=== PATIENT | female | born 1970 | race American Indian/Alaskan Native ===

== ENCOUNTER 2018-08-14 06:39 | Inpatient (IN) | payer BC, MEDICAID, SELFPAY ==
--- NOTE | 2018-08-14 07:11 | XRay Report ---
PROCEDURE: XR CHEST 1V AP TECHNIQUE: A portable upright view of the chest was obtained. HISTORY: Chest Pain COMPARISONS: None FINDINGS: The heart is mildly enlarged. The lungs are not overtly congested. There is scarring along the right lung base. A small right-sided effusion cannot be excluded. The surrounding bones and soft tissues ot herwise reveal a stent in the left upper arm area. IMPRESSION: Scarring in the right lung base. Small effusion cannot be excluded. This document is electronically signed by Lisandro Walters MD., August 14 2018 07:09:38 AM ET
[2018-08-14 07:13] LABS: Basophils # (Auto) 0.1 K/mm3 (0.0-0.1); Basophils % (Auto) 0.9 % (0.0-1.8); Eosinophils # (Auto) 0.2 K/mm3 (0.0-0.4); Eosinophils % (Auto) 2.4 % (0.0-4.3); Hematocrit 33.6 % (30.3-42.9); Lymphocytes # (Auto) 1.4 K/mm3 (1.2-5.4); Lymphocytes % (Auto) 16.5 % (13.4-35.0); Mean Corpuscular HGB Conc 33 % (30-34); Mean Corpuscular Volume 105 fl (79-97); Monocytes % (Auto) 12.2 % (0.0-7.3); Platelet Count 176 K/mm3 (140-440); Red Blood Count 3.19 M/mm3 (3.65-5.03); Red Cell Distribution Width 15.1 % (13.2-15.2)
[2018-08-14] MEDS ORDERED: BABY ASPIRIN PO ONE (07:28)
--- NOTE | 2018-08-14 07:28 | Emergency Department Report ---
ED General Adult HPI - General Chief complaint: Chest Pain Stated complaint: CHEST PAIN Time Seen by Provider: 08/14/18 07:03 Source: EMS Mode of arrival: Stretcher Limitations: No Limitations - History of Present Illness Initial comments: The patient presents to the emergency department with chief complaint of chest pain that started upon awakening this morning at 5 AM. The chest pain is located in the center of her chest without radiation. The patient is a dialysis patient and presented to dialysis this morning with a noticeable blood pressure was elevated with a systolic pressure began over 200 and a diastolic pressure of greater than 100. Patient states that she did not take her blood pressure medications this morning. Patient had one nitroglycerin with mild relief of chest pain. -: Sudden Location: chest Radiation: non-radiation Severity scale (0 -10): 10 Quality: other (Pressure) Improves with: medication (Nitro) Worsens with: none Associated Symptoms: denies other symptoms Treatments Prior to Arrival: none - Related Data Home Medications Medication Instructions Recorded Confirmed Last Taken Sevelamer HCl [Renagel] 800 mg PO TIDWM 03/23/16 03/26/16 03/23/16 06:00 hydrALAZINE [Apresoline TAB] 100 mg PO TID 03/23/16 03/26/16 03/23/16 06:00 oxyCODONE /ACETAMINOPHEN [Percocet 1 tab PO Q6HR PRN 03/23/16 03/26/16 Unknown 5/325 mg] Previous Rx's Medication Instructions Recorded Last Taken Type Carvedilol [Coreg] 25 mg PO BID #60 tablet 03/28/16 Unknown Rx Famotidine [Pepcid] 20 mg PO BID #20 tablet 03/28/16 Unknown Rx Prednisone [predniSONE 10 mg 10 mg PO .TAPER #1 tab.ds.pk 03/28/16 Unknown Rx (6-Day Pack, 21 Tabs)] Allergies Allergy/AdvReac Type Severity Reaction Status Date / Time lisinopril Allergy Angioedema Verified 03/26/16 20:43 ED Review of Systems ROS: Stated complaint: CHEST PAIN Other details as noted in HPI Constitutional: denies: chills, fever Eyes: denies: eye pain, eye discharge, vision change ENT: denies: ear pain, throat pain Respiratory: denies: cough, shortness of breath, wheezing Cardiovascular: chest pain. denies: palpitations Endocrine: no symptoms reported Gastrointestinal: denies: abdominal pain, nausea, diarrhea Genitourinary: denies: urgency, dysuria, discharge Musculoskeletal: denies: back pain, joint swelling, arthralgia Skin: denies: rash, lesions Neurological: denies: headache, weakness, paresthesias Psychiatric: denies: anxiety, depression Hematological/Lymphatic: denies: easy bleeding, easy bruising ED Past Medical Hx - Past Medical History Previous Medical History?: Yes Hx Hypertension: Yes Hx Congestive Heart Failure: Yes Hx Renal Disease: Yes (tts dialysis) Hx Kidney Stones: Yes Additional medical history: fibroids; kidney disease, migraine - Surgical History Past Surgical History?: Yes Hx Cholecystectomy: Yes Additional Surgical History: portion of right lung removed. shunt left upper arm, permacath right chest - Social History Smoking Status: Light Tobacco Smoker Substance Use Type: None - Medications Home Medications: Home Medications Medication Instructions Recorded Confirmed Last Taken Type Sevelamer HCl [Renagel] 800 mg PO TIDWM 03/23/16 03/26/16 03/23/16 06:00 History hydrALAZINE [Apresoline TAB] 100 mg PO TID 03/23/16 03/26/16 03/23/16 06:00 History oxyCODONE /ACETAMINOPHEN [Percocet 1 tab PO Q6HR PRN 03/23/16 03/26/16 Unknown History 5/325 mg] Carvedilol [Coreg] 25 mg PO BID #60 tablet 03/28/16 Unknown Rx Famotidine [Pepcid] 20 mg PO BID #20 tablet 03/28/16 Unknown Rx Prednisone [predniSONE 10 mg 10 mg PO .TAPER #1 tab.ds.pk 03/28/16 Unknown Rx (6-Day Pack, 21 Tabs)] ED Physical Exam - General Limitations: No Limitations General appearance: alert, in no apparent distress - Head Head exam: Present: atraumatic, normocephalic - Eye Eye exam: Present: normal appearance, PERRL, EOMI - ENT ENT exam: Present: mucous membranes moist - Neck Neck exam: Present: normal inspection - Respiratory Respiratory exam: Present: normal lung sounds bilaterally. Absent: respiratory distress, wheezes, rales, rhonchi, stridor - Cardiovascular Cardiovascular Exam: Present: regular rate, normal rhythm. Absent: systolic murmur, diastolic murmur, rubs, gallop - GI/Abdominal GI/Abdominal exam: Present: soft, normal bowel sounds. Absent: distended, tenderness - Extremities Exam Extremities exam: Present: normal inspection - Back Exam Back exam: Present: normal inspection - Neurological Exam Neurological exam: Present: alert, oriented X3, CN II-XII intact. Absent: motor sensory deficit - Psychiatric Psychiatric exam: Present: normal affect, normal mood - Skin Skin exam: Present: warm, dry, intact, normal color. Absent: rash ED Course Vital Signs 08/14/18 08/14/18 08/14/18 06:45 07:30 08:00 Temperature 98.4 F Pulse Rate 92 H 84 81 Respiratory 18 16 Rate Blood Pressure 205/109 196/122 191/120 O2 Sat by Pulse 98 99 100 Oximetry 08/14/18 08/14/18 08:02 08:36 Temperature Pulse Rate Respiratory 16 Rate Blood Pressure 194/116 O2 Sat by Pulse Oximetry ED Medical Decision Making - Lab Data Result diagrams: 08/14/18 07:03 08/14/18 07:03 - EKG Data -: EKG Interpreted by Al EKG shows normal: sinus rhythm Rate: normal - EKG Data Interpretation: LVH - Radiology Data Radiology results: report reviewed - Medical Decision Making Patient given IV hydralazine for her elevated blood pressure Bleeding factors were reviewed and the patient denies blood in stool, recent surgery,recent head bleed IV heparin initiated Critical Care Time: Yes Critical care time in (mins) excluding proc time.: 35 Critical care attestation.: If time is entered above; I have spent that time in minutes in the direct care of this critically ill patient, excluding procedure time. ED Disposition Clinical Impression: Chest pain, ESRD (end stage renal disease), Hypertensive urgency Disposition: OP ADMIT IP TO THIS HOSP Is pt being admited?: Yes Does the pt Need Aspirin: No Condition: Fair Instructions: Chest Pain (ED) Referrals: SAURAV HNASEN MD [Primary Care Provider] - 3-5 Days
[2018-08-14] MEDS ORDERED: NITROSTAT SL PRN (07:29)
[2018-08-14 07:33] LABS: Calcium 10.7 mg/dL (8.4-10.2)
[2018-08-14 07:40] LABS: INR 0.95 (0.87-1.13)
[2018-08-14 07:53] LABS: Alanine Aminotransferase 10 units/L (7-56); Albumin 3.8 g/dL (3.9-5)
[2018-08-14] MEDS ORDERED: HEPARIN 10,000 UNITS/10 ML IV ONE (08:22)
[2018-08-14] MEDS ORDERED: APRESOLINE IV ONE (08:23)
[2018-08-14 08:38] LABS: Chol/HDL Ratio 2.72 %
[2018-08-14 08:47] LABS: Hematocrit 32.4 % (30.3-42.9); Hemoglobin 10.9 gm/dl (10.1-14.3)
[2018-08-14 08:59] LABS: INR 0.96 (0.87-1.13)
[2018-08-14 09:00] LABS: Partial Thromboplastin Time 30.3 Sec. (24.2-36.6)
[2018-08-14] MEDS ORDERED: HEPARIN/ 0.45% NACL-25,000 UNIT/500 ML 25,000 UNIT/500 ML BAG IV SCH ×2 (09:00→09:30)
[2018-08-14 09:09] LABS: Bilirubin,Direct < 0.2 mg/dL (0-0.2)
--- NOTE | 2018-08-14 09:10 | History and Physical Report ---
History of Present Illness Date of examination: 08/14/18 Date of admission: 08/14/18 08:29 Chief complaint: Chest pains History of present illness: Patient is a 47 yo woman with a history of hypertension, AOCD of renal disease, angioedema from Lisinopril, ESRD on HD TTS, Secondary hyperparathyroidism, migraines, CHF and thyroid disease who presents to [facility] ED with chest pains. Patient has been experiencing chest pains off and on for 1-2 weeks associated with constant nonproductive cough. However, she woke up with severe constant worsening nonradiating substernal chest pains around 5am this morning. She went to hemodialysis center and her bp was so high that they sent her to ED. Patient states that she did not take her blood pressure medications this morning. Patient had one nitroglycerin en route to the ED with mild relief of chest pains. Currently, she is chest pains free. The chest pains is aggravated by coughing. She denies fevers, chills. She c/o abd pains associated with constant coughing but denies constipation, diarrhea. She did have dry heaves with excessive coughing. She reports high stress at home and not taking her thyroid medication as instructed. PMH: as HPI PSH: right lung partial removed, s/p permacath, tubal ligation, lap levon, LUE AV fistula, 4 kids SH: ex tob smoker, quit 2014, no etoh, no illegal drugs except marijuana FH: hypertension, maternal aunt had esrd, hypertension, dm prior to her in 2017, mom in a drive-by shooting, she doesn't know father's family history ROS: Constitutional: denies: fever ENT: denies: throat or neck pain Respiratory: + cough, shortness of breath Cardiovascular: +chest pain Endocrine: denies unexplained weight loss or gain Gastrointestinal: + abdominal pain, nausea Genitourinary: denies: dysuria Rectal: denies no incontinence, no bleeding, no itching, no discharge Musculoskeletal: denies swelling, myaglia, muscle weakness Skin: denies: rash Neurological: +frontal mild headache Hematological/Lymphatic: denies: easy bleeding or easy bruising Allergic/Immunologic: no urticaria, no allergic rhinitis, no anaphylaxis Psych: denies sadness or hopelessness, SI/HI +stress Medications and Allergies Allergies Allergy/AdvReac Type Severity Reaction Status Date / Time lisinopril Allergy Angioedema Verified 03/26/16 20:43 Home Medications Medication Instructions Recorded Confirmed Last Taken Type Sevelamer HCl [Renagel] 800 mg PO TIDWM 03/23/16 03/26/16 03/23/16 06:00 History hydrALAZINE [Apresoline TAB] 100 mg PO TID 03/23/16 03/26/16 03/23/16 06:00 History oxyCODONE /ACETAMINOPHEN [Percocet 1 tab PO Q6HR PRN 03/23/16 03/26/16 Unknown History 5/325 mg] Carvedilol [Coreg] 25 mg PO BID #60 tablet 03/28/16 Unknown Rx Famotidine [Pepcid] 20 mg PO BID #20 tablet 03/28/16 Unknown Rx Prednisone [predniSONE 10 mg 10 mg PO .TAPER #1 tab.ds.pk 03/28/16 Unknown Rx (6-Day Pack, 21 Tabs)] Active Meds: Active Medications Heparin Sodium/Sodium Chloride (Heparin/ 0.45% Nacl-25,000 Unit/500 Ml) 25,000 unit in 500 mls @ 17.01 mls/hr IV TITRATE TIMUR; Protocol Last Admin: 08/14/18 08:54 Dose: 15 units/kg/hr, 17.01 mls/hr Documented by: Nitroglycerin (Nitrostat) 0.4 mg SL .Q5MIN PRN PRN Reason: Chest Pain Exam - Physical Exam Narrative exam: GEN: thin frail, WDWN, NAD, Awake, Alert, Orientated x 3 HEENT: NCAT, EOMI, PERRL, OP Clear NECK: supple, no adenopathy, + thyromegaly, no JVD CVS/HEART: RRR, normal S1S2, pulses present bilaterally CHEST/LUNGS: CTA B, Symmetrical chest expansion, good air entry bilaterally, reproducible chest wall substernal tenderness (grimaces with pains as she says palpation doesn't hurt) GI/Abdomen: soft, NTND, good bowel sounds, no guarding or rebound /Bladder: no suprapubic tenderness, no CVA or paraspinal tenderness EXT/Skin: no c/c/e, no obvious rash MSK: FROM x 4 Neuro: CN 2-12 grossly intact, no new focal deficits Psych: calm - Constitutional Vitals: Temp Pulse Resp BP Pulse Ox 98.4 F 81 16 194/116 100 08/14/18 06:45 08/14/18 08:00 08/14/18 08:02 08/14/18 08:36 08/14/18 08:00 Results - Labs CBC & Chem 7: 08/14/18 08:27 08/14/18 07:03 Labs: Abnormal lab results 08/14/18 08/14/18 08/14/18 Range/Units 07:03 07:03 07:03 RBC 3.19 L (3.65-5.03) M/mm3 MCV 105 H (79-97) fl MCH 35 H (28-32) pg [place] % (Auto) 12.2 H (0.0-7.3) % [place] # 1.0 H (0.0-0.8) K/mm3 Chloride 96.6 L (98-107) mmol/L BUN 57 H (7-17) mg/dL Creatinine 11.3 H (0.7-1.2) mg/dL Calcium 10.7 H (8.4-10.2) mg/dL Phosphorus 6.00 H (2.5-4.5) mg/dL Magnesium 2.60 H (1.7-2.3) mg/dL Troponin T 0.387 H* (0.00-0.029) ng/mL Albumin 3.8 L (3.9-5) g/dL Assessment and Plan Patient is a 47 yo woman with a history of hypertension, AOCD of renal disease, angioedema from Lisinopril, ESRD on HD TTS, Secondary hyperparathyroidism, migraines, diastolic CHF and ?thyroid disease who presents to [facility] ED with chest pains. Patient has been experiencing chest pains off and on for 1-2 weeks associated with constant nonproductive cough. However, she woke up this morning with severe constant worsening nonradiating substernal chest pains around 5am. She went to hemodialysis center and her bp was so high that they sent her to ED (>200s/100s). She did not receive HD prior to coming. Patient states that she did not take her blood pressure medications this morning. Patient had one nitroglycerin en route to the ED with mild relief of chest pains. Currently, she is chest pains free. The chest pains is aggravated by coughing. She denies fevers, chills. She c/o abd pains associated with constant coughing but denies constipation, diarrhea. She did have dry heaves with excessive coughing. She reports high stress at home and not taking her thyroid medication as instructed. * pCXR Impression: Scarring in the right lung base, small effusion (right base) cannot be excluded -Chest pains, appears atypical, msk/costochondritis but elevated troponins: Consulted Cardiology, repeat Aiyana, ekg, IV heparin drip started due to elevated troponin, patient has chronically elevated troponin but not this high, EKG reviewed -Malignant hypertension with Urgency, did not respond to multiple iv hydralazine, needing admission: need HD, consulted Nephrology -ESRD on HD: missed HD today, consulted Renal -Goiter, normal TSH: check free T4, total T3 -Cough with small pleural effusion: possible increase ultrafiltration with HD, treat with anti-tussive -History of Diastolic heart failure, last ECHO in 2014, EF 70%: repeat 2D ECHO -DVT prophylaxis: sq heparin HOME meds reconciliation not updated
[2018-08-14] MEDS ORDERED: NORMODYNE IV PRN (09:27)
[2018-08-14] MEDS ORDERED: APRESOLINE IV PRN (09:27)
[2018-08-14] MEDS ORDERED: ZOFRAN IV PRN (09:27)
[2018-08-14] MEDS ORDERED: ROBITUSSIN AC PO PRN (09:28)
[2018-08-14] MEDS ORDERED: COREG PO SCH (10:00)
[2018-08-14] MEDS ORDERED: COREG ONE (11:48)
--- NOTE | 2018-08-14 11:53 | Consultation ---
History of Present Illness Consult date: 08/14/18 Consult reason: chest pain, elevated troponin History of present illness: The patient is a 47-year-old woman with end-stage renal disease on hemodialysis, chronic hypertension. In 2014, she was described with fluid overload and heart failure with preserved ejection fraction. It's unclear if the fluid overload was associated with missed dialysis or hypertensive urgency at the time. She underwent a cardiac workup by the time, echocardiogram report of the left ventricle ejection fraction 70-75%, and thallium stress test was reported negative. Otherwise there have been no additional cardiac issues, she has not maintained a regular cardiac follow-up. She is admitted at this time with chest pain. She describes a sternal chest pain which is nonexertional, and his reproducible with palpation over the sternum, no associated shortness of breath, no palpitations and no lower extremity edema. She reports that this pain has been ongoing for a "long time". EKG is in normal sinus rhythm with left ventricular hypertrophy and nonspecific T-wave changes, no acute ischemia or infarction on the ECG. The troponin levels that were measured were elevated, at 0.3, serial levels were flat Past History Past Medical History: heart failure, hypertension, renal failure Medications and Allergies Allergies Allergy/AdvReac Type Severity Reaction Status Date / Time lisinopril Allergy Angioedema Verified 03/26/16 20:43 Home Medications Medication Instructions Recorded Confirmed Last Taken Type NIFEdipine XL [Procardia Xl] 60 mg PO Q12HR 08/14/18 08/14/18 08/13/18 History Omeprazole 40 mg PO DAILY 08/14/18 08/14/18 08/13/18 History Ondansetron [Zofran Odt] 4 mg PO Q8HR 08/14/18 08/14/18 08/13/18 History Active Meds: Active Medications Acetaminophen (Tylenol) 650 mg PO Q6H PRN PRN Reason: Non Cardiac Pain or Temp>100.5 Aspirin (Baby Aspirin) 81 mg PO QDAY TIMUR Benzonatate (Tessalon Perles) 100 mg PO Q8HR TIMUR Carvedilol (Coreg) 6.25 mg PO BID TIMUR Hydralazine HCl (Apresoline) 10 mg IV Q4HR PRN PRN Reason: HTN SBP>=180 NIKKI>=110 Heparin Sodium/Sodium Chloride (Heparin/ 0.45% Nacl-25,000 Unit/500 Ml) 25,000 unit in 500 mls @ 16 mls/hr IV TITRATE TIMUR; Protocol Last Admin: 08/14/18 11:09 Dose: 800 units/hr, 16 mls/hr Documented by: Labetalol HCl (Normodyne) 10 mg IV Q4H PRN PRN Reason: HTN SBP>=180 Nifedipine (Procardia Xl) 60 mg PO Q12HR TIMUR Nitroglycerin (Nitrostat) 0.4 mg SL .Q5MIN PRN PRN Reason: Chest Pain Ondansetron HCl (Zofran) 4 mg IV Q4H PRN PRN Reason: Nausea And Vomiting Pseudoephedrine/Acetam/Chlorphenir (Robitussin Ac) 15 ml PO Q4H PRN PRN Reason: Cough Review of Systems Cardiovascular: chest pain, no orthopnea, no palpitations, no rapid/irregular heart beat, no edema, no syncope, no lightheadedness, no shortness of breath Physical Examination Vital Signs Temp Pulse BP Pulse Ox 98.4 F 92 H 205/109 98 08/14/18 06:45 08/14/18 06:45 08/14/18 06:45 08/14/18 06:45 General appearance: no acute distress HEENT: Positive: PERRL Neck: Positive: neck supple Cardiac: Positive: Reg Rate and Rhythm Lungs: Positive: Decreased Breath Sounds Neuro: Positive: Grossly Intact Abdomen: Positive: Soft Female genitourinary: deferred Skin: Positive: Clear Extremities: Absent: edema Results 08/14/18 08:27 08/14/18 07:03 Cardiac Enzymes 08/14/18 Range/Units 07:03 AST 17 (5-40) units/L Coagulation 08/14/18 08/14/18 Range/Units 07:20 08:27 PT 13.2 13.4 (12.2-14.9) Sec. INR 0.95 0.96 (0.87-1.13) APTT 30.0 30.3 (24.2-36.6) Sec. Lipids 08/14/18 Range/Units 07:03 Triglycerides 75 (2-149) mg/dL Cholesterol 158 (50-199) mg/dL HDL Cholesterol 58 (40-59) mg/dL Cholesterol/HDL Ratio 2.72 % CBC 08/14/18 08/14/18 Range/Units 07:03 08:27 WBC 8.4 (4.5-11.0) K/mm3 RBC 3.19 L (3.65-5.03) M/mm3 Hgb 11.0 10.9 (10.1-14.3) gm/dl Hct 33.6 32.4 (30.3-42.9) % Plt Count 176 161 (140-440) K/mm3 Lymph # 1.4 (1.2-5.4) K/mm3 [place] # 1.0 H (0.0-0.8) K/mm3 Eos # 0.2 (0.0-0.4) K/mm3 Baso # 0.1 (0.0-0.1) K/mm3 Comprehensive Metabolic Panel 08/14/18 08/14/18 Range/Units 07:03 07:03 Sodium 137 (137-145) mmol/L Potassium 4.5 (3.6-5.0) mmol/L Chloride 96.6 L (98-107) mmol/L Carbon Dioxide 27 (22-30) mmol/L BUN 57 H (7-17) mg/dL Creatinine 11.3 H (0.7-1.2) mg/dL Glucose 89 (65-100) mg/dL Calcium 10.7 H (8.4-10.2) mg/dL Direct Bilirubin < 0.2 (0-0.2) mg/dL Indirect Bilirubin 0.1 mg/dL AST 17 (5-40) units/L ALT 10 (7-56) units/L Alkaline Phosphatase 70 (35-129) units/L Total Protein 7.0 (6.3-8.2) g/dL Albumin 3.8 L (3.9-5) g/dL EKG interpretations - Telemetry EKG Rhythm: Sinus Rhythm Assessment and Plan - Patient Problems (1) Chest pain Current Visit: Yes Status: Acute Plan to address problem: Chest pain is atypical, appears likely musculoskeletal. The isolated troponin elevation may likely be a nonspecific finding, elevation due to chronic renal disease. We'll get an echocardiogram for left ventricular function assessment, and consider a pre-discharge Persantine thallium stress test.
[2018-08-14] MEDS: PROCARDIA XL PO SCH ×2 (12:07→21:11)
[2018-08-14] MEDS ORDERED: APRESOLINE ONE (13:00)
[2018-08-14] MEDS ORDERED: NORMODYNE IV ONE (13:19)
[2018-08-14] MEDS ORDERED: CATAPRES PO PRN (13:23)
[2018-08-14] MEDS: IMDUR PO SCH (13:49)
[2018-08-14] MEDS ORDERED: NACL 0.9% 100 ML IV PRN (13:53)
--- NOTE | 2018-08-14 13:55 | Consultation ---
History of Present Illness - History of Present Illness Thank you for the consultation ! Patient was evaluated today My assessment and plan are as follows; End-stage renal disease: Patient is currently admitted for hemodialysis noted to have mild fluid overload and chest pain status post cardiology evaluation We'll place her on hemodialysis Monday, , Monday malfunctioning fistula, discussed with Dr. Resendiz to see her We'll order for hemodialysis treatment. Follwo up CXR , follw cardiology evaluation Hypertension: Appears to be accelerated with mild tachycardia,? Compliance, adjust blood pressure medication and follow Chronic long-standing hypertension. She is 2015 Admitted with chest pain which was nonexertional in nature and was reproducible. Status post, cardiology evaluation Patient is allergic to ROHIT inhibitor, which gives her angioedema and hence should be avoided As her dialysis labs are concerned, her hemoglobin is satisfactory at 10.9, potassium is 4.5, BUN of 57 and creatinine is 11. Patient was adequately counseled and educated regarding multiple renal related issues. overall prognosis remains guarded at this time All renal related questions were answered and simple [place]ian pertinent lab studies as well as imaging results were also discussed with patient We will continue to follow and make recommendations from renal standpoint. Thank you for the consultation Author: Karlos Anderson M.D. [facility], [address] [place] [address] Tel; [phone] Source of information: From patient History of present illness Patient is a 47-year-old -Syrian female who is currently on maintenance hemodialysis and does go to [facility] patient has been admitted here for workup chest pain. She is currently being followed by cardiology, workup is in progress she is also in need for renal replacement therapy today, patient stated that she has been having issues with her left arm access and was supposed to see a vascular surgeon at [place] were due to distance involved but is difficult for her to go there and patient is requesting to have a surgeon see her while she is here in the hospital. Often time patient will have significant pain and pain during dialysis with her current left arm access I also came to see an marketing sales supervisor and hemodialysis. Past medical history significant for End-stage renal disease Anemia and end-stage renal disease Secondary hyperparathyroidism Hypertension Current allergies: Lisinopril Home medication present medication: Reviewed Family history: Reviewed Social history: Reviewed Review of systems positive for chest pain Painful access needs evaluation All other review of system negative Physical examination Vitals: Reviewed General: No acute distress HEENT: Oral mucosa moist no pallor or icterus Neck: Supple without any JVD thyromegaly or nodular mass Chest: Clear to auscultation Heart: Regular rate and rhythm S1-S2 heard no S3-S4 fistula: Appears to be tense and tender Abdomen: Soft nontender, bowel sounds present no renal bruit no suprapubic masses no CVA tenderness noted Extremity: Minimal edema dry skin no peripheral cyanosis Endocrine: Thyroid not enlarged Psychiatric: No agitation and aggression noted Musculoskeletal: No joint effusion noted Labs and x-rays: Reviewed from this admission Past History Past Medical History: heart failure, hypertension, renal failure Medications and Allergies Allergies Allergy/AdvReac Type Severity Reaction Status Date / Time lisinopril Allergy Angioedema Verified 03/26/16 20:43 Home Medications Medication Instructions Recorded Confirmed Last Taken Type NIFEdipine XL [Procardia Xl] 60 mg PO Q12HR 08/14/18 08/14/18 08/13/18 History Omeprazole 40 mg PO DAILY 08/14/18 08/14/18 08/13/18 History Ondansetron [Zofran Odt] 4 mg PO Q8HR 08/14/18 08/14/18 08/13/18 History Active Meds: Active Medications Acetaminophen (Tylenol) 650 mg PO Q6H PRN PRN Reason: Non Cardiac Pain or Temp>100.5 Aspirin (Baby Aspirin) 81 mg PO QDAY TIMUR Benzonatate (Tessalon Perles) 100 mg PO Q8HR [facility] Carvedilol (Coreg) 6.25 mg PO BID [facility] Last Admin: 08/14/18 12:06 Dose: 6.25 mg Documented by: Clonidine HCl (Catapres) 0.1 mg PO Q4H PRN PRN Reason: Blood Pressure Hydralazine HCl (Apresoline) 10 mg IV Q4HR PRN PRN Reason: HTN SBP>=180 NIKKI>=110 Last Admin: 08/14/18 12:59 Dose: 10 mg Documented by: Heparin Sodium/Sodium Chloride (Heparin/ 0.45% Nacl-25,000 Unit/500 Ml) 25,000 unit in 500 mls @ 16 mls/hr IV TITRATE TIMUR; Protocol Last Admin: 08/14/18 11:09 Dose: 800 units/hr, 16 mls/hr Documented by: Sodium Chloride (Nacl 0.9%) 100 mls @ 999 mls/hr IV NIKKI PRN PRN Reason: Hypotension Isosorbide Mononitrate (Imdur) 30 mg PO QDAY [facility] Last Admin: 08/14/18 13:49 Dose: 30 mg Documented by: Labetalol HCl (Normodyne) 10 mg IV Q4H PRN PRN Reason: HTN SBP>=180 Nifedipine (Procardia Xl) 60 mg PO Q12HR [facility] Last Admin: 08/14/18 12:07 Dose: 60 mg Documented by: Nitroglycerin (Nitrostat) 0.4 mg SL .Q5MIN PRN PRN Reason: Chest Pain Ondansetron HCl (Zofran) 4 mg IV Q4H PRN PRN Reason: Nausea And Vomiting Pseudoephedrine/Acetam/Chlorphenir (Robitussin Ac) 15 ml PO Q4H PRN PRN Reason: Cough Exam - Vital Signs Vital signs: Vital Signs Temp Pulse BP Pulse Ox 98.4 F 92 H 205/109 98 08/14/18 06:45 08/14/18 06:45 08/14/18 06:45 08/14/18 06:45 Results - Lab Results 08/14/18 08:27 08/14/18 07:03 Most recent lab results Calcium 10.7 mg/dL (8.4-10.2) H 08/14/18 07:03 Phosphorus 6.00 mg/dL (2.5-4.5) H 08/14/18 07:03 Magnesium 2.60 mg/dL (1.7-2.3) H 08/14/18 07:03
[2018-08-14 14:28] LABS: Creatine Kinase MB 38.2 ng/mL (0.0-4.0)
--- NOTE | 2018-08-14 15:35 | Consultation ---
History of Present Illness - Reason for Consult Consult date: 08/14/18 dialysis access malfunction - History of Present Illness Patient with a history of end-stage renal disease on hemodialysis through a left upper arm AV fistula. The patient has previously seen other vascular doctors and requests a new one. Currently receiving dialysis through her fistula however, her pressures are low with aneurysmal dilatation of the fistula. Patient is unable to advance her flow rate. Past History Past Medical History: dialysis, ESRD, heart failure, hypertension, renal failure Past Surgical History: Other (left upper arm AV fistula) Social history: no significant social history Family history: no significant family history Medications and Allergies Allergies Allergy/AdvReac Type Severity Reaction Status Date / Time lisinopril Allergy Angioedema Verified 03/26/16 20:43 Home Medications Medication Instructions Recorded Confirmed Last Taken Type NIFEdipine XL [Procardia Xl] 60 mg PO Q12HR 08/14/18 08/14/18 08/13/18 History Omeprazole 40 mg PO DAILY 08/14/18 08/14/18 08/13/18 History Ondansetron [Zofran Odt] 4 mg PO Q8HR 08/14/18 08/14/18 08/13/18 History Active Meds: Active Medications Acetaminophen (Tylenol) 650 mg PO Q6H PRN PRN Reason: Non Cardiac Pain or Temp>100.5 Aspirin (Baby Aspirin) 81 mg PO QDAY TIMUR Benzonatate (Tessalon Perles) 100 mg PO Q8HR TIMUR Carvedilol (Coreg) 6.25 mg PO BID [facility] Last Admin: 08/14/18 12:06 Dose: 6.25 mg Documented by: Clonidine HCl (Catapres) 0.1 mg PO Q4H PRN PRN Reason: Blood Pressure Hydralazine HCl (Apresoline) 10 mg IV Q4HR PRN PRN Reason: HTN SBP>=180 NIKKI>=110 Last Admin: 08/14/18 12:59 Dose: 10 mg Documented by: Heparin Sodium/Sodium Chloride (Heparin/ 0.45% Nacl-25,000 Unit/500 Ml) 25,000 unit in 500 mls @ 16 mls/hr IV TITRATE TIMUR; Protocol Last Admin: 08/14/18 11:09 Dose: 800 units/hr, 16 mls/hr Documented by: Sodium Chloride (Nacl 0.9%) 100 mls @ 999 mls/hr IV NIKKI PRN PRN Reason: Hypotension Isosorbide Mononitrate (Imdur) 30 mg PO QDAY [facility] Last Admin: 08/14/18 13:49 Dose: 30 mg Documented by: Labetalol HCl (Normodyne) 10 mg IV Q4H PRN PRN Reason: HTN SBP>=180 Nifedipine (Procardia Xl) 60 mg PO Q12HR [facility] Last Admin: 08/14/18 12:07 Dose: 60 mg Documented by: Nitroglycerin (Nitrostat) 0.4 mg SL .Q5MIN PRN PRN Reason: Chest Pain Ondansetron HCl (Zofran) 4 mg IV Q4H PRN PRN Reason: Nausea And Vomiting Pseudoephedrine/Acetam/Chlorphenir (Robitussin Ac) 15 ml PO Q4H PRN PRN Reason: Cough Review of Systems All systems: negative Exam - Constitutional Vitals: Temp Pulse Resp BP Pulse Ox 98.4 F 107 H 16 177/113 97 08/14/18 06:45 08/14/18 13:49 08/14/18 13:04 08/14/18 13:49 08/14/18 13:04 General appearance: Present: no acute distress - EENT Eyes: Present: EOM intact ENT: hearing intact - Neck Neck: Present: supple, normal ROM - Respiratory Respiratory effort: normal - Extremities Extremities: abnormal - Abdominal General gastrointestinal: Present: deferred Female genitourinary: Present: deferred - Rectal Rectal Exam: deferred - Psychiatric Psychiatric: appropriate mood/affect, cooperative Results - Labs CBC & Chem 7: 08/14/18 08:27 08/14/18 07:03 Labs: Abnormal lab results 08/14/18 08/14/18 08/14/18 Range/Units 07:03 07:03 07:03 RBC 3.19 L (3.65-5.03) M/mm3 MCV 105 H (79-97) fl MCH 35 H (28-32) pg [place] % (Auto) 12.2 H (0.0-7.3) % [place] # 1.0 H (0.0-0.8) K/mm3 Chloride 96.6 L (98-107) mmol/L BUN 57 H (7-17) mg/dL Creatinine 11.3 H (0.7-1.2) mg/dL Calcium 10.7 H (8.4-10.2) mg/dL Phosphorus 6.00 H (2.5-4.5) mg/dL Magnesium 2.60 H (1.7-2.3) mg/dL Total Creatine Kinase (30-135) units/L CK-MB (CK-2) (0.0-4.0) ng/mL CK-MB (CK-2) Rel Index (0-4) Troponin T 0.387 H* (0.00-0.029) ng/mL NT-Pro-B Natriuret Pep (0-450) pg/mL Albumin 3.8 L (3.9-5) g/dL 08/14/18 08/14/18 08/14/18 Range/Units 07:03 09:57 13:28 RBC (3.65-5.03) M/mm3 MCV (79-97) fl MCH (28-32) pg [place] % (Auto) (0.0-7.3) % [place] # (0.0-0.8) K/mm3 Chloride (98-107) mmol/L BUN (7-17) mg/dL Creatinine (0.7-1.2) mg/dL Calcium (8.4-10.2) mg/dL Phosphorus (2.5-4.5) mg/dL Magnesium (1.7-2.3) mg/dL Total Creatine Kinase 336 H (30-135) units/L CK-MB (CK-2) 38.2 H (0.0-4.0) ng/mL CK-MB (CK-2) Rel Index 11.3 H (0-4) Troponin T 0.496 H* D 1.570 H* D (0.00-0.029) ng/mL NT-Pro-B Natriuret Pep > 18434 H (0-450) pg/mL Albumin (3.9-5) g/dL Assessment and Plan Patient will be need to be scheduled for a fistulogram and angioplasty of her left upper arm AV fistula. This will be scheduled for tomorrow morning. Nothing to eat or drink after midnight.
[2018-08-14 16:13] LABS: Hepatitis C Virus Antibody Non-Reactive (NonReactive)
[2018-08-14] MEDS: TYLENOL PO PRN (17:45)
[2018-08-14] MEDS: LOPRESSOR PO SCH (21:11)
[2018-08-14] MEDS: TESSALON PERLES PO SCH (21:12)
[2018-08-14 21:36] LABS: Creatine Kinase MB 18.8 ng/mL (0.0-4.0)
[2018-08-15] MEDS: TYLENOL PO PRN
[2018-08-15] MEDS: LOPRESSOR PO SCH ×3 (00:01→11:48)
[2018-08-15] MEDS: TESSALON PERLES PO SCH ×4 (06:01→21:03)
[2018-08-15] MEDS ORDERED: SUBLIMAZE ONE (09:14)
[2018-08-15] MEDS ORDERED: VERSED ONE (09:14)
[2018-08-15] MEDS ORDERED: NACL 0.9% 250ML 250 ML ONE (09:15)
[2018-08-15] MEDS ORDERED: HEPARIN 10,000 UNITS/10 ML ONE (09:15)
[2018-08-15] MEDS ORDERED: HEPARIN/NS 5000 UNIT/500ML(CATH LAB) 1,000 ML IR ONE (09:15)
[2018-08-15] MEDS ORDERED: XYLOCAINE 2% INFILTRATI ONE (09:15)
--- NOTE | 2018-08-15 09:38 | Progress Note ---
Subjective Interval history: Patient was seen today for follow-up on multiple renal related issues Events of this hospitalization noted Tolerated hemodialysis yesterday Pending fistulogram currently on hold due to non-ST elevation ME rising troponin Patient denies having any chest pain pressure or shortness of breath Vitals labs intake output medications were reviewed Social history: Reviewed Allergies: Reviewed Family history: Reviewed Physical examination HEENT: Oral mucosa moist no pallor or icterus Neck: Supple no JVD Chest: Clear to auscultation anteriorly CVS: Regular rate and rhythm S1 and S2 heard Abdomen: Soft nontender no suprapubic masses no organomegaly appreciable Extremity: Dry skin less than 1+ peripheral edema Musculoskeletal: No joint effusion noted in knees and ankle Neurological: Alert awake Dermatology: No petechial rashes Psychiatry: No evidence of any agitation and aggression noted Assessment and plan ESRD: Continue with hemodialysis treatment Monday and Monday, singer tolerating dialysis treatment otherwise well Non-ST elevation ME further workup per cardiology pending cardiac catheterizatio n, on and has been rising currently 1.980 Hypertension and volume: To monitor and follow goal systolic blood pressure under 140 Malfunctioning AV fistula will need fistulogram at a later date after cardiac workup is completed Patient has been having issues with pain during dialysis fistula use, difficulty getting stuck with a needle very painful secondary hyperparathyroidism: PTH is 139, phosphorus 5.70 calcium 10.7, will start her on alternagel Rate around 89 with blood pressure 154/98 Patient was adequately counseled and educated regarding multiple renal related issues Pertinent lab findings were discussed with patient, patient does exhibit good understanding of renal issues We'll continue to follow and make recommendation from renal standpoint Objective - Vital Signs Vital signs: Vital Signs - 12hr 08/14/18 08/15/18 08/15/18 23:57 04:43 06:01 Temperature 98.3 F 98.3 F Pulse Rate 86 89 89 Respiratory 13 14 Rate Blood Pressure 147/92 154/98 154/98 O2 Sat by Pulse 99 98 Oximetry - Lab 08/14/18 08:27 08/14/18 07:03 Most recent lab results Calcium 10.7 mg/dL (8.4-10.2) H 08/14/18 07:03 Phosphorus 5.70 mg/dL (2.5-4.5) H 08/14/18 15:10 Magnesium 2.60 mg/dL (1.7-2.3) H 08/14/18 07:03 Medications & Allergies - Medications Allergies/Adverse Reactions: Allergies lisinopril Allergy (Verified 03/26/16 20:43) Angioedema Home Medications: Home Medications Medication Instructions Recorded Confirmed Last Taken Type NIFEdipine XL [Procardia Xl] 60 mg PO Q12HR 08/14/18 08/14/18 08/13/18 History Omeprazole 40 mg PO DAILY 08/14/18 08/14/18 08/13/18 History Ondansetron [Zofran Odt] 4 mg PO Q8HR 08/14/18 08/14/18 08/13/18 History Active Medications: Generic Name Dose Route Start Last Admin Trade Name Freq PRN Reason Stop Dose Admin Acetaminophen 650 mg 08/14/18 09:27 08/15/18 00:00 Tylenol PO 650 mg Q6H PRN Administration Non Cardiac Pain or Temp>100.5 Aspirin 81 mg 08/15/18 10:00 Baby Aspirin PO QDAY [facility] Atorvastatin Calcium 80 mg 08/14/18 22:00 08/14/18 21:10 Lipitor PO 80 mg QHS [facility] Administration Benzonatate 100 mg 08/14/18 14:00 08/15/18 08:52 Tessalon Perles PO Not Given Q8HR [facility] Hydralazine HCl 10 mg 08/14/18 09:27 08/14/18 12:59 Apresoline IV 10 mg Q4HR PRN Administration HTN SBP>=180 NIKKI>=110 Heparin Sodium/Sodium Chloride 25,000 unit in 500 mls @ 16 mls/hr 08/14/18 09:30 08/15/18 07:10 Heparin/ 0.45% Nacl-25,000 Unit/500 Ml IV 900 units/hr TITRATE TIMUR 18 mls/hr Titration Protocol 800 UNITS/HR Sodium Chloride 100 mls @ 999 mls/hr 08/14/18 13:53 Nacl 0.9% IV NIKKI PRN Hypotension Isosorbide Mononitrate 30 mg 08/14/18 14:00 08/14/18 13:49 Imdur PO 30 mg QDAY [facility] Administration Labetalol HCl 10 mg 08/14/18 09:27 Normodyne IV Q4H PRN HTN SBP>=180 Metoprolol Tartrate 25 mg 08/14/18 20:00 08/15/18 06:01 Lopressor PO 25 mg Q6HR TIMUR Administration Nifedipine 60 mg 08/14/18 10:00 08/14/18 21:11 Procardia Xl PO 60 mg Q12HR TIMUR Administration Nitroglycerin 0.4 mg 08/14/18 07:29 Nitrostat SL .Q5MIN PRN Chest Pain Ondansetron HCl 4 mg 08/14/18 09:27 Zofran IV Q4H PRN Nausea And Vomiting Pseudoephedrine/Acetam/Chlorphenir 15 ml 08/14/18 09:28 Robitussin Ac PO Q4H PRN Cough
--- NOTE | 2018-08-15 10:13 | Progress Note ---
Assessment and Plan Chest pain NSTEMI ESRD on dialysis Chronic hypertension For cardiac cath today for further ischemic cardiac evaluation. Echocardiogram for LVEF assessment. Subjective Date of service: 08/15/18 Interval history: Cardiac enzymes trended upwards overnight. Patient will go for a cardiac cath today. Objective Vital Signs Temp Pulse Resp BP BP Pulse Ox 08/15/18 06:01 89 154/98 08/15/18 04:43 98.3 F 89 14 154/98 98 08/14/18 23:57 98.3 F 86 13 147/92 99 08/14/18 21:11 105 H 159/97 08/14/18 20:26 98.4 F 105 H 18 159/97 98 08/14/18 18:57 103 H 08/14/18 18:45 98.7 F 98 H 18 157/102 08/14/18 18:10 101 H 163/109 08/14/18 18:00 106 H 166/102 08/14/18 17:45 106 H 18 162/118 08/14/18 17:38 106 H 08/14/18 17:30 107 H 158/114 08/14/18 17:15 105 H 159/109 08/14/18 17:00 106 H 162/121 08/14/18 16:45 104 H 169/116 08/14/18 16:30 101 H 178/114 08/14/18 16:15 97 H 170/102 08/14/18 16:00 96 H 171/109 08/14/18 15:45 99 H 166/110 08/14/18 15:30 100 H 168/109 08/14/18 15:15 101 H 180/115 08/14/18 15:10 98 H 175/111 08/14/18 14:55 98.2 F 101 H 18 175/106 08/14/18 13:49 107 H 177/113 08/14/18 13:21 111 H 21 185/113 08/14/18 13:13 95 H 180/110 08/14/18 13:11 106 H 16 186/109 08/14/18 13:04 88 16 174/110 97 08/14/18 13:00 94 H 14 197/130 08/14/18 12:59 182/116 08/14/18 12:30 96 H 17 182/116 08/14/18 12:06 90 188/118 08/14/18 12:00 89 17 183/116 08/14/18 11:30 86 19 191/116 08/14/18 11:00 99 H 28 H 189/112 08/14/18 10:30 97 H 11 L 187/120 - Physical Examination General: No Apparent Distress HEENT: Positive: PERRL Neck: Positive: trachea midline Cardiac: Positive: Reg Rate and Rhythm Lungs: Positive: Decreased Breath Sounds Neuro: Positive: Grossly Intact Extremities: Absent: edema - Labs and Meds Cardiac Enzymes 08/14/18 08/14/18 Range/Units 13:28 21:00 CK-MB (CK-2) 38.2 H 18.8 H (0.0-4.0) ng/mL
[2018-08-15] MEDS ORDERED: APRESOLINE ONE (10:16)
[2018-08-15] MEDS ORDERED: NORMODYNE IV ONE (10:23)
[2018-08-15] MEDS: BABY ASPIRIN PO SCH (11:48)
[2018-08-15] MEDS: MORPHINE IV PRN ×3 (11:48→21:04)
[2018-08-15] MEDS: IMDUR PO SCH (11:49)
[2018-08-15] MEDS: PROCARDIA XL PO SCH ×2 (11:49→21:03)
[2018-08-15] MEDS ORDERED: AFLURIA QUAD 2018-2019 SYRINGE IM ONE (12:00)
--- NOTE | 2018-08-15 13:26 | Cardiac Catherization Report ---
LEFT HEART CATHETERIZATION INDICATION FOR PROCEDURE: Non-ST elevation myocardial infarction. ORDERING PHYSICIAN: Arnulfo Varner MD PROCEDURES PERFORMED: 1. Selective left and right coronary angiography. 2. Left ventriculography. DESCRIPTION OF PROCEDURE: After obtaining the consent, the patient was draped using sterile technique. A 2% lidocaine was injected into the right groin. Using micropuncture technique, a 5-Bolivian vascular sheath was inserted into the right femoral artery. A 5-B[place]iv[place] JL4 catheter was used to selectively engage left coronary artery. A 5-Bolivian JR4 catheter was used to selectively engage the right coronary artery. A 5-[place] JR4 catheter was used to hand inject the left ventriculogram. No complications occurred during the procedure. Hemostasis was achieved at the end of the procedure using manual pressure. SPECIMEN REMOVED: None. ESTIMATED BLOOD LOSS: Minimal. Total sedation administered, 1 mg of IV Versed and 25 mcg of IV fentanyl. Physician and patient [id number] sedation start time: 10:06 a.m. Physician and patient [id number] sedation stop time: 10:20 a.m. Total sedation time was 14 minutes. FINDINGS: HEMODYNAMICS: Aortic pressure 180/111. LV systolic pressure 180 mmHg and LVEDP measured at 20 mmHg. No significant gradient was noted across left ventricular outflow tract. CARDIAC STRUCTURES: The left ventricular cavity is normal in size. There is normal wall motion. The left ventricular ejection fraction is estimated at 50%. CORONARY ANATOMY: 1. This is a right dominant circulation. 2. The left main is angiographically normal. 3. LAD is angiographically normal. 4. The left circumflex artery is angiographically normal. 5. The right coronary artery is angiographically normal. IMPRESSION: 1. Angiographically normal coronary circulation. 2. Normal left ventricular size and systolic function. 3. LVEDP measured at 20 mmHg. RECOMMENDATIONS: 1. Continue current medical therapy. 2. Afterload reduction and blood pressure control. 3. Obtain a V/Q scan to rule out pulmonary embolism. JOB# [id number] ANASTASIA/ABRAHAN
[2018-08-15] MEDS: AMPHOJEL PO SCH ×2 (15:49→17:06)
--- NOTE | 2018-08-15 17:20 | Progress Note ---
Assessment and Plan Assessment and plan: Patient is a 47 yo woman with a history of hypertension, AOCD of renal disease, angioedema from Lisinopril, ESRD on HD TTS, Secondary hyperparathyroidism, migraines, diastolic CHF and ?thyroid disease who presents to [facility] with chest pains. Patient has been experiencing chest pains off and on for 1-2 weeks associated with constant nonproductive cough. However, she woke up this morning with severe constant worsening nonradiating substernal chest pains around 5am. She went to hemodialysis center and her bp was so high that they sent her to ED (>200s/100s). She did not receive HD prior to coming. Patient states that she did not take her blood pressure medications this morning. Patient had one nit roglycerin en route to the ED with mild relief of chest pains. Currently, she is chest pains free. The chest pains is aggravated by coughing. She denies fevers, chills. She c/o abd pains associated with constant coughing but denies constipation, diarrhea. She did have dry heaves with excessive coughing. She reports high stress at home and not taking her thyroid medication as instructed. * pCXR Impression: Scarring in the right lung base, small effusion (right base) cannot be excluded -Chest pains, appears atypical, msk/costochondritis but elevated troponins: cardiac cath done 08/15/18, no stent placed -Type 2 OH related to uncontrolled bp, 160/118 yesterday, doing better today. -Malignant hypertension with Urgency, did not respond to multiple iv hydralazine, needing admission: need HD, consulted Nephrology -ESRD on HD: missed HD today, consulted Renal -Goiter, normal TSH: check free T4, total T3 -Cough with small pleural effusion: possible increase ultrafiltration with HD, treat with anti-tussive -History of Diastolic heart failure, last ECHO in 2014, EF 70%: repeat 2D ECHO -DVT prophylaxis: sq heparin v/q scan pending anticipate d/c tomorrow History Interval history: Patient was seen and examined. Follow-up on current diagnosis of chest pains, resolved now. Overnight uneventful. Patient denies any chest pain, shortness breath, nausea/vomiting or severe headaches. Imaging, nursing note, chart, labs and old chart reviewed. Discussed with patient. Hospitalist Physical - Physical exam Narrative exam: GEN: thin frail, WDWN, NAD, Awake, Alert, Orientated x 3 HEENT: NCAT, EOMI, PERRL, OP Clear NECK: supple, no adenopathy, + thyromegaly, no JVD CVS/HEART: RRR, normal S1S2, pulses present bilaterally CHEST/LUNGS: CTA B, Symmetrical chest expansion, good air entry bilaterally, reproducible chest wall substernal tenderness (grimaces with pains as she says palpation doesn't hurt) GI/Abdomen: soft, NTND, good bowel sounds, no guarding or rebound /Bladder: no suprapubic tenderness, no CVA or paraspinal tenderness EXT/Skin: no c/c/e, no obvious rash MSK: FROM x 4 Neuro: CN 2-12 grossly intact, no new focal deficits Psych: calm - Constitutional Vitals: Temp Pulse Resp BP Pulse Ox 98.3 F 80 14 132/88 99 08/15/18 04:43 08/15/18 11:49 08/15/18 04:43 08/15/18 11:30 08/15/18 11:49 General appearance: Present: no acute distress Results - Labs CBC & Chem 7: 08/14/18 08:27 08/14/18 07:03 Labs: Laboratory Last Values WBC 8.4 K/mm3 (4.5-11.0) 08/14/18 07:03 RBC 3.19 M/mm3 (3.65-5.03) L 08/14/18 07:03 Hgb 10.9 gm/dl (10.1-14.3) 08/14/18 08:27 Hct 32.4 % (30.3-42.9) 08/14/18 08:27 MCV 105 fl (79-97) H 08/14/18 07:03 MCH 35 pg (28-32) H 08/14/18 07:03 MCHC 33 % (30-34) 08/14/18 07:03 RDW 15.1 % (13.2-15.2) 08/14/18 07:03 Plt Count 161 K/mm3 (140-440) 08/14/18 08:27 Lymph % (Auto) 16.5 % (13.4-35.0) 08/14/18 07:03 [place] % (Auto) 12.2 % (0.0-7.3) H 08/14/18 07:03 Eos % (Auto) 2.4 % (0.0-4.3) 08/14/18 07:03 Baso % (Auto) 0.9 % (0.0-1.8) 08/14/18 07:03 Lymph # 1.4 K/mm3 (1.2-5.4) 08/14/18 07:03 [place] # 1.0 K/mm3 (0.0-0.8) H 08/14/18 07:03 Eos # 0.2 K/mm3 (0.0-0.4) 08/14/18 07:03 Baso # 0.1 K/mm3 (0.0-0.1) 08/14/18 07:03 Seg Neutrophils % 68.0 % (40.0-70.0) 08/14/18 07:03 Seg Neutrophils # 5.7 K/mm3 (1.8-7.7) 08/14/18 07:03 PT 13.4 Sec. (12.2-14.9) 08/14/18 08:27 INR 0.96 (0.87-1.13) 08/14/18 08:27 APTT 30.3 Sec. (24.2-36.6) 08/14/18 08:27 Heparin Anti-Xa Level < 0.10 U.I./ml (0.3-0.7) L 08/15/18 13:23 Sodium 137 mmol/L (137-145) 08/14/18 07:03 Potassium 4.5 mmol/L (3.6-5.0) 08/14/18 07:03 Chloride 96.6 mmol/L (98-107) L 08/14/18 07:03 Carbon Dioxide 27 mmol/L (22-30) 08/14/18 07:03 Anion Gap 18 mmol/L 08/14/18 07:03 BUN 57 mg/dL (7-17) H 08/14/18 07:03 Creatinine 11.3 mg/dL (0.7-1.2) H 08/14/18 07:03 Estimated GFR 4 ml/min 08/14/18 07:03 BUN/Creatinine Ratio 5 % 08/14/18 07:03 Glucose 89 mg/dL (65-100) 08/14/18 07:03 Calcium 10.7 mg/dL (8.4-10.2) H 08/14/18 07:03 Phosphorus 5.70 mg/dL (2.5-4.5) H 08/14/18 15:10 Magnesium 2.60 mg/dL (1.7-2.3) H 08/14/18 07:03 Total Bilirubin 0.30 mg/dL (0.1-1.2) 08/14/18 07:03 Direct Bilirubin < 0.2 mg/dL (0-0.2) 08/14/18 07:03 Indirect Bilirubin 0.1 mg/dL 08/14/18 07:03 AST 17 units/L (5-40) 08/14/18 07:03 ALT 10 units/L (7-56) 08/14/18 07:03 Alkaline Phosphatase 70 units/L (35-129) 08/14/18 07:03 Total Creatine Kinase 231 units/L (30-135) H 08/14/18 21:00 CK-MB (CK-2) 18.8 ng/mL (0.0-4.0) H 08/14/18 21:00 CK-MB (CK-2) Rel Index 8.1 (0-4) H 08/14/18 21:00 Troponin T 1.980 ng/mL (0.00-0.029) H* D 08/14/18 21:00 NT-Pro-B Natriuret Pep > 81970 pg/mL (0-450) H 08/14/18 07:03 Total Protein 7.0 g/dL (6.3-8.2) 08/14/18 07:03 Albumin 3.8 g/dL (3.9-5) L 08/14/18 07:03 Albumin/Globulin Ratio 1.2 % 08/14/18 07:03 Triglycerides 75 mg/dL (2-149) 08/14/18 07:03 Cholesterol 158 mg/dL (50-199) 08/14/18 07:03 LDL Cholesterol Direct 100 mg/dL (50-130) 08/14/18 07:03 HDL Cholesterol 58 mg/dL (40-59) 08/14/18 07:03 Cholesterol/HDL Ratio 2.72 % 03/12/19 07:03 Free T4 1.12 ng/dL (0.76-1.46) 08/14/18 15:10 PTH Intact 139.4 pg/mL (15-65) H 08/14/18 15:10 Hepatitis A IgM Ab Non-reactive (NonReactive) 08/14/18 15:10 Hep B Core IgM Ab Non-reactive (NonReactive) 08/14/18 15:10 Hepatitis C Antibody Non-reactive (NonReactive) 08/14/18 15:10
--- NOTE | 2018-08-15 19:55 | XRay Report ---
PROCEDURE: XR CHEST 1V AP HISTORY: nuclear scan FINDINGS: Single frontal view of the chest was acquired and compared to the prior examination of August 14, 2018 . The heart is normal in size. There is right basilar linear scar versus atelectasis. There is no acute consolidative pulmonary infiltrate. IMPRESSION: No active disease in the chest This document is electronically signed by Brian Naranjo MD., August 15 2018 07:52:59 PM ET
--- NOTE | 2018-08-15 19:55 | Nuclear Medicine Report ---
PROCEDURE: NM LUNG SCAN PERF/VENT HISTORY: CP, abnormal troponin, normal coronary anatomy FINDINGS: Ventilation/perfusion scan was performed following the intravenous administration of 3.98 m Ci technetium 99m labeled macroaggregated albumin in the inhalation of 17.89 mCi xenon-133. Ventilation and perfusion are both within normal limits. There is no scintigraphic evidence of pulmon liz thromboembolic disease. IMPRESSION: No scintigraphic evidence of pulmonary thromboembolic disease This document is electronically signed by Brian Naranjo MD., August 15 2018 07:54:11 PM ET
[2018-08-16] MEDS: LOPRESSOR PO SCH ×5 (00:14→18:54)
[2018-08-16] MEDS: MORPHINE IV PRN ×4 (02:31→21:22)
[2018-08-16 05:01] LABS: Hemoglobin 9.5 gm/dl (10.1-14.3); Mean Corpuscular HGB Conc 34 % (30-34); Mean Corpuscular Volume 105 fl (79-97); Platelet Count 175 K/mm3 (140-440); Red Blood Count 2.66 M/mm3 (3.65-5.03); Red Cell Distribution Width 15.2 % (13.2-15.2)
[2018-08-16 05:24] LABS: Calcium 9.6 mg/dL (8.4-10.2)
[2018-08-16] MEDS: TESSALON PERLES PO SCH ×3 (05:29→21:21)
[2018-08-16] MEDS: AMPHOJEL PO SCH ×3 (07:45→18:54)
[2018-08-16] MEDS ORDERED: HEPARIN/NS 5000 UNIT/500ML(CATH LAB) 500 ML IR ONE (08:55)
[2018-08-16] MEDS ORDERED: HEPARIN 10,000 UNITS/10 ML ONE (08:55)
--- NOTE | 2018-08-16 09:08 | Progress Note ---
Subjective Interval history: Patient was seen today for follow-up on multiple renal related issues Events of this hospitalization noted Patient has had non-ST elevation OK yesterday Underwent cardiac catheterization Admitted with chest pain currently feeling better Fistulogram currently pending due to cardiac issue Vitals labs intake output medications were reviewed Social history: Reviewed Allergies: Reviewed Family history: Reviewed Physical examination HEENT: Oral mucosa moist no pallor or icterus Neck: Supple no JVD Chest: Clear to auscultation anteriorly CVS: Regular rate and rhythm S1 and S2 heard Abdomen: Soft nontender no suprapubic masses no organomegaly appreciable Extremity: Dry skin less than 1+ peripheral edema Musculoskeletal: No joint effusion noted in knees and ankle Neurological: Alert awake Dermatology: No petechial rashes Psychiatry: No evidence of any agitation and aggression noted Assessment and plan ESRD: Continue with hemodialysis treatment Monday and Monday, And has been tolerating dialysis treatment very well, she needs fistulogram as she has been having pain with cannulation and pain during dialysis Fistulogram can be done during this admission, patient finds it difficult to go to [place] to get her access work done and has requested to see a vascular here Currently she is being dialyzed at [facility] with [facility] Cardiac catheterization: no significant lesion noted in the coronary arteries Patient has been recommended to have VQ scan Hypertension and volume: To monitor and follow goal systolic blood pressure under 140 secondary hyperparathyroidism: PTH is 139, phosphorus 5.70 calcium 10.7, will start her on alternagel due to GI issues, Dietary counseling and education was done for renal issues Patient was adequately counseled and educated regarding multiple renal related issues Pertinent lab findings were discussed with patient, patient does exhibit good understanding of renal issues We'll continue to follow and make recommendation from renal standpoint Objective - Vital Signs Vital signs: Vital Signs - 12hr 08/15/18 08/16/18 08/16/18 22:55 00:14 03:54 Temperature 98.0 F 98.2 F Pulse Rate 81 83 81 Respiratory 12 14 Rate Blood Pressure 141/89 141/89 132/80 O2 Sat by Pulse 99 98 Oximetry 08/16/18 08/16/18 08/16/18 04:20 05:29 07:45 Temperature Pulse Rate 81 81 Respiratory 20 Rate Blood Pressure 132/80 O2 Sat by Pulse Oximetry - Lab 08/16/18 04:34 08/16/18 04:34 Most recent lab results Calcium 9.6 mg/dL (8.4-10.2) 08/16/18 04:34 Phosphorus 5.70 mg/dL (2.5-4.5) H 08/14/18 15:10 Magnesium 2.60 mg/dL (1.7-2.3) H 08/14/18 07:03 Medications & Allergies - Medications Allergies/Adverse Reactions: Allergies lisinopril Allergy (Verified 03/26/16 20:43) Angioedema Home Medications: Home Medications Medication Instructions Recorded Confirmed Last Taken Type NIFEdipine XL [Procardia Xl] 60 mg PO Q12HR 08/14/18 08/14/18 08/13/18 History Omeprazole 40 mg PO DAILY 08/14/18 08/14/18 08/13/18 History Ondansetron [Zofran Odt] 4 mg PO Q8HR 08/14/18 08/14/18 08/13/18 History Active Medications: Generic Name Dose Route Start Last Admin Trade Name Freq PRN Reason Stop Dose Admin Acetaminophen 650 mg 08/14/18 09:27 08/15/18 00:00 Tylenol PO 650 mg Q6H PRN Administration Non Cardiac Pain or Temp>100.5 Aluminum Hydroxide 640 mg 08/15/18 11:30 08/16/18 07:45 Amphojel PO Not Given [facility] Aspirin 81 mg 08/15/18 10:00 08/15/18 11:48 Baby Aspirin PO 81 mg QDAY TIMUR Administration Atorvastatin Calcium 80 mg 08/14/18 22:00 08/15/18 21:03 Lipitor PO 80 mg QHS TIMUR Administration Benzonatate 100 mg 08/14/18 14:00 08/16/18 05:29 Tessalon Perles PO 100 mg Q8HR TIMUR Administration Hydralazine HCl 10 mg 08/14/18 09:27 08/14/18 12:59 Apresoline IV 10 mg Q4HR PRN Administration HTN SBP>=180 NIKKI>=110 Sodium Chloride 100 mls @ 999 mls/hr 08/14/18 13:53 Nacl 0.9% IV NIKKI PRN Hypotension Isosorbide Mononitrate 30 mg 08/14/18 14:00 08/15/18 11:49 Imdur PO 30 mg QDAY TIMUR Administration Labetalol HCl 10 mg 08/14/18 09:27 Normodyne IV Q4H PRN HTN SBP>=180 Metoprolol Tartrate 25 mg 08/14/18 20:00 08/16/18 05:29 Lopressor PO 25 mg Q6HR TIMUR Administration Morphine Sulfate 2 mg 08/15/18 11:23 08/16/18 07:45 Morphine IV 2 mg Q4H PRN Administration Pain , Severe (7-10) Nifedipine 60 mg 08/14/18 10:00 08/15/18 21:03 Procardia Xl PO 60 mg Q12HR TIMUR Administration Nitroglycerin 0.4 mg 08/14/18 07:29 Nitrostat SL .Q5MIN PRN Chest Pain Ondansetron HCl 4 mg 08/14/18 09:27 Zofran IV Q4H PRN Nausea And Vomiting Pseudoephedrine/Acetam/Chlorphenir 15 ml 08/14/18 09:28 Robitussin Ac PO Q4H PRN Cough
[2018-08-16] MEDS ORDERED: NACL 0.9% 250ML 250 ML ONE (09:28)
[2018-08-16] MEDS: XYLOCAINE 2% INFILTRATI ONE ×3 (09:36→09:57)
[2018-08-16] MEDS: VERSED ONE ×2 (09:36→09:44)
[2018-08-16] MEDS: SUBLIMAZE ONE ×2 (09:36→09:44)
--- NOTE | 2018-08-16 10:17 | Operative Report ---
Operative Report Operative Report: EXAM: Ultrasound guided access of the left arm AV graft towards the venous anastomosis Placement of a sheath towards the venous outflow Fistulogram Angioplasty of the venous anastomosis with an 9 mm x 60 mm angioplasty balloon Angioplasty of the mid graft with a 9 mm x 60 mm angioplasty balloon DATE: 08/16/18 GUITAR INSTRUCTOR: SEDA JOE MD INDICATION: AV graft malfunction MEDICATIONS: Please see nursing report for full details. DEVICES: 9 mm x 60 mm angioplasty balloon PROCEDURE: The risks, benefits, and alternatives of the procedure were discussed and written informed consent was obtained. The patient was transported in stable condition to the angiography suite. The patient's left arm AV graft was assessed by ultrasound and was patent. The patient was prepped and draped in a sterile fashion. Under ultrasound guidance, the left arm AV graft was accessed with a 21-gauge micropuncture needle. The area was anesthetized prior to access. 0.018 inch wire was advanced through the micropuncture needle into the fistula and then the needle was exchanged for a 5 [place]an transitional dilator. The inner dilator and wire were removed and a 0.035 inch wire was advanced through the venous outflow. The transitional dilator was exchanged for a 6 [place]an short sheath. Fistulogram was performed of the venous outflow and central veins. Reflux into the arterial anastomosis was performed. Digital subtraction angiography demonstrated a 40% narrowing at the venous anastomosis and a mid graft irregularity near the pseudoaneurysm. Central veins were patent. The brachial artery proximal distal to the anastomosis was patent. 9 mm x 60 mm angioplasty balloon was used to perform angioplasty at the venous anastomosis and mid graft irregularity. Digital subtraction angiography was performed demonstrating no residual narrowing. At the conclusion of the procedure, the previous pulsatility of the graft now felt like a thrill. The wire was removed and the site was closed with a 3-0 Vicryl suture. The sheath was then removed. Hemostasis was achieved with slight manual compression. The patient was transported from the angiography suite to the floor in stable condition. IMPRESSION: Successful angioplasty of a peripheral dialysis access.
--- NOTE | 2018-08-16 10:30 | Post Operative Note ---
Date of procedure: 08/16/18 Pre-op diagnosis: AVG malfunction Post-op diagnosis: same Procedure: Angioplasty of the peripheral dialysis access with a 9 mm angioplasty balloon Anesthesia: local (w/ conscious sedation) Surgeon: SEDA JOE Estimated blood loss: minimal Condition: stable Disposition: floor
[2018-08-16] MEDS ORDERED: NACL 0.9 (PRIMING MACHINE ONLY DIALYSIS) MC ONE (11:55)
--- NOTE | 2018-08-16 13:42 | Progress Note ---
Assessment and Plan Chest pain, musculoskeletal NSTEMI Cardiac cath performed revealed normal coronaries, LVEF 50% VQ no evidence of PE ESRD on dialysis Chronic hypertension Conservative cardiac management. Subjective Date of service: 08/16/18 Interval history: Seen in dialysis. No cardiac complaints. No hematoma of right groin. Objective Vital Signs Temp Pulse Resp BP Pulse Ox 08/16/18 13:00 78 122/82 08/16/18 12:45 81 120/81 08/16/18 12:30 83 123/86 08/16/18 12:15 80 130/85 08/16/18 12:00 81 132/89 08/16/18 11:45 75 111/78 08/16/18 11:30 75 132/85 08/16/18 11:10 97.6 F 75 18 132/85 08/16/18 07:45 20 08/16/18 05:29 81 132/80 08/16/18 04:20 81 08/16/18 03:54 98.2 F 81 14 132/80 98 08/16/18 00:14 83 141/89 08/15/18 22:55 98.0 F 81 12 141/89 99 08/15/18 21:00 81 08/15/18 20:22 97.7 F 85 18 124/85 98 08/15/18 16:41 132/100 12 L 08/15/18 16:14 97.9 F 81 20 100 08/15/18 16:13 83 100 - Physical Examination General: No Apparent Distress HEENT: Positive: PERRL Neck: Positive: trachea midline Cardiac: Positive: Reg Rate and Rhythm Lungs: Positive: Decreased Breath Sounds Neuro: Positive: Grossly Intact Incision: Cardiac Cath Site (right groin) Extremities: Absent: edema - Labs and Meds CBC 08/16/18 Range/Units 04:34 WBC 8.1 (4.5-11.0) K/mm3 RBC 2.66 L (3.65-5.03) M/mm3 Hgb 9.5 L (10.1-14.3) gm/dl Hct 28.0 L (30.3-42.9) % Plt Count 175 (140-440) K/mm3 Comprehensive Metabolic Panel 08/16/18 Range/Units 04:34 Sodium 135 L (137-145) mmol/L Potassium 4.5 (3.6-5.0) mmol/L Chloride 92.8 L (98-107) mmol/L Carbon Dioxide 25 (22-30) mmol/L BUN 43 H (7-17) mg/dL Creatinine 10.5 H (0.7-1.2) mg/dL Glucose 88 (65-100) mg/dL Calcium 9.6 (8.4-10.2) mg/dL
[2018-08-16] MEDS: IMDUR PO SCH (15:20)
[2018-08-16] MEDS: BABY ASPIRIN PO SCH (15:20)
[2018-08-16] MEDS: PROCARDIA XL PO SCH ×2 (15:23→21:21)
--- NOTE | 2018-08-16 16:21 | Progress Note ---
Assessment and Plan Assessment and plan: Patient is a 47 yo woman with a history of hypertension, AOCD of renal disease, angioedema from Lisinopril, ESRD on HD TTS, Secondary hyperparathyroidism, migraines, diastolic CHF and ?thyroid disease who presents to [facility] with chest pains. Patient has been experiencing chest pains off and on for 1-2 weeks associated with constant nonproductive cough. However, she woke up this morning with severe constant worsening nonradiating substernal chest pains around 5am. She went to hemodialysis center and her bp was so high that they sent her to ED (>200s/100s). She did not receive HD prior to coming. Patient states that she did not take her blood pressure medications this morning. Patient had one nit roglycerin en route to the ED with mild relief of chest pains. Currently, she is chest pains free. The chest pains is aggravated by coughing. She denies fevers, chills. She c/o abd pains associated with constant coughing but denies constipation, diarrhea. She did have dry heaves with excessive coughing. She reports high stress at home and not taking her thyroid medication as instructed. * pCXR Impression: Scarring in the right lung base, small effusion (right base) cannot be excluded Operative Report: Date: 08/16/18 10:29 Date of procedure: 08/16/18 Pre-op diagnosis: AVG malfunction Post-op diagnosis: same Procedure: Angioplasty of the peripheral dialysis access with a 9 mm angioplasty balloon Anesthesia: local (w/ conscious sedation) Surgeon: SEDA JOE Estimated blood loss: minimal Condition: stable Disposition: floor -Chest pains, appears atypical, msk/costochondritis but elevated troponins: cardiac cath done 08/15/18, no stent placed, v/q scan negative -Right groin pains s/p Cath cath thru right femoral, d/w Dr. Ring: get Arterial doppler of the the right femoral artery r/o pseudoaneurysm. -Type 2 LA related to uncontrolled bp, 160/118 yesterday, doing better today. -Malignant hypertension with Urgency, did not respond to multiple iv hydralazine, needing admission: need HD, consulted Nephrology -ESRD on HD: Renal is following -AVG malfunction s/p Angioplasty on 08/16/18 and completed successful HD after procedure -Goiter, normal TSH: check free T4, total T3 -Cough with small pleural effusion: possible increase ultrafiltration with HD, treat with anti-tussive -History of Diastolic heart failure, last ECHO in 2014, EF 70%: repeat 2D ECHO -DVT prophylaxis: sq heparin Arterial doppler pending r/o pseudoaneurysm History Interval history: Patient was seen and examined. Follow-up on current diagnosis of chest pains, resolved now. Overnight uneventful. Patient denies any chest pain, shortness breath, nausea/vomiting or severe headaches. Imaging, nursing note, chart, labs and old chart reviewed. Discussed with patient. She c/o severe right groin pains. The site has a dsg intact, no gross hematoma seen. Hospitalist Physical - Physical exam Narrative exam: GEN: thin frail, WDWN, NAD, Awake, Alert, Orientated x 3 HEENT: NCAT, EOMI, PERRL, OP Clear NECK: supple, no adenopathy, + thyromegaly, no JVD CVS/HEART: RRR, normal S1S2, pulses present bilaterally CHEST/LUNGS: CTA B, Symmetrical chest expansion, good air entry bilaterally, reproducible chest wall substernal tenderness (grimaces with pains as she says palpation doesn't hurt) GI/Abdomen: soft, NTND, good bowel sounds, no guarding or rebound /Bladder: no suprapubic tenderness, no CVA or paraspinal tenderness EXT/Skin: no c/c/e, no obvious rash MSK: FROM x 4 Neuro: CN 2-12 grossly intact, no new focal deficits Psych: calm - Constitutional Vitals: Temp Pulse Resp BP Pulse Ox 98.5 F 90 22 111/78 98 08/16/18 15:14 08/16/18 15:21 08/16/18 15:19 08/16/18 15:21 08/16/18 03:54 General appearance: Present: no acute distress Results - Labs CBC & Chem 7: 08/16/18 04:34 08/16/18 04:34 Labs: Laboratory Last Values WBC 8.1 K/mm3 (4.5-11.0) 08/16/18 04:34 RBC 2.66 M/mm3 (3.65-5.03) L 08/16/18 04:34 Hgb 9.5 gm/dl (10.1-14.3) L 08/16/18 04:34 Hct 28.0 % (30.3-42.9) L 08/16/18 04:34 MCV 105 fl (79-97) H 08/16/18 04:34 MCH 36 pg (28-32) H 08/16/18 04:34 MCHC 34 % (30-34) 08/16/18 04:34 RDW 15.2 % (13.2-15.2) 08/16/18 04:34 Plt Count 175 K/mm3 (140-440) 08/16/18 04:34 Lymph % (Auto) 16.5 % (13.4-35.0) 08/14/18 07:03 [place] % (Auto) 12.2 % (0.0-7.3) H 08/14/18 07:03 Eos % (Auto) 2.4 % (0.0-4.3) 08/14/18 07:03 Baso % (Auto) 0.9 % (0.0-1.8) 08/14/18 07:03 Lymph # 1.4 K/mm3 (1.2-5.4) 08/14/18 07:03 [place] # 1.0 K/mm3 (0.0-0.8) H 08/14/18 07:03 Eos # 0.2 K/mm3 (0.0-0.4) 08/14/18 07:03 Baso # 0.1 K/mm3 (0.0-0.1) 08/14/18 07:03 Seg Neutrophils % 68.0 % (40.0-70.0) 08/14/18 07:03 Seg Neutrophils # 5.7 K/mm3 (1.8-7.7) 08/14/18 07:03 PT 13.4 Sec. (12.2-14.9) 08/14/18 08:27 INR 0.96 (0.87-1.13) 08/14/18 08:27 APTT 30.3 Sec. (24.2-36.6) 08/14/18 08:27 Heparin Anti-Xa Level < 0.10 U.I./ml (0.3-0.7) L 08/15/18 13:23 Sodium 135 mmol/L (137-145) L 08/16/18 04:34 Potassium 4.5 mmol/L (3.6-5.0) 08/16/18 04:34 Chloride 92.8 mmol/L (98-107) L 08/16/18 04:34 Carbon Dioxide 25 mmol/L (22-30) 08/16/18 04:34 Anion Gap 22 mmol/L 08/16/18 04:34 BUN 43 mg/dL (7-17) H 08/16/18 04:34 Creatinine 10.5 mg/dL (0.7-1.2) H 08/16/18 04:34 Estimated GFR 5 ml/min 08/16/18 04:34 BUN/Creatinine Ratio 4 % 08/16/18 04:34 Glucose 88 mg/dL (65-100) 08/16/18 04:34 Calcium 9.6 mg/dL (8.4-10.2) 08/16/18 04:34 Phosphorus 5.70 mg/dL (2.5-4.5) H 08/14/18 15:10 Magnesium 2.60 mg/dL (1.7-2.3) H 08/14/18 07:03 Total Bilirubin 0.30 mg/dL (0.1-1.2) 08/14/18 07:03 Direct Bilirubin < 0.2 mg/dL (0-0.2) 08/14/18 07:03 Indirect Bilirubin 0.1 mg/dL 08/14/18 07:03 AST 17 units/L (5-40) 08/14/18 07:03 ALT 10 units/L (7-56) 08/14/18 07:03 Alkaline Phosphatase 70 units/L (35-129) 08/14/18 07:03 Total Creatine Kinase 231 units/L (30-135) H 08/14/18 21:00 CK-MB (CK-2) 18.8 ng/mL (0.0-4.0) H 08/14/18 21:00 CK-MB (CK-2) Rel Index 8.1 (0-4) H 08/14/18 21:00 Troponin T 1.980 ng/mL (0.00-0.029) H* D 08/14/18 21:00 NT-Pro-B Natriuret Pep > 04027 pg/mL (0-450) H 08/14/18 07:03 Total Protein 7.0 g/dL (6.3-8.2) 08/14/18 07:03 Albumin 3.8 g/dL (3.9-5) L 08/14/18 07:03 Albumin/Globulin Ratio 1.2 % 08/14/18 07:03 Triglycerides 75 mg/dL (2-149) 08/14/18 07:03 Cholesterol 158 mg/dL (50-199) 08/14/18 07:03 LDL Cholesterol Direct 100 mg/dL (50-130) 08/14/18 07:03 HDL Cholesterol 58 mg/dL (40-59) 08/14/18 07:03 Cholesterol/HDL Ratio 2.72 % 08/14/18 07:03 Free T4 1.12 ng/dL (0.76-1.46) 08/14/18 15:10 PTH Intact 139.4 pg/mL (15-65) H 08/14/18 15:10 Hepatitis A IgM Ab Non-reactive (NonReactive) 08/14/18 15:10 Hep B Core IgM Ab Non-reactive (NonReactive) 08/14/18 15:10 Hepatitis C Antibody Non-reactive (NonReactive) 08/14/18 15:10
[2018-08-17] MEDS: LOPRESSOR PO SCH ×4 (02:01→18:31)
[2018-08-17] MEDS: MORPHINE IV PRN ×5 (02:02→21:20)
[2018-08-17 05:42] LABS: Hematocrit 26.7 % (30.3-42.9); Mean Corpuscular HGB Conc 34 % (30-34); Mean Corpuscular Volume 105 fl (79-97); Platelet Count 167 K/mm3 (140-440); Red Blood Count 2.54 M/mm3 (3.65-5.03)
[2018-08-17 06:04] LABS: Calcium 9.8 mg/dL (8.4-10.2)
[2018-08-17] MEDS: TESSALON PERLES PO SCH ×3 (06:36→21:19)
--- NOTE | 2018-08-17 09:23 | Vascular Lab Report ---
PROCEDURE: VL ARTERIAL DUPLEX LE RT TECHNIQUE: Duplex Doppler ultrasound of right groin performed. Grayscale, color flow and spectral wa veform images were obtained. HISTORY: Rgroin pain r/o pseudoaneurysm of R.groin s/p cath COMPARISON: None FINDINGS: There is no pseudoaneurysm identified. Visualized right external iliac artery, right common femoral, superficial femoral artery and profunda femoris arteries appear patent. No significant hematoma seen sonographically. IMPRESSION: There is no pseudoaneurysm identified in the right groin. This document is electronically signed by Muna Moya MD., August 17 2018 09:20:26 AM ET
--- NOTE | 2018-08-17 09:34 | Progress Note ---
Assessment and Plan Chest pain, musculoskeletal NSTEMI Cardiac cath performed revealed normal coronaries, LVEF 50% VQ no evidence of PE right groin pain -no hematoma, bruising or bruit noted; no evidence of pseudoaneurysm by arterial doppler. ESRD on dialysis Chronic hypertension Stable cardiac michael for discharge. Conservative cardiac management. Subjective Date of service: 08/17/18 Interval history: Complains of right groin pain. No hematoma or bruising noted. Objective Vital Signs Temp Pulse Resp BP BP Pulse Ox 08/17/18 06:37 20 08/17/18 06:36 86 125/86 08/17/18 05:20 86 100 08/17/18 05:19 98.3 F 90 20 125/86 100 08/17/18 05:00 86 08/17/18 02:01 91 H 133/83 08/17/18 00:40 98.7 F 91 H 18 133/83 08/17/18 00:33 86 100 08/16/18 21:23 98.5 F 80 20 121/79 08/16/18 21:00 87 08/16/18 20:50 90 99 08/16/18 15:21 90 111/78 08/16/18 15:20 90 111/78 08/16/18 15:19 22 08/16/18 15:14 98.5 F 90 22 111/78 08/16/18 14:30 98.0 F 85 18 114/77 08/16/18 14:10 88 119/71 08/16/18 14:00 86 110/80 08/16/18 13:45 85 108/80 08/16/18 13:30 87 114/83 08/16/18 13:15 80 114/82 08/16/18 13:00 90 122/82 08/16/18 12:45 81 120/81 08/16/18 12:30 83 123/86 08/16/18 12:15 80 130/85 08/16/18 12:00 81 132/89 08/16/18 11:45 75 111/78 08/16/18 11:30 75 132/85 08/16/18 11:10 97.6 F 75 18 132/85 08/16/18 10:00 97 - Physical Examination General: No Apparent Distress HEENT: Positive: PERRL Neck: Positive: trachea midline Cardiac: Positive: Reg Rate and Rhythm Lungs: Positive: Decreased Breath Sounds Neuro: Positive: Grossly Intact Abdomen: Positive: Soft Incision: Cardiac Cath Site (right groin ) Extremities: Absent: edema - Labs and Meds CBC 08/17/18 Range/Units 04:35 WBC 7.7 (4.5-11.0) K/mm3 RBC 2.54 L (3.65-5.03) M/mm3 Hgb 9.0 L (10.1-14.3) gm/dl Hct 26.7 L (30.3-42.9) % Plt Count 167 (140-440) K/mm3 Comprehensive Metabolic Panel 08/17/18 Range/Units 04:35 Sodium 135 L (137-145) mmol/L Potassium 4.4 (3.6-5.0) mmol/L Chloride 93.1 L (98-107) mmol/L Carbon Dioxide 29 (22-30) mmol/L BUN 25 H (7-17) mg/dL Creatinine 8.7 H (0.7-1.2) mg/dL Glucose 85 (65-100) mg/dL Calcium 9.8 (8.4-10.2) mg/dL
[2018-08-17] MEDS: PROCARDIA XL PO SCH ×2 (10:33→21:19)
[2018-08-17] MEDS: IMDUR PO SCH (10:33)
[2018-08-17] MEDS: BABY ASPIRIN PO SCH (10:33)
[2018-08-17] MEDS: AMPHOJEL PO SCH ×3 (10:36→16:39)
--- NOTE | 2018-08-17 12:25 | Progress Note ---
Assessment and Plan Assessment and plan: Patient is a 47 yo woman with a history of hypertension, AOCD of renal disease, angioedema from Lisinopril, ESRD on HD TTS, Secondary hyperparathyroidism, migraines, diastolic CHF and ?thyroid disease who presents to [facility] ED with chest pains. Patient has been experiencing chest pains off and on for 1-2 weeks associated with constant nonproductive cough. However, she woke up this morning with severe constant worsening nonradiating substernal chest pains around 5am. She went to hemodialysis center and her bp was so high that they sent her to ED (>200s/100s). She did not receive HD prior to coming. Patient states that she did not take her blood pressure medications this morning. Patient had one nit roglycerin en route to the ED with mild relief of chest pains. Currently, she is chest pains free. The chest pains is aggravated by coughing. She denies fevers, chills. She c/o abd pains associated with constant coughing but denies constipation, diarrhea. She did have dry heaves with excessive coughing. She reports high stress at home and not taking her thyroid medication as instructed. * pCXR Impression: Scarring in the right lung base, small effusion (right base) cannot be excluded 08/15/18 Left Heart Cardiac Catherization Impression: 1. Angiographically normal coronary circulation 2. Normal Left ventricular size and systolic function 3. LVEDP measured at 20 mmHg Operative Report: Date: 08/16/18 10:29 Date of procedure: 08/16/18 Pre-op diagnosis: AVG malfunction Post-op diagnosis: same Procedure: Angioplasty of the peripheral dialysis access with a 9 mm angioplasty balloon Anesthesia: local (w/ conscious sedation) Surgeon: SEDA JOE Estimated blood loss: minimal Condition: stable Disposition: floor -Chest pains, appears atypical, msk/costochondritis but elevated troponins: cardiac cath done 08/15/18, no stent placed, v/q scan negative -Right groin pains s/p Cath cath thru right femoral, d/w Dr. Ring: get Arterial doppler of the the right femoral artery r/o pseudoaneurysm-->negative -Type 2 OK related to uncontrolled bp, 160/118 yesterday, doing better today. -Malignant hypertension with Urgency, did not respond to multiple iv hydralazine, needing admission: need HD, consulted Nephrology -ESRD on HD: Renal is following -AVG malfunction s/p Angioplasty on 08/16/18 and completed successful HD after procedure -Goiter, normal TSH: check free T4 normal -Cough with small pleural effusion: possible increase ultrafiltration with HD, treat with anti-tussive -History of Diastolic heart failure, last ECHO in 2014, EF 70%: repeat 2D ECHO -DVT prophylaxis: sq heparin stopped due to drop in Hct Arterial doppler pending r/o pseudoaneurysm==>negative, but H/H dropping and still complaining of right groin pains, CT pelvis ordered Disposition: continue inpatient until cleared by cardiology History Interval history: Patient was seen and examined. Follow-up on current diagnosis of chest pains, resolved now. Overnight uneventful. Patient denies any chest pain, shortness breath, nausea/vomiting or severe headaches. Imaging, nursing note, chart, labs and old chart reviewed. Discussed with patient. She c/o severe right groin pains. The site has a dsg intact, no gross hematoma seen. Hospitalist Physical - Physical exam Narrative exam: GEN: thin frail, WDWN, NAD, Awake, Alert, Orientated x 3 HEENT: NCAT, EOMI, PERRL, OP Clear NECK: supple, no adenopathy, + thyromegaly, no JVD CVS/HEART: RRR, normal S1S2, pulses present bilaterally CHEST/LUNGS: CTA B, Symmetrical chest expansion, good air entry bilaterally, reproducible chest wall substernal tenderness (grimaces with pains as she says palpation doesn't hurt) GI/Abdomen: soft, NTND, good bowel sounds, no guarding or rebound /Bladder: no suprapubic tenderness, no CVA or paraspinal tenderness EXT/Skin: no c/c/e, no obvious rash MSK: FROM x 4 Neuro: CN 2-12 grossly intact, no new focal deficits Psych: calm - Constitutional Vitals: Temp Pulse Resp BP Pulse Ox 98.1 F 82 18 114/75 100 08/17/18 09:38 08/17/18 10:33 08/17/18 09:39 08/17/18 10:33 08/17/18 09:39 General appearance: Present: no acute distress Results - Labs CBC & Chem 7: 08/17/18 04:35 08/17/18 04:35 Labs: Laboratory Last Values WBC 7.7 K/mm3 (4.5-11.0) 08/17/18 04:35 RBC 2.54 M/mm3 (3.65-5.03) L 08/17/18 04:35 Hgb 9.0 gm/dl (10.1-14.3) L 08/17/18 04:35 Hct 26.7 % (30.3-42.9) L 08/17/18 04:35 MCV 105 fl (79-97) H 08/17/18 04:35 MCH 35 pg (28-32) H 08/17/18 04:35 MCHC 34 % (30-34) 08/17/18 04:35 RDW 15.0 % (13.2-15.2) 08/17/18 04:35 Plt Count 167 K/mm3 (140-440) 08/17/18 04:35 Lymph % (Auto) 16.5 % (13.4-35.0) 08/14/18 07:03 Yancey % (Auto) 12.2 % (0.0-7.3) H 08/14/18 07:03 Eos % (Auto) 2.4 % (0.0-4.3) 08/14/18 07:03 Baso % (Auto) 0.9 % (0.0-1.8) 08/14/18 07:03 Lymph # 1.4 K/mm3 (1.2-5.4) 08/14/18 07:03 Yancey # 1.0 K/mm3 (0.0-0.8) H 08/14/18 07:03 Eos # 0.2 K/mm3 (0.0-0.4) 08/14/18 07:03 Baso # 0.1 K/mm3 (0.0-0.1) 08/14/18 07:03 Seg Neutrophils % 68.0 % (40.0-70.0) 08/14/18 07:03 Seg Neutrophils # 5.7 K/mm3 (1.8-7.7) 08/14/18 07:03 PT 13.4 Sec. (12.2-14.9) 08/14/18 08:27 INR 0.96 (0.87-1.13) 08/14/18 08:27 APTT 30.3 Sec. (24.2-36.6) 08/14/18 08:27 Heparin Anti-Xa Level < 0.10 U.I./ml (0.3-0.7) L 08/15/18 13:23 Sodium 135 mmol/L (137-145) L 08/17/18 04:35 Potassium 4.4 mmol/L (3.6-5.0) 08/17/18 04:35 Chloride 93.1 mmol/L (98-107) L 08/17/18 04:35 Carbon Dioxide 29 mmol/L (22-30) 08/17/18 04:35 Anion Gap 17 mmol/L 08/17/18 04:35 BUN 25 mg/dL (7-17) H 08/17/18 04:35 Creatinine 8.7 mg/dL (0.7-1.2) H 08/17/18 04:35 Estimated GFR 6 ml/min 08/17/18 04:35 BUN/Creatinine Ratio 3 % 08/17/18 04:35 Glucose 85 mg/dL (65-100) 08/17/18 04:35 Calcium 9.8 mg/dL (8.4-10.2) 08/17/18 04:35 Phosphorus 5.70 mg/dL (2.5-4.5) H 08/14/18 15:10 Magnesium 2.60 mg/dL (1.7-2.3) H 08/14/18 07:03 Total Bilirubin 0.30 mg/dL (0.1-1.2) 08/14/18 07:03 Direct Bilirubin < 0.2 mg/dL (0-0.2) 08/14/18 07:03 Indirect Bilirubin 0.1 mg/dL 08/14/18 07:03 AST 17 units/L (5-40) 08/14/18 07:03 ALT 10 units/L (7-56) 08/14/18 07:03 Alkaline Phosphatase 70 units/L (35-129) 08/14/18 07:03 Total Creatine Kinase 231 units/L (30-135) H 08/14/18 21:00 CK-MB (CK-2) 18.8 ng/mL (0.0-4.0) H 08/14/18 21:00 CK-MB (CK-2) Rel Index 8.1 (0-4) H 08/14/18 21:00 Troponin T 1.980 ng/mL (0.00-0.029) H* D 08/14/18 21:00 NT-Pro-B Natriuret Pep > 90322 pg/mL (0-450) H 08/14/18 07:03 Total Protein 7.0 g/dL (6.3-8.2) 08/14/18 07:03 Albumin 3.8 g/dL (3.9-5) L 08/14/18 07:03 Albumin/Globulin Ratio 1.2 % 08/14/18 07:03 Triglycerides 75 mg/dL (2-149) 08/14/18 07:03 Cholesterol 158 mg/dL (50-199) 08/14/18 07:03 LDL Cholesterol Direct 100 mg/dL (50-130) 08/14/18 07:03 HDL Cholesterol 58 mg/dL (40-59) 08/14/18 07:03 Cholesterol/HDL Ratio 2.72 % 08/14/18 07:03 Free T4 1.12 ng/dL (0.76-1.46) 08/14/18 15:10 PTH Intact 139.4 pg/mL (15-65) H 08/14/18 15:10 Hepatitis A IgM Ab Non-reactive (NonReactive) 08/14/18 15:10 Hep B Core IgM Ab Non-reactive (NonReactive) 08/14/18 15:10 Hepatitis C Antibody Non-reactive (NonReactive) 08/14/18 15:10
--- NOTE | 2018-08-17 17:42 | Progress Note ---
Assessment and Plan Impression: * ESRD * CAD * HTN * Secondary hyperparathyriodism Plan: * hd q TTHSAT * uf as tolerated * strict i/os * s/p cardiac cath * ok for contrasted ct to evaluate femoral pain * renal diet Subjective Date of service: 08/17/18 Principal diagnosis: esrd Interval history: resting in bed today Objective - Exam Narrative Exam: HEENT: Oral mucosa moist no pallor or icterus Neck: Supple no JVD Chest: Clear to auscultation anteriorly CVS: Regular rate and rhythm S1 and S2 heard Abdomen: Soft nontender no suprapubic masses no organomegaly appreciable Extremity: Dry skin less than 1+ peripheral edema Musculoskeletal: No joint effusion noted in knees and ankle Neurological: Alert awake Dermatology: No petechial rashes Psychiatry: No evidence of any agitation and aggression noted - Vital Signs Vital signs: Vital Signs - 12hr 08/17/18 08/17/18 08/17/18 06:36 06:37 07:07 Temperature Pulse Rate 86 Respiratory 20 18 Rate Blood Pressure 125/86 Blood Pressure [Right] O2 Sat by Pulse Oximetry 08/17/18 08/17/18 08/17/18 09:38 09:39 10:33 Temperature 98.1 F Pulse Rate 82 82 Respiratory 18 Rate Blood Pressure 114/75 114/75 Blood Pressure [Right] O2 Sat by Pulse 100 Oximetry 08/17/18 08/17/18 08/17/18 13:36 13:37 15:39 Temperature Pulse Rate 81 81 Respiratory 18 Rate Blood Pressure 122/78 Blood Pressure 122/78 [Right] O2 Sat by Pulse Oximetry 08/17/18 08/17/18 15:59 16:00 Temperature 98.3 F Pulse Rate 82 Respiratory 18 Rate Blood Pressure 124/82 Blood Pressure [Right] O2 Sat by Pulse 99 Oximetry - Lab 08/17/18 04:35 08/17/18 04:35 Most recent lab results Calcium 9.8 mg/dL (8.4-10.2) 08/17/18 04:35 Phosphorus 5.70 mg/dL (2.5-4.5) H 08/14/18 15:10 Magnesium 2.60 mg/dL (1.7-2.3) H 08/14/18 07:03 Medications & Allergies - Medications Allergies/Adverse Reactions: Allergies lisinopril Allergy (Verified 03/26/16 20:43) Angioedema Home Medications: Home Medications Medication Instructions Recorded Confirmed Last Taken Type NIFEdipine XL [Procardia Xl] 60 mg PO Q12HR 08/14/18 08/14/18 08/13/18 History Omeprazole 40 mg PO DAILY 08/14/18 08/14/18 08/13/18 History Ondansetron [Zofran Odt] 4 mg PO Q8HR 08/14/18 08/14/18 08/13/18 History Active Medications: Generic Name Dose Route Start Last Admin Trade Name Freq PRN Reason Stop Dose Admin Acetaminophen 650 mg 08/14/18 09:27 08/15/18 00:00 Tylenol PO 650 mg Q6H PRN Administration Non Cardiac Pain or Temp>100.5 Aluminum Hydroxide 640 mg 08/15/18 11:30 08/17/18 16:39 Amphojel PO Not Given [facility] Aspirin 81 mg 08/15/18 10:00 08/17/18 10:33 Baby Aspirin PO 81 mg QDAY [facility] Administration Atorvastatin Calcium 80 mg 08/14/18 22:00 08/16/18 21:21 Lipitor PO 80 mg QHS [facility] Administration Benzonatate 100 mg 08/14/18 14:00 08/17/18 15:21 Tessalon Perles PO Not Given Q8HR [facility] Hydralazine HCl 10 mg 08/14/18 09:27 08/14/18 12:59 Apresoline IV 10 mg Q4HR PRN Administration HTN SBP>=180 NIKKI>=110 Sodium Chloride 100 mls @ 999 mls/hr 08/14/18 13:53 Nacl 0.9% IV NIKKI PRN Hypotension Isosorbide Mononitrate 30 mg 08/14/18 14:00 08/17/18 10:33 Imdur PO 30 mg QDAY [facility] Administration Labetalol HCl 10 mg 08/14/18 09:27 Normodyne IV Q4H PRN HTN SBP>=180 Metoprolol Tartrate 25 mg 08/14/18 20:00 08/17/18 13:37 Lopressor PO 25 mg Q6HR TIMUR Administration Morphine Sulfate 2 mg 08/15/18 11:23 08/17/18 15:09 Morphine IV 2 mg Q4H PRN Administration Pain , Severe (7-10) Nifedipine 60 mg 08/14/18 10:00 08/17/18 10:33 Procardia Xl PO 60 mg Q12HR TIMUR Administration Nitroglycerin 0.4 mg 08/14/18 07:29 Nitrostat SL .Q5MIN PRN Chest Pain Ondansetron HCl 4 mg 08/14/18 09:27 Zofran IV Q4H PRN Nausea And Vomiting Pseudoephedrine/Acetam/Chlorphenir 15 ml 08/14/18 09:28 Robitussin Ac PO Q4H PRN Cough
--- NOTE | 2018-08-17 20:05 | Cat Scan Report ---
PROCEDURE: CT ABDOMEN PELVIS W CON TECHNIQUE: Computerized axial tomography of the abdomen and pelvis was performed after the IV inject ion of iodinated nonionic contrast. Coronal and sagittal reconstruction was also performed. CONTRAST: Intravenous contrast given HISTORY: right groin pain, r/o R.femoral/retroperitoneal bl COMPARISONS: None . FINDINGS: In the right flank, there is intermediate soft tissue density material filling the right paracolic gu tter. There is lack of fat plane between the psoas muscles and this density. The descending colon is displaced anteriorly. This density extends from the level of the right kidney inferiorly into the rig ht anterior pelvis/right groin at the level of the acetabulum. Findings are consistent with retroperi toneal hemorrhage. There is a small amount of low-density fluid around the right kidney. Within the abdomen, the liver demonstrates a small amount of pneumobilia in the left lobe. This may b e due to prior sphincterotomy. The spleen, pancreas, adrenal glands, and kidneys are unremarkable. Gallbladder has been surgically r emoved. No evidence for retroperitoneal lymphadenopathy is seen. The bowel loops have normal caliber. No soft tissue mass, inflammatory change, or free air is seen within the abdomen or pelvis. Moderate calcification of the aorta is seen. Within the pelvis, the bladder is unremarkable. The uterus is normal. There is a low-density 3.2 x 2. 8 cm cyst in the left ovary. No evidence for mass or lymphadenopathy is seen in the pelvis. Images through the upper abdomen include the lung bases which demonstrate linear atelectasis or scarr ing in each lung base. Bony structures show no focal abnormalities and are intact. IMPRESSION: 1. Intermediate density subacute retroperitoneal hemorrhage involving the right flank and right parac olic gutter 2. Pneumobilia in the left lobe liver with evidence for prior cholecystectomy. Findings may be due to sphincterotomy. 3. Low-density cyst in the left ovary This document is electronically signed by Liana Chapman MD., August 17 2018 08:02:45 PM ET
--- NOTE | 2018-08-17 20:35 | Event Note ---
Date: 08/17/18 Radiology called me and told me patient has retroperitoneal bleed, the communications tower climber vascular surgeon consulted and said will see the patient tomorrow morning.
[2018-08-18] MEDS: LOPRESSOR PO SCH ×4 (00:51→18:50)
[2018-08-18] MEDS: TESSALON PERLES PO SCH ×3 (05:08→21:24)
[2018-08-18] MEDS: MORPHINE IV PRN ×3 (05:09→15:00)
[2018-08-18 06:38] LABS: Hematocrit 26.3 % (30.3-42.9)
[2018-08-18] MEDS: AMPHOJEL PO SCH ×3 (07:30→16:09)
--- NOTE | 2018-08-18 09:23 | Progress Note ---
Assessment and Plan Impression: * ESRD * CAD * HTN * Secondary hyperparathyriodism * retroperitoneal bleeding Plan: * hd q TTHSAT * no heparin with dialysis * uf as tolerated * strict i/os * s/p cardiac cath * ok for contrasted ct to evaluate femoral pain * renal diet Subjective Date of service: 08/18/18 Principal diagnosis: esrd Interval history: resting in bed today Objective - Exam Narrative Exam: HEENT: Oral mucosa moist no pallor or icterus Neck: Supple no JVD Chest: Clear to auscultation anteriorly CVS: Regular rate and rhythm S1 and S2 heard Abdomen: Soft nontender no suprapubic masses no organomegaly appreciable Extremity: Dry skin less than 1+ peripheral edema Musculoskeletal: No joint effusion noted in knees and ankle Neurological: Alert awake Dermatology: No petechial rashes Psychiatry: No evidence of any agitation and aggression noted - Vital Signs Vital signs: Vital Signs - 12hr 08/17/18 08/18/18 08/18/18 22:00 00:39 00:51 Temperature 98.2 F Pulse Rate 85 85 Respiratory 18 Rate Respiratory 18 Rate [ Generalized] Blood Pressure 130/80 130/80 O2 Sat by Pulse 100 Oximetry 08/18/18 08/18/18 08/18/18 04:59 05:00 05:08 Temperature 98.3 F Pulse Rate 84 86 88 Respiratory 18 Rate Respiratory Rate [ Generalized] Blood Pressure 138/86 138/86 O2 Sat by Pulse 98 Oximetry - Lab 08/18/18 04:39 08/17/18 04:35 Most recent lab results Calcium 9.8 mg/dL (8.4-10.2) 08/17/18 04:35 Phosphorus 5.70 mg/dL (2.5-4.5) H 08/14/18 15:10 Magnesium 2.60 mg/dL (1.7-2.3) H 08/14/18 07:03 Medications & Allergies - Medications Allergies/Adverse Reactions: Allergies lisinopril Allergy (Verified 03/26/16 20:43) Angioedema Home Medications: Home Medications Medication Instructions Recorded Confirmed Last Taken Type NIFEdipine XL [Procardia Xl] 60 mg PO Q12HR 08/14/18 08/14/18 08/13/18 History Omeprazole 40 mg PO DAILY 08/14/18 08/14/18 08/13/18 History Ondansetron [Zofran Odt] 4 mg PO Q8HR 08/14/18 08/14/18 08/13/18 History Active Medications: Generic Name Dose Route Start Last Admin Trade Name Freq PRN Reason Stop Dose Admin Acetaminophen 650 mg 08/14/18 09:27 08/15/18 00:00 Tylenol PO 650 mg Q6H PRN Administration Non Cardiac Pain or Temp>100.5 Aluminum Hydroxide 640 mg 08/15/18 11:30 08/17/18 16:39 Amphojel PO Not Given [facility] Aspirin 81 mg 08/15/18 10:00 08/17/18 10:33 Baby Aspirin PO 81 mg QDAY [facility] Administration Atorvastatin Calcium 80 mg 08/14/18 22:00 08/17/18 21:20 Lipitor PO 80 mg QHS [facility] Administration Benzonatate 100 mg 08/14/18 14:00 08/18/18 05:08 Tessalon Perles PO 100 mg Q8HR [facility] Administration Hydralazine HCl 10 mg 08/14/18 09:27 08/14/18 12:59 Apresoline IV 10 mg Q4HR PRN Administration HTN SBP>=180 NIKKI>=110 Sodium Chloride 100 mls @ 999 mls/hr 08/14/18 13:53 Nacl 0.9% IV NIKKI PRN Hypotension Isosorbide Mononitrate 30 mg 08/14/18 14:00 08/17/18 10:33 Imdur PO 30 mg QDAY [facility] Administration Labetalol HCl 10 mg 08/14/18 09:27 Normodyne IV Q4H PRN HTN SBP>=180 Metoprolol Tartrate 25 mg 08/14/18 20:00 08/18/18 05:08 Lopressor PO 25 mg Q6HR [facility] Administration Morphine Sulfate 2 mg 08/15/18 11:23 08/18/18 05:09 Morphine IV 2 mg Q4H PRN Administration Pain , Severe (7-10) Nifedipine 60 mg 08/14/18 10:00 08/17/18 21:19 Procardia Xl PO 60 mg Q12HR TIM[facility] Administration Nitroglycerin 0.4 mg 08/14/18 07:29 Nitrostat SL .Q5MIN PRN Chest Pain Ondansetron HCl 4 mg 08/14/18 09:27 Zofran IV Q4H PRN Nausea And Vomiting Pseudoephedrine/Acetam/Chlorphenir 15 ml 08/14/18 09:28 Robitussin Ac PO Q4H PRN Cough
[2018-08-18] MEDS: IMDUR PO SCH (10:12)
[2018-08-18] MEDS: PROCARDIA XL PO SCH ×2 (10:12→21:24)
[2018-08-18] MEDS: BABY ASPIRIN PO SCH (10:12)
--- NOTE | 2018-08-18 11:29 | Progress Note ---
Assessment and Plan - Patient Problems (1) Chest pain Current Visit: Yes Status: Acute Plan to address problem: Atypical chest pain, nonspecific troponin elevation, status post intensive cardiac catheterization. No further cardiac workup is indicated, finding of retroperitoneal hemorrhage will be further investigated by vascular. Subjective Date of service: 08/18/18 Principal diagnosis: esrd Interval history: Patient is comfortable, no new complaints. The CT scan of the pelvis reports evidence of retroperitoneal hemorrhage. The hematocrit has remained stable at 26-27 over several days. Vascular surgery consultation has been obtained. Objective Vital Signs Temp Pulse Resp Resp BP BP Pulse Ox 08/18/18 10:27 82 137/87 100 08/18/18 05:08 88 138/86 08/18/18 05:00 86 08/18/18 04:59 98.3 F 84 18 138/86 98 08/18/18 00:51 85 130/80 08/18/18 00:39 98.2 F 85 18 130/80 100 08/17/18 22:00 18 08/17/18 21:00 90 08/17/18 16:00 98.3 F 08/17/18 15:59 82 18 124/82 99 08/17/18 15:39 18 08/17/18 13:37 81 122/78 08/17/18 13:36 81 122/78 - Physical Examination General: No Apparent Distress HEENT: Positive: PERRL Neck: Positive: trachea midline Cardiac: Positive: Reg Rate and Rhythm Lungs: Positive: Decreased Breath Sounds Neuro: Positive: Grossly Intact Abdomen: Positive: Soft Skin: Positive: Clear Incision: Cardiac Cath Site (right groin ) Extremities: Absent: edema - Labs and Meds CBC 08/18/18 Range/Units 04:39 Hgb 9.0 L (10.1-14.3) gm/dl Hct 26.3 L (30.3-42.9) % Plt Count 171 (140-440) K/mm3
--- NOTE | 2018-08-18 11:30 | Consultation ---
History of Present Illness - Reason for Consult Consult date: 08/18/18 right retroperitoneal hematoma Requesting physician: CONNOR JOVEL - History of Present Illness 47y female admitted for chest pain and underwent cardiac cath on 08/17 via right femoral access. She started having right groin pain after procedure. Patient had CT scan of abdomen and pelvis that showed right subacute retroperitoneal hematoma. Vascular surgery was consulted for further recommendation. Past History Past Medical History: heart failure, hypertension, renal failure Past Surgical History: Other (left upper arm AV fistula) Social history: no significant social history Family history: no significant family history Medications and Allergies Allergies Allergy/AdvReac Type Severity Reaction Status Date / Time lisinopril Allergy Angioedema Verified 03/26/16 20:43 Home Medications Medication Instructions Recorded Confirmed Last Taken Type NIFEdipine XL [Procardia Xl] 60 mg PO Q12HR 08/14/18 08/14/18 08/13/18 History Omeprazole 40 mg PO DAILY 08/14/18 08/14/18 08/13/18 History Ondansetron [Zofran Odt] 4 mg PO Q8HR 08/14/18 08/14/18 08/13/18 History Active Meds: Active Medications Acetaminophen (Tylenol) 650 mg PO Q6H PRN PRN Reason: Non Cardiac Pain or Temp>100.5 Last Admin: 08/15/18 00:00 Dose: 650 mg Documented by: Acetaminophen/Hydrocodone Bitart ([place] 5/325) 1 each PO Q6H PRN PRN Reason: Pain, Moderate (4-6) Aluminum Hydroxide (Amphojel) 640 mg PO AC [facility] Last Admin: 08/17/18 16:39 Dose: Not Given Documented by: Aspirin (Baby Aspirin) 81 mg PO QDAY [facility] Last Admin: 08/18/18 10:12 Dose: 81 mg Documented by: Atorvastatin Calcium (Lipitor) 80 mg PO QHS [facility] Last Admin: 08/17/18 21:20 Dose: 80 mg Documented by: Benzonatate (Tessalon Perles) 100 mg PO Q8HR [facility] Last Admin: 08/18/18 05:08 Dose: 100 mg Documented by: Hydralazine HCl (Apresoline) 10 mg IV Q4HR PRN PRN Reason: HTN SBP>=180 NIKKI>=110 Last Admin: 08/14/18 12:59 Dose: 10 mg Documented by: Sodium Chloride (Nacl 0.9%) 100 mls @ 999 mls/hr IV NIKKI PRN PRN Reason: Hypotension Isosorbide Mononitrate (Imdur) 30 mg PO QDAY [facility] Last Admin: 08/18/18 10:12 Dose: 30 mg Documented by: Labetalol HCl (Normodyne) 10 mg IV Q4H PRN PRN Reason: HTN SBP>=180 Metoprolol Tartrate (Lopressor) 25 mg PO Q6HR [facility] Last Admin: 08/18/18 05:08 Dose: 25 mg Documented by: Morphine Sulfate (Morphine) 2 mg IV Q4H PRN PRN Reason: Pain , Severe (7-10) Last Admin: 08/18/18 10:09 Dose: 2 mg Documented by: Nifedipine (Procardia Xl) 60 mg PO Q12HR [facility] Last Admin: 08/18/18 10:12 Dose: 60 mg Documented by: Nitroglycerin (Nitrostat) 0.4 mg SL .Q5MIN PRN PRN Reason: Chest Pain Ondansetron HCl (Zofran) 4 mg IV Q4H PRN PRN Reason: Nausea And Vomiting Pseudoephedrine/Acetam/Chlorphenir (Robitussin Ac) 15 ml PO Q4H PRN PRN Reason: Cough Review of Systems Gastrointestinal: constipation Exam - Constitutional Vitals: Temp Pulse Resp BP Pulse Ox 98.3 F 82 18 137/87 100 08/18/18 04:59 08/18/18 10:27 08/18/18 04:59 08/18/18 10:27 08/18/18 10:27 Peripheral Pulses: within normal limits - Abdominal General gastrointestinal: Present: other (right flank tenderness) Results - Labs CBC & Chem 7: 08/18/18 04:39 08/17/18 04:35 Labs: Abnormal lab results 08/18/18 Range/Units 04:39 Hgb 9.0 L (10.1-14.3) gm/dl Hct 26.3 L (30.3-42.9) % - Imaging and Cardiology CT scan - abdomen: report reviewed (retroperitoneal hematoma on the right without active bleeding ) Assessment and Plan retroperitoneal hematoma without extravasation, no signs of active bleeding no vascular intervention needed pain control stool softeners for constipation
[2018-08-18] MEDS: NORCO 5/325 PO PRN ×2 (12:09→19:50)
--- NOTE | 2018-08-18 15:11 | Progress Note ---
Assessment and Plan Assessment and plan: Patient is a 47 yo woman with a history of hypertension, AOCD of renal disease, angioedema from Lisinopril, ESRD on HD TTS, Secondary hyperparathyroidism, migraines, diastolic CHF and ?thyroid disease who presents to [facility] ED with chest pains. Patient has been experiencing chest pains off and on for 1-2 weeks associated with constant nonproductive cough. However, she woke up this morning with severe constant worsening nonradiating substernal chest pains around 5am. She went to hemodialysis center and her bp was so high that they sent her to ED (>200s/100s). She did not receive HD prior to coming. Patient states that she did not take her blood pressure medications this morning. Patient had one nit roglycerin en route to the ED with mild relief of chest pains. Currently, she is chest pains free. The chest pains is aggravated by coughing. She denies fevers, chills. She c/o abd pains associated with constant coughing but denies constipation, diarrhea. She did have dry heaves with excessive coughing. She reports high stress at home and not taking her thyroid medication as instructed. * pCXR Impression: Scarring in the right lung base, small effusion (right base) cannot be excluded 08/15/18 Left Heart Cardiac Catherization Impression: 1. Angiographically normal coronary circulation 2. Normal Left ventricular size and systolic function 3. LVEDP measured at 20 mmHg Operative Report: Date: 08/16/18 10:29 Date of procedure: 08/16/18 Pre-op diagnosis: AVG malfunction Post-op diagnosis: same Procedure: Angioplasty of the peripheral dialysis access with a 9 mm angioplasty balloon Anesthesia: local (w/ conscious sedation) Surgeon: SEDA JOE Estimated blood loss: minimal Condition: stable Disposition: floor -Chest pains, appears atypical, msk/costochondritis but elevated troponins: cardiac cath done 08/15/18, no stent placed, v/q scan negative -Right groin pains s/p Cath cath thru right femoral, d/w Dr. Ring: get Arterial doppler of the the right femoral artery r/o pseudoaneurysm-->negative but retroperitoneal bleed found on CT abd/pelvis with IV steroids IMPRESSION: 1. Intermediate density subacute retroperitoneal hemorrhage involving the right flank and right paracolic gutter 2. Pneumobilia in the left lobe liver with evidence for prior cholecystectomy. Findings may be due to sphincterotomy. 3. Low-density cyst in the left ovary -Type 2 [place] related to uncontrolled bp, 160/118 yesterday, doing better today. -Malignant hypertension with Urgency, did not respond to multiple iv hydralazine, needing admission: need HD, consulted Nephrology -ESRD on HD: Renal is following -AVG malfunction s/p Angioplasty on 08/16/18 and completed successful HD after procedure -Goiter, normal TSH: check free T4 normal -Cough with small pleural effusion: possible increase ultrafiltration with HD, treat with anti-tussive -History of Diastolic heart failure, last ECHO in 2014, EF 70%: repeat 2D ECHO -DVT prophylaxis: sq heparin stopped due to drop in Hct Disposition: continue inpatient until cleared by cardiology History Interval history: Patient was seen and examined. Follow-up on current diagnosis of chest pains, resolved now. Overnight uneventful. Patient denies any chest pain, shortness breath, nausea/vomiting or severe headaches. Imaging, nursing note, chart, labs and old chart reviewed. Discussed with patient. She c/o severe right groin pains. The site has a dsg intact, no gross hematoma seen. Hospitalist Physical - Physical exam Narrative exam: GEN: thin frail, WDWN, NAD, Awake, Alert, Orientated x 3 HEENT: NCAT, EOMI, PERRL, OP Clear NECK: supple, no adenopathy, + thyromegaly, no JVD CVS/HEART: RRR, normal S1S2, pulses present bilaterally CHEST/LUNGS: CTA B, Symmetrical chest expansion, good air entry bilaterally, reproducible chest wall substernal tenderness (grimaces with pains as she says palpation doesn't hurt) GI/Abdomen: soft, NTND, good bowel sounds, no guarding or rebound /Bladder: no suprapubic tenderness, no CVA or paraspinal tenderness EXT/Skin: no c/c/e, no obvious rash MSK: FROM x 4 Neuro: CN 2-12 grossly intact, no new focal deficits Psych: calm - Constitutional Vitals: Temp Pulse Resp BP Pulse Ox 98.3 F 84 18 137/87 100 08/18/18 04:59 08/18/18 13:00 08/18/18 10:00 08/18/18 10:27 08/18/18 10:27 General appearance: Present: no acute distress Results - Labs CBC & Chem 7: 08/18/18 04:39 08/17/18 04:35 Labs: Laboratory Last Values WBC 7.7 K/mm3 (4.5-11.0) 08/17/18 04:35 RBC 2.54 M/mm3 (3.65-5.03) L 08/17/18 04:35 Hgb 9.0 gm/dl (10.1-14.3) L 08/18/18 04:39 Hct 26.3 % (30.3-42.9) L 08/18/18 04:39 MCV 105 fl (79-97) H 08/17/18 04:35 MCH 35 pg (28-32) H 08/17/18 04:35 MCHC 34 % (30-34) 08/17/18 04:35 RDW 15.0 % (13.2-15.2) 08/17/18 04:35 Plt Count 171 K/mm3 (140-440) 08/18/18 04:39 Lymph % (Auto) 16.5 % (13.4-35.0) 08/14/18 07:03 Barnes % (Auto) 12.2 % (0.0-7.3) H 08/14/18 07:03 Eos % (Auto) 2.4 % (0.0-4.3) 08/14/18 07:03 Baso % (Auto) 0.9 % (0.0-1.8) 08/14/18 07:03 Lymph # 1.4 K/mm3 (1.2-5.4) 08/14/18 07:03 Barnes # 1.0 K/mm3 (0.0-0.8) H 08/14/18 07:03 Eos # 0.2 K/mm3 (0.0-0.4) 08/14/18 07:03 Baso # 0.1 K/mm3 (0.0-0.1) 08/14/18 07:03 Seg Neutrophils % 68.0 % (40.0-70.0) 08/14/18 07:03 Seg Neutrophils # 5.7 K/mm3 (1.8-7.7) 08/14/18 07:03 PT 13.4 Sec. (12.2-14.9) 08/14/18 08:27 INR 0.96 (0.87-1.13) 08/14/18 08:27 APTT 30.3 Sec. (24.2-36.6) 08/14/18 08:27 Heparin Anti-Xa Level < 0.10 U.I./ml (0.3-0.7) L 08/15/18 13:23 Sodium 135 mmol/L (137-145) L 08/17/18 04:35 Potassium 4.4 mmol/L (3.6-5.0) 08/17/18 04:35 Chloride 93.1 mmol/L (98-107) L 08/17/18 04:35 Carbon Dioxide 29 mmol/L (22-30) 08/17/18 04:35 Anion Gap 17 mmol/L 08/17/18 04:35 BUN 25 mg/dL (7-17) H 08/17/18 04:35 Creatinine 8.7 mg/dL (0.7-1.2) H 08/17/18 04:35 Estimated GFR 6 ml/min 08/17/18 04:35 BUN/Creatinine Ratio 3 % 08/17/18 04:35 Glucose 85 mg/dL (65-100) 08/17/18 04:35 Calcium 9.8 mg/dL (8.4-10.2) 08/17/18 04:35 Phosphorus 5.70 mg/dL (2.5-4.5) H 08/14/18 15:10 Magnesium 2.60 mg/dL (1.7-2.3) H 08/14/18 07:03 Total Bilirubin 0.30 mg/dL (0.1-1.2) 08/14/18 07:03 Direct Bilirubin < 0.2 mg/dL (0-0.2) 08/14/18 07:03 Indirect Bilirubin 0.1 mg/dL 08/14/18 07:03 AST 17 units/L (5-40) 08/14/18 07:03 ALT 10 units/L (7-56) 08/14/18 07:03 Alkaline Phosphatase 70 units/L (35-129) 08/14/18 07:03 Total Creatine Kinase 231 units/L (30-135) H 08/14/18 21:00 CK-MB (CK-2) 18.8 ng/mL (0.0-4.0) H 08/14/18 21:00 CK-MB (CK-2) Rel Index 8.1 (0-4) H 08/14/18 21:00 Troponin T 1.980 ng/mL (0.00-0.029) H* D 08/14/18 21:00 NT-Pro-B Natriuret Pep > 36824 pg/mL (0-450) H 08/14/18 07:03 Total Protein 7.0 g/dL (6.3-8.2) 08/14/18 07:03 Albumin 3.8 g/dL (3.9-5) L 08/14/18 07:03 Albumin/Globulin Ratio 1.2 % 08/14/18 07:03 Triglycerides 75 mg/dL (2-149) 08/14/18 07:03 Cholesterol 158 mg/dL (50-199) 08/14/18 07:03 LDL Cholesterol Direct 100 mg/dL (50-130) 08/14/18 07:03 HDL Cholesterol 58 mg/dL (40-59) 08/14/18 07:03 Cholesterol/HDL Ratio 2.72 % 08/14/18 07:03 Free T4 1.12 ng/dL (0.76-1.46) 08/14/18 15:10 PTH Intact 139.4 pg/mL (15-65) H 08/14/18 15:10 Hepatitis A IgM Ab Non-reactive (NonReactive) 08/14/18 15:10 Hep B Core IgM Ab Non-reactive (NonReactive) 08/14/18 15:10 Hepatitis C Antibody Non-reactive (NonReactive) 08/14/18 15:10
[2018-08-18] MEDS ORDERED: NACL 0.9 (PRIMING MACHINE ONLY DIALYSIS) MC ONE (17:19)
[2018-08-19] MEDS: LOPRESSOR PO SCH ×5 (00:35→23:22)
[2018-08-19] MEDS: MORPHINE IV PRN (00:35)
[2018-08-19] MEDS: NORCO 5/325 PO PRN ×3 (05:25→18:27)
[2018-08-19] MEDS: TESSALON PERLES PO SCH ×3 (05:25→21:40)
[2018-08-19 07:23] LABS: Calcium 9.8 mg/dL (8.4-10.2)
[2018-08-19] MEDS: BABY ASPIRIN PO SCH (09:42)
[2018-08-19] MEDS: IMDUR PO SCH (09:42)
[2018-08-19] MEDS: PROCARDIA XL PO SCH ×2 (09:42→21:40)
[2018-08-19] MEDS: AMPHOJEL PO SCH ×3 (09:43→16:59)
--- NOTE | 2018-08-19 11:27 | Progress Note ---
Assessment and Plan - Patient Problems (1) Chest pain Current Visit: Yes Status: Acute Plan to address problem: Atypical chest pain, nonspecific troponin elevation, status post negative cardiac catheterization. No further cardiac workup is indicated. Subjective Date of service: 08/19/18 Principal diagnosis: esrd Interval history: She looks and feels well, no new complaints. Appreciated vascular surgery consultation, the post catheterization retroperitoneal hematoma in stable and will be managed conservatively. Objective Vital Signs Temp Pulse Resp BP BP Pulse Ox 08/19/18 09:45 98.4 F 83 17 135/89 100 08/19/18 09:42 82 135/89 08/19/18 08:58 17 08/19/18 05:24 80 131/80 08/19/18 05:00 80 08/19/18 04:16 98.4 F 79 18 131/80 97 08/19/18 00:35 90 118/84 08/18/18 23:24 98.4 F 90 18 118/84 97 08/18/18 21:00 90 08/18/18 20:00 98.6 F 88 18 120/80 08/18/18 19:55 98.6 F 88 18 120/80 08/18/18 19:51 88 100 08/18/18 18:30 97.8 F 88 16 113/81 08/18/18 18:00 88 113/81 08/18/18 17:45 89 101/67 08/18/18 17:30 85 116/72 08/18/18 17:15 85 118/74 08/18/18 17:00 89 119/76 08/18/18 16:45 86 112/73 08/18/18 16:30 84 110/78 08/18/18 16:15 85 121/72 08/18/18 16:00 82 118/77 08/18/18 15:45 83 113/72 08/18/18 15:30 74 128/74 08/18/18 15:15 97.8 F 84 16 133/75 08/18/18 13:00 84 - Physical Examination General: No Apparent Distress HEENT: Positive: PERRL Neck: Positive: trachea midline Cardiac: Positive: Reg Rate and Rhythm Lungs: Positive: Decreased Breath Sounds Neuro: Positive: Grossly Intact Abdomen: Positive: Soft Skin: Positive: Clear Incision: Cardiac Cath Site (right groin ) Extremities: Absent: edema - Labs and Meds Comprehensive Metabolic Panel 08/19/18 Range/Units 06:05 Sodium 132 L (137-145) mmol/L Potassium 4.6 (3.6-5.0) mmol/L Chloride 90.2 L (98-107) mmol/L Carbon Dioxide 28 (22-30) mmol/L BUN 27 H (7-17) mg/dL Creatinine 8.4 H (0.7-1.2) mg/dL Glucose 89 (65-100) mg/dL Calcium 9.8 (8.4-10.2) mg/dL
--- NOTE | 2018-08-19 12:33 | Progress Note ---
Assessment and Plan Impression: * ESRD * CAD * HTN * Secondary hyperparathyriodism * retroperitoneal bleeding Plan: * hd q TTHSAT * no heparin with dialysis * uf as tolerated * strict i/os * s/p cardiac cath * s/p ct--retroperitoneal hematoma * renal diet Subjective Date of service: 08/19/18 Principal diagnosis: esrd Interval history: resting in bed today Objective - Exam Narrative Exam: HEENT: Oral mucosa moist no pallor or icterus Neck: Supple no JVD Chest: Clear to auscultation anteriorly CVS: Regular rate and rhythm S1 and S2 heard Abdomen: Soft nontender no suprapubic masses no organomegaly appreciable Extremity: Dry skin less than 1+ peripheral edema Musculoskeletal: No joint effusion noted in knees and ankle Neurological: Alert awake Dermatology: No petechial rashes Psychiatry: No evidence of any agitation and aggression noted - Vital Signs Vital signs: Vital Signs - 12hr 08/19/18 08/19/18 08/19/18 00:35 04:16 05:00 Temperature 98.4 F Pulse Rate 90 79 80 Respiratory 18 Rate Blood Pressure 118/84 131/80 Blood Pressure [Right] O2 Sat by Pulse 97 Oximetry 08/19/18 08/19/18 08/19/18 05:24 08:58 09:42 Temperature Pulse Rate 80 82 Respiratory 17 Rate Blood Pressure 131/80 135/89 Blood Pressure [Right] O2 Sat by Pulse Oximetry 08/19/18 08/19/18 08/19/18 09:45 11:56 12:22 Temperature 98.4 F 98.3 F Pulse Rate 83 79 83 Respiratory 17 16 Rate Blood Pressure Blood Pressure 135/89 117/78 [Right] O2 Sat by Pulse 100 100 Oximetry 08/19/18 08/19/18 12:26 12:27 Temperature Pulse Rate 83 Respiratory 16 Rate Blood Pressure 117/78 Blood Pressure [Right] O2 Sat by Pulse Oximetry - Lab 08/18/18 04:39 08/19/18 06:05 Most recent lab results Calcium 9.8 mg/dL (8.4-10.2) 08/19/18 06:05 Phosphorus 5.70 mg/dL (2.5-4.5) H 08/14/18 15:10 Magnesium 2.60 mg/dL (1.7-2.3) H 08/14/18 07:03 Medications & Allergies - Medications Allergies/Adverse Reactions: Allergies lisinopril Allergy (Verified 03/26/16 20:43) Angioedema Home Medications: Home Medications Medication Instructions Recorded Confirmed Last Taken Type NIFEdipine XL [Procardia Xl] 60 mg PO Q12HR 08/14/18 08/14/18 08/13/18 History Omeprazole 40 mg PO DAILY 08/14/18 08/14/18 08/13/18 History Ondansetron [Zofran Odt] 4 mg PO Q8HR 08/14/18 08/14/18 08/13/18 History Active Medications: Generic Name Dose Route Start Last Admin Trade Name Freq PRN Reason Stop Dose Admin Acetaminophen 650 mg 08/14/18 09:27 08/15/18 00:00 Tylenol PO 650 mg Q6H PRN Administration Non Cardiac Pain or Temp>100.5 Acetaminophen/Hydrocodone Bitart 1 each 08/18/18 10:27 08/19/18 12:27 Pratt 5/325 PO 1 each Q6H PRN Administration Pain, Moderate (4-6) Aluminum Hydroxide 640 mg 08/15/18 11:30 08/19/18 12:26 Amphojel PO 640 mg AC TIMUR Administration Aspirin 81 mg 08/15/18 10:00 08/19/18 09:42 Baby Aspirin PO 81 mg QDAY TIMUR Administration Atorvastatin Calcium 80 mg 08/14/18 22:00 08/18/18 21:24 Lipitor PO 80 mg QHS TIMUR Administration Benzonatate 100 mg 08/14/18 14:00 08/19/18 05:25 Tessalon Perles PO 100 mg Q8HR TIMUR Administration Hydralazine HCl 10 mg 08/14/18 09:27 08/14/18 12:59 Apresoline IV 10 mg Q4HR PRN Administration HTN SBP>=180 NIKKI>=110 Sodium Chloride 100 mls @ 999 mls/hr 08/14/18 13:53 Nacl 0.9% IV NIKKI PRN Hypotension Isosorbide Mononitrate 30 mg 08/14/18 14:00 08/19/18 09:42 Imdur PO 30 mg QDAY TIMUR Administration Labetalol HCl 10 mg 08/14/18 09:27 Normodyne IV Q4H PRN HTN SBP>=180 Metoprolol Tartrate 25 mg 08/14/18 20:00 08/19/18 12:26 Lopressor PO 25 mg Q6HR TIMUR Administration Morphine Sulfate 2 mg 08/15/18 11:23 08/19/18 00:35 Morphine IV 2 mg Q4H PRN Administration Pain , Severe (7-10) Nifedipine 60 mg 08/14/18 10:00 08/19/18 09:42 Procardia Xl PO 60 mg Q12HR TIMUR Administration Nitroglycerin 0.4 mg 08/14/18 07:29 Nitrostat SL .Q5MIN PRN Chest Pain Ondansetron HCl 4 mg 08/14/18 09:27 Zofran IV Q4H PRN Nausea And Vomiting Pseudoephedrine/Acetam/Chlorphenir 15 ml 08/14/18 09:28 Robitussin Ac PO Q4H PRN Cough
--- NOTE | 2018-08-19 16:24 | Progress Note ---
Assessment and Plan Assessment and plan: Patient is a 47 yo woman with a history of hypertension, AOCD of renal disease, angioedema from Lisinopril, ESRD on HD TTS, Secondary hyperparathyroidism, migraines, diastolic CHF and ?thyroid disease who presents to [facility] ED with chest pains. Patient has been experiencing chest pains off and on for 1-2 weeks associated with constant nonproductive cough. However, she woke up this morning with severe constant worsening nonradiating substernal chest pains around 5am. She went to hemodialysis center and her bp was so high that they sent her to ED (>200s/100s). She did not receive HD prior to coming. Patient states that she did not take her blood pressure medications this morning. Patient had one nit roglycerin en route to the ED with mild relief of chest pains. Currently, she is chest pains free. The chest pains is aggravated by coughing. She denies fevers, chills. She c/o abd pains associated with constant coughing but denies constipation, diarrhea. She did have dry heaves with excessive coughing. She reports high stress at home and not taking her thyroid medication as instructed. * pCXR Impression: Scarring in the right lung base, small effusion (right base) cannot be excluded 08/15/18 Left Heart Cardiac Catherization Impression: 1. Angiographically normal coronary circulation 2. Normal Left ventricular size and systolic function 3. LVEDP measured at 20 mmHg Operative Report: Date: 08/16/18 10:29 Date of procedure: 08/16/18 Pre-op diagnosis: AVG malfunction Post-op diagnosis: same Procedure: Angioplasty of the peripheral dialysis access with a 9 mm angioplasty balloon Anesthesia: local (w/ conscious sedation) Surgeon: SEDA JOE Estimated blood loss: minimal Condition: stable Disposition: floor -Chest pains, appears atypical, msk/costochondritis but elevated troponins: cardiac cath done 08/15/18, no stent placed, v/q scan negative -Right groin pains s/p Cath cath thru right femoral, d/w Dr. Ring: get Arterial doppler of the the right femoral artery r/o pseudoaneurysm-->negative but retroperitoneal bleed found on CT abd/pelvis with IV steroids IMPRESSION: 1. Intermediate density subacute retroperitoneal hemorrhage involving the right flank and right paracolic gutter 2. Pneumobilia in the left lobe liver with evidence for prior cholecystectomy. Findings may be due to sphincterotomy. 3. Low-density cyst in the left ovary -Type 2 [place] related to uncontrolled bp, 160/118 yesterday, doing better today. -Malignant hypertension with Urgency, did not respond to multiple iv hydralazine, needing admission: need HD, consulted Nephrology -ESRD on HD: Renal is following -AVG malfunction s/p Angioplasty on 08/16/18 and completed successful HD after procedure -Goiter, normal TSH: check free T4 normal -Cough with small pleural effusion: possible increase ultrafiltration with HD, treat with anti-tussive -History of Diastolic heart failure, last ECHO in 2014, EF 70%: repeat 2D ECHO -DVT prophylaxis: sq heparin stopped due to drop in Hct Disposition: continue inpatient until cleared by Vascular d/w Dr. Ring History Interval history: Patient was seen and examined. Follow-up on current diagnosis of chest pains, resolved now. Overnight uneventful. Patient denies any chest pain, shortness breath, nausea/vomiting or severe headaches. Imaging, nursing note, chart, labs and old chart reviewed. Discussed with patient. She c/o severe right groin pains. The site has a dsg intact, no gross hematoma seen. Hospitalist Physical - Physical exam Narrative exam: GEN: thin frail, WDWN, NAD, Awake, Alert, Orientated x 3 HEENT: NCAT, EOMI, PERRL, OP Clear NECK: supple, no adenopathy, + thyromegaly, no JVD CVS/HEART: RRR, normal S1S2, pulses present bilaterally CHEST/LUNGS: CTA B, Symmetrical chest expansion, good air entry bilaterally, reproducible chest wall substernal tenderness (grimaces with pains as she says palpation doesn't hurt) GI/Abdomen: soft, NTND, good bowel sounds, no guarding or rebound /Bladder: no suprapubic tenderness, no CVA or paraspinal tenderness EXT/Skin: no c/c/e, no obvious rash MSK: FROM x 4 Neuro: CN 2-12 grossly intact, no new focal deficits Psych: calm - Constitutional Vitals: Temp Pulse Resp BP Pulse Ox 98.3 F 83 16 117/78 100 08/19/18 12:22 08/19/18 12:26 08/19/18 12:27 08/19/18 12:26 08/19/18 12:22 General appearance: Present: no acute distress Results - Labs CBC & Chem 7: 08/18/18 04:39 08/19/18 06:05 Labs: Laboratory Last Values WBC 7.7 K/mm3 (4.5-11.0) 08/17/18 04:35 RBC 2.54 M/mm3 (3.65-5.03) L 08/17/18 04:35 Hgb 9.0 gm/dl (10.1-14.3) L 08/18/18 04:39 Hct 26.3 % (30.3-42.9) L 08/18/18 04:39 MCV 105 fl (79-97) H 08/17/18 04:35 MCH 35 pg (28-32) H 08/17/18 04:35 MCHC 34 % (30-34) 08/17/18 04:35 RDW 15.0 % (13.2-15.2) 08/17/18 04:35 Plt Count 171 K/mm3 (140-440) 08/18/18 04:39 Lymph % (Auto) 16.5 % (13.4-35.0) 08/14/18 07:03 Wells % (Auto) 12.2 % (0.0-7.3) H 08/14/18 07:03 Eos % (Auto) 2.4 % (0.0-4.3) 08/14/18 07:03 Baso % (Auto) 0.9 % (0.0-1.8) 08/14/18 07:03 Lymph # 1.4 K/mm3 (1.2-5.4) 08/14/18 07:03 Wells # 1.0 K/mm3 (0.0-0.8) H 08/14/18 07:03 Eos # 0.2 K/mm3 (0.0-0.4) 08/14/18 07:03 Baso # 0.1 K/mm3 (0.0-0.1) 08/14/18 07:03 Seg Neutrophils % 68.0 % (40.0-70.0) 08/14/18 07:03 Seg Neutrophils # 5.7 K/mm3 (1.8-7.7) 08/14/18 07:03 PT 13.4 Sec. (12.2-14.9) 08/14/18 08:27 INR 0.96 (0.87-1.13) 08/14/18 08:27 APTT 30.3 Sec. (24.2-36.6) 08/14/18 08:27 Heparin Anti-Xa Level < 0.10 U.I./ml (0.3-0.7) L 08/15/18 13:23 Sodium 132 mmol/L (137-145) L 08/19/18 06:05 Potassium 4.6 mmol/L (3.6-5.0) 08/19/18 06:05 Chloride 90.2 mmol/L (98-107) L 08/19/18 06:05 Carbon Dioxide 28 mmol/L (22-30) 08/19/18 06:05 Anion Gap 18 mmol/L 08/19/18 06:05 BUN 27 mg/dL (7-17) H 08/19/18 06:05 Creatinine 8.4 mg/dL (0.7-1.2) H 08/19/18 06:05 Estimated GFR 6 ml/min 08/19/18 06:05 BUN/Creatinine Ratio 3 % 08/19/18 06:05 Glucose 89 mg/dL (65-100) 08/19/18 06:05 Calcium 9.8 mg/dL (8.4-10.2) 08/19/18 06:05 Phosphorus 5.70 mg/dL (2.5-4.5) H 08/14/18 15:10 Magnesium 2.60 mg/dL (1.7-2.3) H 08/14/18 07:03 Total Bilirubin 0.30 mg/dL (0.1-1.2) 08/14/18 07:03 Direct Bilirubin < 0.2 mg/dL (0-0.2) 08/14/18 07:03 Indirect Bilirubin 0.1 mg/dL 08/14/18 07:03 AST 17 units/L (5-40) 08/14/18 07:03 ALT 10 units/L (7-56) 08/14/18 07:03 Alkaline Phosphatase 70 units/L (35-129) 08/14/18 07:03 Total Creatine Kinase 231 units/L (30-135) H 08/14/18 21:00 CK-MB (CK-2) 18.8 ng/mL (0.0-4.0) H 08/14/18 21:00 CK-MB (CK-2) Rel Index 8.1 (0-4) H 08/14/18 21:00 Troponin T 1.980 ng/mL (0.00-0.029) H* D 08/14/18 21:00 NT-Pro-B Natriuret Pep > 57973 pg/mL (0-450) H 08/14/18 07:03 Total Protein 7.0 g/dL (6.3-8.2) 08/14/18 07:03 Albumin 3.8 g/dL (3.9-5) L 08/14/18 07:03 Albumin/Globulin Ratio 1.2 % 08/14/18 07:03 Triglycerides 75 mg/dL (2-149) 08/14/18 07:03 Cholesterol 158 mg/dL (50-199) 08/14/18 07:03 LDL Cholesterol Direct 100 mg/dL (50-130) 08/14/18 07:03 HDL Cholesterol 58 mg/dL (40-59) 08/14/18 07:03 Cholesterol/HDL Ratio 2.72 % 08/14/18 07:03 Free T4 1.12 ng/dL (0.76-1.46) 08/14/18 15:10 PTH Intact 139.4 pg/mL (15-65) H 08/14/18 15:10 Hepatitis A IgM Ab Non-reactive (NonReactive) 08/14/18 15:10 Hep B Core IgM Ab Non-reactive (NonReactive) 08/14/18 15:10 Hepatitis C Antibody Non-reactive (NonReactive) 08/14/18 15:10
[2018-08-19] MEDS: MILK OF MAGNESIA PO PRN (21:37)
[2018-08-19] MEDS: COLACE PO SCH (21:40)
[2018-08-20] MEDS: NORCO 5/325 PO PRN ×2 (00:08→05:58)
[2018-08-20 00:20] LABS: Bacteria,Urine 4+ /HPF (Negative); Bilirubin,Urine NEG (Negative); Blood,Urine SM (Negative); Color,Urine Yellow (Yellow); Urobilinogen,Urine < 2.0 mg/dL (<2.0)
[2018-08-20 00:43] LABS: Protein,Urine >500 mg/dL (Negative)
[2018-08-20 05:31] LABS: Hematocrit 25.3 % (30.3-42.9); Hemoglobin 8.7 gm/dl (10.1-14.3)
[2018-08-20 05:47] LABS: Calcium 10.2 mg/dL (8.4-10.2)
[2018-08-20] MEDS: LOPRESSOR PO SCH ×3 (05:58→17:33)
[2018-08-20] MEDS: MILK OF MAGNESIA PO PRN (05:58)
[2018-08-20] MEDS: TESSALON PERLES PO SCH ×2 (05:58→13:11)
[2018-08-20] MEDS: AMPHOJEL PO SCH ×3 (09:28→16:34)
[2018-08-20] MEDS: BABY ASPIRIN PO SCH (09:28)
[2018-08-20] MEDS: PROCARDIA XL PO SCH (09:28)
[2018-08-20] MEDS: IMDUR PO SCH (09:28)
[2018-08-20] MEDS: COLACE PO SCH (09:28)
--- NOTE | 2018-08-20 09:44 | Progress Note ---
Assessment and Plan Assessment and plan: Patient is a 47 yo woman with a history of hypertension, AOCD of renal disease, angioedema from Lisinopril, ESRD on HD TTS, Secondary hyperparathyroidism, migraines, diastolic CHF and ?thyroid disease who presents to [facility] ED with chest pains. Patient has been experiencing chest pains off and on for 1-2 weeks associated with constant nonproductive cough. However, she woke up this morning with severe constant worsening nonradiating substernal chest pains around 5am. She went to hemodialysis center and her bp was so high that they sent her to ED (>200s/100s). She did not receive HD prior to coming. Patient states that she did not take her blood pressure medications this morning. Patient had one nit roglycerin en route to the ED with mild relief of chest pains. Currently, she is chest pains free. The chest pains is aggravated by coughing. She denies fevers, chills. She c/o abd pains associated with constant coughing but denies constipation, diarrhea. She did have dry heaves with excessive coughing. She reports high stress at home and not taking her thyroid medication as instructed. * pCXR Impression: Scarring in the right lung base, small effusion (right base) cannot be excluded 08/15/18 Left Heart Cardiac Catherization Impression: 1. Angiographically normal coronary circulation 2. Normal Left ventricular size and systolic function 3. LVEDP measured at 20 mmHg Operative Report: Date: 08/16/18 10:29 Date of procedure: 08/16/18 Pre-op diagnosis: AVG malfunction Post-op diagnosis: same Procedure: Angioplasty of the peripheral dialysis access with a 9 mm angioplasty balloon Anesthesia: local (w/ conscious sedation) Surgeon: SEDA JOE Estimated blood loss: minimal Condition: stable Disposition: floor -Chest pains, appears atypical, msk/costochondritis but elevated troponins: cardiac cath done 08/15/18, no stent placed, v/q scan negative -Right groin pains s/p Cath cath thru right femoral, d/w Dr. Ring: get Arterial doppler of the the right femoral artery r/o pseudoaneurysm-->negative but retroperitoneal bleed found on CT abd/pelvis with IV steroids IMPRESSION: 1. Intermediate density subacute retroperitoneal hemorrhage involving the right flank and right paracolic gutter 2. Pneumobilia in the left lobe liver with evidence for prior cholecystectomy. Findings may be due to sphincterotomy. 3. Low-density cyst in the left ovary -Type 2 NM related to uncontrolled bp, 160/118 yesterday, doing better today. -Malignant hypertension with Urgency, did not respond to multiple iv hydralazine, needing admission: need HD, consulted Nephrology -ESRD on HD: Renal is following -AVG malfunction s/p Angioplasty on 08/16/18 and completed successful HD after procedure -Goiter, normal TSH: checked free T4 normal -Cough with small pleural effusion: possible increase ultrafiltration with HD, treat with anti-tussive -History of Diastolic heart failure, last ECHO in 2014, EF 70%: repeat 2D ECHO -DVT prophylaxis: sq heparin stopped due to drop in Hct d/w Vascular surgery, Dr. Powers, ok to d/c then I d/w Dr. Ring, he is concerned about the Hemoglobin which dropped initially from 10.9 on 08/14/18 =>9.5 on 08/16/18-->9.0 next day 9.0 and today 8.7. Disposition: continue inpatient until cleared by Dr. Ring History Interval history: Patient was seen and examined. Follow-up on current diagnosis of chest pains, resolved now. Overnight uneventful. Patient denies any chest pain, shortness breath, nausea/vomiting or severe headaches. Imaging, nursing note, chart, labs and old chart reviewed. Discussed with patient. She c/o severe right groin pains. The site has a dsg intact, no gross hematoma seen. Hospitalist Physical - Physical exam Narrative exam: GEN: thin frail, WDWN, NAD, Awake, Alert, Orientated x 3 HEENT: NCAT, EOMI, PERRL, OP Clear NECK: supple, no adenopathy, + thyromegaly, no JVD CVS/HEART: RRR, normal S1S2, pulses present bilaterally CHEST/LUNGS: CTA B, Symmetrical chest expansion, good air entry bilaterally, reproducible chest wall substernal tenderness (grimaces with pains as she says palpation doesn't hurt) GI/Abdomen: soft, NTND, good bowel sounds, no guarding or rebound /Bladder: no suprapubic tenderness, no CVA or paraspinal tenderness EXT/Skin: no c/c/e, no obvious rash MSK: FROM x 4 Neuro: CN 2-12 grossly intact, no new focal deficits Psych: calm - Constitutional Vitals: Temp Pulse Resp BP Pulse Ox 97.4 F L 78 18 142/88 100 08/20/18 08:21 08/20/18 09:28 08/20/18 08:56 08/20/18 09:28 08/20/18 08:20 General appearance: Present: no acute distress Results - Labs CBC & Chem 7: 08/20/18 04:46 08/20/18 04:46 Labs: Laboratory Last Values WBC 7.7 K/mm3 (4.5-11.0) 08/17/18 04:35 RBC 2.54 M/mm3 (3.65-5.03) L 08/17/18 04:35 Hgb 8.7 gm/dl (10.1-14.3) L 08/20/18 04:46 Hct 25.3 % (30.3-42.9) L 08/20/18 04:46 MCV 105 fl (79-97) H 08/17/18 04:35 MCH 35 pg (28-32) H 08/17/18 04:35 MCHC 34 % (30-34) 08/17/18 04:35 RDW 15.0 % (13.2-15.2) 08/17/18 04:35 Plt Count 196 K/mm3 (140-440) 08/20/18 04:46 Lymph % (Auto) 16.5 % (13.4-35.0) 08/14/18 07:03 [place] % (Auto) 12.2 % (0.0-7.3) H 08/14/18 07:03 Eos % (Auto) 2.4 % (0.0-4.3) 08/14/18 07:03 Baso % (Auto) 0.9 % (0.0-1.8) 08/14/18 07:03 Lymph # 1.4 K/mm3 (1.2-5.4) 08/14/18 07:03 [place] # 1.0 K/mm3 (0.0-0.8) H 08/14/18 07:03 Eos # 0.2 K/mm3 (0.0-0.4) 08/14/18 07:03 Baso # 0.1 K/mm3 (0.0-0.1) 08/14/18 07:03 Seg Neutrophils % 68.0 % (40.0-70.0) 08/14/18 07:03 Seg Neutrophils # 5.7 K/mm3 (1.8-7.7) 08/14/18 07:03 PT 13.4 Sec. (12.2-14.9) 08/14/18 08:27 INR 0.96 (0.87-1.13) 08/14/18 08:27 APTT 30.3 Sec. (24.2-36.6) 08/14/18 08:27 Heparin Anti-Xa Level < 0.10 U.I./ml (0.3-0.7) L 08/15/18 13:23 Sodium 135 mmol/L (137-145) L 08/20/18 04:46 Potassium 5.2 mmol/L (3.6-5.0) H 08/20/18 04:46 Chloride 90.7 mmol/L (98-107) L 08/20/18 04:46 Carbon Dioxide 29 mmol/L (22-30) 08/20/18 04:46 Anion Gap 21 mmol/L 08/20/18 04:46 BUN 49 mg/dL (7-17) H 08/20/18 04:46 Creatinine 10.3 mg/dL (0.7-1.2) H 08/20/18 04:46 Estimated GFR 5 ml/min 08/20/18 04:46 BUN/Creatinine Ratio 5 % 08/20/18 04:46 Glucose 88 mg/dL (65-100) 08/20/18 04:46 Calcium 10.2 mg/dL (8.4-10.2) 08/20/18 04:46 Phosphorus 5.70 mg/dL (2.5-4.5) H 08/14/18 15:10 Magnesium 2.60 mg/dL (1.7-2.3) H 08/14/18 07:03 Total Bilirubin 0.30 mg/dL (0.1-1.2) 08/14/18 07:03 Direct Bilirubin < 0.2 mg/dL (0-0.2) 08/14/18 07:03 Indirect Bilirubin 0.1 mg/dL 08/14/18 07:03 AST 17 units/L (5-40) 08/14/18 07:03 ALT 10 units/L (7-56) 08/14/18 07:03 Alkaline Phosphatase 70 units/L (35-129) 08/14/18 07:03 Total Creatine Kinase 231 units/L (30-135) H 08/14/18 21:00 CK-MB (CK-2) 18.8 ng/mL (0.0-4.0) H 08/14/18 21:00 CK-MB (CK-2) Rel Index 8.1 (0-4) H 08/14/18 21:00 Troponin T 1.980 ng/mL (0.00-0.029) H* D 08/14/18 21:00 NT-Pro-B Natriuret Pep > 93538 pg/mL (0-450) H 08/14/18 07:03 Total Protein 7.0 g/dL (6.3-8.2) 08/14/18 07:03 Albumin 3.8 g/dL (3.9-5) L 08/14/18 07:03 Albumin/Globulin Ratio 1.2 % 08/14/18 07:03 Triglycerides 75 mg/dL (2-149) 08/14/18 07:03 Cholesterol 158 mg/dL (50-199) 08/14/18 07:03 LDL Cholesterol Direct 100 mg/dL (50-130) 08/14/18 07:03 HDL Cholesterol 58 mg/dL (40-59) 08/14/18 07:03 Cholesterol/HDL Ratio 2.72 % 08/14/18 07:03 Free T4 1.12 ng/dL (0.76-1.46) 08/14/18 15:10 PTH Intact 139.4 pg/mL (15-65) H 08/14/18 15:10 Urine Color Yellow (Yellow) 08/19/18 23:28 Urine Turbidity Cloudy (Clear) 08/19/18 23:28 Urine pH 9.0 (5.0-7.0) H 08/19/18 23:28 Ur Specific [place] 1.015 (1.003-1.030) 08/19/18 23:28 Urine Protein >500 mg/dL (Negative) 08/19/18 23:28 Urine Glucose (UA) Neg mg/dL (Negative) 08/19/18 23:28 Urine Ketones Neg mg/dL (Negative) 08/19/18 23:28 Urine Blood Sm (Negative) 08/19/18 23:28 Urine Nitrite Neg (Negative) 08/19/18 23:28 Urine Bilirubin Neg (Negative) 08/19/18 23:28 Urine Urobilinogen < 2.0 mg/dL (<2.0) 08/19/18 23:28 Ur Leukocyte Esterase Lg (Negative) 08/19/18 23:28 Urine WBC (Auto) 118.0 /HPF (0.0-6.0) H 08/19/18 23:28 Urine RBC (Auto) 37.0 /HPF (0.0-6.0) 08/19/18 23:28 U Epithel Cells (Auto) 37.0 /HPF (0-13.0) H 08/19/18 23:28 Urine Bacteria (Auto) 4+ /HPF (Negative) 08/19/18 23:28 Urine WBC Clumps 2+ /HPF 08/19/18 23:28 Ur Transition Epith Cell 4 /HPF 08/19/18 23:28 Hepatitis A IgM Ab Non-reactive (NonReactive) 08/14/18 15:10 Hep B Core IgM Ab Non-reactive (NonReactive) 08/14/18 15:10 Hepatitis C Antibody Non-reactive (NonReactive) 08/14/18 15:10 Active Medications - Current Medications Current Medications: Generic Name Dose Route Start Last Admin Trade Name Freq PRN Reason Stop Dose Admin Acetaminophen 650 mg 08/14/18 09:27 08/15/18 00:00 Tylenol PO 650 mg Q6H PRN Administration Non Cardiac Pain or Temp>100.5 Acetaminophen/Hydrocodone Bitart 1 each 08/18/18 10:27 08/20/18 05:58 [place] 5/325 PO 1 each Q6H PRN Administration Pain, Moderate (4-6) Aluminum Hydroxide 640 mg 08/15/18 11:30 08/20/18 09:28 Amphojel PO 640 mg AC TIMUR Administration Aspirin 81 mg 08/15/18 10:00 08/20/18 09:28 Baby Aspirin PO 81 mg QDAY TIMUR Administration Atorvastatin Calcium 80 mg 08/14/18 22:00 08/19/18 21:37 Lipitor PO 80 mg QHS TIMUR Administration Benzonatate 100 mg 08/14/18 14:00 08/20/18 05:58 Tessalon Perles PO 100 mg Q8HR TIMUR Administration Docusate Sodium 100 mg 08/19/18 22:00 08/20/18 09:28 Colace PO 100 mg BID TIMUR Administration Hydralazine HCl 10 mg 08/14/18 09:27 08/14/18 12:59 Apresoline IV 10 mg Q4HR PRN Administration HTN SBP>=180 NIKKI>=110 Sodium Chloride 100 mls @ 999 mls/hr 08/14/18 13:53 Nacl 0.9% IV NIKKI PRN Hypotension Isosorbide Mononitrate 30 mg 08/14/18 14:00 08/20/18 09:28 Imdur PO 30 mg QDAY TIMUR Administration Labetalol HCl 10 mg 08/14/18 09:27 Normodyne IV Q4H PRN HTN SBP>=180 Magnesium Hydroxide 30 ml 08/19/18 20:31 08/20/18 05:58 Milk Of Magnesia PO 30 ml Q4H PRN Administration Constipation Metoprolol Tartrate 25 mg 08/14/18 20:00 08/20/18 05:58 Lopressor PO 25 mg Q6HR [facility] Administration Morphine Sulfate 2 mg 08/15/18 11:23 08/19/18 00:35 Morphine IV 2 mg Q4H PRN Administration Pain , Severe (7-10) Nifedipine 60 mg 08/14/18 10:00 08/20/18 09:28 Procardia Xl PO 60 mg Q12HR [facility] Administration Nitroglycerin 0.4 mg 08/14/18 07:29 Nitrostat SL .Q5MIN PRN Chest Pain Ondansetron HCl 4 mg 08/14/18 09:27 Zofran IV Q4H PRN Nausea And Vomiting Pseudoephedrine/Acetam/Chlorphenir 15 ml 08/14/18 09:28 Robitussin Ac PO Q4H PRN Cough
--- NOTE | 2018-08-20 11:11 | Progress Note ---
Assessment and Plan Chest pain, musculoskeletal NSTEMI Cardiac cath performed revealed normal coronaries, LVEF 50% VQ no evidence of PE Right groin pain post cardiac cath no evidence of pseudoaneurysm by arterial doppler. CT scan of the pelvis reports evidence of retroperitoneal hemorrhage ESRD on dialysis Chronic hypertension Anemia Subjective Date of service: 08/20/18 Principal diagnosis: esrd Interval history: No cardiac events overnight. HCT of 25.3 today. Objective Vital Signs Temp Pulse Resp Resp BP BP Pulse Ox 08/20/18 09:28 78 142/88 08/20/18 08:56 18 08/20/18 08:21 97.4 F L 08/20/18 08:20 78 20 149/90 100 08/20/18 06:58 18 08/20/18 05:58 77 18 128/87 08/20/18 05:56 98.0 F 77 18 128/87 99 08/20/18 03:24 98.3 F 80 18 130/78 99 08/20/18 01:08 20 08/20/18 00:11 18 08/20/18 00:08 18 08/19/18 23:22 81 127/88 08/19/18 23:21 98.4 F 81 16 127/88 99 08/19/18 20:15 18 98 08/19/18 19:53 98.0 F 78 18 128/85 100 08/19/18 19:07 80 08/19/18 18:27 19 08/19/18 17:00 84 125/80 08/19/18 16:08 97.2 F L 76 18 128/82 97 08/19/18 12:27 16 08/19/18 12:26 83 117/78 08/19/18 12:22 98.3 F 83 16 117/78 100 08/19/18 11:56 79 - Physical Examination General: No Apparent Distress HEENT: Positive: PERRL Neck: Positive: trachea midline Cardiac: Positive: Reg Rate and Rhythm Lungs: Positive: Decreased Breath Sounds Neuro: Positive: Grossly Intact Incision: Cardiac Cath Site (right groin ) Extremities: Absent: edema - Labs and Meds CBC 08/20/18 Range/Units 04:46 Hgb 8.7 L (10.1-14.3) gm/dl Hct 25.3 L (30.3-42.9) % Plt Count 196 (140-440) K/mm3 Comprehensive Metabolic Panel 08/20/18 Range/Units 04:46 Sodium 135 L (137-145) mmol/L Potassium 5.2 H (3.6-5.0) mmol/L Chloride 90.7 L (98-107) mmol/L Carbon Dioxide 29 (22-30) mmol/L BUN 49 H (7-17) mg/dL Creatinine 10.3 H (0.7-1.2) mg/dL Glucose 88 (65-100) mg/dL Calcium 10.2 (8.4-10.2) mg/dL
--- NOTE | 2018-08-20 12:26 | Discharge Summary ---
Providers - Providers Date of Admission: 08/14/18 08:29 Date of discharge: 08/20/18 Attending physician: TONY MCGRATH 08/14/18 09:03 Consult to Physician [CONS] Routine Comment: Consulting Provider: PASCUAL CORCORAN Physician Instructions: Reason For Exam: ESRD on hemodialysis, needing management 08/14/18 09:19 Consult to Physician [CONS] Routine Comment: Consulting Provider: NANCY NAVARRO Physician Instructions: Reason For Exam: CP, ?ACS, ?need iv heparin, pt known to you 08/14/18 22:16 Consult to Physician [CONS] Routine Comment: Consulting Provider: SEDA RO Physician Instructions: Reason For Exam: fistulogram 08/17/18 20:24 Consult to Physician [CONS] Routine Comment: Consulting Provider: LIAN BARROSO Physician Instructions: Reason For Exam: retroperitoneal bleed [facility] Hospital[facility] Condition: Stable Hospital course: Patient is a 47 yo woman with a history of hypertension, AOCD of renal disease, angioedema from Lisinopril, ESRD on HD TTS, Secondary hyperparathyroidism, migraines, diastolic CHF and ?thyroid disease who presents to [facility] ED with chest pains. Patient has been experiencing chest pains off and on for 1-2 weeks associated with constant nonproductive cough. However, she woke up this morning with severe constant worsening nonradiating substernal chest pains around 5am. She went to hemodialysis center and her bp was so high that they sent her to ED (>200s/100s). She did not receive HD prior to coming. Patient states that she did not take her blood pressure medications this morning. Patient had one nitroglycerin en route to the ED with mild relief of chest pains. Currently, she is chest pains free. The chest pains is aggravated by coughing. She denies fevers, chills. She c/o abd pains associated with constant coughing but denies constipation, diarrhea. She did have dry heaves with excessive coughing. She reports high stress at home and not taking her thyroid medication as instructed. * pCXR Impression: Scarring in the right lung base, small effusion (right base) cannot be excluded 08/15/18 Left Heart Cardiac Catherization Impression: 1. Angiographically normal coronary circulation 2. Normal Left ventricular size and systolic function 3. LVEDP measured at 20 mmHg Operative Report: Date: 08/16/18 10:29 Date of procedure: 08/16/18 Pre-op diagnosis: AVG malfunction Post-op diagnosis: same Procedure: Angioplasty of the peripheral dialysis access with a 9 mm angioplasty balloon Anesthesia: local (w/ conscious sedation) Surgeon: SEDA JOE Estimated blood loss: minimal Condition: stable Disposition: floor -Chest pains, appears atypical, msk/costochondritis but elevated troponins: cardiac cath done 08/15/18, no stent placed, v/q scan negative -Right groin pains s/p Cath cath thru right femoral, d/w Dr. Navarro: get Arterial doppler of the the right femoral artery r/o pseudoaneurysm-->negative but retroperitoneal bleed found on CT abd/pelvis with IV steroids IMPRESSION: 1. Intermediate density subacute retroperitoneal hemorrhage involving the right flank and right paracolic gutter 2. Pneumobilia in the left lobe liver with evidence for prior cholecystectomy. Findings may be due to sphincterotomy. 3. Low-density cyst in the left ovary -Type 2 OR related to uncontrolled bp, 160/118 yesterday, doing better today. -Malignant hypertension with Urgency, did not respond to multiple iv hydralazine, needing admission: need HD, consulted Nephrology -ESRD on HD: Renal is following -AVG malfunction s/p Angioplasty on 08/16/18 and completed successful HD after procedure -Goiter, normal TSH: checked free T4 normal -Cough with small pleural effusion: possible increase ultrafiltration with HD, treat with anti-tussive -History of Diastolic heart failure, last ECHO in 2014, EF 70%: repeat 2D ECHO -DVT prophylaxis: sq heparin stopped due to drop in Hct d/w Vascular surgery, Dr. Barroso, ok to d/c then I d/w Dr. Navarro, he is concerned about the Hemoglobin which dropped initially from 10.9 on 08/14/18 =>9.5 on 08/16/18-->9.0 next day 9.0 and today 8.7. Disposition: continue inpatient until cleared by Dr. Navarro Disposition: - TO HOME OR SELFCARE Time spent for discharge: 35 minutes Core Measure Documentation - Palliative Care Palliative Care/ Comfort Measures: Not Applicable - Core Measures Any of the following diagnoses?: none - VTE Discharge Requirements Deep Vein Thrombosis/Pulmonary Embolism Present on Admission: No Has pt received <5 days of overlap therapy or INR<2.0: No Anticoagulant overlap therapy prescribed at discharge: No Contraindication No Overlap Therapy order at DC: Not Indicated Exam - Physical Exam Narrative exam: GEN: thin frail, WDWN, NAD, Awake, Alert, Orientated x 3 HEENT: NCAT, EOMI, PERRL, OP Clear NECK: supple, no adenopathy, + thyromegaly, no JVD CVS/HEART: RRR, normal S1S2, pulses present bilaterally CHEST/LUNGS: CTA B, Symmetrical chest expansion, good air entry bilaterally, reproducible chest wall substernal tenderness (grimaces with pains as she says palpation doesn't hurt) GI/Abdomen: soft, NTND, good bowel sounds, no guarding or rebound /Bladder: no suprapubic tenderness, no CVA or paraspinal tenderness EXT/Skin: no c/c/e, no obvious rash MSK: FROM x 4 Neuro: CN 2-12 grossly intact, no new focal deficits Psych: calm - Constitutional Vitals: Temp Pulse Resp BP Pulse Ox 97.4 F L 78 18 142/88 100 08/20/18 08:21 08/20/18 09:28 08/20/18 08:56 08/20/18 09:28 08/20/18 08:20 Plan Activity: other (no strenous activity until cleared ) Diet: renal Follow up with: [facility] GINI [Primary Care Provider] - 3-5 Days NANCY NAVARRO MD [Staff Physician] - 7 Days PASCUAL CORCORAN MD [Staff Physician] - 7 Days Prescriptions: AtorvaSTATin [Lipitor] 40 mg PO QHS #30 tablet Docusate Sodium [Colace CAP] 100 mg PO BID #30 capsule ISOSORBIDE MONOnitrate [Imdur ER] 30 mg PO QDAY #30 tablet HYDROcodone/APAP 5-325 [Cool 5-325 mg TAB] 1 each PO Q6H PRN #15 tablet PRN Reason: Pain , Severe (7-10)
[2018-08-20 13:07] VITALS: BP 124/78
--- NOTE | 2018-08-20 13:52 | Progress Note ---
Assessment and Plan - Patient Problems (1) ESRD (end stage renal disease) Current Visit: Yes Status: Acute Plan to address problem: End stage renal disease Access is left arm AV fistula Continue hemodialysis schedule of Monday (2) HTN (hypertension) Current Visit: No Status: Acute Plan to address problem: Hypertension controlled continue current medications (3) Anemia due to blood loss Current Visit: Yes Status: Acute Plan to address problem: Anemia due to blood loss also underlying chronic kidney disease CT retroperitoneal hematoma Hemoglobin 8.7 g per DL Epogen with dialysis (4) Hyperkalemia, diminished renal excretion Current Visit: Yes Status: Acute Plan to address problem: Mild hyperkalemia Emphasized low potassium diet continue hemodialysis Monday (5) Constipation Current Visit: Yes Status: Acute Plan to address problem: Constipation She has not had a bowel motion for several days will hold of Kayexalate given lactulose for now Subjective Principal diagnosis: esrd Interval history: 47-year-old lady with medical history significant for CAD admitted with N STEMI status post cardiac catheterization complicated by subacute retroperitoneal he matoma Patient's seen today has not moved her bowels in several days Denies any obvious bleeding has no vascular surgery no intervention recommended Has a left arm AV fistula Denies any shortness of breath orthopnea PND denies any lower extremity swelling Objective - Vital Signs Vital signs: Vital Signs - 12hr 08/20/18 08/20/18 08/20/18 03:24 05:56 05:58 Temperature 98.3 F 98.0 F Pulse Rate 80 77 77 Respiratory 18 18 18 Rate Blood Pressure 130/78 128/87 128/87 O2 Sat by Pulse 99 99 Oximetry 08/20/18 08/20/18 08/20/18 06:58 08:20 08:21 Temperature 97.4 F L Pulse Rate 78 Respiratory 18 20 Rate Blood Pressure 149/90 O2 Sat by Pulse 100 Oximetry 08/20/18 08/20/18 08/20/18 08:56 09:28 13:05 Temperature Pulse Rate 78 78 Respiratory 18 18 Rate Blood Pressure 142/88 124/78 O2 Sat by Pulse 100 Oximetry 08/20/18 08/20/18 13:06 13:09 Temperature 97.5 F L Pulse Rate 78 Respiratory Rate Blood Pressure 124/78 O2 Sat by Pulse Oximetry - General Appearance General appearance: well-developed, well-nourished EENT: ATNC, PERRL, mucous membranes moist Neck: no JVD Respiratory: Present: Clear to Ascultation Cardiology: S1S2, other (Left arm AV fistula. ) Gastrointestinal: normal, normoactive bowel sounds Integumentary: no rash Neurologic: no focal deficit, alert and oriented x3 Musculoskeletal: deferred, deformities Psychiatric: mood/affect appropriate - Lab 08/20/18 04:46 08/20/18 04:46 Most recent lab results Calcium 10.2 mg/dL (8.4-10.2) 08/20/18 04:46 Phosphorus 5.70 mg/dL (2.5-4.5) H 08/14/18 15:10 Magnesium 2.60 mg/dL (1.7-2.3) H 08/14/18 07:03 - Imaging CT scan - abdomen: report reviewed (I reviewed CT abdomen with concern for right-sided retroperitoneal hemorrhage) Medications & Allergies - Medications Allergies/Adverse Reactions: Allergies lisinopril Allergy (Verified 03/26/16 20:43) Angioedema Home Medications: Home Medications Medication Instructions Recorded Confirmed Last Taken Type NIFEdipine XL [Procardia Xl] 60 mg PO Q12HR 08/14/18 08/14/18 08/13/18 History Omeprazole 40 mg PO DAILY 08/14/18 08/14/18 08/13/18 History Ondansetron [Zofran ODT TAB] 4 mg PO Q8HR 08/14/18 08/14/18 08/13/18 History Acetaminophen [Acetaminophen TAB] 650 mg PO Q6H PRN #15 tablet 08/20/18 Unknown Rx Aspirin [Aspirin BABY CHEW TAB] 81 mg PO QDAY #15 tab.chew 08/20/18 Unknown Rx AtorvaSTATin [Lipitor] 40 mg PO QHS #30 tablet 08/20/18 Unknown Rx Docusate Sodium [Colace CAP] 100 mg PO BID #30 capsule 08/20/18 Unknown Rx HYDROcodone/APAP 5-325 [[place] 1 each PO Q6H PRN #15 tablet 08/20/18 Unknown Rx 5-325 mg TAB] ISOSORBIDE MONOnitrate [Imdur ER] 30 mg PO QDAY #30 tablet 08/20/18 Unknown Rx Metoprolol [Lopressor TAB] 25 mg PO Q6HR 30 Days tablet 08/20/18 Unknown Rx Active Medications: Generic Name Dose Route Start Last Admin Trade Name Freq PRN Reason Stop Dose Admin Acetaminophen 650 mg 08/14/18 09:27 08/15/18 00:00 Tylenol PO 650 mg Q6H PRN Administration Non Cardiac Pain or Temp>100.5 Acetaminophen/Hydrocodone Bitart 1 each 08/18/18 10:27 08/20/18 05:58 [place] 5/325 PO 1 each Q6H PRN Administration Pain, Moderate (4-6) Aluminum Hydroxide 640 mg 08/15/18 11:30 08/20/18 12:19 Amphojel PO Not Given [facility] Aspirin 81 mg 08/15/18 10:00 08/20/18 09:28 Baby Aspirin PO 81 mg QDAY TIMUR Administration Atorvastatin Calcium 80 mg 08/14/18 22:00 08/19/18 21:37 Lipitor PO 80 mg QHS TIMUR Administration Benzonatate 100 mg 08/14/18 14:00 08/20/18 13:11 Tessalon Perles PO 100 mg Q8HR TIMUR Administration Docusate Sodium 100 mg 08/19/18 22:00 08/20/18 09:28 Colace PO 100 mg BID TIMUR Administration Hydralazine HCl 10 mg 08/14/18 09:27 08/14/18 12:59 Apresoline IV 10 mg Q4HR PRN Administration HTN SBP>=180 NIKKI>=110 Sodium Chloride 100 mls @ 999 mls/hr 08/14/18 13:53 Nacl 0.9% IV NIKKI PRN Hypotension Isosorbide Mononitrate 30 mg 08/14/18 14:00 08/20/18 09:28 Imdur PO 30 mg QDAY TIMUR Administration Labetalol HCl 10 mg 08/14/18 09:27 Normodyne IV Q4H PRN HTN SBP>=180 Metoprolol Tartrate 25 mg 08/14/18 20:00 08/20/18 13:09 Lopressor PO 25 mg Q6HR TIMUR Administration Morphine Sulfate 2 mg 08/15/18 11:23 08/19/18 00:35 Morphine IV 2 mg Q4H PRN Administration Pain , Severe (7-10) Nifedipine 60 mg 08/14/18 10:00 08/20/18 09:28 Procardia Xl PO 60 mg Q12HR TIMUR Administration Nitroglycerin 0.4 mg 08/14/18 07:29 Nitrostat SL .Q5MIN PRN Chest Pain Ondansetron HCl 4 mg 08/14/18 09:27 Zofran IV Q4H PRN Nausea And Vomiting Pseudoephedrine/Acetam/Chlorphenir 15 ml 08/14/18 09:28 Robitussin Ac PO Q4H PRN Cough
[2018-08-20] MEDS ORDERED: CEPHULAC PO SCH (14:00)
[2018-08-21 09:52] LABS: Hepatitis B Surface Antigen Nonreactive (Negative)
== END 2018-08-20 18:19 | disposition home or self-care (01) | DRG 252 ==
LOC: ED 06:39 → 4A 08:29
PROVIDERS: ADMIT Internal Medicine; ATTEND Internal Medicine
PROC: 5A1D70Z Performance of Urinary Filtration, Intermittent, Less than 6 Hours Per Day (ICD-10-PCS; 2018-08-14)
PROC: 4A023N7 Measurement of Cardiac Sampling and Pressure, Left Heart, Percutaneous Approach (ICD-10-PCS; 2018-08-15)
PROC: B2111ZZ Fluoroscopy of Multiple Coronary Arteries using Low Osmolar Contrast (ICD-10-PCS; 2018-08-15)
PROC: B2151ZZ Fluoroscopy of Left Heart using Low Osmolar Contrast (ICD-10-PCS; 2018-08-15)
PROC: B51W1ZZ Fluoroscopy of Dialysis Shunt/Fistula using Low Osmolar Contrast (ICD-10-PCS; principal; 2018-08-16)
PROC: 057Y3ZZ Dilation of Upper Vein, Percutaneous Approach (ICD-10-PCS; 2018-08-16)
PROC: 5A1D70Z Performance of Urinary Filtration, Intermittent, Less than 6 Hours Per Day (ICD-10-PCS; 2018-08-16)
PROC: 5A1D70Z Performance of Urinary Filtration, Intermittent, Less than 6 Hours Per Day (ICD-10-PCS; 2018-08-18)
DX: T82.898A Other specified complication of vascular prosthetic devices, implants and grafts, initial encounter (principal); N18.6 End stage renal disease; K66.1 Hemoperitoneum; I21.A1 Myocardial infarction type 2; M94.0 Chondrocostal junction syndrome [Tietze]; I16.0 Hypertensive urgency; D63.1 Anemia in chronic kidney disease; F12.90 Cannabis use, unspecified, uncomplicated; K59.00 Constipation, unspecified; E04.9 Nontoxic goiter, unspecified; E87.5 Hyperkalemia; I50.30 Unspecified diastolic (congestive) heart failure; N83.202 Unspecified ovarian cyst, left side; I13.2 Hypertensive heart and chronic kidney disease with heart failure and with stage 5 chronic kidney disease, or end stage renal disease; N25.81 Secondary hyperparathyroidism of renal origin; Y83.2 Surgical operation with anastomosis, bypass or graft as the cause of abnormal reaction of the patient, or of later complication, without mention of misadventure at the time of the procedure; G43.909 Migraine, unspecified, not intractable, without status migrainosus; Z90.2 Acquired absence of lung [part of]; Z99.2 Dependence on renal dialysis; Z98.51 Tubal ligation status; Z90.49 Acquired absence of other specified parts of digestive tract; Z95.828 Presence of other vascular implants and grafts; Z87.891 Personal history of nicotine dependence; Z82.49 Family history of ischemic heart disease and other diseases of the circulatory system; Z83.3 Family history of diabetes mellitus; Z84.1 Family history of disorders of kidney and ureter; Z88.6 Allergy status to analgesic agent; Z71.89 Other specified counseling; Z87.442 Personal history of urinary calculi; Z71.3 Dietary counseling and surveillance; Y92.098 Other place in other non-institutional residence as the place of occurrence of the external cause
CPT/HCPCS: 36415; 36902; 71045; 74177; 78582; 80048; 80061; 80074; 80076; 81001; 82550; 82553; 83735; 83880; 83970; 84100; 84439; 84480; 84484; 85014; 85018; 85025; 85027; 85049; 85520; 85610; 85730; 90686; 93005; 93010; 93306; 93458; G0378; A9270-GY; A9540; A9558; C1725; C1769; C1894; J0360; J1644; J2250; J2270; J3010; J7030; J7050; Q9967

== ENCOUNTER 2018-08-30 12:57 | Emergency (ER) | payer MEDICAID ==
--- NOTE | 2018-08-30 13:12 | Emergency Department Report ---
Blank Doc - Documentation Documentation: This is a 47-year-old female that presents with abdominal pain. femoral pain, and back pain. Stated had some blood in stool yesterday., Stated had surgery for her heart from the femoral artery. This initial assessment/diagnostic orders/clinical plan/treatment(s) is/are subject to change based on patient's health status, clinical progression and re- assessment by fellow clinical providers in the ED. Further treatment and workup at subsequent clinical providers discretion. Patient/guardians urged not to elope from the ED as their condition may be serious if not clinically assessed and managed. Initial orders include: 1- Patient sent to MAIN ED for further evaluation and treatment 2- labs 3- EKG 4- CXR 5- UA
[2018-08-30 13:15] VITALS: BP 161/92
--- NOTE | 2018-08-30 13:37 | Emergency Department Report ---
ED General Adult HPI - General Chief complaint: Pain General Stated complaint: ABD PAIN/CHEST PAIN Time Seen by Provider: 08/30/18 13:10 Source: patient Mode of arrival: Ambulatory Limitations: No Limitations - History of Present Illness Initial comments: This is a 47-year-old female who is an exceptionally poor historian. She does not know that she has a right retroperitoneal hematoma. She has been recently admitted here for workup of chest pain and found to have normal coronary arteries on cardiac catheterization. She is stating that she had the pain prior to her heart and it has not changed since. He states that she is taking hydrocodone for pain. She somewhat has a tendency to answer to the affirmative to questions. However, she states she had a normal bowel movement last night and she has not measured her temperature. She states she vomited yesterday. She is not complaining of shortness of breath. She is complaining of pain in t he right lower quadrant of her abdomen which radiates to her flank. The patient does tell me that she had a complete dialysis from this morning. As per her last CT examination on 08/17/2018: In the right flank, there is intermediate soft tissue density material filling the right paracolic gutter. There is lack of fat plane between the psoas muscles and this density. The descending colon is displaced anteriorly. This density extends from the level of the right kidney inferiorly into the right anterior pelvis/right groin at the level of the acetabulum. Findings are consistent with retroperitoneal hemorrhage. There is a small amount of low-density fluid around the right kidney. Within the abdomen, the liver demonstrates a small amount of pneumobilia in the left lobe. This may be due to prior sphincterotomy. The spleen, pancreas, adrenal glands, and kidneys are unremarkable. Gallbladder has been surgically removed. No evidence for retroperitoneal lymphadenopathy is seen. The bowel loops have normal caliber. No soft tissue mass, inflammatory change, or free air is seen within the abdomen or pelvis. Moderate calcification of the aorta is seen. Within the pelvis, the bladder is unremarkable. The uterus is normal. There is a low-density 3.2 x 2.8 cm cyst in the left ovary. No evidence for mass or lymphadenopathy is seen in the pelvis. Images through the upper abdomen include the lung bases which demonstrate linear atelectasis or scarring in each lung base. Bony structures show no focal abnormalities and are intact. IMPRESSION: 1. Intermediate density subacute retroperitoneal hemorrhage involving the right flank and right paracolic gutter 2. Pneumobilia in the left lobe liver with evidence for prior cholecystectomy. Findings may be due to sphincterotomy. 3. Low-density cyst in the left ovary This document is electronically signed by Liana Chapman MD., August 17 2018 08:02:45 PM ET In addition arterial Doppler was obtained which did not show evidence of a pseudoaneurysm. -: week(s) Location: abdomen Radiation: flank Severity scale (0 -10): 10 Quality: aching Consistency: constant Improves with: none Worsens with: none Associated Symptoms: nausea/vomiting Treatments Prior to Arrival: none - Related Data Home Medications Medication Instructions Recorded Confirmed Last Taken NIFEdipine XL [Procardia Xl] 60 mg PO Q12HR 08/14/18 08/14/18 08/13/18 Omeprazole 40 mg PO DAILY 08/14/18 08/14/18 08/13/18 Ondansetron [Zofran ODT TAB] 4 mg PO Q8HR 08/14/18 08/14/18 08/13/18 Previous Rx's Medication Instructions Recorded Last Taken Type Acetaminophen [Acetaminophen TAB] 650 mg PO Q6H PRN #15 tablet 08/20/18 Unknown Rx Aspirin [Aspirin BABY CHEW TAB] 81 mg PO QDAY #15 tab.chew 08/20/18 Unknown Rx AtorvaSTATin [Lipitor] 40 mg PO QHS #30 tablet 08/20/18 Unknown Rx Docusate Sodium [Colace CAP] 100 mg PO BID #30 capsule 08/20/18 Unknown Rx HYDROcodone/APAP 5-325 [[place] 1 each PO Q6H PRN #15 tablet 08/20/18 Unknown Rx 5-325 mg TAB] ISOSORBIDE MONOnitrate [Imdur ER] 30 mg PO QDAY #30 tablet 08/20/18 Unknown Rx Metoprolol [Lopressor TAB] 25 mg PO Q6HR 30 Days tablet 08/20/18 Unknown Rx Allergies Allergy/AdvReac Type Severity Reaction Status Date / Time lisinopril Allergy Angioedema Verified 03/26/16 20:43 ED Review of Systems ROS: Stated complaint: ABD PAIN/CHEST PAIN Other details as noted in HPI Constitutional: denies: chills, fever Eyes: denies: eye pain, eye discharge, vision change ENT: denies: ear pain, throat pain Respiratory: denies: cough, shortness of breath, wheezing Cardiovascular: denies: chest pain, palpitations Endocrine: no symptoms reported Gastrointestinal: abdominal pain, nausea, vomiting. denies: diarrhea Genitourinary: denies: urgency, dysuria, discharge Musculoskeletal: denies: back pain, joint swelling, arthralgia Skin: denies: rash, lesions Neurological: denies: headache, weakness, paresthesias Psychiatric: denies: anxiety, depression Hematological/Lymphatic: denies: easy bleeding, easy bruising ED Past Medical Hx - Past Medical History Hx Hypertension: Yes Hx Congestive Heart Failure: Yes Hx Renal Disease: Yes (tts dialysis) Hx Kidney Stones: Yes Hx Asthma: Yes Additional medical history: fibroids; kidney disease, migraine - Surgical History Hx Cholecystectomy: Yes Additional Surgical History: portion of right lung removed. shunt left upper arm, permacath right chest - Social History Smoking Status: Former Smoker Substance Use Type: None - Medications Home Medications: Home Medications Medication Instructions Recorded Confirmed Last Taken Type NIFEdipine XL [Procardia Xl] 60 mg PO Q12HR 08/14/18 08/14/18 08/13/18 History Omeprazole 40 mg PO DAILY 08/14/18 08/14/18 08/13/18 History Ondansetron [Zofran ODT TAB] 4 mg PO Q8HR 08/14/18 08/14/18 08/13/18 History Acetaminophen [Acetaminophen TAB] 650 mg PO Q6H PRN #15 tablet 08/20/18 Unknown Rx Aspirin [Aspirin BABY CHEW TAB] 81 mg PO QDAY #15 tab.chew 08/20/18 Unknown Rx AtorvaSTATin [Lipitor] 40 mg PO QHS #30 tablet 08/20/18 Unknown Rx Docusate Sodium [Colace CAP] 100 mg PO BID #30 capsule 08/20/18 Unknown Rx HYDROcodone/APAP 5-325 [[place] 1 each PO Q6H PRN #15 tablet 08/20/18 Unknown Rx 5-325 mg TAB] ISOSORBIDE MONOnitrate [Imdur ER] 30 mg PO QDAY #30 tablet 08/20/18 Unknown Rx Metoprolol [Lopressor TAB] 25 mg PO Q6HR 30 Days tablet 08/20/18 Unknown Rx ED Physical Exam - General Limitations: No Limitations General appearance: alert, in no apparent distress - Head Head exam: Present: atraumatic, normocephalic - Eye Eye exam: Present: normal appearance. Absent: scleral icterus - ENT ENT exam: Present: mucous membranes moist - Neck Neck exam: Present: normal inspection - Respiratory Respiratory exam: Present: normal lung sounds bilaterally. Absent: respiratory distress - Cardiovascular Cardiovascular Exam: Present: regular rate, normal rhythm. Absent: systolic murmur, diastolic murmur, rubs, gallop - GI/Abdominal GI/Abdominal exam: Present: soft, tenderness, guarding, normal bowel sounds. Absent: distended, rebound, rigid - Extremities Exam Extremities exam: Present: normal inspection - Back Exam Back exam: Present: normal inspection - Neurological Exam Neurological exam: Present: alert, oriented X3, CN II-XII intact, motor sensory deficit - Psychiatric Psychiatric exam: Present: agitated, anxious - Skin Skin exam: Present: warm, dry, intact, normal color. Absent: rash ED Course Vital Signs 08/30/18 13:10 Temperature 98.3 F Pulse Rate 110 H Blood Pressure 161/92 O2 Sat by Pulse 100 Oximetry - Reevaluation(s) Reevaluation #1: Patient had an odd presentation of recurrent pain. I have referred her to Dr. Holley for consideration for admission. I have not found anything radiographic on her CT to suggest a rebleed. An arterial Doppler has been done results. Disposition is per Dr. Holley. 08/30/18 15:34 ED Medical Decision Making - Lab Data Result diagrams: 08/30/18 13:24 08/30/18 13:24 Laboratory Results - last 24 hr 08/30/18 08/30/18 08/30/18 13:24 13:24 13:44 WBC 12.0 H RBC 2.80 L Hgb 9.9 L Hct 29.6 L MCV 106 H MCH 35 H MCHC 33 RDW 14.9 Plt Count 247 Lymph % (Auto) 10.6 L Brooks % (Auto) 12.5 H Eos % (Auto) 4.4 H Baso % (Auto) 0.5 Lymph # 1.3 Brooks # 1.5 H Eos # 0.5 H Baso # 0.1 Seg Neutrophils % 72.0 H Seg Neutrophils # 8.7 H PT 12.7 INR 0.90 APTT 24.0 L Troponin T 0.051 H Laboratory Results - last 24 hr 08/30/18 08/30/18 08/30/18 13:24 13:24 13:44 WBC 12.0 H RBC 2.80 L Hgb 9.9 L Hct 29.6 L MCV 106 H MCH 35 H MCHC 33 RDW 14.9 Plt Count 247 Lymph % (Auto) 10.6 L Brooks % (Auto) 12.5 H Eos % (Auto) 4.4 H Baso % (Auto) 0.5 Lymph # 1.3 Brooks # 1.5 H Eos # 0.5 H Baso # 0.1 Seg Neutrophils % 72.0 H Seg Neutrophils # 8.7 H PT 12.7 INR 0.90 APTT 24.0 L Sodium 137 Potassium 3.3 L Chloride 94.1 L Carbon Dioxide 30 Anion Gap 16 BUN 11 Creatinine 4.2 H Estimated GFR 14 BUN/Creatinine Ratio 3 Glucose 93 Calcium 10.6 H Total Bilirubin 0.40 Direct Bilirubin < 0.2 AST 22 ALT 13 Alkaline Phosphatase 92 Troponin T 0.051 H Total Protein 7.7 Albumin 3.7 L Albumin/Globulin Ratio 0.9 Lipase 43 - EKG Data -: EKG Interpreted by Vt EKG shows normal: sinus rhythm Rate: tachycardia - EKG Data Interpretation: LVH - Radiology Data Radiology results: report reviewed Critical care attestation.: If time is entered above; I have spent that time in minutes in the direct care of this critically ill patient, excluding procedure time. ED Disposition Clinical Impression: Retroperitoneal hematoma, End stage renal disease on dialysis Abdominal pain Qualifiers: Abdominal location: unspecified location Qualified Code(s): R10.9 - Unspecified abdominal pain Disposition: DC- TO HOME OR SELFCARE Is pt being admited?: No Does the pt Need Aspirin: No Condition: Stable Additional Instructions: Per Dr. Holley Time of Disposition: 15:43
[2018-08-30] MEDS ORDERED: ZOFRAN IV ONE (13:41)
[2018-08-30] MEDS ORDERED: DILAUDID IV ONE (13:41)
[2018-08-30] MEDS ORDERED: NACL 0.9% 1000 ML 1,000 ML IV ONE (13:41)
[2018-08-30 13:49] LABS: Basophils # (Auto) 0.1 K/mm3 (0.0-0.1); Basophils % (Auto) 0.5 % (0.0-1.8); Eosinophils # (Auto) 0.5 K/mm3 (0.0-0.4); Eosinophils % (Auto) 4.4 % (0.0-4.3); Hematocrit 29.6 % (30.3-42.9); Hemoglobin 9.9 gm/dl (10.1-14.3); Lymphocytes # (Auto) 1.3 K/mm3 (1.2-5.4); Lymphocytes % (Auto) 10.6 % (13.4-35.0); Mean Corpuscular HGB Conc 33 % (30-34); Mean Corpuscular Volume 106 fl (79-97); Monocytes # (Auto) 1.5 K/mm3 (0.0-0.8); Monocytes % (Auto) 12.5 % (0.0-7.3); Platelet Count 247 K/mm3 (140-440); Red Cell Distribution Width 14.9 % (13.2-15.2)
--- NOTE | 2018-08-30 14:18 | Cat Scan Report ---
CT ABDOMEN PELVIS WITHOUT CONTRAST: HISTORY: Right lower quadrant pain, history of retroperitoneal hemorrhage. COMPARISON: 08/17/18. TECHNIQUE: Helical CT in 1.25mm intervals without IV contrast. Sagittal and coronal reconstructions. FINDINGS: Lung bases: Normal. Liver: Normal. Biliary system: Cholecystectomy changes. Pancreas: Normal. Spleen: Normal. Kidneys/ureters/bladder: The [place] kidneys are atrophic. There are a few scattered tiny renal stones in both kidneys. The ureters and bladder are unremarkable. Adrenal glands: Normal. Aorta: Mild diffuse calcifications. No aneurysm. Intestines: Within normal limits given no oral contrast was administered. Appendix: Not confidently identified. Pelvic viscera: A 3.3 cm left adnexal cyst is identified. The uterus and right adnexa are unremarkable. Ascites: None. Adenopathy: None. Musculoskeletal: Intact. A subacute to early chronic right retroperitoneal hemorrhage is identified measuring up to 8.9 x 7.3 cm in axial plane. Internal density of this hemorrhage has decreased from 65 Hounsfield units to 50 Hounsfield units. There is no convincing evidence for new hemorrhage. IMPRESSION: Evolving right retroperitoneal hemorrhage as described. No evidence for new hemorrhage. 3.3 cm left ovarian cyst. Chronic renal parenchymal disease.
[2018-08-30 14:21] LABS: INR 0.9 (0.87-1.13)
[2018-08-30 14:55] LABS: Alanine Aminotransferase 13 units/L (7-56); Albumin 3.7 g/dL (3.9-5); BUN/Creatinine Ratio 3; Blood Urea Nitrogen 11 mg/dL (7-17); Calcium 10.6 mg/dL (8.4-10.2); Hemolysis Index 8
[2018-08-30 14:57] LABS: Bilirubin,Direct < 0.2 mg/dL (0-0.2)
--- NOTE | 2018-08-30 15:29 | Event Note ---
Date: 08/30/18 Comes in for Abdominal pain CT abd shows old Retroperitoneal hematoma WAs discharged on Discharge summary from prev visit Right groin pains s/p Cath cath thru right femoral, d/w Dr. Ring: get Arterial doppler of the the right femoral artery r/o pseudoaneurysm-->negative but retroperitoneal bleed found on CT abd/pelvis with IV steroids IMPRESSION: 1. Intermediate density subacute retroperitoneal hemorrhage involving the right flank and right paracolic gutter 2. Pneumobilia in the left lobe liver with evidence for prior cholecystectomy. Findings may be due to sphincterotomy. 3. Low-density cyst in the left ovary -Type 2 LA related to uncontrolled bp, 160/118 yesterday, doing better today. -Malignant hypertension with Urgency, did not respond to multiple iv hydralazine, needing admission: need HD, consulted Nephrology -ESRD on HD: Renal is following -AVG malfunction s/p Angioplasty on 08/16/18 and completed successful HD after procedure -Goiter, normal TSH: checked free T4 normal -Cough with small pleural effusion: possible increase ultrafiltration with HD, treat with anti-tussive -History of Diastolic heart failure, last ECHO in 2014, EF 70%: repeat 2D ECHO -DVT prophylaxis: sq heparin stopped due to drop in Hct Discharge diagnosis Retroperitoneal Hematoma-Improvinf ESRD Hypokalemia mild Had Dialysis today Percocet 7.5/325 po tid prn D/c to NH
[2018-08-30 15:43] LABS: Chol/HDL Ratio 2.66 %; HDL Cholesterol 54 mg/dL (40-59); LDL Cholesterol,Direct 72 mg/dL (50-130)
--- NOTE | 2018-08-30 16:10 | Vascular Lab Report ---
PROCEDURE: VL ARTERIAL DUPLEX LE RT TECHNIQUE: Limited right arterial duplex ultrasound. HISTORY: right groin pain after cath COMPARISONS: Right lower extremity arterial duplex ultrasound August 17, 2018. FINDINGS: There is no pseudoaneurysm identified. Right external iliac artery, right common femoral, superficial femoral artery and profunda femoris arteries appear patent. Right external iliac and common femoral veins are patent. No significant hematoma seen sonographically. Heterogeneous mixed echogenic lesion just below the liver measures 9 x 7 cm and is nonspecific. No si gnificant internal flow. IMPRESSION: * No pseudoaneurysm. * Heterogeneous mixed echogenic lesion just below the liver is nonspecific. Please correlate with CT abdomen and pelvis from better evaluation. This document is electronically signed by Ky Avilez MD., August 30 2018 04:08:07 PM ET
== END 2018-08-30 16:00 | disposition home or self-care (01) ==
LOC: ED 12:57
DX: K66.1 Hemoperitoneum (principal); I13.2 Hypertensive heart and chronic kidney disease with heart failure and with stage 5 chronic kidney disease, or end stage renal disease; N18.6 End stage renal disease; I50.9 Heart failure, unspecified; G43.909 Migraine, unspecified, not intractable, without status migrainosus; Z99.2 Dependence on renal dialysis; Z90.49 Acquired absence of other specified parts of digestive tract; Z87.891 Personal history of nicotine dependence; Z88.8 Allergy status to other drugs, medicaments and biological substances
CPT/HCPCS: 36415; 74176; 80048; 80061; 80076; 82550; 83690; 83880; 84484; 85025; 85610; 85730; 86850; 86900; 86901; 93005; 93010; 93926; 96361; 96374; 96375; 99284; J1170; J2405; J7030

== ENCOUNTER 2018-10-30 17:13 | Emergency (ER) | payer MEDICAID ==
[2018-10-30 17:23] VITALS: BP 130/79
--- NOTE | 2018-10-30 17:25 | Emergency Department Report ---
Chief Complaint: Extremity Injury, Lower Stated Complaint: FOOT/ARM PAIN Time Seen by Provider: 10/30/18 17:22 - HPI History of Present Illness: This is a 48 y.o. F. that presents to the ER with pain to right medial side of foot x 2 weeks. Patient applying ice and heat with no improvement of symptoms. Pain worse with weight bearing. PMH: ESRD, HTN, peptic ulcers, migraines - Exam Vital Signs: Vital Signs 10/30/18 17:22 Temperature 98.1 F Pulse Rate 97 H Respiratory 18 Rate Blood Pressure 130/79 O2 Sat by Pulse 100 Oximetry MSE screening note: Focused history and physical exam performed. Due to findings the following was ordered: This initial assessment/diagnostic orders/clinical plan/treatment(s) is/are subject to change based on patient's health status, clinical progression and re- assessment by fellow clinical providers in the ED. Further treatment and workup at subsequent clinical providers discretion. Patient/guardians urged not to elope from the ED as their condition may be serious if not clinically assessed and managed. Initial orders include: 1- Patient sent to [facility] for further evaluation and treatment 2- XR right foot ED Disposition for MSE Condition: Stable
--- NOTE | 2018-10-30 19:13 | XRay Report ---
PROCEDURE: XR FOOT 3+V RT TECHNIQUE: Right foot radiographs, AP, lateral, and oblique views. HISTORY: pain, medial COMPARISONS: None . FINDINGS: Fracture (s) and/or Dislocation(s): None . Alignment: Normal . Joint space(s): There is hallux valgus deformity at the first metatarsophalangeal joint Soft tissues: Normal . Bone mineralization: Normal . Foreign bodies: None . Calcaneal spurring: None . IMPRESSION: Hallux valgus This document is electronically signed by Bhavik Flannery MD., Oct 30 2018 07:11:10 PM ET
[2018-10-30] MEDS ORDERED: IBUPROFEN PO ONE (19:41)
[2018-10-30] MEDS ORDERED: NORCO 5/325 PO STA (20:56)
--- NOTE | 2018-10-30 21:02 | Emergency Department Report ---
ED General Adult HPI - General Chief complaint: Extremity Injury, Lower Stated complaint: FOOT/ARM PAIN Time Seen by Provider: 10/30/18 17:22 Source: patient Mode of arrival: Wheelchair Limitations: No Limitations - History of Present Illness Initial comments: 48-year-old -[place] female visits emergency department complaining of a tooth history of right foot pain. She was denies any trauma was states that she has been having some progressively worsening achiness and throbbing pain to the instep of her right foot that is worse when she ambulates and had or palpates the region. No fever, chills, sweats. No numbness or tingling. No no discharge. She is currently on dialysis. Location: lower extremity Radiation: non-radiation Severity scale (0 -10): 7 Consistency: constant Improves with: none Worsens with: none Associated Symptoms: denies: chest pain, cough, diaphoresis, loss of appetite, malaise, shortness of breath, syncope, weakness Treatments Prior to Arrival: none - Related Data Home Medications Medication Instructions Recorded Confirmed Last Taken NIFEdipine XL [Procardia Xl] 60 mg PO Q12HR 08/14/18 08/14/18 08/13/18 Omeprazole 40 mg PO DAILY 08/14/18 08/14/18 08/13/18 Ondansetron [Zofran ODT TAB] 4 mg PO Q8HR 08/14/18 08/14/18 08/13/18 Previous Rx's Medication Instructions Recorded Last Taken Type Acetaminophen [Acetaminophen TAB] 650 mg PO Q6H PRN #15 tablet 08/20/18 Unknown Rx Aspirin [Aspirin BABY CHEW TAB] 81 mg PO QDAY #15 tab.chew 08/20/18 Unknown Rx AtorvaSTATin [Lipitor] 40 mg PO QHS #30 tablet 08/20/18 Unknown Rx Docusate Sodium [Colace CAP] 100 mg PO BID #30 capsule 08/20/18 Unknown Rx HYDROcodone/APAP 5-325 [[place] 1 each PO Q6H PRN #15 tablet 08/20/18 Unknown Rx 5-325 mg TAB] ISOSORBIDE MONOnitrate [Imdur ER] 30 mg PO QDAY #30 tablet 08/20/18 Unknown Rx Metoprolol [Lopressor TAB] 25 mg PO Q6HR 30 Days tablet 08/20/18 Unknown Rx Oxycodone HCl/Acetaminophen 1 each PO Q6HR PRN #20 tablet 08/30/18 Unknown Rx [Percocet 7.5/325 mg] Ketorolac [Toradol] 10 mg PO Q6H PRN #20 tablet 10/30/18 Unknown Rx Allergies Allergy/AdvReac Type Severity Reaction Status Date / Time lisinopril Allergy Angioedema Verified 10/30/18 17:15 ED Review of Systems ROS: Stated complaint: FOOT/ARM PAIN Other details as noted in HPI Constitutional: denies: chills, fever Eyes: denies: eye pain, eye discharge, vision change ENT: denies: ear pain, throat pain Respiratory: denies: cough, shortness of breath, wheezing Cardiovascular: denies: chest pain, palpitations Endocrine: no symptoms reported Gastrointestinal: denies: abdominal pain, nausea, diarrhea Genitourinary: denies: urgency, dysuria, discharge Musculoskeletal: arthralgia. denies: back pain, joint swelling Skin: denies: rash, lesions Neurological: denies: headache, weakness, paresthesias Psychiatric: denies: anxiety, depression Hematological/Lymphatic: denies: easy bleeding, easy bruising ED Past Medical Hx - Past Medical History Hx Hypertension: Yes Hx Congestive Heart Failure: Yes Hx Renal Disease: Yes (tts dialysis) Hx Kidney Stones: Yes Hx Asthma: Yes Additional medical history: fibroids; kidney disease, migraine - Surgical History Hx Cholecystectomy: Yes Additional Surgical History: portion of right lung removed. shunt left upper arm, permacath right chest - Social History Smoking Status: Never Smoker Substance Use Type: Marijuana - Medications Home Medications: Home Medications Medication Instructions Recorded Confirmed Last Taken Type NIFEdipine XL [Procardia Xl] 60 mg PO Q12HR 08/14/18 08/14/18 08/13/18 History Omeprazole 40 mg PO DAILY 08/14/18 08/14/18 08/13/18 History Ondansetron [Zofran ODT TAB] 4 mg PO Q8HR 08/14/18 08/14/18 08/13/18 History Acetaminophen [Acetaminophen TAB] 650 mg PO Q6H PRN #15 tablet 08/20/18 Unknown Rx Aspirin [Aspirin BABY CHEW TAB] 81 mg PO QDAY #15 tab.chew 08/20/18 Unknown Rx AtorvaSTATin [Lipitor] 40 mg PO QHS #30 tablet 08/20/18 Unknown Rx Docusate Sodium [Colace CAP] 100 mg PO BID #30 capsule 08/20/18 Unknown Rx HYDROcodone/APAP 5-325 [[place] 1 each PO Q6H PRN #15 tablet 08/20/18 Unknown Rx 5-325 mg TAB] ISOSORBIDE MONOnitrate [Imdur ER] 30 mg PO QDAY #30 tablet 08/20/18 Unknown Rx Metoprolol [Lopressor TAB] 25 mg PO Q6HR 30 Days tablet 08/20/18 Unknown Rx Oxycodone HCl/Acetaminophen 1 each PO Q6HR PRN #20 tablet 08/30/18 Unknown Rx [Percocet 7.5/325 mg] Ketorolac [Toradol] 10 mg PO Q6H PRN #20 tablet 10/30/18 Unknown Rx ED Physical Exam - General Limitations: No Limitations General appearance: alert, in no apparent distress - Head Head exam: Present: atraumatic, normocephalic - Eye Eye exam: Present: normal appearance, PERRL, EOMI Pupils: Present: normal accommodation - ENT ENT exam: Present: normal exam, normal orophraynx, mucous membranes moist - Neck Neck exam: Present: normal inspection, full ROM - Respiratory Respiratory exam: Present: normal lung sounds bilaterally. Absent: respiratory distress, wheezes, rales, chest wall tenderness, accessory muscle use - Cardiovascular Cardiovascular Exam: Present: regular rate, normal rhythm. Absent: systolic murmur, diastolic murmur, rubs, gallop - GI/Abdominal GI/Abdominal exam: Present: soft, normal bowel sounds - Extremities Exam Extremities exam: Present: normal inspection, full ROM, other (hallux valgus noted to the feet bilaterally with some with with bunions, as well, more prominent on the left and right. Nose with palpation. There is tenderness to the to the right instep region and paraspinous is noted. No broken skin or cellulitis. No drainage. Pulses are 2+) - Back Exam Back exam: Present: normal inspection - Neurological Exam Neurological exam: Present: alert, oriented X3, CN II-XII intact. Absent: reflexes normal - Psychiatric Psychiatric exam: Present: normal affect, normal mood. Absent: flat affect, manic, homicidal ideation - Skin Skin exam: Present: warm, dry, intact, normal color. Absent: rash, erythema, urticaria, petechiae, pallor, abrasion, ecchymosis ED Course Vital Signs 10/30/18 17:22 Temperature 98.1 F Pulse Rate 97 H Respiratory 18 Rate Blood Pressure 130/79 O2 Sat by Pulse 100 Oximetry Critical care attestation.: If time is entered above; I have spent that time in minutes in the direct care of this critically ill patient, excluding procedure time. ED Disposition Clinical Impression: Foot pain, Pes planus, Hallux valgus Disposition: - TO HOME OR SELFCARE Is pt being admited?: No Does the pt Need Aspirin: No Condition: Stable Instructions: Arthralgia (ED), Tendinitis (ED), Foot Sprain (ED) Prescriptions: Ketorolac [Toradol] 10 mg PO Q6H PRN #20 tablet PRN Reason: Pain Referrals: [facility] MD GINI [Primary Care Provider] - 3-5 Days ERON BREEN MD [Staff Physician] - 3-5 Days ENRIQUETA FINK DPM [Staff Physician] - 3-5 Days ARSEN SMITH DPM [Staff Physician] - 3-5 Days NATHAN ZAVALA DPM [Staff Physician] - 3-5 Days
== END 2018-10-30 21:52 | disposition home or self-care (01) ==
LOC: ED 17:13
DX: M20.11 Hallux valgus (acquired), right foot (principal); M21.41 Flat foot [pes planus] (acquired), right foot; F12.10 Cannabis abuse, uncomplicated; I13.0 Hypertensive heart and chronic kidney disease with heart failure and stage 1 through stage 4 chronic kidney disease, or unspecified chronic kidney disease; I50.9 Heart failure, unspecified; N18.9 Chronic kidney disease, unspecified; Z99.2 Dependence on renal dialysis; J45.909 Unspecified asthma, uncomplicated; G43.909 Migraine, unspecified, not intractable, without status migrainosus; Z90.49 Acquired absence of other specified parts of digestive tract; Z88.5 Allergy status to narcotic agent; Z79.82 Long term (current) use of aspirin
CPT/HCPCS: 99283

== ENCOUNTER 2018-11-07 21:59 | Emergency (ER) | payer MEDICAID ==
[2018-11-07] MEDS ORDERED: DILAUDID IV ONE (22:13)
--- NOTE | 2018-11-07 22:14 | Emergency Department Report ---
ED Abdominal Pain HPI - General Chief Complaint: Abdominal Pain Stated Complaint: ABDOMINAL PAIN Time Seen by Provider: 11/07/18 22:00 Source: patient, EMS Mode of arrival: Stretcher Limitations: No Limitations - History of Present Illness Initial Comments: She is a 48-year-old female that presents emergency room with complaints of abdominal pain 24 hours. Patient states she has a history of small bowel obstruction. Patient states she had a bowel movement yesterday but was very hard and she had to strain a lot and wanted to have the bowel movement. Patient states she has not vomited today. Patient complains of nausea and vomiting today. Patient states the pain is a 10 out of 10. Patient states the pain is better with rest and worse with palpation and movement. Patient states she is a dialysis patient she had a full dialysis yesterday. MD Complaint: abdominal pain -: Sudden Location: diffuse Radiation: none Migration to: no migration Severity: severe Severity scale (0 -10): 10 - Related Data Home Medications Medication Instructions Recorded Confirmed Last Taken NIFEdipine XL [Procardia Xl] 60 mg PO Q12HR 08/14/18 08/14/18 08/13/18 Omeprazole 40 mg PO DAILY 08/14/18 08/14/18 08/13/18 Ondansetron [Zofran ODT TAB] 4 mg PO Q8HR 08/14/18 08/14/18 08/13/18 Previous Rx's Medication Instructions Recorded Last Taken Type Acetaminophen [Acetaminophen TAB] 650 mg PO Q6H PRN #15 tablet 08/20/18 Unknown Rx Aspirin [Aspirin BABY CHEW TAB] 81 mg PO QDAY #15 tab.chew 08/20/18 Unknown Rx AtorvaSTATin [Lipitor] 40 mg PO QHS #30 tablet 08/20/18 Unknown Rx Docusate Sodium [Colace CAP] 100 mg PO BID #30 capsule 08/20/18 Unknown Rx HYDROcodone/APAP 5-325 [[place] 1 each PO Q6H PRN #15 tablet 08/20/18 Unknown Rx 5-325 mg TAB] ISOSORBIDE MONOnitrate [Imdur ER] 30 mg PO QDAY #30 tablet 08/20/18 Unknown Rx Metoprolol [Lopressor TAB] 25 mg PO Q6HR 30 Days tablet 08/20/18 Unknown Rx Oxycodone HCl/Acetaminophen 1 each PO Q6HR PRN #20 tablet 08/30/18 Unknown Rx [Percocet 7.5/325 mg] Ketorolac [Toradol] 10 mg PO Q6H PRN #20 tablet 10/30/18 Unknown Rx Magnesium Citrate [Citrate of 300 ml PO ONCE 1 Days #1 bottle 11/08/18 Unknown Rx Magnesia] Sennosides/Docusate [Senokot S] 1 each PO Q12HR 30 Days #60 tab 11/08/18 Unknown Rx Allergies Allergy/AdvReac Type Severity Reaction Status Date / Time lisinopril Allergy Angioedema Verified 10/30/18 17:15 ED Review of Systems ROS: Stated complaint: ABDOMINAL PAIN Other details as noted in HPI Constitutional: denies: chills, fever Eyes: denies: eye pain, eye discharge, vision change ENT: denies: ear pain, throat pain Respiratory: denies: cough, shortness of breath, wheezing Cardiovascular: denies: chest pain, palpitations Endocrine: no symptoms reported Gastrointestinal: abdominal pain, nausea, vomiting, constipation. denies: diarrhea, hematemesis, melena, hematochezia Genitourinary: denies: urgency, dysuria, discharge Musculoskeletal: denies: back pain, joint swelling, arthralgia Skin: denies: rash, lesions Neurological: denies: headache, weakness, paresthesias Psychiatric: denies: anxiety, depression Hematological/Lymphatic: denies: easy bleeding, easy bruising ED Past Medical Hx - Past Medical History Previous Medical History?: Yes Hx Hypertension: Yes Hx Congestive Heart Failure: Yes Hx Renal Disease: Yes (tts dialysis) Hx Kidney Stones: Yes Hx Asthma: Yes Additional medical history: fibroids; kidney disease, migraine - Surgical History Past Surgical History?: Yes Hx Cholecystectomy: Yes Additional Surgical History: portion of right lung removed. shunt left upper arm, permacath right chest - Family History Family history: no significant - Social History Smoking Status: Never Smoker Substance Use Type: None - Medications Home Medications: Home Medications Medication Instructions Recorded Confirmed Last Taken Type NIFEdipine XL [Procardia Xl] 60 mg PO Q12HR 08/14/18 08/14/18 08/13/18 History Omeprazole 40 mg PO DAILY 08/14/18 08/14/18 08/13/18 History Ondansetron [Zofran ODT TAB] 4 mg PO Q8HR 08/14/18 08/14/18 08/13/18 History Acetaminophen [Acetaminophen TAB] 650 mg PO Q6H PRN #15 tablet 08/20/18 Unknown Rx Aspirin [Aspirin BABY CHEW TAB] 81 mg PO QDAY #15 tab.chew 08/20/18 Unknown Rx AtorvaSTATin [Lipitor] 40 mg PO QHS #30 tablet 08/20/18 Unknown Rx Docusate Sodium [Colace CAP] 100 mg PO BID #30 capsule 08/20/18 Unknown Rx HYDROcodone/APAP 5-325 [[place] 1 each PO Q6H PRN #15 tablet 08/20/18 Unknown Rx 5-325 mg TAB] ISOSORBIDE MONOnitrate [Imdur ER] 30 mg PO QDAY #30 tablet 08/20/18 Unknown Rx Metoprolol [Lopressor TAB] 25 mg PO Q6HR 30 Days tablet 08/20/18 Unknown Rx Oxycodone HCl/Acetaminophen 1 each PO Q6HR PRN #20 tablet 08/30/18 Unknown Rx [Percocet 7.5/325 mg] Ketorolac [Toradol] 10 mg PO Q6H PRN #20 tablet 10/30/18 Unknown Rx Magnesium Citrate [Citrate of 300 ml PO ONCE 1 Days #1 bottle 11/08/18 Unknown Rx Magnesia] Sennosides/Docusate [Senokot S] 1 each PO Q12HR 30 Days #60 tab 11/08/18 Unknown Rx ED Physical Exam - General Limitations: No Limitations General appearance: alert, in no apparent distress - Head Head exam: Present: atraumatic, normocephalic - Eye Eye exam: Present: normal appearance - ENT ENT exam: Present: mucous membranes moist - Neck Neck exam: Present: normal inspection - Respiratory Respiratory exam: Present: normal lung sounds bilaterally. Absent: respiratory distress - Cardiovascular Cardiovascular Exam: Present: regular rate, normal rhythm. Absent: systolic murmur, diastolic murmur, rubs, gallop - GI/Abdominal GI/Abdominal exam: Present: soft, tenderness (generalized tenderness), normal bowel sounds - Extremities Exam Extremities exam: Present: normal inspection - Back Exam Back exam: Present: normal inspection - Neurological Exam Neurological exam: Present: alert, oriented X3 - Psychiatric Psychiatric exam: Present: normal affect, normal mood - Skin Skin exam: Present: warm, dry, intact, normal color. Absent: rash ED Course Vital Signs 11/07/18 11/07/18 22:05 22:26 Temperature 98.2 F Pulse Rate 91 H Respiratory 21 20 Rate Blood Pressure 134/91 O2 Sat by Pulse 100 98 Oximetry - Reevaluation(s) Reevaluation #1: Patient states the pain is better. Patient states she is been able to pass gas and she has been here. Discussed all results with patient. Patient will be discharged home. Patient stable at discharge. Patient given discharge instructions. Patient voiced understanding of discharge instructions.. Patient agrees to plan of care. 11/08/18 00:24 ED Medical Decision Making - Lab Data Result diagrams: 11/07/18 22:24 11/07/18 22:24 - Radiology Data Radiology results: report reviewed IMPRESSION: The evaluation is limited without IV and oral contrast. There is no evidence of intestinal or urinary tract obstruction. The appendix is not visualized on this study. There is moderate fecal debris throughout the colon. A 3 cm dominant left ovary cyst is suspected. Bilateral renal atrophy is identified. Left renal calculi are noted. Previous cholecystectomy. There is slight dilatation of the biliary ductal system and common bile duct. No stones are identified. . - Medical Decision Making Patient is a 48-year-old female that presents to [facility] with severe abdominal pain. Patient found to have constipation on CT scan. Patient's labs unremarkab le except for chronic kidney disease for which she is on dialysis. Patient will be discharged home with constipation treatment. Patient given discharge instructions.. - Differential Diagnosis constipation. Abdominal pain. Critical care attestation.: If time is entered above; I have spent that time in minutes in the direct care of this critically ill patient, excluding procedure time. ED Disposition Clinical Impression: ESRD (end stage renal disease) Abdominal pain Qualifiers: Abdominal location: generalized Qualified Code(s): R10.84 - Generalized abdominal pain Constipation Qualifiers: Constipation type: unspecified constipation type Qualified Code(s): K59.00 - Constipation, unspecified Disposition: - TO HOME OR SELFCARE Is pt being admited?: No Does the pt Need Aspirin: No Condition: Stable Instructions: Abdominal Pain (ED), High Fiber Diet (ED), Constipation (ED) Additional Instructions: Patient to follow-up with primary care in 2-3 days. Patient to follow up with technician semiconductor development in 2-3 days. Patient to eat a high-fiber diet. Patient to take Tylenol when necessary for pain. Patient to return to ER if condition worsens. Patient to take meds as directed. Patient to increase water. Patient to rest. Patient to continue all meds. Prescriptions: Magnesium Citrate [Citrate of Magnesia] 300 ml PO ONCE 1 Days #1 bottle Sennosides/Docusate [Senokot S] 1 each PO Q12HR 30 Days #60 tab Referrals: SUNDAY CRUZ MD [Primary Care Provider] - 2-3 Days FLORIAN ZAVALA MD [Staff Physician] - 2-3 Days Time of Disposition: 00:29
[2018-11-07 22:36] LABS: Hematocrit 38.7 % (30.3-42.9); Hemoglobin 13.3 gm/dl (10.1-14.3); Mean Corpuscular HGB Conc 34 % (30-34); Mean Corpuscular Volume 107 fl (79-97); Platelet Count 174 K/mm3 (140-440); Red Blood Count 3.61 M/mm3 (3.65-5.03); Red Cell Distribution Width 15.9 % (13.2-15.2)
[2018-11-07 22:50] LABS: Albumin 3.8 g/dL (3.9-5); Calcium 10.3 mg/dL (8.4-10.2)
--- NOTE | 2018-11-08 00:01 | Cat Scan Report ---
PROCEDURE: CT ABDOMEN PELVIS WO CON TECHNIQUE: Computerized axial tomography of the abdomen and pelvis was performed without intravenous contrast. This study is performed without intravascular contrast material and its sensitivity for ab dominal and pelvic pathology, including neoplasms, inflammation, abscess, free fluid, thrombosis, art erial dissection and infarction, is reduced compared with a contrast enhanced study. HISTORY: abd pain COMPARISONS: None . FINDINGS: Visualized lower thorax: No significant abnormality. Liver: Normal size and attenuation. Spleen: Normal size and attenuation. Gallbladder and biliary system: Gallbladder is absent. There is slight dilatation of the central bili liz ductal system and common bile duct. No stones are identified.. Pancreas: Not well visualized on this study without oral and IV contrast.. Adrenals: Normal. Kidneys: There is bilateral renal atrophy. No hydronephrosis. There are a few small left renal calcul i noted.. GI tract: The evaluation of the bowel is limited without IV and oral contrast. No definitive obstruc tion is seen. The appendix is not visualized on this study. Moderate fecal debris in the colon is not ed. . Lymph nodes and mesentery: Normal. Vasculature: Moderate atherosclerosis of aorta and branching vessels.. Bladder: Normal. Reproductive organs: There appears to be a cystic region on the left ovary, this measures up to 3 cm. Evaluation is limited without IV contrast.. Peritoneum: No free fluid. Musculoskeletal structures: No significant abnormality. Other: None. IMPRESSION: The evaluation is limited without IV and oral contrast. There is no evidence of intestin al or urinary tract obstruction. The appendix is not visualized on this study. There is moderate feca l debris throughout the colon. A 3 cm dominant left ovary cyst is suspected. Bilateral renal atrophy is identified. Left renal calculi are noted. Previous cholecystectomy. There is slight dilatation of the biliary ductal system and common bile gracy t. No stones are identified. . This document is electronically signed by Taylor Melton DO., November 07 2018 11:59:11 PM ET
[2018-11-08 01:53] VITALS: BP 148/90
[2018-11-08 04:47] LABS: Anisocytosis 1+; Basophils % (Manual) 0 % (0.0-1.8); Eosinophils % (Manual) 0 % (0.0-4.3); Platelet Estimate Consistent w Auto; Total Cells Counted 100
== END 2018-11-08 01:30 | disposition home or self-care (01) ==
LOC: ED 21:59
DX: K59.00 Constipation, unspecified (principal); I13.2 Hypertensive heart and chronic kidney disease with heart failure and with stage 5 chronic kidney disease, or end stage renal disease; N18.6 End stage renal disease; I50.9 Heart failure, unspecified; J45.909 Unspecified asthma, uncomplicated; G43.909 Migraine, unspecified, not intractable, without status migrainosus; Z99.2 Dependence on renal dialysis; Z90.49 Acquired absence of other specified parts of digestive tract; Z79.82 Long term (current) use of aspirin; Z88.8 Allergy status to other drugs, medicaments and biological substances
CPT/HCPCS: 36415; 74176; 80053; 83690; 84703; 85007; 85025; 96374; 99285; J1170

== ENCOUNTER 2018-11-20 00:37 | Emergency (ER) | payer MEDICAID ==
[2018-11-20 01:22] LABS: Basophils # (Auto) 0.1 K/mm3 (0.0-0.1); Basophils % (Auto) 1.2 % (0.0-1.8); Eosinophils # (Auto) 0.1 K/mm3 (0.0-0.4); Eosinophils % (Auto) 2.2 % (0.0-4.3); Hematocrit 40.8 % (30.3-42.9); Hemoglobin 13.6 gm/dl (10.1-14.3); Lymphocytes # (Auto) 1.5 K/mm3 (1.2-5.4); Lymphocytes % (Auto) 21.6 % (13.4-35.0); Mean Corpuscular HGB Conc 33 % (30-34); Mean Corpuscular Volume 108 fl (79-97); Monocytes # (Auto) 0.8 K/mm3 (0.0-0.8); Monocytes % (Auto) 11.8 % (0.0-7.3); Platelet Count 220 K/mm3 (140-440); Red Blood Count 3.77 M/mm3 (3.65-5.03); Red Cell Distribution Width 15.4 % (13.2-15.2)
[2018-11-20 01:47] LABS: Albumin 4.2 g/dL (3.9-5); Calcium 10.9 mg/dL (8.4-10.2)
--- NOTE | 2018-11-20 03:18 | Emergency Department Report ---
ED Abdominal Pain HPI - General Chief Complaint: Abdominal Pain Stated Complaint: ABD PAIN Time Seen by Provider: 11/20/18 03:11 Source: patient Mode of arrival: Wheelchair Limitations: No Limitations - History of Present Illness Initial Comments: 48-year-old female with history of ESRD presents to ED with complaint of epigastric and right upper quadrant pain that started tonight. Patient reports associated nausea, vomiting. Denies fever or diarrhea. Last dialyzed 3 days ago. Patient reports she is status post cholecystectomy. MD Complaint: abdominal pain -: During the night Location: RUQ, epigastric Radiation: none Migration to: no migration Severity: moderate Quality: burning Consistency: constant Improves With: nothing Worsens With: nothing Associated Symptoms: nausea, vomiting. denies: diarrhea, fever - Related Data Home Medications Medication Instructions Recorded Confirmed Last Taken NIFEdipine XL [Procardia Xl] 60 mg PO Q12HR 08/14/18 08/14/18 08/13/18 Omeprazole 40 mg PO DAILY 08/14/18 08/14/18 08/13/18 Ondansetron [Zofran ODT TAB] 4 mg PO Q8HR 08/14/18 08/14/18 08/13/18 Previous Rx's Medication Instructions Recorded Last Taken Type Acetaminophen [Acetaminophen TAB] 650 mg PO Q6H PRN #15 tablet 08/20/18 Unknown Rx Aspirin [Aspirin BABY CHEW TAB] 81 mg PO QDAY #15 tab.chew 08/20/18 Unknown Rx AtorvaSTATin [Lipitor] 40 mg PO QHS #30 tablet 08/20/18 Unknown Rx Docusate Sodium [Colace CAP] 100 mg PO BID #30 capsule 08/20/18 Unknown Rx HYDROcodone/APAP 5-325 [[place] 1 each PO Q6H PRN #15 tablet 08/20/18 Unknown Rx 5-325 mg TAB] ISOSORBIDE MONOnitrate [Imdur ER] 30 mg PO QDAY #30 tablet 08/20/18 Unknown Rx Metoprolol [Lopressor TAB] 25 mg PO Q6HR 30 Days tablet 08/20/18 Unknown Rx Oxycodone HCl/Acetaminophen 1 each PO Q6HR PRN #20 tablet 08/30/18 Unknown Rx [Percocet 7.5/325 mg] Ketorolac [Toradol] 10 mg PO Q6H PRN #20 tablet 10/30/18 Unknown Rx Magnesium Citrate [Citrate of 300 ml PO ONCE 1 Days #1 bottle 11/08/18 Unknown Rx Magnesia] Sennosides/Docusate [Senokot S] 1 each PO Q12HR 30 Days #60 tab 11/08/18 Unknown Rx Dicyclomine [Bentyl] 20 mg PO QID PRN #20 tablet 11/20/18 Unknown Rx Esomeprazole Magnesium [NexIUM] 40 mg PO QDAY #30 capsule. 11/20/18 Unknown Rx Ondansetron [Zofran Odt] 4 mg PO Q8HR PRN #20 tab.rapdis 11/20/18 Unknown Rx Allergies Allergy/AdvReac Type Severity Reaction Status Date / Time lisinopril Allergy Angioedema Verified 10/30/18 17:15 ED Review of Systems ROS: Stated complaint: ABD PAIN Other details as noted in HPI Comment: All other systems reviewed and negative Constitutional: denies: chills, fever Gastrointestinal: abdominal pain, nausea, vomiting. denies: diarrhea ED Past Medical Hx - Past Medical History Previous Medical History?: Yes Hx Hypertension: Yes Hx Congestive Heart Failure: Yes Hx Renal Disease: Yes (tts dialysis) Hx Kidney Stones: Yes Hx Asthma: Yes Additional medical history: fibroids; kidney disease, migraine, peptic ulcers - Surgical History Past Surgical History?: Yes Hx Cholecystectomy: Yes Additional Surgical History: portion of right lung removed. shunt left upper arm, permacath right chest - Social History Smoking Status: Current Some Day Smoker - Medications Home Medications: Home Medications Medication Instructions Recorded Confirmed Last Taken Type NIFEdipine XL [Procardia Xl] 60 mg PO Q12HR 08/14/18 08/14/18 08/13/18 History Omeprazole 40 mg PO DAILY 08/14/18 08/14/18 08/13/18 History Ondansetron [Zofran ODT TAB] 4 mg PO Q8HR 08/14/18 08/14/18 08/13/18 History Acetaminophen [Acetaminophen TAB] 650 mg PO Q6H PRN #15 tablet 08/20/18 Unknown Rx Aspirin [Aspirin BABY CHEW TAB] 81 mg PO QDAY #15 tab.chew 08/20/18 Unknown Rx AtorvaSTATin [Lipitor] 40 mg PO QHS #30 tablet 08/20/18 Unknown Rx Docusate Sodium [Colace CAP] 100 mg PO BID #30 capsule 08/20/18 Unknown Rx HYDROcodone/APAP 5-325 [[place] 1 each PO Q6H PRN #15 tablet 08/20/18 Unknown Rx 5-325 mg TAB] ISOSORBIDE MONOnitrate [Imdur ER] 30 mg PO QDAY #30 tablet 08/20/18 Unknown Rx Metoprolol [Lopressor TAB] 25 mg PO Q6HR 30 Days tablet 08/20/18 Unknown Rx Oxycodone HCl/Acetaminophen 1 each PO Q6HR PRN #20 tablet 08/30/18 Unknown Rx [Percocet 7.5/325 mg] Ketorolac [Toradol] 10 mg PO Q6H PRN #20 tablet 10/30/18 Unknown Rx Magnesium Citrate [Citrate of 300 ml PO ONCE 1 Days #1 bottle 11/08/18 Unknown Rx Magnesia] Sennosides/Docusate [Senokot S] 1 each PO Q12HR 30 Days #60 tab 11/08/18 Unknown Rx Dicyclomine [Bentyl] 20 mg PO QID PRN #20 tablet 11/20/18 Unknown Rx Esomeprazole Magnesium [NexIUM] 40 mg PO QDAY #30 capsule.dr 11/20/18 Unknown Rx Ondansetron [Zofran Odt] 4 mg PO Q8HR PRN #20 tab.rapdis 11/20/18 Unknown Rx ED Physical Exam - General Limitations: No Limitations General appearance: alert, in no apparent distress - Head Head exam: Present: atraumatic, normocephalic - Eye Eye exam: Present: normal appearance - ENT ENT exam: Present: mucous membranes moist - Neck Neck exam: Present: normal inspection - Respiratory Respiratory exam: Present: normal lung sounds bilaterally. Absent: respiratory distress - Cardiovascular Cardiovascular Exam: Present: regular rate, normal rhythm - GI/Abdominal GI/Abdominal exam: Present: soft, tenderness (mild RUQ and epigastric tenderness). Absent: distended - Extremities Exam Extremities exam: Present: normal inspection - Neurological Exam Neurological exam: Present: alert, oriented X3 - Psychiatric Psychiatric exam: Present: normal affect, normal mood - Skin Skin exam: Present: warm, dry, intact, normal color. Absent: rash ED Course Vital Signs 11/20/18 11/20/18 11/20/18 00:43 03:20 03:50 Temperature 98.6 F 98.3 F Pulse Rate 91 H 89 Respiratory 18 13 13 Rate Blood Pressure 198/115 Blood Pressure 191/118 [Right] O2 Sat by Pulse 98 98 98 Oximetry 11/20/18 11/20/18 11/20/18 04:00 04:20 04:30 Temperature Pulse Rate 88 Respiratory 13 12 Rate Blood Pressure 190/111 Blood Pressure [Right] O2 Sat by Pulse Oximetry 11/20/18 11/20/18 05:20 05:25 Temperature Pulse Rate 81 81 Respiratory 12 Rate Blood Pressure 194/114 Blood Pressure 194/114 [Right] O2 Sat by Pulse 94 Oximetry ED Medical Decision Making - Lab Data Result diagrams: 11/20/18 00:57 11/20/18 00:57 - Radiology Data Radiology results: report reviewed, image reviewed - Medical Decision Making - burning epigastric and RUQ pain - s/p cholecystectomy - labs normal except for expected elevation in BUN and Cr ( hx ESRD) - BP improved w/ hydralazine and clonidine - abd series unremarkable - pain improved, tolerating PO - will d/c at this time so that pt can make her dialysis appt - return precautions given - Differential Diagnosis bowel obstruction, GERD, HTN urgency Critical Care Time: Yes Critical care time in (mins) excluding proc time.: 35 Critical care attestation.: If time is entered above; I have spent that time in minutes in the direct care of this critically ill patient, excluding procedure time. Critical Care Time: 35 min ED Disposition Clinical Impression: Abdominal pain, GERD (gastroesophageal reflux disease), Hypertensive urgency Disposition: DC-01 TO HOME OR SELFCARE Is pt being admited?: No Condition: Stable Instructions: Abdominal Pain (ED) Prescriptions: Dicyclomine [Bentyl] 20 mg PO QID PRN #20 tablet PRN Reason: abdominal pain Esomeprazole Magnesium [NexIUM] 40 mg PO QDAY #30 capsule. Ondansetron [Zofran Odt] 4 mg PO Q8HR PRN #20 tab.rapdis PRN Reason: Vomiting Referrals: SUNDAY CRUZ MD [Primary Care Provider] - 3-5 Days [facility] [Provider Group] - 3-5 Days Time of Disposition: 06:48
[2018-11-20] MEDS ORDERED: MORPHINE IV ONE (03:19)
[2018-11-20] MEDS ORDERED: ZOFRAN IV ONE ×2 (03:19→06:43)
[2018-11-20] MEDS ORDERED: CATAPRES ONE (04:20)
[2018-11-20] MEDS ORDERED: CATAPRES PO ONE (04:20)
--- NOTE | 2018-11-20 04:29 | XRay Report ---
PROCEDURE: XR ABD SERIES W CXR 1V TECHNIQUE: A PA view the chest was obtained along with 2 views of the abdomen and pelvis. HISTORY: abd pain, vomiting COMPARISONS: CT abdomen pelvis 11/07/2018 FINDINGS: The chest shows the heart size is upper limits of normal. There are no infiltrates or congestion. The re is scarring in the right lung base. Pleural fluid is not seen. The abdominal bowel gas pattern is nonobstructive. There are no suspicious air-fluid levels. There ar e surgical clips in the right upper quadrant. There are calcifications along the floor the pelvis. Th e skeletal structures do not show any acute changes. IMPRESSION: Scarring in the right lung base. No acute process in the chest. Nonobstructive bowel gas pattern. Previous cholecystectomy.. This document is electronically signed by Lisandro Walters MD., November 20 2018 04:27:33 AM ET
[2018-11-20] MEDS ORDERED: APRESOLINE IV ONE (05:25)
[2018-11-20] MEDS ORDERED: APRESOLINE ONE (05:26)
[2018-11-20] MEDS ORDERED: BENTYL IM ONE (05:30)
[2018-11-20] MEDS ORDERED: LIDOCAINE VISCOUS 2% PO ONE (06:43)
[2018-11-20] MEDS ORDERED: ALUM-MAG HYDROX-SIMETH 200-200-20MG/5ML PO ONE (06:43)
[2018-11-20 07:09] VITALS: BP 160/93
== END 2018-11-20 07:16 | disposition home or self-care (01) ==
LOC: ED 00:37
DX: I16.0 Hypertensive urgency (principal); K21.9 Gastro-esophageal reflux disease without esophagitis; I13.2 Hypertensive heart and chronic kidney disease with heart failure and with stage 5 chronic kidney disease, or end stage renal disease; N18.6 End stage renal disease; I50.9 Heart failure, unspecified; J45.909 Unspecified asthma, uncomplicated; G43.909 Migraine, unspecified, not intractable, without status migrainosus; F17.200 Nicotine dependence, unspecified, uncomplicated; Z99.2 Dependence on renal dialysis; Z90.49 Acquired absence of other specified parts of digestive tract; Z79.82 Long term (current) use of aspirin; Z79.899 Other long term (current) drug therapy; Z88.8 Allergy status to other drugs, medicaments and biological substances
CPT/HCPCS: 36415; 74022; 80053; 83690; 85025; 96372; 96374; 96375; 96376; 99291; J0360; J0500; J2270; J2405

== ENCOUNTER 2018-11-24 05:25 | Inpatient (IN) | payer MEDICAID ==
[2018-11-24] MEDS ORDERED: MORPHINE IV ONE ×3 (06:44→14:49)
[2018-11-24] MEDS ORDERED: ZOFRAN IV ONE (06:45)
[2018-11-24 06:46] LABS: Hematocrit 40.2 % (30.3-42.9); Hemoglobin 13.6 gm/dl (10.1-14.3); Mean Corpuscular HGB Conc 34 % (30-34); Mean Corpuscular Volume 106 fl (79-97); Platelet Count 195 K/mm3 (140-440); Red Blood Count 3.79 M/mm3 (3.65-5.03); Red Cell Distribution Width 14.8 % (13.2-15.2)
[2018-11-24 06:52] LABS: Albumin 3.9 g/dL (3.9-5)
[2018-11-24 07:24] LABS: INR 1.02 (0.87-1.13)
[2018-11-24 07:25] LABS: Partial Thromboplastin Time 27.8 Sec. (24.2-36.6)
[2018-11-24 08:13] LABS: Chol/HDL Ratio 4.89 %
--- NOTE | 2018-11-24 09:06 | Emergency Department Report ---
ED General Adult HPI - General Chief complaint: Abdominal Pain Stated complaint: ABDOMINAL PAIN Time Seen by Provider: 11/24/18 07:31 Source: patient, EMS Mode of arrival: Stretcher Limitations: No Limitations - History of Present Illness Initial comments: This is a 48 year end-stage renal patient on dialysis with chronic abdominal pain. This is her third visit in November 2018 for abdominal pain. A CT obtained at this facility was not indicative of any acute pathology at that time and the patient was suspected of having abdominal pain due to constipation: IMPRESSION: The evaluation is limited without IV and oral contrast. There is no evidence of intestinal or urinary tract obstruction. The appendix is not visualized on this study. There is moderate fecal debris throughout the colon. A 3 cm dominant left ovary cyst is suspected. Bilateral renal atrophy is identified. Left renal calculi are noted. Previous cholecystectomy. There is slight dilatation of the biliary ductal system and common bile duct. No stones are identified. . - Medical Decision Making Patient is a 48-year-old female that presents to [facility] with severe abdominal pain. Patient found to have constipation on CT scan. Patient's labs unremarkab le except for chronic kidney disease for which she is on dialysis. Patient will be discharged home with constipation treatment. Patient given discharge instructions.. - Differential Diagnosis constipation. Abdominal pain. However, the patient has been found to have a retroperitoneal hemorrhage last imaged in August 2018: FINDINGS: Lung bases: Normal. Liver: Normal. Biliary system: Cholecystectomy changes. Pancreas: Normal. Spleen: Normal. Kidneys/ureters/bladder: The [place] kidneys are atrophic. There are a few scattered tiny renal stones in both kidneys. The ureters and bladder are unremarkable. Adrenal glands: Normal. Aorta: Mild diffuse calcifications. No aneurysm. Intestines: Within normal limits given no oral contrast was administered. Appendix: Not confidently identified. Pelvic viscera: A 3.3 cm left adnexal cyst is identified. The uterus and right adnexa are unremarkable. Ascites: None. Adenopathy: None. Musculoskeletal: Intact. A subacute to early chronic right retroperitoneal hemorrhage is identified measuring up to 8.9 x 7.3 cm in axial plane. Internal density of this hemorrhage has decreased from 65 Hounsfield units to 50 Patient's retroperitoneal hemorrhage appears to been discovered a few days after a cardiac catheterization. It is also noted that the patient had a normal CT of her abdomen and pelvis in 2014. Patient's current pain complaint is epigastric and right upper quadrant and somewhat radiates to the chest and the back. She states that it doesn't feel like her usual reflux and that it is different than other episodes of abdominal pain that she has experienced. She states it started 2 weeks ago. She is a poorly compliant patient with dialysis having missed last Monday and Monday. She was dialyzed 2 days ago on . This would be her dialysis today. She is a patient of [facility]. -: week(s) Location: abdomen (2 weeks) Radiation: flank, other (chest) Severity scale (0 -10): 10 Consistency: intermittent Improves with: none Worsens with: none Associated Symptoms: denies other symptoms Treatments Prior to Arrival: other (reflux medication) - Related Data Home Medications Medication Instructions Recorded Confirmed Last Taken NIFEdipine XL [Procardia Xl] 60 mg PO Q12HR 08/14/18 08/14/18 08/13/18 Omeprazole 40 mg PO DAILY 08/14/18 08/14/18 08/13/18 Ondansetron [Zofran ODT TAB] 4 mg PO Q8HR 08/14/18 08/14/18 08/13/18 Previous Rx's Medication Instructions Recorded Last Taken Type Acetaminophen [Acetaminophen TAB] 650 mg PO Q6H PRN #15 tablet 08/20/18 Unknown Rx Aspirin [Aspirin BABY CHEW TAB] 81 mg PO QDAY #15 tab.chew 08/20/18 Unknown Rx AtorvaSTATin [Lipitor] 40 mg PO QHS #30 tablet 08/20/18 Unknown Rx Docusate Sodium [Colace CAP] 100 mg PO BID #30 capsule 08/20/18 Unknown Rx HYDROcodone/APAP 5-325 [[place] 1 each PO Q6H PRN #15 tablet 08/20/18 Unknown Rx 5-325 mg TAB] ISOSORBIDE MONOnitrate [Imdur ER] 30 mg PO QDAY #30 tablet 08/20/18 Unknown Rx Metoprolol [Lopressor TAB] 25 mg PO Q6HR 30 Days tablet 08/20/18 Unknown Rx Oxycodone HCl/Acetaminophen 1 each PO Q6HR PRN #20 tablet 08/30/18 Unknown Rx [Percocet 7.5/325 mg] Ketorolac [Toradol] 10 mg PO Q6H PRN #20 tablet 10/30/18 Unknown Rx Magnesium Citrate [Citrate of 300 ml PO ONCE 1 Days #1 bottle 11/08/18 Unknown Rx Magnesia] Sennosides/Docusate [Senokot S] 1 each PO Q12HR 30 Days #60 tab 11/08/18 Unknown Rx Dicyclomine [Bentyl] 20 mg PO QID PRN #20 tablet 11/20/18 Unknown Rx Esomeprazole Magnesium [NexIUM] 40 mg PO QDAY #30 capsule. 11/20/18 Unknown Rx Ondansetron [Zofran Odt] 4 mg PO Q8HR PRN #20 tab.rapdis 11/20/18 Unknown Rx Allergies Allergy/AdvReac Type Severity Reaction Status Date / Time lisinopril Allergy Angioedema Verified 10/30/18 17:15 ED Review of Systems ROS: Stated complaint: ABDOMINAL PAIN Other details as noted in HPI Constitutional: denies: chills, fever Eyes: denies: eye pain, eye discharge, vision change ENT: denies: ear pain, throat pain Respiratory: denies: cough, shortness of breath, wheezing Cardiovascular: chest pain. denies: palpitations Endocrine: no symptoms reported Gastrointestinal: abdominal pain. denies: nausea, diarrhea Genitourinary: denies: urgency, dysuria, discharge Musculoskeletal: back pain. denies: joint swelling, arthralgia Skin: denies: rash, lesions Neurological: denies: headache, weakness, paresthesias Psychiatric: denies: anxiety, depression Hematological/Lymphatic: denies: easy bleeding, easy bruising ED Past Medical Hx - Past Medical History Previous Medical History?: Yes Hx Hypertension: Yes Hx Congestive Heart Failure: Yes Hx Renal Disease: Yes (tts dialysis) Hx Kidney Stones: Yes Hx Asthma: Yes Additional medical history: fibroids; kidney disease, migraine, peptic ulcers - Surgical History Past Surgical History?: Yes Hx Cholecystectomy: Yes Additional Surgical History: portion of right lung removed. shunt left upper arm, permacath right chest - Social History Smoking Status: Former Smoker Substance Use Type: None - Medications Home Medications: Home Medications Medication Instructions Recorded Confirmed Last Taken Type NIFEdipine XL [Procardia Xl] 60 mg PO Q12HR 08/14/18 08/14/18 08/13/18 History Omeprazole 40 mg PO DAILY 08/14/18 08/14/18 08/13/18 History Ondansetron [Zofran ODT TAB] 4 mg PO Q8HR 08/14/18 08/14/18 08/13/18 History Acetaminophen [Acetaminophen TAB] 650 mg PO Q6H PRN #15 tablet 08/20/18 Unknown Rx Aspirin [Aspirin BABY CHEW TAB] 81 mg PO QDAY #15 tab.chew 08/20/18 Unknown Rx AtorvaSTATin [Lipitor] 40 mg PO QHS #30 tablet 08/20/18 Unknown Rx Docusate Sodium [Colace CAP] 100 mg PO BID #30 capsule 08/20/18 Unknown Rx HYDROcodone/APAP 5-325 [[place] 1 each PO Q6H PRN #15 tablet 08/20/18 Unknown Rx 5-325 mg TAB] ISOSORBIDE MONOnitrate [Imdur ER] 30 mg PO QDAY #30 tablet 08/20/18 Unknown Rx Metoprolol [Lopressor TAB] 25 mg PO Q6HR 30 Days tablet 08/20/18 Unknown Rx Oxycodone HCl/Acetaminophen 1 each PO Q6HR PRN #20 tablet 08/30/18 Unknown Rx [Percocet 7.5/325 mg] Ketorolac [Toradol] 10 mg PO Q6H PRN #20 tablet 10/30/18 Unknown Rx Magnesium Citrate [Citrate of 300 ml PO ONCE 1 Days #1 bottle 11/08/18 Unknown Rx Magnesia] Sennosides/Docusate [Senokot S] 1 each PO Q12HR 30 Days #60 tab 11/08/18 Unknown Rx Dicyclomine [Bentyl] 20 mg PO QID PRN #20 tablet 11/20/18 Unknown Rx Esomeprazole Magnesium [NexIUM] 40 mg PO QDAY #30 capsule.dr 11/20/18 Unknown Rx Ondansetron [Zofran Odt] 4 mg PO Q8HR PRN #20 tab.rapdis 11/20/18 Unknown Rx ED Physical Exam - General Limitations: No Limitations General appearance: alert, in no apparent distress - Head Head exam: Present: atraumatic, normocephalic - Eye Eye exam: Present: normal appearance. Absent: scleral icterus - ENT ENT exam: Present: mucous membranes moist - Neck Neck exam: Present: normal inspection. Absent: tenderness, meningismus - Respiratory Respiratory exam: Present: normal lung sounds bilaterally. Absent: respiratory distress - Cardiovascular Cardiovascular Exam: Present: regular rate, normal rhythm. Absent: systolic murmur, diastolic murmur, rubs, gallop - GI/Abdominal GI/Abdominal exam: Present: soft, normal bowel sounds. Absent: distended, tenderness, guarding, rebound, rigid - Extremities Exam Extremities exam: Present: normal inspection - Back Exam Back exam: Present: normal inspection - Neurological Exam Neurological exam: Present: alert, oriented X3, CN II-XII intact. Absent: motor sensory deficit - Psychiatric Psychiatric exam: Present: normal affect, normal mood - Skin Skin exam: Present: warm, dry, intact, normal color. Absent: rash - Other Other exam information: Patient appears well perfused ED Course Vital Signs 11/24/18 11/24/18 11/24/18 05:42 06:00 06:16 Temperature 98.6 F Pulse Rate 84 81 78 Respiratory 16 16 17 Rate Blood Pressure 182/123 201/115 201/115 Blood Pressure 182/123 [Right] O2 Sat by Pulse 98 96 96 Oximetry 11/24/18 11/24/18 11/24/18 06:46 07:00 07:08 Temperature Pulse Rate Respiratory 16 Rate Blood Pressure 201/115 201/115 Blood Pressure [Right] O2 Sat by Pulse 97 96 Oximetry 11/24/18 11/24/18 11/24/18 07:16 07:30 07:46 Temperature Pulse Rate 76 74 Respiratory 14 14 Rate Blood Pressure 201/115 188/111 188/111 Blood Pressure [Right] O2 Sat by Pulse 95 94 96 Oximetry 11/24/18 11/24/18 11/24/18 08:00 08:16 08:30 Temperature Pulse Rate 74 82 80 Respiratory 13 14 13 Rate Blood Pressure 192/110 188/111 188/111 Blood Pressure [Right] O2 Sat by Pulse 93 93 96 Oximetry 11/24/18 11/24/18 11/24/18 08:46 09:00 09:16 Temperature Pulse Rate 78 77 79 Respiratory 13 13 12 Rate Blood Pressure 188/111 194/114 194/114 Blood Pressure [Right] O2 Sat by Pulse 97 93 97 Oximetry 11/24/18 11/24/18 11/24/18 09:30 09:46 10:00 Temperature Pulse Rate 73 75 72 Respiratory 12 12 12 Rate Blood Pressure 197/108 197/108 198/114 Blood Pressure [Right] O2 Sat by Pulse 97 97 95 Oximetry 11/24/18 11/24/18 11/24/18 10:16 10:30 10:46 Temperature Pulse Rate 75 75 80 Respiratory 12 20 13 Rate Blood Pressure 198/114 197/108 197/108 Blood Pressure [Right] O2 Sat by Pulse 97 97 96 Oximetry 11/24/18 11/24/18 11/24/18 11:00 11:16 11:30 Temperature Pulse Rate 73 75 77 Respiratory 13 10 L 11 L Rate Blood Pressure 185/106 185/106 185/106 Blood Pressure [Right] O2 Sat by Pulse 93 98 98 Oximetry 11/24/18 11/24/18 11/24/18 11:46 12:00 12:16 Temperature Pulse Rate 74 76 79 Respiratory 10 L 11 L 10 L Rate Blood Pressure 185/106 201/115 201/115 Blood Pressure [Right] O2 Sat by Pulse 96 95 94 Oximetry 11/24/18 11/24/18 11/24/18 12:46 12:49 13:00 Temperature Pulse Rate 76 67 Respiratory 7 L Rate Blood Pressure 201/115 200/115 188/105 Blood Pressure [Right] O2 Sat by Pulse 100 95 Oximetry 11/24/18 11/24/18 11/24/18 13:16 13:30 13:46 Temperature Pulse Rate 74 76 71 Respiratory 11 L 10 L 11 L Rate Blood Pressure 188/105 188/105 188/105 Blood Pressure [Right] O2 Sat by Pulse 98 97 96 Oximetry 11/24/18 11/24/18 11/24/18 14:00 14:40 14:46 Temperature Pulse Rate 74 77 78 Respiratory 9 L 19 46 H Rate Blood Pressure 192/110 192/110 189/112 Blood Pressure [Right] O2 Sat by Pulse 95 100 98 Oximetry 11/24/18 14:55 Temperature Pulse Rate 77 Respiratory Rate Blood Pressure 189/112 Blood Pressure [Right] O2 Sat by Pulse Oximetry - Reevaluation(s) Reevaluation #1: Patient with persistent abdominal pain. I discussed the need for angiography with her motorboat mechanic helper Dr. Anderson. He agrees with giving the patient contrast today. He will be handling the postcontrast need for dialysis. The patient will be admitted by Dr. Holley to the hospitalist service. She already has multiple indications to do so. Angiography is pending. 11/24/18 13:18 Reevaluation #2: Patient still requiring blood pressure management. Additional labetalol given. She complains of persistent pain. I have preliminarily scanned the CTA; I did not see a dissection. Official radiology interpretation is pending. 11/24/18 14:53 ED Medical Decision Making - Lab Data Result diagrams: 11/24/18 05:58 11/24/18 05:58 Laboratory Results - last 24 hr 11/24/18 11/24/18 11/24/18 05:58 05:58 05:58 WBC 5.2 RBC 3.79 Hgb 13.6 Hct 40.2 MCV 106 H MCH 36 H MCHC 34 RDW 14.8 Plt Count 195 [place] % (Auto) Furnace [employer] Equipment Operator Add Manual Diff Complete Total Counted 100 Seg Neuts % (Manual) 56.0 Band Neutrophils % 0 Lymphocytes % (Manual) 32.0 Reactive Lymphs % (Man) 1.0 Monocytes % (Manual) 7.0 Eosinophils % (Manual) 4.0 Basophils % (Manual) 0 Metamyelocytes % 0 Myelocytes % 0 Promyelocytes % 0 Blast Cells % 0 Nucleated RBC % Not Reportable Seg Neutrophils # Man 2.9 Band Neutrophils # 0.0 Lymphocytes # (Manual) 1.7 Abs React Lymphs (Man) 0.1 Monocytes # (Manual) 0.4 Eosinophils # (Manual) 0.2 Basophils # (Manual) 0.0 Metamyelocytes # 0.0 Myelocytes # 0.0 Promyelocytes # 0.0 Blast Cells # 0.0 WBC Morphology Not Reportable Hypersegmented Neuts Not Reportable Hyposegmented Neuts Not Reportable Hypogranular Neuts Not Reportable Smudge Cells Not Reportable Toxic Granulation Not Reportable Toxic Vacuolation Not Reportable Dohle Bodies Not Reportable Pelger-Huet Anomaly Not Reportable Staci Rods Not Reportable Platelet Estimate Consistent w auto Clumped Platelets Not Reportable Plt Clumps, EDTA Not Reportable Large Platelets Not Reportable Giant Platelets Not Reportable Platelet Satelliting Not Reportable Plt Morphology Comment Not Reportable RBC Morphology Normal Dimorphic RBCs Not Reportable Polychromasia Not Reportable Hypochromasia Not Reportable Poikilocytosis Not Reportable Anisocytosis Not Reportable Microcytosis Not Reportable Macrocytosis Not Reportable Spherocytes Not Reportable Pappenheimer Bodies Not Reportable Sickle Cells Not Reportable Target Cells Not Reportable Tear Drop Cells Not Reportable Ovalocytes Not Reportable Helmet Cells Not Reportable Vás[place] Bodies Not Reportable [place] Rings Not Reportable Ajit Cells Not Reportable Bite Cells Not Reportable Crenated Cell Not Reportable Elliptocytes Not Reportable Acanthocytes (Spur) Not Reportable Rouleaux Not Reportable Hemoglobin C Crystals Not Reportable Schistocytes Not Reportable Malaria parasites Not Reportable Luis M Bodies Not Reportable Hem Pathologist Commnt No PT INR APTT Sodium 132 L Potassium 4.2 Chloride 85.7 L Carbon Dioxide 21 L Anion Gap 30 BUN 61 H Creatinine 13.1 H Estimated GFR 4 BUN/Creatinine Ratio 5 Glucose 91 Calcium 10.0 Total Bilirubin 0.20 AST 10 ALT 10 Alkaline Phosphatase 74 Troponin T 0.033 H Total Protein 7.9 Albumin 3.9 Albumin/Globulin Ratio 1.0 Triglycerides 151 H Cholesterol 181 LDL Cholesterol Direct 123 HDL Cholesterol 37 L Cholesterol/HDL Ratio 4.89 Lipase 15 Urine Color Urine Turbidity Urine pH Ur Specific [place] Urine Protein Urine Glucose (UA) Urine Ketones Urine Blood Urine Nitrite Urine Bilirubin Urine Urobilinogen Ur Leukocyte Esterase Urine WBC (Auto) Urine RBC (Auto) U Epithel Cells (Auto) Urine Bacteria (Auto) Ur Transition Epith Cell Urine Mucus Urine Opiates Screen Urine Methadone Screen Ur Barbiturates Screen Ur Phencyclidine Scrn Ur Amphetamines Screen U Benzodiazepines Scrn Urine Cocaine Screen U Marijuana (THC) Screen Drugs of Abuse Note 11/24/18 11/24/18 11/24/18 06:59 09:56 09:56 WBC RBC Hgb Hct MCV MCH MCHC RDW Plt Count [place] % (Auto) Add Manual Diff Total Counted Seg Neuts % (Manual) Band Neutrophils % Lymphocytes % (Manual) Reactive Lymphs % (Man) Monocytes % (Manual) Eosinophils % (Manual) Basophils % (Manual) Metamyelocytes % Myelocytes % Promyelocytes % Blast Cells % Nucleated RBC % Seg Neutrophils # Man Band Neutrophils # Lymphocytes # (Manual) Abs React Lymphs (Man) Monocytes # (Manual) Eosinophils # (Manual) Basophils # (Manual) Metamyelocytes # Myelocytes # Promyelocytes # Blast Cells # WBC Morphology Hypersegmented Neuts Hyposegmented Neuts Hypogranular Neuts Smudge Cells Toxic Granulation Toxic Vacuolation Dohle Bodies Pelger-Huet Anomaly Staci Rods Platelet Estimate Clumped Platelets Plt Clumps, EDTA Large Platelets Giant Platelets Platelet Satelliting Plt Morphology Comment RBC Morphology Dimorphic RBCs Polychromasia Hypochromasia Poikilocytosis Anisocytosis Microcytosis Macrocytosis Spherocytes Pappenheimer Bodies Sickle Cells Target Cells Tear Drop Cells Ovalocytes Helmet Cells Vásquez[place] Bodies [place] Rings Ajit Cells Bite Cells Crenated Cell Elliptocytes Acanthocytes (Spur) Rouleaux Hemoglobin C Crystals Schistocytes Malaria parasites Luis M Bodies Hem Pathologist Commnt PT 13.1 INR 1.02 APTT 27.8 Sodium Potassium Chloride Carbon Dioxide Anion Gap BUN Creatinine Estimated GFR BUN/Creatinine Ratio Glucose Calcium Total Bilirubin AST ALT Alkaline Phosphatase Troponin T Total Protein Albumin Albumin/Globulin Ratio Triglycerides Cholesterol LDL Cholesterol Direct HDL Cholesterol Cholesterol/HDL Ratio Lipase Urine Color Yellow Urine Turbidity Cloudy Urine pH 5.0 Ur Specific [place] 1.017 Urine Protein 100 mg/dl Urine Glucose (UA) Neg Urine Ketones Neg Urine Blood Lg Urine Nitrite Neg Urine Bilirubin Neg Urine Urobilinogen < 2.0 Ur Leukocyte Esterase Mod Urine WBC (Auto) 94.0 H Urine RBC (Auto) 12.0 U Epithel Cells (Auto) 43.0 H Urine Bacteria (Auto) 1+ Ur Transition Epith Cell 9 Urine Mucus Few Urine Opiates Screen Presumptive negative Urine Methadone Screen Presumptive negative Ur Barbiturates Screen Presumptive negative Ur Phencyclidine Scrn Presumptive negative Ur Amphetamines Screen Presumptive negative U Benzodiazepines Scrn Presumptive negative Urine Cocaine Screen Presumptive positive U Marijuana (THC) Screen Presumptive negative Drugs of Abuse Note Disclamer Laboratory Results - last 24 hr 11/24/18 11/24/18 11/24/18 05:58 05:58 05:58 WBC 5.2 RBC 3.79 Hgb 13.6 Hct 40.2 MCV 106 H MCH 36 H MCHC 34 RDW 14.8 Plt Count 195 [place] % (Auto) Furnace [employer] Equipment Operator Add Manual Diff Complete Total Counted 100 Seg Neuts % (Manual) 56.0 Band Neutrophils % 0 Lymphocytes % (Manual) 32.0 Reactive Lymphs % (Man) 1.0 Monocytes % (Manual) 7.0 Eosinophils % (Manual) 4.0 Basophils % (Manual) 0 Metamyelocytes % 0 Myelocytes % 0 Promyelocytes % 0 Blast Cells % 0 Nucleated RBC % Not Reportable Seg Neutrophils # Man 2.9 Band Neutrophils # 0.0 Lymphocytes # (Manual) 1.7 Abs React Lymphs (Man) 0.1 Monocytes # (Manual) 0.4 Eosinophils # (Manual) 0.2 Basophils # (Manual) 0.0 Metamyelocytes # 0.0 Myelocytes # 0.0 Promyelocytes # 0.0 Blast Cells # 0.0 WBC Morphology Not Reportable Hypersegmented Neuts Not Reportable Hyposegmented Neuts Not Reportable Hypogranular Neuts Not Reportable Smudge Cells Not Reportable Toxic Granulation Not Reportable Toxic Vacuolation Not Reportable Dohle Bodies Not Reportable Pelger-Huet Anomaly Not Reportable Staci Rods Not Reportable Platelet Estimate Consistent w auto Clumped Platelets Not Reportable Plt Clumps, EDTA Not Reportable Large Platelets Not Reportable Giant Platelets Not Reportable Platelet Satelliting Not Reportable Plt Morphology Comment Not Reportable RBC Morphology Normal Dimorphic RBCs Not Reportable Polychromasia Not Reportable Hypochromasia Not Reportable Poikilocytosis Not Reportable Anisocytosis Not Reportable Microcytosis Not Reportable Macrocytosis Not Reportable Spherocytes Not Reportable Pappenheimer Bodies Not Reportable Sickle Cells Not Reportable Target Cells Not Reportable Tear Drop Cells Not Reportable Ovalocytes Not Reportable Helmet Cells Not Reportable Vásquez[place] Bodies Not Reportable [place] Rings Not Reportable [place] Cells Not Reportable Bite Cells Not Reportable Crenated Cell Not Reportable Elliptocytes Not Reportable Acanthocytes (Spur) Not Reportable Rouleaux Not Reportable Hemoglobin C Crystals Not Reportable Schistocytes Not Reportable Malaria parasites Not Reportable Luis M Bodies Not Reportable Hem Pathologist Commnt No PT INR APTT D-Dimer Sodium 132 L Potassium 4.2 Chloride 85.7 L Carbon Dioxide 21 L Anion Gap 30 BUN 61 H Creatinine 13.1 H Estimated GFR 4 BUN/Creatinine Ratio 5 Glucose 91 Calcium 10.0 Total Bilirubin 0.20 AST 10 ALT 10 Alkaline Phosphatase 74 Total Creatine Kinase CK-MB (CK-2) CK-MB (CK-2) Rel Index Troponin T 0.033 H Total Protein 7.9 Albumin 3.9 Albumin/Globulin Ratio 1.0 Triglycerides 151 H Cholesterol 181 LDL Cholesterol Direct 123 HDL Cholesterol 37 L Cholesterol/HDL Ratio 4.89 Lipase 15 Urine Color Urine Turbidity Urine pH Ur Specific [place] Urine Protein Urine Glucose (UA) Urine Ketones Urine Blood Urine Nitrite Urine Bilirubin Urine Urobilinogen Ur Leukocyte Esterase Urine WBC (Auto) Urine RBC (Auto) U Epithel Cells (Auto) Urine Bacteria (Auto) Ur Transition Epith Cell Urine Mucus Urine Opiates Screen Urine Methadone Screen Ur Barbiturates Screen Ur Phencyclidine Scrn Ur Amphetamines Screen U Benzodiazepines Scrn Urine Cocaine Screen U Marijuana (THC) Screen Drugs of Abuse Note 11/24/18 11/24/18 11/24/18 05:58 06:59 09:56 WBC RBC Hgb Hct MCV MCH MCHC RDW Plt Count [place] % (Auto) Add Manual Diff Total Counted Seg Neuts % (Manual) Band Neutrophils % Lymphocytes % (Manual) Reactive Lymphs % (Man) Monocytes % (Manual) Eosinophils % (Manual) Basophils % (Manual) Metamyelocytes % Myelocytes % Promyelocytes % Blast Cells % Nucleated RBC % Seg Neutrophils # Man Band Neutrophils # Lymphocytes # (Manual) Abs React Lymphs (Man) Monocytes # (Manual) Eosinophils # (Manual) Basophils # (Manual) Metamyelocytes # Myelocytes # Promyelocytes # Blast Cells # WBC Morphology Hypersegmented Neuts Hyposegmented Neuts Hypogranular Neuts Smudge Cells Toxic Granulation Toxic Vacuolation Dohle Bodies Pelger-Huet Anomaly Staci Rods Platelet Estimate Clumped Platelets Plt Clumps, EDTA Large Platelets Giant Platelets Platelet Satelliting Plt Morphology Comment RBC Morphology Dimorphic RBCs Polychromasia Hypochromasia Poikilocytosis Anisocytosis Microcytosis Macrocytosis Spherocytes Pappenheimer Bodies Sickle Cells Target Cells Tear Drop Cells Ovalocytes Helmet Cells Vásquez[place] Bodies [place] Rings [place] Cells Bite Cells Crenated Cell Elliptocytes Acanthocytes (Spur) Rouleaux Hemoglobin C Crystals Schistocytes Malaria parasites Luis M Bodies Hem Pathologist Commnt PT 13.1 INR 1.02 APTT 27.8 D-Dimer Sodium Potassium Chloride Carbon Dioxide Anion Gap BUN Creatinine Estimated GFR BUN/Creatinine Ratio Glucose Calcium Total Bilirubin AST ALT Alkaline Phosphatase Total Creatine Kinase 63 CK-MB (CK-2) 3.0 CK-MB (CK-2) Rel Index 4.7 H Troponin T Total Protein Albumin Albumin/Globulin Ratio Triglycerides Cholesterol LDL Cholesterol Direct HDL Cholesterol Cholesterol/HDL Ratio Lipase Urine Color Yellow Urine Turbidity Cloudy Urine pH 5.0 Ur Specific [place] 1.017 Urine Protein 100 mg/dl Urine Glucose (UA) Neg Urine Ketones Neg Urine Blood Lg Urine Nitrite Neg Urine Bilirubin Neg Urine Urobilinogen < 2.0 Ur Leukocyte Esterase Mod Urine WBC (Auto) 94.0 H Urine RBC (Auto) 12.0 U Epithel Cells (Auto) 43.0 H Urine Bacteria (Auto) 1+ Ur Transition Epith Cell 9 Urine Mucus Few Urine Opiates Screen Urine Methadone Screen Ur Barbiturates Screen Ur Phencyclidine Scrn Ur Amphetamines Screen U Benzodiazepines Scrn Urine Cocaine Screen U Marijuana (THC) Screen Drugs of Abuse Note 11/24/18 11/24/18 11/24/18 09:56 13:07 13:07 WBC RBC Hgb Hct MCV MCH MCHC RDW Plt Count [place] % (Auto) Add Manual Diff Total Counted Seg Neuts % (Manual) Band Neutrophils % Lymphocytes % (Manual) Reactive Lymphs % (Man) Monocytes % (Manual) Eosinophils % (Manual) Basophils % (Manual) Metamyelocytes % Myelocytes % Promyelocytes % Blast Cells % Nucleated RBC % Seg Neutrophils # Man Band Neutrophils # Lymphocytes # (Manual) Abs React Lymphs (Man) Monocytes # (Manual) Eosinophils # (Manual) Basophils # (Manual) Metamyelocytes # Myelocytes # Promyelocytes # Blast Cells # WBC Morphology Hypersegmented Neuts Hyposegmented Neuts Hypogranular Neuts Smudge Cells Toxic Granulation Toxic Vacuolation Dohle Bodies Pelger-Huet Anomaly Staci Rods Platelet Estimate Clumped Platelets Plt Clumps, EDTA Large Platelets Giant Platelets Platelet Satelliting Plt Morphology Comment RBC Morphology Dimorphic RBCs Polychromasia Hypochromasia Poikilocytosis Anisocytosis Microcytosis Macrocytosis Spherocytes Pappenheimer Bodies Sickle Cells Target Cells Tear Drop Cells Ovalocytes Helmet Cells [place] Bodies [place] Rings [place] Cells Bite Cells Crenated Cell Elliptocytes Acanthocytes (Spur) Rouleaux Hemoglobin C Crystals Schistocytes Malaria parasites Luis M Bodies Hem Pathologist Commnt PT 13.7 INR 1.08 APTT 28.6 D-Dimer 566.39 H Sodium Potassium Chloride Carbon Dioxide Anion Gap BUN Creatinine Estimated GFR BUN/Creatinine Ratio Glucose Calcium Total Bilirubin AST ALT Alkaline Phosphatase Total Creatine Kinase CK-MB (CK-2) CK-MB (CK-2) Rel Index Troponin T 0.031 H Total Protein Albumin Albumin/Globulin Ratio Triglycerides Cholesterol LDL Cholesterol Direct HDL Cholesterol Cholesterol/HDL Ratio Lipase Urine Color Urine Turbidity Urine pH Ur Specific [place] Urine Protein Urine Glucose (UA) Urine Ketones Urine Blood Urine Nitrite Urine Bilirubin Urine Urobilinogen Ur Leukocyte Esterase Urine WBC (Auto) Urine RBC (Auto) U Epithel Cells (Auto) Urine Bacteria (Auto) Ur Transition Epith Cell Urine Mucus Urine Opiates Screen Presumptive negative Urine Methadone Screen Presumptive negative Ur Barbiturates Screen Presumptive negative Ur Phencyclidine Scrn Presumptive negative Ur Amphetamines Screen Presumptive negative U Benzodiazepines Scrn Presumptive negative Urine Cocaine Screen Presumptive positive U Marijuana (THC) Screen Presumptive negative Drugs of Abuse Note Disclamer - EKG Data -: EKG Interpreted by Me EKG shows normal: sinus rhythm Rate: normal - EKG Data Interpretation: LVH (EKG is consistent with LVH and associated repolarization abnormality left atrial enlargement right atrial enlargement no acute ischemic changes) - Radiology Data Radiology results: report reviewed (initial CT negative. CTA pending.) Critical care attestation.: If time is entered above; I have spent that time in minutes in the direct care of this critically ill patient, excluding procedure time. ED Disposition Clinical Impression: Accelerated hypertension, End-stage renal disease needing dialysis, Cocaine ab use Abdominal pain Qualifiers: Abdominal location: periumbilical Qualified Code(s): R10.33 - Periumbilical pain UTI (urinary tract infection) Qualifiers: Urinary tract infection type: acute cystitis Hematuria presence: with hematuria Qualified Code(s): N30.01 - Acute cystitis with hematuria Chest pain Qualifiers: Chest pain type: unspecified Qualified Code(s): R07.9 - Chest pain, unspecified Disposition: 09 OP ADMIT IP TO THIS HOSP Is pt being admited?: Yes Does the pt Need Aspirin: Yes Condition: Stable Instructions: Abdominal Pain (ED), Hypertension (ED), Chest Pain (ED) Referrals: SUNDAY CRUZ MD [Primary Care Provider] - 3-5 Days
[2018-11-24] MEDS ORDERED: MORPHINE ONE (09:34)
[2018-11-24 09:36] LABS: Basophils % (Manual) 0 % (0.0-1.8); Total Cells Counted 100
[2018-11-24 09:37] LABS: Platelet Estimate Consistent w Auto; RBC Morphology Normal
[2018-11-24 10:26] LABS: Bacteria,Urine 1+ /HPF (Negative); Bilirubin,Urine NEG (Negative); Blood,Urine LG (Negative); Color,Urine Yellow (Yellow); Mucus,Urine FEW /HPF; Urobilinogen,Urine < 2.0 mg/dL (<2.0)
[2018-11-24 10:45] LABS: Amphetamine Screen,Urine PRESUMPTIVE NEGATIVE; Benzodiazepines Screen,Urine PRESUMPTIVE NEGATIVE; Cannabinoid Screen,Urine PRESUMPTIVE NEGATIVE; Methadone Screen,Urine PRESUMPTIVE NEGATIVE; Opiate Screen,Urine PRESUMPTIVE NEGATIVE
[2018-11-24 11:02] LABS: Cocaine Screen,Urine PRESUMPTIVE POSITIVE
[2018-11-24] MEDS ORDERED: NORMODYNE IV ONE ×2 (12:36→14:49)
[2018-11-24] MEDS ORDERED: ROCEPHIN/NS 1 GM/50 ML 1 GM/50 ML BAG IV ONE (12:44)
--- NOTE | 2018-11-24 13:29 | Cat Scan Report ---
PROCEDURE: CT ABDOMEN PELVIS WO CON HISTORY: abdominal pain FINDINGS: Unenhanced CT of the abdomen and pelvis was performed and compared to the prior examination of November 07, 2018. The heart is normal in size. There is bibasilar atelectasis. ABDOMEN: The liver displays no suspect focal lesion. The spleen is normal in size. There has been a cholecyste ctomy and there is mild postcholecystectomy biliary dilation, unchanged. No focal pancreatic lesion is seen. The adrenal glands are within normal limits. Both kidneys are atrophic, consistent with chronic renal disease. There is a punctate left nonobstruc ting renal calculus. No ureteral calculus or hydronephrosis is identified. There is aortic atherosclerotic change without aneurysmal dilation of the aorta. Stool is present in the ascending colon and transverse colon. No obstructing lesion is seen. Pelvis: The appendix is not identified. There is no evidence of appendicitis. There is a left ovarian cyst, 3 cm, similar to prior exam of November 07. The uterus is poorly defined in the absence of intravenous contrast but does not appear large. The urinary bladder is collapsed but is otherwise unremarkable. IMPRESSION: ABDOMEN: Atrophic kidneys Cholecystectomy Mild constipation of ascending colon and proximal transverse colon Pelvis: No evidence of diverticulitis Left ovarian cyst, similar to prior exam This document is electronically signed by Brian Naranjo MD., November 24 2018 01:27:13 PM ET
[2018-11-24 13:47] LABS: INR 1.08 (0.87-1.13); Partial Thromboplastin Time 28.6 Sec. (24.2-36.6)
--- NOTE | 2018-11-24 14:12 | XRay Report ---
PROCEDURE: XR CHEST 1V AP TECHNIQUE: Chest radiograph single view. HISTORY: hypertension COMPARISONS: None . FINDINGS: Cysts frontal view of the chest was acquired. The heart is normal in size. There has been p artial resection of the right posterior fifth rib. There is blunting of right costophrenic sulcus, li esther pleural thickening. IMPRESSION: No consolidative infiltrate This document is electronically signed by Brian Naranjo MD., November 24 2018 02:10:41 PM ET
[2018-11-24] MEDS ORDERED: BABY ASPIRIN PO ONE (15:03)
[2018-11-24] MEDS ORDERED: BABY ASPIRIN ONE (16:03)
--- NOTE | 2018-11-24 16:15 | Cat Scan Report ---
PROCEDURE: CT ANGIO CHEST TECHNIQUE: Computerized tomographic angiography of the chest was performed after the IV injection of iodinated nonionic contrast including image processing. The image data was postprocessed using 2-di mensional multiplanar reformatted (MPR) and 3-dimensional (MIP and/or volume rendered) techniques. Au tomated exposure control, adjustment of mA and/or kV according to patient size, or iterative reconstr uction dose optimization techniques were utilized. CT DOSE LENGTH PRODUCT: 641.7 mGycm HISTORY: abd pain to back and chest COMPARISONS: None . FINDINGS: Contrast-enhanced CT angiography of the chest was performed following the intravenous admin istration of iodinated contrast. Sagittal and [facility]. There is no CT evidence of pulmonary thromboembolic disease. There is no aortic dissection. The ascen ding thoracic aorta is normal in size at 3.3 cm. There is bibasilar linear scar versus atelectasis. There is no acute consolidative pulmonary infiltra te. IMPRESSION: No CT evidence of pulmonary thromboembolic disease All CT scans at this location are performed using dose modulation techniques as appropriate to a perf ormed exam including the following: automated exposure control, adjustment of the mA and/or kV accord ing to patient size (this includes techniques or standardized protocols for targeted exams where dose is matched to indication/reason for exam, i.e.extremities or head; use of imaging [id number] This document is electronically signed by Brian Naranjo MD., November 24 2018 04:13:08 PM ET
[2018-11-24] MEDS ORDERED: NACL 0.9% 100 ML IV PRN (16:16)
--- NOTE | 2018-11-24 16:19 | Consultation ---
Medications and Allergies Allergies Allergy/AdvReac Type Severity Reaction Status Date / Time lisinopril Allergy Angioedema Verified 10/30/18 17:15 Home Medications Medication Instructions Recorded Confirmed Last Taken Type NIFEdipine XL [Procardia Xl] 60 mg PO Q12HR 08/14/18 08/14/18 08/13/18 History Omeprazole 40 mg PO DAILY 08/14/18 08/14/18 08/13/18 History Ondansetron [Zofran ODT TAB] 4 mg PO Q8HR 08/14/18 08/14/18 08/13/18 History Acetaminophen [Acetaminophen TAB] 650 mg PO Q6H PRN #15 tablet 08/20/18 Unknown Rx Aspirin [Aspirin BABY CHEW TAB] 81 mg PO QDAY #15 tab.chew 08/20/18 Unknown Rx AtorvaSTATin [Lipitor] 40 mg PO QHS #30 tablet 08/20/18 Unknown Rx Docusate Sodium [Colace CAP] 100 mg PO BID #30 capsule 08/20/18 Unknown Rx HYDROcodone/APAP 5-325 [[place] 1 each PO Q6H PRN #15 tablet 08/20/18 Unknown Rx 5-325 mg TAB] ISOSORBIDE MONOnitrate [Imdur ER] 30 mg PO QDAY #30 tablet 08/20/18 Unknown Rx Metoprolol [Lopressor TAB] 25 mg PO Q6HR 30 Days tablet 08/20/18 Unknown Rx Oxycodone HCl/Acetaminophen 1 each PO Q6HR PRN #20 tablet 08/30/18 Unknown Rx [Percocet 7.5/325 mg] Ketorolac [Toradol] 10 mg PO Q6H PRN #20 tablet 10/30/18 Unknown Rx Magnesium Citrate [Citrate of 300 ml PO ONCE 1 Days #1 bottle 11/08/18 Unknown Rx Magnesia] Sennosides/Docusate [Senokot S] 1 each PO Q12HR 30 Days #60 tab 11/08/18 Unknown Rx Dicyclomine [Bentyl] 20 mg PO QID PRN #20 tablet 11/20/18 Unknown Rx Esomeprazole Magnesium [NexIUM] 40 mg PO QDAY #30 capsule. 11/20/18 Unknown Rx Ondansetron [Zofran Odt] 4 mg PO Q8HR PRN #20 tab.rapdis 11/20/18 Unknown Rx Active Meds: Active Medications Sodium Chloride (Nacl 0.9%) 100 mls @ 999 mls/hr IV NIKKI PRN PRN Reason: Hypotension Exam - Vital Signs Vital signs: Vital Signs Temp Pulse Resp BP Pulse Ox 98.6 F 83 16 182/123 97 11/24/18 05:42 11/24/18 05:42 11/24/18 05:42 11/24/18 05:42 11/24/18 05:42 Results - Lab Results 11/24/18 05:58 11/24/18 05:58 Most recent lab results Calcium 10.0 mg/dL (8.4-10.2) 11/24/18 05:58
--- NOTE | 2018-11-24 16:22 | Event Note ---
12.20 pm Case was discussed with emergency room physician, patient is being admitted with abdominal pain also has been noted to have uncontrolled hypertension and has been to the ER multiple occasions with undiagnosed abdominal pain for which a CAT scan is being ordered Patient's normal dialysis days are Monday and Monday and she will require dialysis post, CAT scan with contrast, patient is also testing positive for cocaine Does have prior history of retroperitoneal hemorrhage and to rule out any possibility of aortic dissection CAT scan is being done I did discuss with Dr. Shelley , at length, chart was also reviewed, CAT scan will be ordered, to rule out dissection subsequent to which patient will need to go for hemodialysis She'll possibly benefit from psychiatric evaluation as well as substance abuse program evaluation
--- NOTE | 2018-11-24 16:36 | Cat Scan Report ---
PROCEDURE: CT ANGIO ABDOMEN PELVIS HISTORY: abd pain to back and chest FINDINGS: Contrast-enhanced CT angiography of the abdomen and pelvis was performed following the intr avenous administration of iodinated contrast. The lung bases appear hyperinflated. There is bibasilar linear scar versus atelectasis. ABDOMEN: The abdominal aorta is normal in size. There is no abdominal aortic dissection. Celiac axis, superior mesenteric artery and inferior mesenteric artery are all widely patent. There a re single bilateral renal arteries which are patent. There has been a cholecystectomy and there is postcholecystectomy biliary dilation. The liver, spleen, adrenal glands, pancreas are unremarkable. The kidneys are small bilaterally. There is a small left nonobstructing renal calculus. There is no small or large bowel obstruction. Pelvis: The appendix is not seen. There is no evidence of appendicitis. There is no evidence of diverticuliti s. There is some fluid and in the vagina , as well as some air within the lower vagina. The common iliac, external iliac, internal iliac and common femoral arteries appear widely patent. IMPRESSION: ABDOMEN: No abdominal aortic dissection Atrophic kidneys Pelvis: The pelvic arterial vasculature appears widely patent This document is electronically signed by Brian Naranjo MD., November 24 2018 04:34:31 PM ET
[2018-11-24] MEDS ORDERED: ZOFRAN ODT PO PRN (18:59)
[2018-11-24] MEDS ORDERED: TORADOL PO PRN (18:59)
[2018-11-24] MEDS ORDERED: BENTYL PO PRN (18:59)
[2018-11-24] MEDS ORDERED: TYLENOL PO PRN ×2 (18:59→19:08)
[2018-11-24] MEDS ORDERED: CITRATE OF MAGNESIA PO SCH (19:00)
[2018-11-24] MEDS ORDERED: NON-FORMULARY (Esomeprazole Magnesium [Nexium] 40 MG) PO SCH (19:00)
[2018-11-24] MEDS ORDERED: REGLAN IV PRN (19:08)
[2018-11-24] MEDS ORDERED: SODIUM CHLORIDE FLUSH SYRINGE 10 ML IV PRN (19:08)
[2018-11-24] MEDS ORDERED: ZOFRAN IV PRN (19:08)
[2018-11-24] MEDS: IMDUR PO SCH (22:59)
[2018-11-24] MEDS: PROCARDIA XL PO SCH (22:59)
[2018-11-24] MEDS: LOPRESSOR PO SCH (22:59)
[2018-11-24] MEDS: COLACE PO SCH (23:00)
[2018-11-24] MEDS: SENOKOT S PO SCH (23:00)
[2018-11-24] MEDS: SODIUM CHLORIDE FLUSH SYRINGE 10 ML IV SCH (23:00)
[2018-11-24] MEDS: BABY ASPIRIN PO SCH (23:00)
[2018-11-24] MEDS: PEPCID IV SCH (23:00)
[2018-11-24] MEDS: DILAUDID IV PRN (23:01)
[2018-11-24] MEDS: PROTONIX PO SCH (23:03)
[2018-11-25] MEDS: LOPRESSOR PO SCH ×3 (00:26→13:00)
[2018-11-25 05:55] LABS: Hematocrit 41.3 % (30.3-42.9); Mean Corpuscular HGB Conc 34 % (30-34); Mean Corpuscular Volume 107 fl (79-97); Platelet Count 184 K/mm3 (140-440); Red Blood Count 3.87 M/mm3 (3.65-5.03); Red Cell Distribution Width 14.7 % (13.2-15.2)
[2018-11-25 06:10] LABS: Albumin 4.2 g/dL (3.9-5); Calcium 10.7 mg/dL (8.4-10.2)
--- NOTE | 2018-11-25 06:59 | History and Physical Report ---
History of Present Illness Date of examination: 11/24/18 Date of admission: 11/24/18 15:03 Chief complaint: Abd pain 1 week History of present illness: This is a 48 year end-stage renal patient on dialysis with chronic abdominal pain. This is her third visit in November 2018 for abdominal pain. A CT obtained at this facility was not indicative of any acute pathology at that time and the patient was suspected of having abdominal pain due to constipation: High BP in ED hence admission Past Medical History Previous Medical History?: Yes Hypertension: Yes Congestive Heart Failure: Yes Renal Disease: Yes (tts dialysis) Kidney Stones: Yes Asthma: Yes Additional medical history: fibroids; kidney disease, migraine, peptic ulcers Surgical History Cholecystectomy: Yes Additional Surgical History: portion of right lung removed. shunt left upper arm, permacath right chest Social History Smoking Status: Former Smoker Substance Use Type: None Medications Home Medications: Home Medications Medication Instructions Recorded Confirmed Last Taken Type NIFEdipine XL [Procardia Xl] 60 mg PO Q12HR 08/14/18 08/14/18 08/13/18 History Omeprazole 40 mg PO DAILY 08/14/18 08/14/18 08/13/18 History Ondansetron [Zofran ODT TAB] 4 mg PO Q8HR 08/14/18 08/14/18 08/13/18 History Acetaminophen [Acetaminophen TAB] 650 mg PO Q6H PRN #15 tablet 08/20/18 Unknown Rx Aspirin [Aspirin BABY CHEW TAB] 81 mg PO QDAY #15 tab.chew 08/20/18 Unknown Rx AtorvaSTATin [Lipitor] 40 mg PO QHS #30 tablet 08/20/18 Unknown Rx Docusate Sodium [Colace CAP] 100 mg PO BID #30 capsule 08/20/18 Unknown Rx HYDROcodone/APAP 5-325 [[place] 1 each PO Q6H PRN #15 tablet 08/20/18 Unknown Rx 5-325 mg TAB] ISOSORBIDE MONOnitrate [Imdur ER] 30 mg PO QDAY #30 tablet 08/20/18 Unknown Rx Metoprolol [Lopressor TAB] 25 mg PO Q6HR 30 Days tablet 08/20/18 Unknown Rx Oxycodone HCl/Acetaminophen 1 each PO Q6HR PRN #20 tablet 08/30/18 Unknown Rx [Percocet 7.5/325 mg] Ketorolac [Toradol] 10 mg PO Q6H PRN #20 tablet 10/30/18 Unknown Rx Magnesium Citrate [Citrate of 300 ml PO ONCE 1 Days #1 bottle 11/08/18 Unknown Rx Magnesia] Sennosides/Docusate [Senokot S] 1 each PO Q12HR 30 Days #60 tab 11/08/18 Unknown Rx Dicyclomine [Bentyl] 20 mg PO QID PRN #20 tablet 11/20/18 Unknown Rx Esomeprazole Magnesium [NexIUM] 40 mg PO QDAY #30 capsule. 11/20/18 Unknown Rx Ondansetron [Zofran Odt] 4 mg PO Q8HR PRN #20 tab.rapdis 11/20/18 Unknown Rx Review of Systems ROS: Stated complaint: ABDOMINAL PAIN Other details as noted in HPI Constitutional: denies: chills, fever Eyes: denies: eye pain, eye discharge, vision change ENT: denies: ear pain, throat pain Respiratory: denies: cough, shortness of breath, wheezing Cardiovascular: chest pain. denies: palpitations Endocrine: no symptoms reported Gastrointestinal: abdominal pain. denies: nausea, diarrhea Genitourinary: denies: urgency, dysuria, discharge Musculoskeletal: back pain. denies: joint swelling, arthralgia Skin: denies: rash, lesions Neurological: denies: headache, weakness, paresthesias Psychiatric: denies: anxiety, depression Hematological/Lymphatic: denies: easy bleeding, easy bruising Medications and Allergies Allergies Allergy/AdvReac Type Severity Reaction Status Date / Time lisinopril Allergy Angioedema Verified 10/30/18 17:15 Home Medications Medication Instructions Recorded Confirmed Last Taken Type NIFEdipine XL [Procardia Xl] 60 mg PO Q12HR 08/14/18 08/14/18 08/13/18 History Omeprazole 40 mg PO DAILY 08/14/18 08/14/18 08/13/18 History Ondansetron [Zofran ODT TAB] 4 mg PO Q8HR 08/14/18 08/14/18 08/13/18 History Acetaminophen [Acetaminophen TAB] 650 mg PO Q6H PRN #15 tablet 08/20/18 Unknown Rx Aspirin [Aspirin BABY CHEW TAB] 81 mg PO QDAY #15 tab.chew 08/20/18 Unknown Rx AtorvaSTATin [Lipitor] 40 mg PO QHS #30 tablet 08/20/18 Unknown Rx Docusate Sodium [Colace CAP] 100 mg PO BID #30 capsule 08/20/18 Unknown Rx HYDROcodone/APAP 5-325 [[place] 1 each PO Q6H PRN #15 tablet 08/20/18 Unknown Rx 5-325 mg TAB] ISOSORBIDE MONOnitrate [Imdur ER] 30 mg PO QDAY #30 tablet 08/20/18 Unknown Rx Metoprolol [Lopressor TAB] 25 mg PO Q6HR 30 Days tablet 08/20/18 Unknown Rx Oxycodone HCl/Acetaminophen 1 each PO Q6HR PRN #20 tablet 08/30/18 Unknown Rx [Percocet 7.5/325 mg] Ketorolac [Toradol] 10 mg PO Q6H PRN #20 tablet 10/30/18 Unknown Rx Magnesium Citrate [Citrate of 300 ml PO ONCE 1 Days #1 bottle 11/08/18 Unknown Rx Magnesia] Sennosides/Docusate [Senokot S] 1 each PO Q12HR 30 Days #60 tab 11/08/18 Unknown Rx Dicyclomine [Bentyl] 20 mg PO QID PRN #20 tablet 11/20/18 Unknown Rx Esomeprazole Magnesium [NexIUM] 40 mg PO QDAY #30 capsule.dr 11/20/18 Unknown Rx Ondansetron [Zofran Odt] 4 mg PO Q8HR PRN #20 tab.rapdis 11/20/18 Unknown Rx Active Meds: Active Medications Acetaminophen (Tylenol) 650 mg PO Q4H PRN PRN Reason: Pain MILD(1-3)/Fever >100.5/ANTHONY Aspirin (Baby Aspirin) 81 mg PO QDAY [facility] Last Admin: 11/24/18 23:00 Dose: 81 mg Documented by: Atorvastatin Calcium (Lipitor) 40 mg PO QHS [facility] Last Admin: 11/24/18 22:59 Dose: 40 mg Documented by: Dicyclomine HCl (Bentyl) 20 mg PO QID PRN PRN Reason: abdominal pain Docusate Sodium (Colace) 100 mg PO BID [facility] Last Admin: 11/24/18 23:00 Dose: 100 mg Documented by: Famotidine (Pepcid) 10 mg IV BID [facility] Last Admin: 11/24/18 23:00 Dose: 10 mg Documented by: Hydromorphone HCl (Dilaudid) 0.5 mg IV Q3H PRN PRN Reason: Pain , Severe (7-10) Last Admin: 11/24/18 23:01 Dose: 0.5 mg Documented by: Sodium Chloride (Nacl 0.9%) 100 mls @ 999 mls/hr IV NIKKI PRN PRN Reason: Hypotension Isosorbide Mononitrate (Imdur) 30 mg PO QDAY [facility] Last Admin: 11/24/18 22:59 Dose: 30 mg Documented by: Ketorolac Tromethamine (Toradol) 10 mg PO Q6H PRN PRN Reason: Pain Stop: 11/29/18 18:58 Magnesium Citrate (Citrate Of Magnesia) 300 ml PO ONCE [facility] Metoclopramide HCl (Reglan) 10 mg IV Q6H PRN PRN Reason: Nausea And Vomiting Metoprolol Tartrate (Lopressor) 25 mg PO Q6HR [facility] Last Admin: 11/25/18 05:47 Dose: 25 mg Documented by: Nifedipine (Procardia Xl) 60 mg PO Q12HR [facility] Last Admin: 11/24/18 22:59 Dose: 60 mg Documented by: Ondansetron HCl (Zofran Odt) 4 mg PO Q8HR PRN PRN Reason: Vomiting Ondansetron HCl (Zofran) 4 mg IV Q8H PRN PRN Reason: Nausea And Vomiting Pantoprazole Sodium (Protonix) 40 mg PO DAILY [facility] Last Admin: 11/24/18 23:03 Dose: 40 mg Documented by: Senna/Docusate Sodium (Senokot S) 1 tab PO Q12HR [facility] Last Admin: 11/24/18 23:00 Dose: 1 tab Documented by: Sodium Chloride (Sodium Chloride Flush Syringe 10 Ml) 10 ml IV BID [facility] Last Admin: 11/24/18 23:00 Dose: 10 ml Documented by: Sodium Chloride (Sodium Chloride Flush Syringe 10 Ml) 10 ml IV PRN PRN PRN Reason: LINE FLUSH Exam - Constitutional Vitals: Temp Pulse Resp BP Pulse Ox 97.7 F 73 16 122/86 97 11/25/18 04:55 11/25/18 04:00 11/25/18 04:55 11/25/18 04:00 11/25/18 04:00 General appearance: Present: no acute distress, well-nourished - EENT Eyes: Present: PERRL ENT: hearing intact, clear oral mucosa - Neck Neck: Present: supple, normal ROM - Respiratory Respiratory effort: normal Respiratory: bilateral: CTA - Cardiovascular Heart rate: 88 Rhythm: regular Heart Sounds: Present: S1 & S2. Absent: rub, click - Extremities Extremities: no ischemia, pulses intact, pulses symmetrical, No edema Peripheral Pulses: within normal limits - Abdominal General gastrointestinal: Present: soft, tender, non-distended, normal bowel sounds Female genitourinary: Present: normal - Rectal Rectal Exam: deferred - Integumentary Integumentary: Present: clear, warm, dry - Musculoskeletal Musculoskeletal: gait normal, strength equal bilaterally - Psychiatric Psychiatric: appropriate mood/affect, intact judgment & insight - Neurologic Neurologic: CNII-XII intact, moves all extremities - Allied Health Allied health notes reviewed: nursing, case management Results - Labs CBC & Chem 7: 11/25/18 05:25 11/25/18 05:25 Labs: Laboratory Last Values WBC 5.3 K/mm3 (4.5-11.0) 11/25/18 05:25 RBC 3.87 M/mm3 (3.65-5.03) 11/25/18 05:25 Hgb 14.0 gm/dl (10.1-14.3) 11/25/18 05:25 Hct 41.3 % (30.3-42.9) 11/25/18 05:25 MCV 107 fl (79-97) H 11/25/18 05:25 MCH 36 pg (28-32) H 11/25/18 05:25 MCHC 34 % (30-34) 11/25/18 05:25 RDW 14.7 % (13.2-15.2) 11/25/18 05:25 Plt Count 184 K/mm3 (140-440) 11/25/18 05:25 [place] % (Auto) Books Binder 11/25/18 05:25 Add Manual Diff Complete 11/24/18 05:58 Total Counted 100 11/24/18 05:58 Seg Neuts % (Manual) 56.0 % (40.0-70.0) 11/24/18 05:58 0 % 11/24/18 05:58 32.0 % (13.4-35.0) 11/24/18 05:58 Reactive Lymphs % (Man) 1.0 % 11/24/18 05:58 7.0 % (0.0-7.3) 11/24/18 05:58 4.0 % (0.0-4.3) 11/24/18 05:58 0 % (0.0-1.8) 11/24/18 05:58 0 % 11/24/18 05:58 0 % 11/24/18 05:58 0 % 11/24/18 05:58 0 % 11/24/18 05:58 Nucleated RBC % Not Reportable 11/24/18 05:58 Seg Neutrophils # Man 2.9 K/mm3 (1.8-7.7) 11/24/18 05:58 Band Neutrophils # 0.0 K/mm3 11/24/18 05:58 1.7 K/mm3 (1.2-5.4) 11/24/18 05:58 Abs React Lymphs (Man) 0.1 K/mm3 11/24/18 05:58 0.4 K/mm3 (0.0-0.8) 11/24/18 05:58 0.2 K/mm3 (0.0-0.4) 11/24/18 05:58 0.0 K/mm3 (0.0-0.1) 11/24/18 05:58 0.0 K/mm3 11/24/18 05:58 0.0 K/mm3 11/24/18 05:58 0.0 K/mm3 11/24/18 05:58 Blast Cells # 0.0 K/mm3 11/24/18 05:58 WBC Morphology TNR 11/25/18 05:25 Hypersegmented Neuts Not Reportable 11/24/18 05:58 Hyposegmented Neuts Not Reportable 11/24/18 05:58 Hypogranular Neuts Not Reportable 11/24/18 05:58 Not Reportable 11/24/18 05:58 Not Reportable 11/24/18 05:58 Not Reportable 11/24/18 05:58 Not Reportable 11/24/18 05:58 Not Reportable 11/24/18 05:58 Not Reportable 11/24/18 05:58 Consistent w auto 11/24/18 05:58 Not Reportable 11/24/18 05:58 Plt Clumps, EDTA Not Reportable 11/24/18 05:58 Not Reportable 11/24/18 05:58 Not Reportable 11/24/18 05:58 Not Reportable 11/24/18 05:58 Plt Morphology Comment Not Reportable 11/24/18 05:58 RBC Morphology Normal 11/24/18 05:58 Dimorphic RBCs Not Reportable 11/24/18 05:58 Not Reportable 11/24/18 05:58 Not Reportable 11/24/18 05:58 Not Reportable 11/24/18 05:58 Not Reportable 11/24/18 05:58 Not Reportable 11/24/18 05:58 Not Reportable 11/24/18 05:58 Not Reportable 11/24/18 05:58 Not Reportable 11/24/18 05:58 Not Reportable 11/24/18 05:58 Not Reportable 11/24/18 05:58 Not Reportable 11/24/18 05:58 Not Reportable 11/24/18 05:58 Not Reportable 11/24/18 05:58 Not Reportable 11/24/18 05:58 Not Reportable 11/24/18 05:58 Not Reportable 11/24/18 05:58 Not Reportable 11/24/18 05:58 Not Reportable 11/24/18 05:58 Not Reportable 11/24/18 05:58 Acanthocytes (Spur) Not Reportable 11/24/18 05:58 Rouleaux Not Reportable 11/24/18 05:58 Not Reportable 11/24/18 05:58 Not Reportable 11/24/18 05:58 Not Reportable 11/24/18 05:58 Not Reportable 11/24/18 05:58 Hem Pathologist Commnt No 11/24/18 05:58 PT 13.7 Sec. (12.2-14.9) 11/24/18 13:07 INR 1.08 (0.87-1.13) 11/24/18 13:07 APTT 28.6 Sec. (24.2-36.6) 11/24/18 13:07 566.39 ng/mlDDU (0-234) H 11/24/18 13:07 Sodium 133 mmol/L (137-145) L 11/25/18 05:25 Potassium 4.2 mmol/L (3.6-5.0) 11/25/18 05:25 Chloride 90.4 mmol/L (98-107) L 11/25/18 05:25 Carbon Dioxide 23 mmol/L (22-30) 11/25/18 05:25 24 mmol/L 11/25/18 05:25 BUN 31 mg/dL (7-17) H 11/25/18 05:25 9.0 mg/dL (0.7-1.2) H 11/25/18 05:25 Estimated GFR 6 ml/min 11/25/18 05:25 3 % 11/25/18 05:25 Glucose 86 mg/dL (65-100) 11/25/18 05:25 4.7 % (4-6) 11/24/18 05:58 Calcium 10.7 mg/dL (8.4-10.2) H 11/25/18 05:25 0.20 mg/dL (0.1-1.2) 11/25/18 05:25 AST 12 units/L (5-40) 11/25/18 05:25 ALT 10 units/L (7-56) 11/25/18 05:25 81 units/L (35-129) 11/25/18 05:25 63 units/L (30-135) 11/24/18 05:58 CK-MB (CK-2) 3.0 ng/mL (0.0-4.0) 11/24/18 05:58 CK-MB (CK-2) Rel Index 4.7 (0-4) H 11/24/18 05:58 0.031 ng/mL (0.00-0.029) H 11/24/18 13:07 NT-Pro-B Natriuret Pep 38485 pg/mL (0-450) H 11/24/18 13:07 8.0 g/dL (6.3-8.2) 11/25/18 05:25 4.2 g/dL (3.9-5) 11/25/18 05:25 1.1 % 11/25/18 05:25 Triglycerides 151 mg/dL (2-149) H 11/24/18 05:58 Cholesterol 181 mg/dL (50-199) 11/24/18 05:58 123 mg/dL (50-130) 11/24/18 05:58 37 mg/dL (40-59) L 11/24/18 05:58 4.89 % 11/24/18 05:58 15 units/L (13-60) 11/24/18 05:58 Yellow (Yellow) 11/24/18 09:56 Cloudy (Clear) 11/24/18 09:56 5.0 (5.0-7.0) 11/24/18 09:56 Ur Specific [place] 1.017 (1.003-1.030) 11/24/18 09:56 100 mg/dl mg/dL (Negative) 11/24/18 09:56 Neg mg/dL (Negative) 11/24/18 09:56 Neg mg/dL (Negative) 11/24/18 09:56 Lg (Negative) 11/24/18 09:56 Neg (Negative) 11/24/18 09:56 Neg (Negative) 11/24/18 09:56 < 2.0 mg/dL (<2.0) 11/24/18 09:56 Ur Leukocyte Esterase Mod (Negative) 11/24/18 09:56 94.0 /HPF (0.0-6.0) H 11/24/18 09:56 12.0 /HPF (0.0-6.0) 11/24/18 09:56 U Epithel Cells (Auto) 43.0 /HPF (0-13.0) H 11/24/18 09:56 1+ /HPF (Negative) 11/24/18 09:56 Ur Transition Epith Cell 9 /HPF 11/24/18 09:56 Few /HPF 11/24/18 09:56 Presumptive negative 11/24/18 09:56 Presumptive negative 11/24/18 09:56 Ur Barbiturates Screen Presumptive negative 11/24/18 09:56 Ur Phencyclidine Scrn Presumptive negative 11/24/18 09:56 Ur Amphetamines Screen Presumptive negative 11/24/18 09:56 U Benzodiazepines Scrn Presumptive negative 11/24/18 09:56 Presumptive positive 11/24/18 09:56 U Marijuana (THC) Screen Presumptive negative 11/24/18 09:56 Disclamer 11/24/18 09:56 Short CBC 11/24/18 11/25/18 Range/Units 05:58 05:25 WBC 5.2 5.3 (4.5-11.0) K/mm3 Hgb 13.6 14.0 (10.1-14.3) gm/dl Hct 40.2 41.3 (30.3-42.9) % Plt Count 195 184 (140-440) K/mm3 BMP 11/25/18 05:25 Sodium 133 L Potassium 4.2 Chloride 90.4 L Carbon Dioxide 23 BUN 31 H Creatinine 9.0 H Glucose 86 Calcium 10.7 H Cardiac Enzymes 11/24/18 11/24/18 11/24/18 Range/Units 05:58 05:58 13:07 Total Creatine Kinase 63 (30-135) units/L CK-MB (CK-2) 3.0 (0.0-4.0) ng/mL Troponin T 0.033 H 0.031 H (0.00-0.029) ng/mL Liver Function 11/25/18 Range/Units 05:25 Total Bilirubin 0.20 (0.1-1.2) mg/dL AST 12 (5-40) units/L ALT 10 (7-56) units/L Alkaline Phosphatase 81 (35-129) units/L Albumin 4.2 (3.9-5) g/dL Urine 11/24/18 Range/Units 09:56 Urine Color Yellow (Yellow) Urine pH 5.0 (5.0-7.0) Ur Specific [place] 1.017 (1.003-1.030) Urine Protein 100 mg/dl (Negative) mg/dL Urine Glucose (UA) Neg (Negative) mg/dL - Imaging and Cardiology EKG: report reviewed Imaging and Cardiology: Abd CT IMPRESSION: ABDOMEN: Atrophic kidneys Cholecystectomy Mild constipation of ascending colon and proximal transverse colon Pelvis: No evidence of diverticulitis Left ovarian cyst, similar to prior exam Abd CTA IMPRESSION: ABDOMEN: No abdominal aortic dissection Atrophic kidneys Pelvis: The pelvic arterial vasculature appears widely patent This document is electronically signed by Brian Naranjo MD., November 24 2018 04:34 EKG PROBABLE LEFT ATRIAL ENLARGEMENT NONSPECIFIC T ABNORMALITIES, LATERAL LEADS SR 90/min Assessment and Plan Advance Directives: Yes (Full code) VTE prophylaxis?: Chemical Plan of care discussed with patient/family: Yes - Patient Problems (1) Malignant hypertension Current Visit: Yes Status: Acute Plan to address problem: IV Hydralzine q3h prn Antihypertensives to continue (2) End-stage renal disease needing dialysis Current Visit: Yes Status: Chronic Plan to address problem: Cont HD Nephrology consulted (3) Abdominal pain Current Visit: Yes Status: Chronic Qualifiers: Abdominal location: periumbilical Qualified Code(s): R10.33 - Periumbilical pain Plan to address problem: Non specific Constipation induced?? Lactulose x1 dose (4) Cocaine abuse Current Visit: Yes Status: Chronic Plan to address problem: Counselled (5) UTI (urinary tract infection) Current Visit: Yes Status: Acute Qualifiers: Urinary tract infection type: acute cystitis Qualified Code(s): N30.01 - Acute cystitis with hematuria Plan to address problem: IV rocephin (6) HLD (hyperlipidemia) Current Visit: Yes Status: Chronic Qualifiers: Hyperlipidemia type: mixed hyperlipidemia Qualified Code(s): E78.2 - Mixed hyperlipidemia Plan to address problem: Cont statins (7) CAD (coronary artery disease) Current Visit: Yes Status: Chronic Qualifiers: Coronary Disease-Associated Artery/Lesion type: [place] artery [place] vs. transplanted heart: [place] heart Plan to address problem: COnt ISMO and ASA (8) DVT prophylaxis Current Visit: Yes Status: Acute Plan to address problem: on Heparin and GI prophylaxis
[2018-11-25] MEDS ORDERED: APRESOLINE IV PRN ×2 (07:07→07:11)
[2018-11-25] MEDS ORDERED: CEPHULAC PO PRN (07:08)
[2018-11-25] MEDS: DILAUDID IV PRN ×3 (08:02→22:37)
[2018-11-25 09:33] LABS: Band Neutrophils # (Manual) 0.1 K/mm3; Basophils % (Manual) 0 % (0.0-1.8); Large Platelets Few; Platelet Estimate Consistent w Auto; RBC Morphology Normal; Total Cells Counted 100
[2018-11-25] MEDS: COZAAR PO SCH (11:09)
[2018-11-25] MEDS: PROTONIX PO SCH (11:09)
[2018-11-25] MEDS: PROCARDIA XL PO SCH ×2 (11:09→22:35)
[2018-11-25] MEDS: IMDUR PO SCH (11:09)
[2018-11-25] MEDS: COLACE PO SCH ×2 (11:10→22:35)
[2018-11-25] MEDS: PEPCID IV SCH ×2 (11:10→22:37)
[2018-11-25] MEDS: HEPARIN SUB-Q SCH ×2 (11:10→22:36)
--- NOTE | 2018-11-25 11:23 | Consultation ---
History of Present Illness - History of Present Illness Thank you for the consultation ! Patient was evaluated today My assessment and plan are as follows End-stage renal disease: Patient will continue with hemodialysis on Monday and Monday schedule, she received her hemodialysis treatment yesterday after the CAT scan was done Aortic dissection was ruled out findings were discussed with patient Anemia in end-stage renal disease: Monitor hemoglobin and hematocrit, erythropoietin as needed , currently not required hemoglobin is normal Noted to have cocaine positive Patient does have history of peptic ulcer disease and has been having frequent abdominal pain she needs to be seen by GI Advised not to use any form of mono struggle drugs Secondary hyperparathyroidism periodically check phosphorus and PTH level, goal phosphorus less than 5.5 PTH less than 600, educated about renal osteodystrophy Hypertension and volume: , Adjust medications as needed, ultrafiltration as tolerated keep systolic blood pressure above 100 Malnutrition risk: High please consider high protein diet as well as nutrition follow-up, patient needs at least 1.5 g protein per KG body weight Dialysis access: Currently working well, discussed about monitoring Dietary counseling and education: Done at length to improve outcome with end-st age renal disease Patient was also educated about the hospital related comorbidities Overall prognosis appears to be guarded due to end-stage renal disease, dialysis status and other comorbidities Had a detailed discussion with patient about the plan of care from renal standpoint. All questions were answered labs and pertinent imaging findings were explained to the patient and simple [place]. Prognosis: Guarded We'll continue to follow and make recommendation from renal standpoint Thank you for the consultation. History of presenting illness; Patient is a 48-year-old -[place] female who has been admitted here with uncontrolled hypertension, has been evaluated by Hospital on multiple occasions with ongoing abdominal pain and has had to undergo a CAT scan with contrast, pat ient was also noted to be cocaine positive, she is currently on maintenance hemodialysis, she did receive her hemodialysis treatment yesterday after she received the contrast She is currently on maintenance hemodialysis Monday She also does have history of congestive heart failure as well as asthma She has no complaints of any chest pain pressure or shortness of breath Currently her blood pressure is 119/73 hemoglobin is 14.0 platelet count is normal, As of today BUN is 31 creatinine is 9.0 sodium 133 CAT scan obtained yesterday shows no evidence of any dissection Past medical history significant for End-stage renal disease Cocaine use Uncontrolled hypertension Abdominal pain noncompliance Secondary hyperparathyroidism History of fibroid Migraine Peptic ulcer disease Current allergies: The setting of renal Family history reviewed from the chart Social history reviewed from the chart Home medication present medications reviewed Review of system ongoing abdominal pain uncontrolled hypertension cocaine abuse All other review of system negative Poorly compliant patient Physical examination Vitals: Reviewed from this admission Gen.: No acute distress HEENT: Normocephalic/atraumatic skull oral mucosa moist minimal pallor no icterus or uremic order Neck: Supple without any thyromegaly nodular mass or JVD Chest: Clear to auscultation anteriorly few faint basilar crackles otherwise unremarkable Heart: Regular rate and rhythm S1 and S2 heard no S3-S4 no pericardial rub Abdomen: Soft nontender no guarding rigidity rebound organomegaly no suprapubic masses, no CVA tenderness no renal bruit Back: No CVA tenderness Derm: No petechial rashes dry skin Extremity: Pulses palpable no peripheral cyanosis, 1+ edema dry skin Neurological: Alert awake follows commands Psychiatric: No agitation and aggression Labs and x-rays: Were reviewed from this admission Medications and Allergies Allergies Allergy/AdvReac Type Severity Reaction Status Date / Time lisinopril Allergy Angioedema Verified 10/30/18 17:15 Home Medications Medication Instructions Recorded Confirmed Last Taken Type NIFEdipine XL [Procardia Xl] 60 mg PO Q12HR 08/14/18 08/14/18 08/13/18 History Omeprazole 40 mg PO DAILY 08/14/18 08/14/18 08/13/18 History Ondansetron [Zofran ODT TAB] 4 mg PO Q8HR 08/14/18 08/14/18 08/13/18 History Acetaminophen [Acetaminophen TAB] 650 mg PO Q6H PRN #15 tablet 08/20/18 Unknown Rx Aspirin [Aspirin BABY CHEW TAB] 81 mg PO QDAY #15 tab.chew 08/20/18 Unknown Rx AtorvaSTATin [Lipitor] 40 mg PO QHS #30 tablet 08/20/18 Unknown Rx Docusate Sodium [Colace CAP] 100 mg PO BID #30 capsule 08/20/18 Unknown Rx HYDROcodone/APAP 5-325 [[place] 1 each PO Q6H PRN #15 tablet 08/20/18 Unknown Rx 5-325 mg TAB] ISOSORBIDE MONOnitrate [Imdur ER] 30 mg PO QDAY #30 tablet 08/20/18 Unknown Rx Metoprolol [Lopressor TAB] 25 mg PO Q6HR 30 Days tablet 08/20/18 Unknown Rx Oxycodone HCl/Acetaminophen 1 each PO Q6HR PRN #20 tablet 08/30/18 Unknown Rx [Percocet 7.5/325 mg] Ketorolac [Toradol] 10 mg PO Q6H PRN #20 tablet 10/30/18 Unknown Rx Magnesium Citrate [Citrate of 300 ml PO ONCE 1 Days #1 bottle 11/08/18 Unknown Rx Magnesia] Sennosides/Docusate [Senokot S] 1 each PO Q12HR 30 Days #60 tab 11/08/18 Unknown Rx Dicyclomine [Bentyl] 20 mg PO QID PRN #20 tablet 11/20/18 Unknown Rx Esomeprazole Magnesium [NexIUM] 40 mg PO QDAY #30 capsule. 11/20/18 Unknown Rx Ondansetron [Zofran Odt] 4 mg PO Q8HR PRN #20 tab.rapdis 11/20/18 Unknown Rx Active Meds: Active Medications Acetaminophen (Tylenol) 650 mg PO Q4H PRN PRN Reason: Pain MILD(1-3)/Fever >100.5/ANTHONY Aspirin (Baby Aspirin) 81 mg PO QDAY [facility] Last Admin: 11/24/18 23:00 Dose: 81 mg Documented by: Atorvastatin Calcium (Lipitor) 40 mg PO QHS [facility] Last Admin: 11/24/18 22:59 Dose: 40 mg Documented by: Dicyclomine HCl (Bentyl) 20 mg PO QID PRN PRN Reason: abdominal pain Docusate Sodium (Colace) 100 mg PO BID [facility] Last Admin: 11/24/18 23:00 Dose: 100 mg Documented by: Famotidine (Pepcid) 10 mg IV BID [facility] Last Admin: 11/24/18 23:00 Dose: 10 mg Documented by: Heparin Sodium (Porcine) (Heparin) 5,000 unit SUB-Q Q12HR [facility] Hydralazine HCl (Apresoline) 10 mg IV Q3H PRN PRN Reason: Blood Pressure Hydromorphone HCl (Dilaudid) 0.5 mg IV Q3H PRN PRN Reason: Pain , Severe (7-10) Last Admin: 11/25/18 08:02 Dose: 0.5 mg Documented by: Sodium Chloride (Nacl 0.9%) 100 mls @ 999 mls/hr IV NIKKI PRN PRN Reason: Hypotension Isosorbide Mononitrate (Imdur) 30 mg PO QDAY [facility] Last Admin: 11/24/18 22:59 Dose: 30 mg Documented by: Ketorolac Tromethamine (Toradol) 10 mg PO Q6H PRN PRN Reason: Pain Stop: 11/29/18 18:58 Lactulose (Cephulac) 20 gm PO QDAY PRN PRN Reason: Constipation Losartan Potassium (Cozaar) 100 mg PO QDAY [facility] Magnesium Citrate (Citrate Of Magnesia) 300 ml PO ONCE [facility] Metoclopramide HCl (Reglan) 10 mg IV Q6H PRN PRN Reason: Nausea And Vomiting Metoprolol Tartrate (Lopressor) 25 mg PO Q6HR [facility] Last Admin: 11/25/18 05:47 Dose: 25 mg Documented by: Nifedipine (Procardia Xl) 60 mg PO Q12HR [facility] Last Admin: 11/24/18 22:59 Dose: 60 mg Documented by: Ondansetron HCl (Zofran Odt) 4 mg PO Q8HR PRN PRN Reason: Vomiting Ondansetron HCl (Zofran) 4 mg IV Q8H PRN PRN Reason: Nausea And Vomiting Pantoprazole Sodium (Protonix) 40 mg PO DAILY [facility] Last Admin: 11/24/18 23:03 Dose: 40 mg Documented by: Senna/Docusate Sodium (Senokot S) 1 tab PO Q12HR [facility] Last Admin: 11/24/18 23:00 Dose: 1 tab Documented by: Sodium Chloride (Sodium Chloride Flush Syringe 10 Ml) 10 ml IV BID [facility] Last Admin: 11/24/18 23:00 Dose: 10 ml Documented by: Sodium Chloride (Sodium Chloride Flush Syringe 10 Ml) 10 ml IV PRN PRN PRN Reason: LINE FLUSH Exam - Vital Signs Vital signs: Vital Signs Temp Pulse Resp BP Pulse Ox 98.6 F 83 16 182/123 97 11/24/18 05:42 11/24/18 05:42 11/24/18 05:42 11/24/18 05:42 11/24/18 05:42 Results - Lab Results 11/25/18 05:25 11/25/18 05:25 Most recent lab results Calcium 10.7 mg/dL (8.4-10.2) H 11/25/18 05:25
--- NOTE | 2018-11-25 13:58 | Progress Note ---
Assessment and Plan 88-year-old -[place] female with history of CHF, pacemaker in situ, A. fib on Eliquis, COPD on home O2, DM, HTN, chronic anemia, arthritis who presents to start him see ED with complaints of shortness of breath, non productive co ugh, and worsening BLE pitting edema for the past 4 days. CXR unrevealing fro acute cardiopulmonary abnormalities, but did show signs of worsening right sided HF. Will admit to telemetry. - ESRD on HD [facility] consulted Hemodialysis ordered Trend BUN and creatinine - Malignant hypertension Improved oral antihypertensives 2 g sodium diet recommended - CAD Continue with aspirin and beta blockers - Elevated troponin levels Likely secondary to end-stage renal disease Continue aspirin and beta august Trend - UTI Continue IV Rocephin Follow-up with urine culture report - Abdominal pain Likely secondary to constipation CT scan of the abdomen and pelvis unremarkable for any acute events - Cocaine abuse Counseling on cessation done - DVT prophylaxis with heparin - CODE STATUS: Full code - Disposition optimize blood pressure and discharge Subjective Date of service: 11/25/18 Principal diagnosis: malignant hypertension, ESRD on HD, abdominal pain, cocaine abuse Interval history: Patient seen and examined. Lying quietly in bed. Abdominal pain resolved. No nausea no vomiting Objective - Exam Narrative Exam: Constitutional: Well-nourished well-developed. In no distress Head: Normocephalic atraumatic Eyes: Pupils are equal round and reactive to light Nose: No enlarged turbinates, no septal deviation. Mouth: Moist mucous membranes. Neck: Supple no thyromegaly. No bruit. No JVD Heart: Regular rate and rhythm, S1-S2 normal. No rubs murmurs or gallop Lungs: Clear to auscultation bilaterally. no rales or rhonchi Abdomen: Soft, nontender. Bowel sound are present. Extremities: No edema, no cyanosis, no clubbing. Neuro: Alert oriented Oriented x3. No focal sensory or motor deficit. Skin: No rashes or hyperpigmented spots Musculoskeletal system: No joint pain or swelling Hematological: No petechia or subcutanous hemorrhages. Immunological: No multiple septic spots on the skin Lymphatic: No generalized lymphadenopathy Psychiatry: Euthymic. Calm. - Constitutional Vitals: Vital Signs - 12hr 11/25/18 11/25/18 11/25/18 04:00 04:55 10:10 Temperature 97.7 F 98.2 F Pulse Rate 73 75 Respiratory 16 16 14 Rate Blood Pressure 119/73 Blood Pressure 122/86 [Right] O2 Sat by Pulse 97 97 Oximetry 11/25/18 13:00 Temperature Pulse Rate Respiratory Rate Blood Pressure 119/73 Blood Pressure [Right] O2 Sat by Pulse Oximetry - Labs CBC & Chem 7: 11/25/18 05:25 11/25/18 05:25 Labs: Abnormal lab results 11/24/18 11/24/18 11/25/18 Range/Units 13:07 13:07 05:25 MCV 107 H (79-97) fl MCH 36 H (28-32) pg Lymphocytes % (Manual) 38.0 H (13.4-35.0) % Monocytes % (Manual) 13.0 H (0.0-7.3) % D-Dimer 566.39 H (0-234) ng/mlDDU Sodium (137-145) mmol/L Chloride (98-107) mmol/L BUN (7-17) mg/dL Creatinine (0.7-1.2) mg/dL Calcium (8.4-10.2) mg/dL Troponin T 0.031 H (0.00-0.029) ng/mL NT-Pro-B Natriuret Pep 62843 H (0-450) pg/mL 11/25/18 Range/Units 05:25 MCV (79-97) fl MCH (28-32) pg Lymphocytes % (Manual) (13.4-35.0) % Monocytes % (Manual) (0.0-7.3) % D-Dimer (0-234) ng/mlDDU Sodium 133 L (137-145) mmol/L Chloride 90.4 L (98-107) mmol/L BUN 31 H (7-17) mg/dL Creatinine 9.0 H (0.7-1.2) mg/dL Calcium 10.7 H (8.4-10.2) mg/dL Troponin T (0.00-0.029) ng/mL NT-Pro-B Natriuret Pep (0-450) pg/mL
[2018-11-25] MEDS: ZOFRAN ODT PO SCH ×2 (15:15→22:35)
[2018-11-25] MEDS: SENOKOT S PO SCH (22:35)
[2018-11-25] MEDS: SODIUM CHLORIDE FLUSH SYRINGE 10 ML IV SCH (22:38)
[2018-11-26] MEDS: LOPRESSOR PO SCH ×5 (00:30→18:19)
[2018-11-26] MEDS: ZOFRAN ODT PO SCH ×3 (07:10→21:26)
[2018-11-26] MEDS: DILAUDID IV PRN ×3 (07:11→18:26)
[2018-11-26 08:16] LABS: Hematocrit 42.2 % (30.3-42.9); Hemoglobin 14.2 gm/dl (10.1-14.3); Mean Corpuscular HGB Conc 34 % (30-34); Mean Corpuscular Volume 107 fl (79-97); Platelet Count 188 K/mm3 (140-440); Red Blood Count 3.96 M/mm3 (3.65-5.03); Red Cell Distribution Width 15.1 % (13.2-15.2)
--- NOTE | 2018-11-26 08:31 | Progress Note ---
Assessment and Plan 88-year-old -[place] female with history of CHF, pacemaker in situ, A. fib on Eliquis, COPD on home O2, DM, HTN, chronic anemia, arthritis who presents to start him see ED with complaints of shortness of breath, non productive coug h, and worsening BLE pitting edema for the past 4 days. CXR unrevealing fro acute cardiopulmonary abnormalities, but did show signs of worsening right sided HF. Will admit to telemetry. - ESRD on HD Rehabilitation Counselor consulted Hemodialysis ordered Trend BUN and creatinine am lab Pending - Chest pain ASA, NTG, - Malignant hypertension Improved oral antihypertensives 2 g sodium diet recommended - CAD Continue with aspirin and beta blockers - Elevated troponin levels Likely secondary to end-stage renal disease Continue aspirin and beta august Trend cardiology consult - UTI Continue IV Rocephin Follow-up with urine culture report - Abdominal pain Likely secondary to constipation CT scan of the abdomen and pelvis unremarkable for any acute events - Cocaine abuse Counseling on cessation done - DVT prophylaxis with heparin - CODE STATUS: Full code - Disposition optimize blood pressure and discharge Subjective Date of service: 11/26/18 Principal diagnosis: malignant hypertension, ESRD on HD, abdominal pain, cocaine abuse Interval history: Patient seen and examined. Lying quietly in bed. Abdominal pain resolved. No nausea no vomiting Objective - Exam Narrative Exam: Constitutional: Well-nourished well-developed. In no distress Head: Normocephalic atraumatic Eyes: Pupils are equal round and reactive to light Nose: No enlarged turbinates, no septal deviation. Mouth: Moist mucous membranes. Neck: Supple no thyromegaly. No bruit. No JVD Heart: Regular rate and rhythm, S1-S2 normal. No rubs murmurs or gallop Lungs: Clear to auscultation bilaterally. no rales or rhonchi Abdomen: Soft, nontender. Bowel sound are present. Extremities: No edema, no cyanosis, no clubbing. Neuro: Alert oriented Oriented x3. No focal sensory or motor deficit. Skin: No rashes or hyperpigmented spots Musculoskeletal system: No joint pain or swelling Hematological: No petechia or subcutanous hemorrhages. Immunological: No multiple septic spots on the skin Lymphatic: No generalized lymphadenopathy Psychiatry: Euthymic. Calm. - Constitutional Vitals: Vital Signs - 12hr 11/25/18 11/25/18 11/26/18 21:00 22:37 00:15 Temperature 98.0 F Pulse Rate 76 Respiratory 20 20 18 Rate Blood Pressure 141/92 O2 Sat by Pulse 98 Oximetry 11/26/18 11/26/18 11/26/18 00:30 04:30 05:56 Temperature 97.9 F Pulse Rate 78 76 75 Respiratory 20 Rate Blood Pressure 141/92 147/96 147/96 O2 Sat by Pulse 98 Oximetry 11/26/18 06:34 Temperature Pulse Rate 71 Respiratory Rate Blood Pressure O2 Sat by Pulse Oximetry - EENT ENT: edentulous - Labs CBC & Chem 7: 11/26/18 07:34 11/26/18 07:34 Labs: Abnormal lab results 11/25/18 Range/Units 05:25 Lymphocytes % (Manual) 38.0 H (13.4-35.0) % Monocytes % (Manual) 13.0 H (0.0-7.3) %
[2018-11-26 08:39] LABS: Albumin 4.3 g/dL (3.9-5); Calcium 10.1 mg/dL (8.4-10.2)
[2018-11-26] MEDS: BABY ASPIRIN PO SCH ×2 (10:00→10:31)
[2018-11-26 10:22] LABS: Basophils % (Manual) 0 % (0.0-1.8); Total Cells Counted 100
[2018-11-26 10:23] LABS: Platelet Estimate Consistent w Auto; RBC Morphology Normal
[2018-11-26] MEDS: COZAAR PO SCH (10:30)
[2018-11-26] MEDS: IMDUR PO SCH (10:30)
[2018-11-26] MEDS: HEPARIN SUB-Q SCH ×2 (10:31→21:25)
[2018-11-26] MEDS: PEPCID IV SCH (10:31)
[2018-11-26] MEDS: PROCARDIA XL PO SCH ×2 (10:31→21:26)
[2018-11-26] MEDS: SENOKOT S PO SCH ×3 (10:31→21:25)
[2018-11-26] MEDS: COLACE PO SCH ×2 (10:31→21:26)
[2018-11-26] MEDS: PROTONIX PO SCH (10:31)
[2018-11-26] MEDS: SODIUM CHLORIDE FLUSH SYRINGE 10 ML IV SCH ×2 (10:32→21:26)
--- NOTE | 2018-11-26 12:08 | Consultation ---
History of Present Illness Consult date: 11/26/18 Consult reason: chest pain History of present illness: This is a 48-year old woman with end stage renal disease on dialysis and chronic hypertension who was admitted 11/24 with abdominal pain and uncontrolled hypertension. A cardiac consultation has been requested for atypical chest pain. Patient has undergone extensive cardiac workup just 3 months ago. She had a cardiac catheterization that revealed angiographically normal coronary arteries. Normal left ventricular ejection fraction 55-60% by echocardiogram. 12 lead ECG is sinus rhythm with LVH and non-specific Twave abnormalities. No significant change when compared to prior. Medications and Allergies Allergies Allergy/AdvReac Type Severity Reaction Status Date / Time lisinopril Allergy Angioedema Verified 10/30/18 17:15 Home Medications Medication Instructions Recorded Confirmed Last Taken Type NIFEdipine XL [Procardia Xl] 60 mg PO Q12HR 08/14/18 08/14/18 08/13/18 History Omeprazole 40 mg PO DAILY 08/14/18 08/14/18 08/13/18 History Ondansetron [Zofran ODT TAB] 4 mg PO Q8HR 08/14/18 08/14/18 08/13/18 History Acetaminophen [Acetaminophen TAB] 650 mg PO Q6H PRN #15 tablet 08/20/18 Unknown Rx Aspirin [Aspirin BABY CHEW TAB] 81 mg PO QDAY #15 tab.chew 08/20/18 Unknown Rx AtorvaSTATin [Lipitor] 40 mg PO QHS #30 tablet 08/20/18 Unknown Rx Docusate Sodium [Colace CAP] 100 mg PO BID #30 capsule 08/20/18 Unknown Rx HYDROcodone/APAP 5-325 [[place] 1 each PO Q6H PRN #15 tablet 08/20/18 Unknown Rx 5-325 mg TAB] ISOSORBIDE MONOnitrate [Imdur ER] 30 mg PO QDAY #30 tablet 08/20/18 Unknown Rx Metoprolol [Lopressor TAB] 25 mg PO Q6HR 30 Days tablet 08/20/18 Unknown Rx Oxycodone HCl/Acetaminophen 1 each PO Q6HR PRN #20 tablet 08/30/18 Unknown Rx [Percocet 7.5/325 mg] Ketorolac [Toradol] 10 mg PO Q6H PRN #20 tablet 10/30/18 Unknown Rx Magnesium Citrate [Citrate of 300 ml PO ONCE 1 Days #1 bottle 11/08/18 Unknown Rx Magnesia] Sennosides/Docusate [Senokot S] 1 each PO Q12HR 30 Days #60 tab 11/08/18 Unknown Rx Dicyclomine [Bentyl] 20 mg PO QID PRN #20 tablet 11/20/18 Unknown Rx Esomeprazole Magnesium [NexIUM] 40 mg PO QDAY #30 capsule. 11/20/18 Unknown Rx Ondansetron [Zofran Odt] 4 mg PO Q8HR PRN #20 tab.valerio 11/20/18 Unknown Rx Active Meds: Active Medications Acetaminophen (Tylenol) 650 mg PO Q4H PRN PRN Reason: Pain MILD(1-3)/Fever >100.5/ANTHONY Aspirin (Baby Aspirin) 81 mg PO QDAY [facility] Last Admin: 11/26/18 10:31 Dose: 81 mg Documented by: Atorvastatin Calcium (Lipitor) 40 mg PO QHS [facility] Last Admin: 11/25/18 22:35 Dose: 40 mg Documented by: Dicyclomine HCl (Bentyl) 20 mg PO QID PRN PRN Reason: abdominal pain Docusate Sodium (Colace) 100 mg PO BID [facility] Last Admin: 11/26/18 10:31 Dose: 100 mg Documented by: Heparin Sodium (Porcine) (Heparin) 5,000 unit SUB-Q Q12HR [facility] Last Admin: 11/26/18 10:31 Dose: 5,000 unit Documented by: Hydralazine HCl (Apresoline) 10 mg IV Q3H PRN PRN Reason: Blood Pressure Hydromorphone HCl (Dilaudid) 0.5 mg IV Q3H PRN PRN Reason: Pain , Severe (7-10) Last Admin: 11/26/18 07:11 Dose: 0.5 mg Documented by: Sodium Chloride (Nacl 0.9%) 100 mls @ 999 mls/hr IV NIKKI PRN PRN Reason: Hypotension Isosorbide Mononitrate (Imdur) 30 mg PO QDAY [facility] Last Admin: 11/26/18 10:30 Dose: 30 mg Documented by: Ketorolac Tromethamine (Toradol) 10 mg PO Q6H PRN PRN Reason: Pain Stop: 11/29/18 18:58 Lactulose (Cephulac) 20 gm PO QDAY PRN PRN Reason: Constipation Last Admin: 11/25/18 11:10 Dose: 20 gm Documented by: Losartan Potassium (Cozaar) 100 mg PO QDAY [facility] Last Admin: 11/26/18 10:30 Dose: 100 mg Documented by: Metoclopramide HCl (Reglan) 10 mg IV Q6H PRN PRN Reason: Nausea And Vomiting Last Admin: 11/25/18 11:10 Dose: 10 mg Documented by: Metoprolol Tartrate (Lopressor) 25 mg PO Q6HR [facility] Last Admin: 11/26/18 05:56 Dose: 25 mg Documented by: Nifedipine (Procardia Xl) 60 mg PO Q12HR [facility] Last Admin: 11/26/18 10:31 Dose: 60 mg Documented by: Ondansetron HCl (Zofran Odt) 4 mg PO Q8HR PRN PRN Reason: Vomiting Ondansetron HCl (Zofran) 4 mg IV Q8H PRN PRN Reason: Nausea And Vomiting Ondansetron HCl (Zofran Odt) 4 mg PO Q8HR [facility] Last Admin: 11/26/18 07:10 Dose: 4 mg Documented by: Pantoprazole Sodium (Protonix) 40 mg PO DAILY [facility] Last Admin: 11/26/18 10:31 Dose: 40 mg Documented by: Senna/Docusate Sodium (Senokot S) 1 tab PO Q12HR [facility] Last Admin: 11/26/18 10:32 Dose: 1 tab Documented by: Sodium Chloride (Sodium Chloride Flush Syringe 10 Ml) 10 ml IV BID [facility] Last Admin: 11/26/18 10:32 Dose: 10 ml Documented by: Sodium Chloride (Sodium Chloride Flush Syringe 10 Ml) 10 ml IV PRN PRN PRN Reason: LINE FLUSH Physical Examination Vital Signs Temp Pulse Resp BP Pulse Ox 98.6 F 83 16 182/123 97 11/24/18 05:42 11/24/18 05:42 11/24/18 05:42 11/24/18 05:42 11/24/18 05:42 General appearance: no acute distress HEENT: Positive: PERRL Cardiac: Positive: Reg Rate and Rhythm Lungs: Positive: Decreased Breath Sounds Neuro: Positive: Grossly Intact Extremities: Absent: edema Results 11/26/18 07:34 11/26/18 07:34 Cardiac Enzymes 06/24/19 Range/Units 07:34 AST 11 (5-40) units/L CBC 11/26/18 Range/Units 07:34 WBC 4.7 (4.5-11.0) K/mm3 RBC 3.96 (3.65-5.03) M/mm3 Hgb 14.2 (10.1-14.3) gm/dl Hct 42.2 (30.3-42.9) % Plt Count 188 (140-440) K/mm3 Comprehensive Metabolic Panel 11/26/18 Range/Units 07:34 Sodium 133 L (137-145) mmol/L Potassium 4.9 (3.6-5.0) mmol/L Chloride 86.1 L (98-107) mmol/L Carbon Dioxide 24 (22-30) mmol/L BUN 50 H (7-17) mg/dL Creatinine 12.1 H (0.7-1.2) mg/dL Glucose 93 (65-100) mg/dL Calcium 10.1 (8.4-10.2) mg/dL AST 11 (5-40) units/L ALT 11 (7-56) units/L Alkaline Phosphatase 85 (35-129) units/L Total Protein 7.8 (6.3-8.2) g/dL Albumin 4.3 (3.9-5) g/dL Assessment and Plan Abdominal pain -chief complaint Chest pain,atypical 08/2018 cardiac cath performed revealed normal coronaries, LVEF 50% 08/2018 echo reports a normal LVEF 55-60% Chest CTA: no evidence of PE ESRD on dialysis Chronic hypertension Anemia Conservative cardiac management.
--- NOTE | 2018-11-26 14:03 | Progress Note ---
Assessment and Plan - Patient Problems (1) End-stage renal disease needing dialysis Current Visit: Yes Status: Chronic Plan to address problem: End stage renal disease access: Left arm AVF Patient seen today on room air electrolytes reviewed Continue HD TTS. (2) Malignant hypertension Current Visit: Yes Status: Acute Plan to address problem: HTN: uncontrolled Ensure medications optimize volume status with HD. (3) Cocaine abuse Current Visit: Yes Status: Chronic Plan to address problem: Cocaine abuse: urine toxicology positive substance abuse counselling. (4) Hyponatremia syndrome Current Visit: Yes Status: Acute Plan to address problem: Hyponatremia 2/2 excessive fluid intake with a dialysis patient continue HD. Subjective Principal diagnosis: malignant hypertension, ESRD on HD, abdominal pain, cocaine abuse Interval history: 48 year old with medical history signficant for HTN , ESRD on hemodialysis via Left arm AVF , Patient seen today , denies any orthopnea or PND has some abdominal pain. Denies any fevers or chills Denies any orthopnea or PND. Objective - Vital Signs Vital signs: Vital Signs - 12hr 11/26/18 11/26/18 11/26/18 04:30 05:56 06:34 Temperature 97.9 F Pulse Rate 76 75 71 Respiratory 20 Rate Blood Pressure 147/96 147/96 O2 Sat by Pulse 98 Oximetry 11/26/18 08:44 Temperature 97.8 F Pulse Rate 73 Respiratory 18 Rate Blood Pressure 136/85 O2 Sat by Pulse 96 Oximetry - General Appearance General appearance: well-developed, well-nourished, appears stated age EENT: ATNC, PERRL, mucous membranes moist Neck: no JVD Respiratory: Present: Clear to Ascultation Cardiology: regular, S1S2 Gastrointestinal: normal, normoactive bowel sounds Integumentary: no rash, warm and dry Neurologic: no focal deficit, CN 3-12 intact Psychiatric: mood/affect appropriate - Lab 11/26/18 07:34 11/26/18 07:34 Most recent lab results Calcium 10.1 mg/dL (8.4-10.2) 11/26/18 07:34 - Imaging Chest x-ray: image reviewed Medications & Allergies - Medications Allergies/Adverse Reactions: Allergies lisinopril Allergy (Verified 10/30/18 17:15) Angioedema Home Medications: Home Medications Medication Instructions Recorded Confirmed Last Taken Type NIFEdipine XL [Procardia Xl] 60 mg PO Q12HR 08/14/18 08/14/18 08/13/18 History Omeprazole 40 mg PO DAILY 08/14/18 08/14/18 08/13/18 History Ondansetron [Zofran ODT TAB] 4 mg PO Q8HR 08/14/18 08/14/18 08/13/18 History Acetaminophen [Acetaminophen TAB] 650 mg PO Q6H PRN #15 tablet 08/20/18 Unknown Rx Aspirin [Aspirin BABY CHEW TAB] 81 mg PO QDAY #15 tab.chew 08/20/18 Unknown Rx AtorvaSTATin [Lipitor] 40 mg PO QHS #30 tablet 08/20/18 Unknown Rx Docusate Sodium [Colace CAP] 100 mg PO BID #30 capsule 08/20/18 Unknown Rx HYDROcodone/APAP 5-325 [[place] 1 each PO Q6H PRN #15 tablet 08/20/18 Unknown Rx 5-325 mg TAB] ISOSORBIDE MONOnitrate [Imdur ER] 30 mg PO QDAY #30 tablet 08/20/18 Unknown Rx Metoprolol [Lopressor TAB] 25 mg PO Q6HR 30 Days tablet 08/20/18 Unknown Rx Oxycodone HCl/Acetaminophen 1 each PO Q6HR PRN #20 tablet 08/30/18 Unknown Rx [Percocet 7.5/325 mg] Ketorolac [Toradol] 10 mg PO Q6H PRN #20 tablet 10/30/18 Unknown Rx Magnesium Citrate [Citrate of 300 ml PO ONCE 1 Days #1 bottle 11/08/18 Unknown Rx Magnesia] Sennosides/Docusate [Senokot S] 1 each PO Q12HR 30 Days #60 tab 11/08/18 Unknown Rx Dicyclomine [Bentyl] 20 mg PO QID PRN #20 tablet 11/20/18 Unknown Rx Esomeprazole Magnesium [NexIUM] 40 mg PO QDAY #30 capsule. 11/20/18 Unknown Rx Ondansetron [Zofran Odt] 4 mg PO Q8HR PRN #20 tab.rapdis 11/20/18 Unknown Rx Active Medications: Generic Name Dose Route Start Last Admin Trade Name Freq PRN Reason Stop Dose Admin Acetaminophen 650 mg 11/24/18 19:08 Tylenol PO Q4H PRN Pain MILD(1-3)/Fever >100.5/ANTHONY Aspirin 81 mg 11/24/18 19:00 11/26/18 10:31 Baby Aspirin PO 81 mg QDAY TIMUR Administration Atorvastatin Calcium 40 mg 11/24/18 22:00 11/25/18 22:35 Lipitor PO 40 mg QHS TIMUR Administration Dicyclomine HCl 20 mg 11/24/18 18:59 Bentyl PO QID PRN abdominal pain Docusate Sodium 100 mg 11/24/18 22:00 11/26/18 10:31 Colace PO 100 mg BID TIMUR Administration Heparin Sodium (Porcine) 5,000 unit 11/25/18 10:00 11/26/18 10:31 Heparin SUB-Q 5,000 unit Q12HR TIMUR Administration Hydralazine HCl 10 mg 11/25/18 07:11 Apresoline IV Q3H PRN Blood Pressure Hydromorphone HCl 0.5 mg 11/24/18 19:08 11/26/18 13:52 Dilaudid IV 0.5 mg Q3H PRN Administration Pain , Severe (7-10) Sodium Chloride 100 mls @ 999 mls/hr 11/24/18 16:16 Nacl 0.9% IV NIKKI PRN Hypotension Isosorbide Mononitrate 30 mg 11/24/18 19:00 11/26/18 10:30 Imdur PO 30 mg QDAY TIM[facility] Administration Ketorolac Tromethamine 10 mg 11/24/18 18:59 Toradol PO 11/29/18 18:58 Q6H PRN Pain Lactulose 20 gm 11/25/18 07:08 11/25/18 11:10 Cephulac PO 20 gm QDAY PRN Administration Constipation Losartan Potassium 100 mg 11/25/18 10:00 11/26/18 10:30 Cozaar PO 100 mg QDAY TIM[facility] Administration Metoclopramide HCl 10 mg 11/24/18 19:08 11/25/18 11:10 Reglan IV 10 mg Q6H PRN Administration Nausea And Vomiting Metoprolol Tartrate 25 mg 11/24/18 20:00 11/26/18 13:52 Lopressor PO 25 mg Q6HR TIMUR Administration Nifedipine 60 mg 11/24/18 22:00 11/26/18 10:31 Procardia Xl PO 60 mg Q12HR TIMUR Administration Ondansetron HCl 4 mg 11/24/18 18:59 Zofran Odt PO Q8HR PRN Vomiting Ondansetron HCl 4 mg 11/24/18 19:08 Zofran IV Q8H PRN Nausea And Vomiting Ondansetron HCl 4 mg 11/25/18 14:00 11/26/18 07:10 Zofran Odt PO 4 mg Q8HR TIMUR Administration Pantoprazole Sodium 40 mg 11/24/18 20:00 11/26/18 10:31 Protonix PO 40 mg DAILY TIM[facility] Administration Senna/Docusate Sodium 1 tab 11/24/18 22:00 11/26/18 10:32 Senokot S PO 1 tab Q12HR TIMUR Administration Sodium Chloride 10 ml 11/24/18 22:00 11/26/18 10:32 Sodium Chloride Flush Syringe 10 Ml IV 10 ml BID TIMUR Administration Sodium Chloride 10 ml 11/24/18 19:08 Sodium Chloride Flush Syringe 10 Ml IV PRN PRN LINE FLUSH
[2018-11-27] MEDS: LOPRESSOR PO SCH ×3 (00:40→12:00)
[2018-11-27] MEDS: DILAUDID IV PRN ×5 (00:40→21:16)
[2018-11-27] MEDS: ZOFRAN ODT PO SCH ×3 (05:17→21:21)
[2018-11-27] MEDS: HEPARIN SUB-Q SCH ×2 (09:34→21:16)
[2018-11-27] MEDS: PROCARDIA XL PO SCH ×2 (09:34→21:15)
[2018-11-27] MEDS: IMDUR PO SCH (09:34)
[2018-11-27] MEDS: COZAAR PO SCH (09:36)
[2018-11-27] MEDS: COLACE PO SCH ×2 (09:36→21:16)
[2018-11-27] MEDS: SENOKOT S PO SCH ×2 (09:37→21:16)
[2018-11-27] MEDS: BABY ASPIRIN PO SCH (09:37)
[2018-11-27] MEDS: PROTONIX PO SCH (09:37)
[2018-11-27] MEDS: SODIUM CHLORIDE FLUSH SYRINGE 10 ML IV SCH ×2 (09:37→21:18)
[2018-11-27] MEDS ORDERED: NACL 0.9 (PRIMING MACHINE ONLY DIALYSIS) MC ONE (11:26)
--- NOTE | 2018-11-27 11:52 | Progress Note ---
Assessment and Plan Assessment and plan: - Abdominal pain, persists Likely secondary to constipation versus UTI CT scan of the abdomen and pelvis unremarkable for any acute events GI consultation - ESRD on HD [facility] [employer] following Hemodialysis per nephrology Trend BUN and creatinine am lab Pending - Chest pain ASA, NTG,Patient has no coronary artery disease on cardiac catheterization just 3 months ago, no further cardiac ischemic workup is indicated. - Malignant hypertension, improved Continue oral antihypertensives 2 g sodium diet recommended - Elevated troponin levels Likely secondary to end-stage renal disease Continue aspirin and beta august Trend cardiology consult - UTI Continue IV Rocephin Follow-up with urine culture report - Abdominal pain Likely secondary to constipation CT scan of the abdomen and pelvis unremarkable for any acute events - Cocaine abuse Counseling on cessation done - DVT prophylaxis with heparin - CODE STATUS: Full code History Interval history: Patient complains of right lower quadrant abdominal pain. Hospitalist Physical - Constitutional Vitals: Temp Pulse Resp BP Pulse Ox 98.2 F 69 18 154/97 98 11/27/18 09:20 11/27/18 09:20 11/27/18 09:20 11/27/18 09:20 11/27/18 04:55 General appearance: Present: no acute distress - EENT Eyes: Present: PERRL, EOM intact ENT: hearing intact, clear oral mucosa, dentition normal - Neck Neck: Present: supple, normal ROM - Respiratory Respiratory effort: normal Respiratory: bilateral: CTA - Cardiovascular Rhythm: regular Heart Sounds: Present: S1 & S2. Absent: gallop, rub - Extremities Extremities: no ischemia, No edema, Full ROM - Abdominal General gastrointestinal: soft, non-tender, non-distended, normal bowel sounds - Integumentary Integumentary: Present: clear, warm, dry - Neurologic Neurologic: CNII-XII intact, moves all extremities Results - Labs CBC & Chem 7: 11/26/18 07:34 11/26/18 07:34 Labs: Laboratory Last Values WBC 4.7 K/mm3 (4.5-11.0) 11/26/18 07:34 RBC 3.96 M/mm3 (3.65-5.03) 11/26/18 07:34 Hgb 14.2 gm/dl (10.1-14.3) 11/26/18 07:34 Hct 42.2 % (30.3-42.9) 11/26/18 07:34 MCV 107 fl (79-97) H 11/26/18 07:34 MCH 36 pg (28-32) H 11/26/18 07:34 MCHC 34 % (30-34) 11/26/18 07:34 RDW 15.1 % (13.2-15.2) 11/26/18 07:34 Plt Count 188 K/mm3 (140-440) 11/26/18 07:34 [place] % (Auto) Articulation Officer 11/26/18 07:34 Add Manual Diff Complete 11/26/18 07:34 Total Counted 100 11/26/18 07:34 Seg Neuts % (Manual) 47.0 % (40.0-70.0) 11/26/18 07:34 0 % 11/26/18 07:34 37.0 % (13.4-35.0) H 11/26/18 07:34 Reactive Lymphs % (Man) 0 % 11/26/18 07:34 14.0 % (0.0-7.3) H 11/26/18 07:34 2.0 % (0.0-4.3) 11/26/18 07:34 0 % (0.0-1.8) 11/26/18 07:34 0 % 11/26/18 07:34 0 % 11/26/18 07:34 0 % 11/26/18 07:34 0 % 11/26/18 07:34 Nucleated RBC % Not Reportable 11/26/18 07:34 Seg Neutrophils # Man 2.2 K/mm3 (1.8-7.7) 11/26/18 07:34 Band Neutrophils # 0.0 K/mm3 11/26/18 07:34 1.7 K/mm3 (1.2-5.4) 11/26/18 07:34 Abs React Lymphs (Man) 0.0 K/mm3 11/26/18 07:34 0.7 K/mm3 (0.0-0.8) 11/26/18 07:34 0.1 K/mm3 (0.0-0.4) 11/26/18 07:34 0.0 K/mm3 (0.0-0.1) 11/26/18 07:34 0.0 K/mm3 11/26/18 07:34 0.0 K/mm3 11/26/18 07:34 0.0 K/mm3 11/26/18 07:34 Blast Cells # 0.0 K/mm3 11/26/18 07:34 WBC Morphology Not Reportable 11/26/18 07:34 Hypersegmented Neuts Not Reportable 11/26/18 07:34 Hyposegmented Neuts Not Reportable 11/26/18 07:34 Hypogranular Neuts Not Reportable 11/26/18 07:34 Not Reportable 11/26/18 07:34 Not Reportable 11/26/18 07:34 Not Reportable 11/26/18 07:34 Not Reportable 11/26/18 07:34 Not Reportable 11/26/18 07:34 Not Reportable 11/26/18 07:34 Consistent w auto 11/26/18 07:34 Not Reportable 11/26/18 07:34 Plt Clumps, EDTA Not Reportable 11/26/18 07:34 Not Reportable 11/26/18 07:34 Not Reportable 11/26/18 07:34 Not Reportable 11/26/18 07:34 Plt Morphology Comment Not Reportable 11/26/18 07:34 RBC Morphology Normal 11/26/18 07:34 Dimorphic RBCs Not Reportable 11/26/18 07:34 Not Reportable 11/26/18 07:34 Not Reportable 11/26/18 07:34 Not Reportable 11/26/18 07:34 Not Reportable 11/26/18 07:34 Not Reportable 11/26/18 07:34 Not Reportable 11/26/18 07:34 Not Reportable 11/26/18 07:34 Not Reportable 11/26/18 07:34 Not Reportable 11/26/18 07:34 Not Reportable 11/26/18 07:34 Not Reportable 11/26/18 07:34 Not Reportable 11/26/18 07:34 Not Reportable 11/26/18 07:34 Not Reportable 11/26/18 07:34 Not Reportable 11/26/18 07:34 Not Reportable 11/26/18 07:34 Not Reportable 11/26/18 07:34 Not Reportable 11/26/18 07:34 Not Reportable 11/26/18 07:34 Acanthocytes (Spur) Not Reportable 11/26/18 07:34 Rouleaux Not Reportable 11/26/18 07:34 Not Reportable 11/26/18 07:34 Not Reportable 11/26/18 07:34 Not Reportable 11/26/18 07:34 Not Reportable 11/26/18 07:34 Hem Pathologist Commnt No 11/26/18 07:34 PT 13.7 Sec. (12.2-14.9) 11/24/18 13:07 INR 1.08 (0.87-1.13) 11/24/18 13:07 APTT 28.6 Sec. (24.2-36.6) 11/24/18 13:07 566.39 ng/mlDDU (0-234) H 11/24/18 13:07 Sodium 133 mmol/L (137-145) L 11/26/18 07:34 Potassium 4.9 mmol/L (3.6-5.0) 11/26/18 07:34 Chloride 86.1 mmol/L (98-107) L 11/26/18 07:34 Carbon Dioxide 24 mmol/L (22-30) 11/26/18 07:34 28 mmol/L 11/26/18 07:34 BUN 50 mg/dL (7-17) H 11/26/18 07:34 12.1 mg/dL (0.7-1.2) H 11/26/18 07:34 Estimated GFR 4 ml/min 11/26/18 07:34 4 % 11/26/18 07:34 Glucose 93 mg/dL (65-100) 11/26/18 07:34 4.7 % (4-6) 11/24/18 05:58 Calcium 10.1 mg/dL (8.4-10.2) 11/26/18 07:34 0.20 mg/dL (0.1-1.2) 11/26/18 07:34 AST 11 units/L (5-40) 11/26/18 07:34 ALT 11 units/L (7-56) 11/26/18 07:34 85 units/L (35-129) 11/26/18 07:34 63 units/L (30-135) 11/24/18 05:58 CK-MB (CK-2) 3.0 ng/mL (0.0-4.0) 11/24/18 05:58 CK-MB (CK-2) Rel Index 4.7 (0-4) H 11/24/18 05:58 0.054 ng/mL (0.00-0.029) H D 11/27/18 00:09 NT-Pro-B Natriuret Pep 66119 pg/mL (0-450) H 11/24/18 13:07 7.8 g/dL (6.3-8.2) 11/26/18 07:34 4.3 g/dL (3.9-5) 11/26/18 07:34 1.2 % 11/26/18 07:34 Triglycerides 151 mg/dL (2-149) H 11/24/18 05:58 Cholesterol 181 mg/dL (50-199) 11/24/18 05:58 123 mg/dL (50-130) 11/24/18 05:58 37 mg/dL (40-59) L 11/24/18 05:58 4.89 % 11/24/18 05:58 15 units/L (13-60) 11/24/18 05:58 Yellow (Yellow) 11/24/18 09:56 Cloudy (Clear) 11/24/18 09:56 5.0 (5.0-7.0) 11/24/18 09:56 Ur Specific [place] 1.017 (1.003-1.030) 11/24/18 09:56 100 mg/dl mg/dL (Negative) 11/24/18 09:56 Neg mg/dL (Negative) 11/24/18 09:56 Neg mg/dL (Negative) 11/24/18 09:56 Lg (Negative) 11/24/18 09:56 Neg (Negative) 11/24/18 09:56 Neg (Negative) 11/24/18 09:56 < 2.0 mg/dL (<2.0) 11/24/18 09:56 Ur Leukocyte Esterase Mod (Negative) 11/24/18 09:56 94.0 /HPF (0.0-6.0) H 11/24/18 09:56 12.0 /HPF (0.0-6.0) 11/24/18 09:56 U Epithel Cells (Auto) 43.0 /HPF (0-13.0) H 11/24/18 09:56 1+ /HPF (Negative) 11/24/18 09:56 Ur Transition Epith Cell 9 /HPF 11/24/18 09:56 Few /HPF 11/24/18 09:56 Presumptive negative 11/24/18 09:56 Presumptive negative 11/24/18 09:56 Ur Barbiturates Screen Presumptive negative 11/24/18 09:56 Ur Phencyclidine Scrn Presumptive negative 11/24/18 09:56 Ur Amphetamines Screen Presumptive negative 11/24/18 09:56 U Benzodiazepines Scrn Presumptive negative 11/24/18 09:56 Presumptive positive 11/24/18 09:56 U Marijuana (THC) Screen Presumptive negative 11/24/18 09:56 Disclamer 11/24/18 09:56 Active Medications - Current Medications Current Medications: Generic Name Dose Route Start Last Admin Trade Name Freq PRN Reason Stop Dose Admin Acetaminophen 650 mg 11/24/18 19:08 Tylenol PO Q4H PRN Pain MILD(1-3)/Fever >100.5/ANTHONY Aspirin 81 mg 11/24/18 19:00 11/27/18 09:37 Baby Aspirin PO Not Given QDAY [facility] Atorvastatin Calcium 40 mg 11/24/18 22:00 11/26/18 21:25 Lipitor PO 40 mg QHS [facility] Administration Dicyclomine HCl 20 mg 11/24/18 18:59 Bentyl PO QID PRN abdominal pain Docusate Sodium 100 mg 11/24/18 22:00 11/27/18 09:36 Colace PO Not Given BID [facility] Heparin Sodium (Porcine) 5,000 unit 11/25/18 10:00 11/27/18 09:34 Heparin SUB-Q Not Given Q12HR [facility] Hydralazine HCl 10 mg 11/25/18 07:11 Apresoline IV Q3H PRN Blood Pressure Hydromorphone HCl 0.5 mg 11/24/18 19:08 11/27/18 11:33 Dilaudid IV 0.5 mg Q3H PRN Administration Pain , Severe (7-10) Sodium Chloride 100 mls @ 999 mls/hr 11/24/18 16:16 Nacl 0.9% IV NIKKI PRN Hypotension Isosorbide Mononitrate 30 mg 11/24/18 19:00 11/27/18 09:34 Imdur PO Not Given QDAY [facility] Ketorolac Tromethamine 10 mg 11/24/18 18:59 Toradol PO 11/29/18 18:58 Q6H PRN Pain Lactulose 20 gm 11/25/18 07:08 11/25/18 11:10 Cephulac PO 20 gm QDAY PRN Administration Constipation Losartan Potassium 100 mg 11/25/18 10:00 11/27/18 09:36 Cozaar PO Not Given QDAY [facility] Metoclopramide HCl 10 mg 11/24/18 19:08 11/25/18 11:10 Reglan IV 10 mg Q6H PRN Administration Nausea And Vomiting Metoprolol Tartrate 25 mg 11/24/18 20:00 11/27/18 05:17 Lopressor PO 25 mg Q6HR TIMUR Administration Nifedipine 60 mg 11/24/18 22:00 11/27/18 09:34 Procardia Xl PO Not Given Q12HR [facility] Ondansetron HCl 4 mg 11/24/18 18:59 Zofran Odt PO Q8HR PRN Vomiting Ondansetron HCl 4 mg 11/24/18 19:08 Zofran IV Q8H PRN Nausea And Vomiting Ondansetron HCl 4 mg 11/25/18 14:00 11/27/18 05:17 Zofran Odt PO 4 mg Q8HR TIMUR Administration Pantoprazole Sodium 40 mg 11/24/18 20:00 11/27/18 09:37 Protonix PO Not Given DAILY [facility] Senna/Docusate Sodium 1 tab 11/24/18 22:00 11/27/18 09:37 Senokot S PO Not Given Q12HR [facility] Sodium Chloride 10 ml 11/24/18 22:00 11/27/18 09:37 Sodium Chloride Flush Syringe 10 Ml IV Not Given BID [facility] Sodium Chloride 10 ml 11/24/18 19:08 Sodium Chloride Flush Syringe 10 Ml IV PRN PRN LINE FLUSH
--- NOTE | 2018-11-27 13:31 | Progress Note ---
Assessment and Plan - Patient Problems (1) End-stage renal disease needing dialysis Current Visit: Yes Status: Chronic Plan to address problem: End stage renal disease access: Left arm AVF Continue HD TTS. (2) Malignant hypertension Current Visit: Yes Status: Acute Plan to address problem: HTN: uncontrolled Ensure medications optimize volume status with HD. (3) Cocaine abuse Current Visit: Yes Status: Chronic Plan to address problem: Cocaine abuse: urine toxicology positive substance abuse counselling. (4) Hyponatremia syndrome Current Visit: Yes Status: Acute Plan to address problem: Hyponatremia 2/2 excessive fluid intake with a dialysis patient continue HD. Subjective Principal diagnosis: malignant hypertension, ESRD on HD, abdominal pain, cocaine abuse Interval history: 48 year old with medical history signficant for HTN , ESRD on hemodialysis via Left arm AVF , Patient seen today , denies any orthopnea or PND has some abdominal pain. Denies any fevers or chills Denies any orthopnea or PND. Patient's was seen on complains of severe abdominal pain I attest that I saw patient on hemodialysis at 10:30 Objective - Vital Signs Vital signs: Vital Signs - 12hr 11/27/18 11/27/18 11/27/18 04:55 09:20 09:30 Temperature 98.0 F 98.2 F Pulse Rate 75 69 70 Respiratory 21 18 Rate Blood Pressure 142/92 154/97 142/93 O2 Sat by Pulse 98 Oximetry 11/27/18 11/27/18 11/27/18 09:45 10:00 10:15 Temperature Pulse Rate 63 69 66 Respiratory Rate Blood Pressure 144/85 135/92 129/84 O2 Sat by Pulse Oximetry 11/27/18 11/27/18 11/27/18 10:30 10:45 11:00 Temperature Pulse Rate 71 73 64 Respiratory Rate Blood Pressure 135/85 126/91 127/87 O2 Sat by Pulse Oximetry 11/27/18 11/27/18 11/27/18 11:15 11:30 11:45 Temperature Pulse Rate 68 65 67 Respiratory Rate Blood Pressure 126/84 129/84 135/83 O2 Sat by Pulse Oximetry 11/27/18 12:00 Temperature Pulse Rate 67 Respiratory Rate Blood Pressure 125/81 O2 Sat by Pulse Oximetry - General Appearance General appearance: well-developed, well-nourished EENT: ATNC, PERRL Neck: no JVD Respiratory: Present: Clear to Ascultation Cardiology: regular, normal heart rate, S1S2 Gastrointestinal: normal, tenderness, guarding Integumentary: no rash Neurologic: no focal deficit, alert and oriented x3, CN 3-12 intact Musculoskeletal: deferred Psychiatric: mood/affect appropriate - Lab 11/26/18 07:34 11/26/18 07:34 Most recent lab results Calcium 10.1 mg/dL (8.4-10.2) 11/26/18 07:34 Medications & Allergies - Medications Allergies/Adverse Reactions: Allergies lisinopril Allergy (Verified 10/30/18 17:15) Angioedema Home Medications: Home Medications Medication Instructions Recorded Confirmed Last Taken Type NIFEdipine XL [Procardia Xl] 60 mg PO Q12HR 08/14/18 08/14/18 08/13/18 History Omeprazole 40 mg PO DAILY 08/14/18 08/14/18 08/13/18 History Ondansetron [Zofran ODT TAB] 4 mg PO Q8HR 08/14/18 08/14/18 08/13/18 History Acetaminophen [Acetaminophen TAB] 650 mg PO Q6H PRN #15 tablet 08/20/18 Unknown Rx Aspirin [Aspirin BABY CHEW TAB] 81 mg PO QDAY #15 tab.chew 08/20/18 Unknown Rx AtorvaSTATin [Lipitor] 40 mg PO QHS #30 tablet 08/20/18 Unknown Rx Docusate Sodium [Colace CAP] 100 mg PO BID #30 capsule 08/20/18 Unknown Rx HYDROcodone/APAP 5-325 [[place] 1 each PO Q6H PRN #15 tablet 08/20/18 Unknown Rx 5-325 mg TAB] ISOSORBIDE MONOnitrate [Imdur ER] 30 mg PO QDAY #30 tablet 08/20/18 Unknown Rx Metoprolol [Lopressor TAB] 25 mg PO Q6HR 30 Days tablet 08/20/18 Unknown Rx Oxycodone HCl/Acetaminophen 1 each PO Q6HR PRN #20 tablet 08/30/18 Unknown Rx [Percocet 7.5/325 mg] Ketorolac [Toradol] 10 mg PO Q6H PRN #20 tablet 10/30/18 Unknown Rx Magnesium Citrate [Citrate of 300 ml PO ONCE 1 Days #1 bottle 11/08/18 Unknown Rx Magnesia] Sennosides/Docusate [Senokot S] 1 each PO Q12HR 30 Days #60 tab 11/08/18 Unknown Rx Dicyclomine [Bentyl] 20 mg PO QID PRN #20 tablet 11/20/18 Unknown Rx Esomeprazole Magnesium [NexIUM] 40 mg PO QDAY #30 capsule. 11/20/18 Unknown Rx Ondansetron [Zofran Odt] 4 mg PO Q8HR PRN #20 tab.jessdis 11/20/18 Unknown Rx Active Medications: Generic Name Dose Route Start Last Admin Trade Name Freq PRN Reason Stop Dose Admin Acetaminophen 650 mg 11/24/18 19:08 Tylenol PO Q4H PRN Pain MILD(1-3)/Fever >100.5/ANTHONY Aspirin 81 mg 11/24/18 19:00 11/27/18 09:37 Baby Aspirin PO Not Given QDAY [facility] Atorvastatin Calcium 40 mg 11/24/18 22:00 11/26/18 21:25 Lipitor PO 40 mg QHS [facility] Administration Dicyclomine HCl 20 mg 11/24/18 18:59 Bentyl PO QID PRN abdominal pain Docusate Sodium 100 mg 11/24/18 22:00 11/27/18 09:36 Colace PO Not Given BID [facility] Heparin Sodium (Porcine) 5,000 unit 11/25/18 10:00 11/27/18 09:34 Heparin SUB-Q Not Given Q12HR [facility] Hydralazine HCl 10 mg 11/25/18 07:11 Apresoline IV Q3H PRN Blood Pressure Hydromorphone HCl 0.5 mg 11/24/18 19:08 11/27/18 11:33 Dilaudid IV 0.5 mg Q3H PRN Administration Pain , Severe (7-10) Sodium Chloride 100 mls @ 999 mls/hr 11/24/18 16:16 Nacl 0.9% IV NIKKI PRN Hypotension Isosorbide Mononitrate 30 mg 11/24/18 19:00 11/27/18 09:34 Imdur PO Not Given QDAY [facility] Ketorolac Tromethamine 10 mg 11/24/18 18:59 Toradol PO 11/29/18 18:58 Q6H PRN Pain Lactulose 20 gm 11/25/18 07:08 11/25/18 11:10 Cephulac PO 20 gm QDAY PRN Administration Constipation Losartan Potassium 100 mg 11/25/18 10:00 11/27/18 09:36 Cozaar PO Not Given QDAY [facility] Metoclopramide HCl 10 mg 11/24/18 19:08 11/25/18 11:10 Reglan IV 10 mg Q6H PRN Administration Nausea And Vomiting Metoprolol Tartrate 25 mg 11/24/18 20:00 11/27/18 05:17 Lopressor PO 25 mg Q6HR [facility] Administration Nifedipine 60 mg 11/24/18 22:00 11/27/18 09:34 Procardia Xl PO Not Given Q12HR [facility] Ondansetron HCl 4 mg 11/24/18 18:59 Zofran Odt PO Q8HR PRN Vomiting Ondansetron HCl 4 mg 11/24/18 19:08 Zofran IV Q8H PRN Nausea And Vomiting Ondansetron HCl 4 mg 11/25/18 14:00 11/27/18 05:17 Zofran Odt PO 4 mg Q8HR [facility] Administration Pantoprazole Sodium 40 mg 11/24/18 20:00 11/27/18 09:37 Protonix PO Not Given DAILY [facility] Senna/Docusate Sodium 1 tab 11/24/18 22:00 11/27/18 09:37 Senokot S PO Not Given Q12HR [facility] Sodium Chloride 10 ml 11/24/18 22:00 11/27/18 09:37 Sodium Chloride Flush Syringe 10 Ml IV Not Given BID [facility] Sodium Chloride 10 ml 11/24/18 19:08 Sodium Chloride Flush Syringe 10 Ml IV PRN PRN LINE FLUSH
--- NOTE | 2018-11-27 13:38 | Gastroenterology Consultation ---
History of Present Illness - Reason for Consult Consult date: 11/27/18 abdominal pain Requesting physician: GLEN CONCEPCION - History of Present Illness Patient is a 48 y/o female with PMH of ESRD on HD, HTN (uncontrolled), kidney stones, asthma, secondary hyperparathyroidism, thyroid disease, fibroids, migraine, PUD, GERD, cancerous nodule on lung (s/p removal), substance abuse (UDS +cocaine), medical noncompliance, chronic abdominal pain, and recent retroperitoneal hemorrage s/p cardiac cath 08/2018 who presented to ED with recurrent abd pain (3rd visit so far this month) with radiation to her chest/back to which GI has been consulted. Abd CT upon admission was w/o acute pathology. She was evaluated by cardiology with ACS ruled out. This afternoon patient was resting in bed receiving dialysis w/o acute distress. She reports abdominal pain x 1 month that become worse over the past 2 weeks. States her pain was initially in epigastric area but has now has moved to LLQ. N/V resolved. Tolerating diet. Denies fever, CP, SOB, wt loss, signs of bleeding, or diarrhea. Has chronic constipation with BM x 1/week. Takes stool softeners and laxatives at home w/o improvement (on narcotics at home as well). She also has a hx of PUD with last EGD at [facility] (unable to given me details on timing or results). No prior colonoscopy. No Fhx of GI cancers. s/p CCY. Past History Past Medical History: other (as per HPI) Past Surgical History: cholecystectomy, Other (portion of right lung removed. shunt left upper arm, permacath right chest) Social history: other (cocaine, marijuana, former smoker). denies: alcohol abuse Medications and Allergies Allergies Allergy/AdvReac Type Severity Reaction Status Date / Time lisinopril Allergy Angioedema Verified 10/30/18 17:15 Home Medications Medication Instructions Recorded Confirmed Last Taken Type NIFEdipine XL [Procardia Xl] 60 mg PO Q12HR 08/14/18 08/14/18 08/13/18 History Omeprazole 40 mg PO DAILY 08/14/18 08/14/18 08/13/18 History Ondansetron [Zofran ODT TAB] 4 mg PO Q8HR 08/14/18 08/14/18 08/13/18 History Acetaminophen [Acetaminophen TAB] 650 mg PO Q6H PRN #15 tablet 08/20/18 Unknown Rx Aspirin [Aspirin BABY CHEW TAB] 81 mg PO QDAY #15 tab.chew 08/20/18 Unknown Rx AtorvaSTATin [Lipitor] 40 mg PO QHS #30 tablet 08/20/18 Unknown Rx Docusate Sodium [Colace CAP] 100 mg PO BID #30 capsule 08/20/18 Unknown Rx HYDROcodone/APAP 5-325 [[place] 1 each PO Q6H PRN #15 tablet 08/20/18 Unknown Rx 5-325 mg TAB] ISOSORBIDE MONOnitrate [Imdur ER] 30 mg PO QDAY #30 tablet 08/20/18 Unknown Rx Metoprolol [Lopressor TAB] 25 mg PO Q6HR 30 Days tablet 08/20/18 Unknown Rx Oxycodone HCl/Acetaminophen 1 each PO Q6HR PRN #20 tablet 08/30/18 Unknown Rx [Percocet 7.5/325 mg] Ketorolac [Toradol] 10 mg PO Q6H PRN #20 tablet 10/30/18 Unknown Rx Magnesium Citrate [Citrate of 300 ml PO ONCE 1 Days #1 bottle 11/08/18 Unknown Rx Magnesia] Sennosides/Docusate [Senokot S] 1 each PO Q12HR 30 Days #60 tab 11/08/18 Unknown Rx Dicyclomine [Bentyl] 20 mg PO QID PRN #20 tablet 11/20/18 Unknown Rx Esomeprazole Magnesium [NexIUM] 40 mg PO QDAY #30 capsule. 11/20/18 Unknown Rx Ondansetron [Zofran Odt] 4 mg PO Q8HR PRN #20 tab.rapdis 11/20/18 Unknown Rx Active Meds: Active Medications Acetaminophen (Tylenol) 650 mg PO Q4H PRN PRN Reason: Pain MILD(1-3)/Fever >100.5/ANTHONY Aspirin (Baby Aspirin) 81 mg PO QDAY [facility] Last Admin: 11/27/18 09:37 Dose: Not Given Documented by: Atorvastatin Calcium (Lipitor) 40 mg PO QHS [facility] Last Admin: 11/26/18 21:25 Dose: 40 mg Documented by: Dicyclomine HCl (Bentyl) 20 mg PO QID PRN PRN Reason: abdominal pain Docusate Sodium (Colace) 100 mg PO BID [facility] Last Admin: 11/27/18 09:36 Dose: Not Given Documented by: Heparin Sodium (Porcine) (Heparin) 5,000 unit SUB-Q Q12HR [facility] Last Admin: 11/27/18 09:34 Dose: Not Given Documented by: Hydralazine HCl (Apresoline) 10 mg IV Q3H PRN PRN Reason: Blood Pressure Hydromorphone HCl (Dilaudid) 0.5 mg IV Q3H PRN PRN Reason: Pain , Severe (7-10) Last Admin: 11/27/18 11:33 Dose: 0.5 mg Documented by: Sodium Chloride (Nacl 0.9%) 100 mls @ 999 mls/hr IV NIKKI PRN PRN Reason: Hypotension Isosorbide Mononitrate (Imdur) 30 mg PO QDAY [facility] Last Admin: 11/27/18 09:34 Dose: Not Given Documented by: Ketorolac Tromethamine (Toradol) 10 mg PO Q6H PRN PRN Reason: Pain Stop: 11/29/18 18:58 Lactulose (Cephulac) 20 gm PO QDAY PRN PRN Reason: Constipation Last Admin: 11/25/18 11:10 Dose: 20 gm Documented by: Losartan Potassium (Cozaar) 100 mg PO QDAY [facility] Last Admin: 11/27/18 09:36 Dose: Not Given Documented by: Metoclopramide HCl (Reglan) 10 mg IV Q6H PRN PRN Reason: Nausea And Vomiting Last Admin: 11/25/18 11:10 Dose: 10 mg Documented by: Metoprolol Tartrate (Lopressor) 25 mg PO Q6HR [facility] Last Admin: 11/27/18 05:17 Dose: 25 mg Documented by: Nifedipine (Procardia Xl) 60 mg PO Q12HR [facility] Last Admin: 11/27/18 09:34 Dose: Not Given Documented by: Ondansetron HCl (Zofran Odt) 4 mg PO Q8HR PRN PRN Reason: Vomiting Ondansetron HCl (Zofran) 4 mg IV Q8H PRN PRN Reason: Nausea And Vomiting Ondansetron HCl (Zofran Odt) 4 mg PO Q8HR [facility] Last Admin: 11/27/18 05:17 Dose: 4 mg Documented by: Pantoprazole Sodium (Protonix) 40 mg PO DAILY [facility] Last Admin: 11/27/18 09:37 Dose: Not Given Documented by: Senna/Docusate Sodium (Senokot S) 1 tab PO Q12HR [facility] Last Admin: 11/27/18 09:37 Dose: Not Given Documented by: Sodium Chloride (Sodium Chloride Flush Syringe 10 Ml) 10 ml IV BID [facility] Last Admin: 11/27/18 09:37 Dose: Not Given Documented by: Sodium Chloride (Sodium Chloride Flush Syringe 10 Ml) 10 ml IV PRN PRN PRN Reason: LINE FLUSH medications reviewed/updated as required Review of Systems - Review of Systems All systems: negative Gastrointestinal: abdominal pain, constipation Exam - Constitutional Vital Signs: Temp Pulse Resp BP Pulse Ox 98.2 F 67 18 125/81 98 11/27/18 09:20 11/27/18 12:00 11/27/18 09:20 11/27/18 12:00 11/27/18 04:55 General appearance: no acute distress - Respiratory Respiratory effort: normal - Cardiovascular Rhythm: regular - Gastrointestinal General gastrointestinal: Present: soft, tender (slight generalized TTP but predominately in LLQ), non-distended, normal bowel sounds - Neurologic Neurological: alert and oriented x3 - Labs CBC & Chem 7: 11/26/18 07:34 11/26/18 07:34 Lab Results: Laboratory Results - last 24 hr 11/26/18 11/26/18 11/27/18 13:38 17:51 00:09 Troponin T 0.045 H D 0.044 H 0.054 H D Assessment and Plan 1.recurrent abdominal pain 2.chronic constipation 3.H/o PUD -afebrile -WBC, H/H, and LFTs WNL -abd CT w/o acute process -etiology- likely multifactorial (constipation, PUD, narcotic/substance abuse, etc.) -TSH and INR in am -EGD/colonoscopy tomorrow for further evaluation -clear liquids today, then NPO after MN (hold am dose of heparin for procedure) -continue PPI -limit narcotics -daily bowel regimen for constipation with Miralax and senokot -substance cessation discussed/encouraged with patient (UDS +cocaine) -continue supportive care -will follow
[2018-11-27] MEDS ORDERED: GOLYTELY PO ONE (14:40)
[2018-11-27 21:18] LABS: Basophils % (Auto) 0.6 % (0.0-1.8); Eosinophils # (Auto) 0.2 K/mm3 (0.0-0.4); Eosinophils % (Auto) 2.4 % (0.0-4.3); Hematocrit 46.3 % (30.3-42.9); Hemoglobin 15.4 gm/dl (10.1-14.3); Lymphocytes % (Auto) 13.3 % (13.4-35.0); Mean Corpuscular HGB Conc 33 % (30-34); Mean Corpuscular Volume 107 fl (79-97); Monocytes # (Auto) 0.8 K/mm3 (0.0-0.8); Monocytes % (Auto) 11.4 % (0.0-7.3); Platelet Count 186 K/mm3 (140-440); Red Blood Count 4.33 M/mm3 (3.65-5.03); Red Cell Distribution Width 14.9 % (13.2-15.2)
[2018-11-27 21:42] LABS: Albumin 4.6 g/dL (3.9-5); Calcium 10.8 mg/dL (8.4-10.2)
[2018-11-28] MEDS: LOPRESSOR PO SCH ×3 (00:01→12:04)
[2018-11-28] MEDS: ZOFRAN ODT PO SCH (05:02)
[2018-11-28 05:59] LABS: Basophils % (Auto) 0.5 % (0.0-1.8); Eosinophils # (Auto) 0.2 K/mm3 (0.0-0.4); Eosinophils % (Auto) 2.9 % (0.0-4.3); Hemoglobin 13.8 gm/dl (10.1-14.3); Lymphocytes # (Auto) 1.2 K/mm3 (1.2-5.4); Lymphocytes % (Auto) 14.3 % (13.4-35.0); Mean Corpuscular HGB Conc 34 % (30-34); Mean Corpuscular Volume 106 fl (79-97); Monocytes % (Auto) 12.2 % (0.0-7.3); Platelet Count 173 K/mm3 (140-440); Red Blood Count 3.87 M/mm3 (3.65-5.03); Red Cell Distribution Width 15.1 % (13.2-15.2)
[2018-11-28 06:06] LABS: INR 1.06 (0.87-1.13)
[2018-11-28 06:23] LABS: Calcium 10.5 mg/dL (8.4-10.2)
--- NOTE | 2018-11-28 07:55 | Anesthesia Consultation ---
Anesthesia Consult and Med Hx Date of service: 11/28/18 - Airway Anesthetic Teeth Evaluation: Edentulous ROM Head & Neck: Adequate Mental/Hyoid Distance: Adequate Mallampati Class: Class II Intubation Access Assessment: Probably Good - Pulmonary Exam CTA: Yes - Cardiac Exam Cardiac Exam: RRR - Pre-Operative Health Status ASA Pre-Surgery Classification: ASA3 Proposed Anesthetic Plan: MAC - Pre-Anesthesia Comment Pre-Anesthesia Comments: Elevated troponins - Pulmonary Hx Smoking: Yes (CIGARETTES 1/2 PP X2 22 YRS, QUIT 11/2014) Hx Asthma: Yes - Cardiovascular System Hx Hypertension: Yes Hx Angina: Yes Hx Cardia Arrhythmia: No - Central Nervous System CVA: Yes (IN 1997 & 1999, NO NEURO DEFICITS, prior dysarthria) Hx Psychiatric Problems: No - Gastrointestinal Hx Ulcer: Yes - Endocrine Hx Renal Disease: Yes (tts dialysis) Hx End Stage Renal Disease: Yes Hx Non-Insulin Dependent Diabetes: No Hx Thyroid Disease: No (reports some abn on u/s) - Hematic Hx Anemia: Yes - Other Systems Hx Substance Use: Yes (h/o cocaine abuse) Hx Cancer: No
--- NOTE | 2018-11-28 07:56 | Anesthesia Day of Surgery ---
Anesthesia Day of Surgery - Day of Surgery Patient Examined: Yes Patient H&P Reviewed: Yes Patient is NPO: Yes
[2018-11-28] MEDS ORDERED: NACL 0.9% 1000 ML 1,000 ML IV SCH (08:00)
[2018-11-28] MEDS ORDERED: DIPRIVAN 10 MG/ML IV ONE ×3 (08:26→08:54)
[2018-11-28] MEDS ORDERED: VERSED ONE (08:26)
[2018-11-28] MEDS ORDERED: SUBLIMAZE ONE (08:26)
[2018-11-28] MEDS ORDERED: XYLOCAINE 2% INFILTRATI ONE (08:27)
[2018-11-28] MEDS ORDERED: Vasostrict ONE (08:39)
[2018-11-28] MEDS ORDERED: KETALAR ONE (08:44)
--- NOTE | 2018-11-28 09:15 | Post Operative Note ---
Pre-op diagnosis: Abdominal Pain, Abnormal CT Post-op diagnosis: other (Poor prep, polyp, gastritis, duodenitis) Findings: 1. Moderate duodenitis, cold bx 2. Moderate gastritis, cold bx 3. Poor prep, but visualized cecum 4. No obstructing masses 5. 2mm polyp transverse, cold bx polypectomy Procedure: EGD with cold bx, Colonoscopy with cold bx polypectomy Anesthesia: MAC Surgeon: LUCAS THOMAS Estimated blood loss: minimal Pathology: list (1. Duodenum, 2nd portion. 2. Antral gastritis. 3. Transverse colon polyp.) Specimen disposition: to lab Condition: stable Disposition: floor (Recs: 1. Patient should avoid NSAIDs and illicit substances (gastritis/duodenitis could be from cocaine ischemia). 2. OK to advance diet and d/c home. 3. Protonix daily therapy. 4. Daily laxative therapy given constipation. 5. We will sign off; please call with questions.)
--- NOTE | 2018-11-28 09:28 | Discharge Summary ---
Providers - Providers Date of Admission: 11/24/18 15:03 Date of discharge: 11/28/18 Attending physician: GLEN CONCEPCION 11/24/18 13:11 Consult to Physician [CONS] Urgent Comment: Consulting Provider: HUNG MOSES Physician Instructions: Reason For Exam: ESRD on D 11/27/18 11:52 Consult to Physician [CONS] Routine Comment: Consulting Provider: LUCAS THOMAS Physician Instructions: Reason For Exam: abd pain Primary care physician: SUNDAY CRUZ Hospitalization Reason for admission: cp, abd pain Condition: Stable Hospital course: Patient is a 48 y/o female with PMH of ESRD on HD, HTN (uncontrolled), kidney stones, asthma, secondary hyperparathyroidism, thyroid disease, fibroids, migraine, PUD, GERD, cancerous nodule on lung (s/p removal), substance abuse (UDS +cocaine), medical noncompliance, chronic abdominal pain, and recent retroperitoneal hemorrage s/p cardiac cath 08/2018 who presented to ED with recurrent abd pain (3rd visit so far this month) with radiation to her chest/back. The patient was admitted with diagnosis of atypical chest pain and UTI. Patient received IV antibiotics for the UTI with resolution. She was evaluated by cardiology with ACS ruled out. Cardiology felt that the patient had an extensive cardiac ischemic workup including cardiac catheterization done 3 months ago which revealed normal coronary arteries. Her left ventricular EF of 55-60% on echocardiogram. Chest x-ray revealed normal cardiac silhouette, trace and negative chest x-ray. 12 lead ECG is sinus rhythm with LVH and non- specific Tw[place] abnormalities. No significant change when compared to prior. Cardiology felt that there was no need for any further ischemic workup. Nephrology saw the patient for ESRD and maintain TTS hemodialysis with optimization of volume status. GI was consulted for the abdominal pain. Abd CT upon admission was w/o acute pathology. GI felt that the abdominal pain was likely multifactorial, and at least partially related to substance abuse, but given age (48) and stool retention on CT, EGD and colonoscopy was obtained to r/o occult mass. Findings revealed moderate duodenitis and moderate gastritis. No obstructing masses and 2 mm polyp transverse colon with cold biopsy polypectomy. Recommendations were for avoiding NSAIDs and illicit substances (gastritis/duodenitis could be from cocaine ischemia). Patient's diet was advanced and she will be discharged home. Also, patient will have pro time daily therapy along with daily laxative therapy given constipation. Dedicated discharge time 35 minutes. Disposition: DC-01 TO HOME OR SELFCARE Time spent for discharge: 35 - Discharge Diagnoses (1) Chest pain Status: Acute Qualifiers: Chest pain type: unspecified Qualified Code(s): R07.9 - Chest pain, unspecified (2) Hyponatremia syndrome Status: Acute (3) Malignant hypertension Status: Acute (4) UTI (urinary tract infection) Status: Acute Qualifiers: Urinary tract infection type: acute cystitis Qualified Code(s): N30.01 - Acute cystitis with hematuria (5) Abdominal pain Status: Chronic Qualifiers: Abdominal location: periumbilical Qualified Code(s): R10.33 - Periumbilical pain (6) Cocaine abuse Status: Chronic (7) End-stage renal disease needing dialysis Status: Chronic (8) HLD (hyperlipidemia) Status: Chronic Qualifiers: Hyperlipidemia type: mixed hyperlipidemia Qualified Code(s): E78.2 - Mixed hyperlipidemia Core Measure Documentation - Palliative Care Palliative Care/ Comfort Measures: Not Applicable - Core Measures Any of the following diagnoses?: none Exam - Constitutional Vitals: Temp Pulse Resp BP Pulse Ox 98.0 F 78 14 131/73 99 11/28/18 08:25 11/28/18 08:25 11/28/18 08:25 11/28/18 08:25 11/28/18 08:25 General appearance: Present: no acute distress, well-nourished - EENT Eyes: Present: PERRL ENT: hearing intact, clear oral mucosa - Neck Neck: Present: supple, normal ROM - Respiratory Respiratory effort: normal Respiratory: bilateral: CTA - Cardiovascular Heart Sounds: Present: S1 & S2. Absent: rub, click - Extremities Extremities: pulses symmetrical, No edema Peripheral Pulses: within normal limits - Abdominal General gastrointestinal: Present: soft, non-tender, non-distended, normal bowel sounds Female genitourinary: Present: normal - Integumentary Integumentary: Present: clear, warm, dry - Musculoskeletal Musculoskeletal: gait normal, strength equal bilaterally - Psychiatric Psychiatric: appropriate mood/affect, intact judgment & insight - Neurologic Neurologic: CNII-XII intact, moves all extremities Plan Activity: advance as tolerated Weight Bearing Status: Weight Bear as Tolerated Diet: renal Follow up with: SUNDAY CRUZ MD [Primary Care Provider] - 3-5 Days HUNG MOSES MD [Staff Physician] - 7 Days LCUAS THOMAS MD [Staff Physician] - 7 Days NANCY NAVARRO MD [Staff Physician] - 7 Days Prescriptions: Aspirin [Aspirin BABY CHEW TAB] 81 mg PO QDAY #15 tab.chew Dicyclomine [Bentyl] 20 mg PO QID PRN #20 tablet PRN Reason: abdominal pain Lactulose [Cephulac] 20 gm PO QDAY PRN 10 Days oral.liqd PRN Reason: Constipation Docusate Sodium [Colace CAP] 100 mg PO BID #30 capsule Losartan [Cozaar] 100 mg PO QDAY #30 tablet ISOSORBIDE MONOnitrate [Imdur ER] 30 mg PO QDAY #30 tablet AtorvaSTATin [Lipitor] 40 mg PO QHS #30 tablet Metoprolol [Lopressor TAB] 25 mg PO Q6HR 30 Days tablet HYDROcodone/APAP 5-325 [[place] 5-325 mg TAB] 1 each PO Q6H PRN #15 tablet PRN Reason: Pain , Severe (7-10) NIFEdipine XL [Procardia Xl] 60 mg PO Q12HR #30 tablet Pantoprazole [Protonix TAB] 40 mg PO DAILY #30 tablet Sennosides/Docusate [Senokot S] 1 each PO Q12HR 30 Days #60 tab Ketorolac [Toradol] 10 mg PO Q6H PRN #20 tablet PRN Reason: Pain Ondansetron [Zofran ODT TAB] 4 mg PO Q8HR PRN #20 tab.rapdis PRN Reason: Vomiting
[2018-11-28] MEDS ORDERED: DILAUDID IV PRN (09:30)
--- NOTE | 2018-11-28 09:51 | Operative Report ---
PROCEDURE PERFORMED: Esophagogastroduodenoscopy with cold biopsy and colonoscopy with cold biopsy polypectomy. PREOPERATIVE DIAGNOSES: Abdominal pain and an abnormal CT scan of the abdomen. POSTOPERATIVE DIAGNOSES: Duodenitis, gastritis, colon polyp, poor preparation. ENDOSCOPIST: Keshawn Mac M.D. INSTRUMENT: Olympus video endoscope. MEDICATIONS: MAC anesthesia by [facility]. COMPLICATIONS: No apparent complications. ESTIMATED BLOOD LOSS: Minimal. SPECIMENS: 1. Second portion of duodenum. 2. Antral gastritis. 3. Transverse colon polyp. IMPLANTS: None. ASSISTANTS: None. CONDITION AT COMPLETION: Stable. TECHNIQUE: The patient was informed of the risks and benefits of the procedure. She signed the informed consent to proceed. She was placed in left lateral decubitus position. The above sedative medications were given. Her vital signs remained stable throughout the procedure. The instrument was advanced from the mouth to the second portion of the duodenum under direct visualization. At that point, the bowel was insufflated and the endoscope was slowly withdrawn. The bed was then rotated and the colonoscope was advanced from the anus to the cecum under direct visualization. The cecum was identified by the appendiceal orifice and the ileocecal valve. At that point, the bowel was insufflated and the endoscope was slowly withdrawn. The quality of preparation was poor with significant liquid brown stool throughout the colon. FINDINGS: 1. Moderate ischemic appearing changes in the duodenum with superficial erosions, status post cold biopsy. 2. Moderate ischemic appearing lesions in the antrum and body of the stomach, status post cold biopsy. 3. Otherwise normal upper GI tract. 4. Poor preparation of the colon with a significant amount of semi-liquid brown stool throughout the colon, but the cecum was well visualized. 5. No evidence of obstructing mass in the colon to explain the patient's colonoscopy. 6. A 2-mm polyp in the transverse colon, status post cold biopsy polypectomy. 7. Grade 2 internal hemorrhoids. RECOMMENDATIONS: 1. The patient should avoid nonsteroidal anti-inflammatory drugs as well as illicit substances as the gastritis and duodenitis could be from cocaine ischemic changes. 2. Okay to advance diet and discharge home. 3. Protonix daily therapy. 4. Daily laxative therapy given constipation. 5. I would minimize narcotics given her constipation. 6. We will sign off, please call with questions. JOB# [id number] LAUREN/NTS
[2018-11-28] MEDS: HEPARIN SUB-Q SCH (10:00)
[2018-11-28] MEDS: SODIUM CHLORIDE FLUSH SYRINGE 10 ML IV SCH (10:00)
[2018-11-28] MEDS: COLACE PO SCH (10:00)
[2018-11-28] MEDS: COZAAR PO SCH (10:00)
[2018-11-28] MEDS: SENOKOT S PO SCH (10:00)
[2018-11-28] MEDS: PROTONIX PO SCH (12:00)
[2018-11-28] MEDS: IMDUR PO SCH (12:01)
[2018-11-28] MEDS: PROCARDIA XL PO SCH (12:01)
[2018-11-28] MEDS: BABY ASPIRIN PO SCH (12:01)
[2018-11-28 12:05] VITALS: BP 126/64
== END 2018-11-28 14:45 | disposition home or self-care (01) | DRG 917 ==
LOC: ED 05:25 → 4A 15:03
PROVIDERS: ADMIT Internal Medicine; ATTEND Hospitalist
PROC: 5A1D70Z Performance of Urinary Filtration, Intermittent, Less than 6 Hours Per Day (ICD-10-PCS; 2018-11-24)
PROC: 5A1D70Z Performance of Urinary Filtration, Intermittent, Less than 6 Hours Per Day (ICD-10-PCS; 2018-11-27)
PROC: 0DB98ZX Excision of Duodenum, Via Natural or Artificial Opening Endoscopic, Diagnostic (ICD-10-PCS; principal; 2018-11-28)
PROC: 0DB78ZX Excision of Stomach, Pylorus, Via Natural or Artificial Opening Endoscopic, Diagnostic (ICD-10-PCS; 2018-11-28)
PROC: 0DBL8ZX Excision of Transverse Colon, Via Natural or Artificial Opening Endoscopic, Diagnostic (ICD-10-PCS; 2018-11-28)
DX: T40.5X1A Poisoning by cocaine, accidental (unintentional), initial encounter (principal); N18.6 End stage renal disease; N30.01 Acute cystitis with hematuria; E87.1 Hypo-osmolality and hyponatremia; F14.10 Cocaine abuse, uncomplicated; G89.29 Other chronic pain; K64.8 Other hemorrhoids; K29.70 Gastritis, unspecified, without bleeding; K29.80 Duodenitis without bleeding; K26.9 Duodenal ulcer, unspecified as acute or chronic, without hemorrhage or perforation; N26.1 Atrophy of kidney (terminal); K63.5 Polyp of colon; N20.0 Calculus of kidney; K59.00 Constipation, unspecified; I13.2 Hypertensive heart and chronic kidney disease with heart failure and with stage 5 chronic kidney disease, or end stage renal disease; J45.909 Unspecified asthma, uncomplicated; G43.909 Migraine, unspecified, not intractable, without status migrainosus; E78.2 Mixed hyperlipidemia; I25.10 Atherosclerotic heart disease of native coronary artery without angina pectoris; D63.1 Anemia in chronic kidney disease; N25.81 Secondary hyperparathyroidism of renal origin; N25.0 Renal osteodystrophy; Z95.0 Presence of cardiac pacemaker; R07.89 Other chest pain; K44.9 Diaphragmatic hernia without obstruction or gangrene; Z99.2 Dependence on renal dialysis; Z90.49 Acquired absence of other specified parts of digestive tract; Z79.82 Long term (current) use of aspirin; Z87.11 Personal history of peptic ulcer disease; Z87.891 Personal history of nicotine dependence; Y92.89 Other specified places as the place of occurrence of the external cause
CPT/HCPCS: 36415; 71045; 71275; 74174; 74176; 80053; 80061; 80307; 81001; 82550; 82553; 83036; 83690; 83880; 84443; 84484; 85007; 85025; 85379; 85610; 85730; 87086; 88305; 88342; 93005; 93010; G0378; A9270-GY; J0696; J1170; J1644; J2250; J2270; J2405; J2704; J2765; J3010; J7030; Q0162; Q9967

== ENCOUNTER 2018-12-29 06:36 | Inpatient (IN) | payer MEDICAID ==
[2018-12-29 07:13] LABS: Basophils # (Auto) 0.1 K/mm3 (0.0-0.1); Basophils % (Auto) 0.9 % (0.0-1.8); Eosinophils # (Auto) 0.6 K/mm3 (0.0-0.4); Eosinophils % (Auto) 6.7 % (0.0-4.3); Hematocrit 28.1 % (30.3-42.9); Hemoglobin 9.8 gm/dl (10.1-14.3); Lymphocytes # (Auto) 2.4 K/mm3 (1.2-5.4); Lymphocytes % (Auto) 24.9 % (13.4-35.0); Mean Corpuscular HGB Conc 35 % (30-34); Mean Corpuscular Volume 105 fl (79-97); Monocytes # (Auto) 1.1 K/mm3 (0.0-0.8); Monocytes % (Auto) 11.1 % (0.0-7.3); Platelet Count 207 K/mm3 (140-440); Red Blood Count 2.68 M/mm3 (3.65-5.03); Red Cell Distribution Width 14.3 % (13.2-15.2)
[2018-12-29] MEDS ORDERED: ZOFRAN IV ONE (07:35)
[2018-12-29] MEDS ORDERED: SUBLIMAZE IV ONE ×2 (07:35→09:50)
--- NOTE | 2018-12-29 07:40 | Emergency Department Report ---
HPI - General Chief Complaint: Abdominal Pain Time Seen by Provider: 12/29/18 07:26 - HPI HPI: Room 3 The patient is a 48-year-old female presenting with chief complaint of abdominal pain. The patient states for 2-3 weeks she's had pain in the right side of her abdomen and right back. Patient states her providers. Her pain and constipation. Patient was nauseated and vomiting states her last bowel movement occurred yesterday and was within normal limits except that it is left ankle. Patient denies history of fever Location: [See above] Duration: [See above] Quality: [See above] Severity: [See above] Modifying factors: [see above] Context: [see above] Mode of transportation: [not driving] ED Past Medical Hx - Past Medical History Previous Medical History?: Yes Hx Hypertension: Yes Hx Congestive Heart Failure: Yes Hx Renal Disease: Yes (tts dialysis) Hx Kidney Stones: Yes Hx Asthma: Yes Additional medical history: fibroids; kidney disease, migraine, peptic ulcers - Surgical History Past Surgical History?: Yes Hx Cholecystectomy: Yes Additional Surgical History: portion of right lung removed. shunt left upper arm, permacath right chest - Family History Family history: no significant - Social History Smoking Status: Never Smoker Substance Use Type: None - Medications Home Medications: Home Medications Medication Instructions Recorded Confirmed Last Taken Type Acetaminophen [Acetaminophen TAB] 650 mg PO Q6H PRN #15 tablet 08/20/18 11/28/18 Unknown Rx Aspirin [Aspirin BABY CHEW TAB] 81 mg PO QDAY #15 tab.chew 11/28/18 Unknown Rx AtorvaSTATin [Lipitor] 40 mg PO QHS #30 tablet 11/28/18 Unknown Rx Dicyclomine [Bentyl] 20 mg PO QID PRN #20 tablet 11/28/18 Unknown Rx Docusate Sodium [Colace CAP] 100 mg PO BID #30 capsule 11/28/18 Unknown Rx HYDROcodone/APAP 5-325 [[place] 1 each PO Q6H PRN #15 tablet 11/28/18 Unknown Rx 5-325 mg TAB] ISOSORBIDE MONOnitrate [Imdur ER] 30 mg PO QDAY #30 tablet 11/28/18 Unknown Rx Ketorolac [Toradol] 10 mg PO Q6H PRN #20 tablet 11/28/18 Unknown Rx Lactulose [Cephulac] 20 gm PO QDAY PRN 10 Days 11/28/18 Unknown Rx oral.liqd Losartan [Cozaar] 100 mg PO QDAY #30 tablet 11/28/18 Unknown Rx Metoprolol [Lopressor TAB] 25 mg PO Q6HR 30 Days tablet 11/28/18 Unknown Rx NIFEdipine XL [Procardia Xl] 60 mg PO Q12HR #30 tablet 11/28/18 Unknown Rx Ondansetron [Zofran ODT TAB] 4 mg PO Q8HR tab.rapdis 11/28/18 Unknown Rx Ondansetron [Zofran ODT TAB] 4 mg PO Q8HR PRN #20 tab.rapdis 11/28/18 Unknown Rx Pantoprazole [Protonix TAB] 40 mg PO DAILY #30 tablet 11/28/18 Unknown Rx Sennosides/Docusate [Senokot S] 1 each PO Q12HR 30 Days #60 tab 11/28/18 U nknown Rx ED Review of Systems ROS: Stated complaint: ABDOMINAL PAIN Other details as noted in HPI Constitutional: denies: fever Eyes: denies: eye pain ENT: denies: throat pain Respiratory: no symptoms reported Cardiovascular: denies: chest pain Endocrine: no symptoms reported Gastrointestinal: abdominal pain, nausea, vomiting, melena Genitourinary: denies: abnormal menses Musculoskeletal: back pain Neurological: denies: headache Physical Exam - Physical Exam Vital Signs: Vital Signs 12/29/18 12/29/18 06:45 06:55 Temperature 98.4 F Pulse Rate 98 H Respiratory 24 24 Rate Blood Pressure 136/81 Blood Pressure 136/81 [Right] O2 Sat by Pulse 98 98 Oximetry Physical Exam: GENERAL: The patient is well-developed well-nourished female rocking back and forth on stretcher appearing to be in moderate discomfort. [] HEENT: Normocephalic. Atraumatic. Extraocular motions are intact. Patient has moist mucous membranes. NECK: Supple. Trachea midline CHEST/LUNGS: Clear to auscultation. There is no respiratory distress noted. HEART/CARDIOVASCULAR: Regular. There is no tachycardia. There is no gallop rub or murmur. ABDOMEN: Abdomen is soft, with diffuse tenderness to palpation greatest in the right upper quadrant and right lower quadrant. Patient has normal bowel sounds. There is no abdominal distention. SKIN: There is no rash. There is no edema. There is no diaphoresis. NEURO: The patient is awake, alert, and oriented. The patient is cooperative. The patient has normal speech MUSCULOSKELETAL: There is no evidence of acute injury. RECTAL: Paucity of stool but faint guaiac positive ED Course Vital Signs 12/29/18 12/29/18 06:45 06:55 Temperature 98.4 F Pulse Rate 98 H Respiratory 24 24 Rate Blood Pressure 136/81 Blood Pressure 136/81 [Right] O2 Sat by Pulse 98 98 Oximetry - Consultations Consultation #1: 12/29/18 12:03 GI paged 12/29/18 12:[address] Perla ED Medical Decision Making - Lab Data Result diagrams: 12/29/18 07:03 12/29/18 07:03 - Differential Diagnosis peptic ulcer disease, gastritis, pancreatitis, constipation Critical care attestation.: If time is entered above; I have spent that time in minutes in the direct care of this critically ill patient, excluding procedure time. ED Disposition Clinical Impression: GI bleed Disposition: DC-09 OP ADMIT IP TO THIS HOSP Is pt being admited?: Yes Does the pt Need Aspirin: No Condition: Stable Instructions: Abdominal Pain (ED) Referrals: SAURAV HANSEN MD [Primary Care Provider] - 3-5 Days Time of Disposition: 12:04 (hospitalist paged (Dr Gaffney))
[2018-12-29 08:12] LABS: Albumin 4.1 g/dL (3.9-5); Calcium 10.4 mg/dL (8.4-10.2)
[2018-12-29] MEDS ORDERED: PROTONIX IV ONE (08:35)
[2018-12-29 09:27] LABS: INR 1.1 (0.87-1.13)
[2018-12-29 09:28] LABS: Partial Thromboplastin Time 38.7 Sec. (24.2-36.6)
--- NOTE | 2018-12-29 12:00 | Cat Scan Report ---
CT ABDOMEN AND PELVIS WITHOUT CONTRAST, 12/29/2018 INDICATION: Abdominal pain for several weeks. TECHNICAL: Multiple axial CT images of the abdomen and pelvis were acquired without intravenous contr ast. Sagittal and coronal reformats were obtained. All CTs at this facility utilize dose reduction techniques including automated exposure control, iterative reconstruction and weight based dosing whe n appropriate to reduce patient radiation dose to as low as reasonable achievable. COMPARISON: CT of the chest, abdomen and pelvis, 11/24/2018 FINDINGS: Limited imaging of the bilateral lung bases demonstrates no evidence of acute abnormality. Abdomen: There has been previous cholecystectomy. Within the limitations of today's noncontrast study , the liver, spleen, pancreas show no definitive evidence of acute abnormality. Both kidneys are atro phic. There is dense atherosclerotic calcification along the abdominal aorta. There is a large amount of stool throughout the colon. Pelvis: No large amount of free pelvic fluid is identified. The urinary bladder is not well visualize d. Evaluation of bony structures demonstrate no definitive evidence of acute bony abnormality. IMPRESSION: 1. No CT evidence of acute inflammatory process within the abdomen or pelvis. 2. Large amount of retained stool throughout the colon representing constipation. 3. Atherosclerosis. 4. Atrophic kidneys. Signer Name: Shellie Smith MD Signed: 12/29/2018 11:56 AM Workstation Name: [id number]
--- NOTE | 2018-12-29 12:14 | History and Physical Report ---
History of Present Illness Chief complaint: I feel sick History of present illness: 48 YO Female with ESRD on HD (T,R,Sa), HTN, PUD, Asthma, Diastolic CHF, Uterine Fibroids, Chronic Recurrent Abdominal pain presents to ED for evaluation. Pt states that she presented to dialysis clinic today for her routine scheduled d ialysis and underwent dialysis for approximately 10minutes. Pt was unable to continue dialysis session due to abdominal pain and nausea. Pt states that her pain was 8/10, constant, worsened with movement and palpation, and relieved with nonmovement. EMS notified, and upon arrival the patient was found to be in distress. Pt transported to [facility]. Pt seen and evaluated in ED and found to have ESRD, and Heme positive stool with suspected lower GI bleeding. Pt admitted to medical floor. GI consulted in ED. Nephrology consulted in ED. Pt denies fever, chills, CP, palpitations, NVD, Ingestion of food/water from new/different sources, BRBPR, change in stool size/caliber/color, unintentional weight loss, night sweats, or known ill contacts. Prior admission 11/24/18 reviewed. All listed medication reconciled at time of admission. Past History Past Medical History: heart failure, hypertension, migraines, other (PUD, Uterine Fibroids, ) Past Surgical History: cholecystectomy, Other (Partial Pneumonectomy) Social history: single. denies: smoking, alcohol abuse, prescription drug abuse Family history: hypertension Medications and Allergies Allergies Allergy/AdvReac Type Severity Reaction Status Date / Time lisinopril Allergy Angioedema Verified 10/30/18 17:15 Home Medications Medication Instructions Recorded Confirmed Last Taken Type Acetaminophen [Acetaminophen TAB] 650 mg PO Q6H PRN #15 tablet 08/20/18 11/28/18 Unknown Rx Aspirin [Aspirin BABY CHEW TAB] 81 mg PO QDAY #15 tab.chew 11/28/18 Unknown Rx AtorvaSTATin [Lipitor] 40 mg PO QHS #30 tablet 11/28/18 Unknown Rx Dicyclomine [Bentyl] 20 mg PO QID PRN #20 tablet 11/28/18 Unknown Rx Docusate Sodium [Colace CAP] 100 mg PO BID #30 capsule 11/28/18 Unknown Rx HYDROcodone/APAP 5-325 [[place] 1 each PO Q6H PRN #15 tablet 11/28/18 Unknown Rx 5-325 mg TAB] ISOSORBIDE MONOnitrate [Imdur ER] 30 mg PO QDAY #30 tablet 11/28/18 Unknown Rx Ketorolac [Toradol] 10 mg PO Q6H PRN #20 tablet 11/28/18 Unknown Rx Lactulose [Cephulac] 20 gm PO QDAY PRN 10 Days 11/28/18 Unknown Rx oral.liqd Losartan [Cozaar] 100 mg PO QDAY #30 tablet 11/28/18 Unknown Rx Metoprolol [Lopressor TAB] 25 mg PO Q6HR 30 Days tablet 11/28/18 Unknown Rx NIFEdipine XL [Procardia Xl] 60 mg PO Q12HR #30 tablet 11/28/18 Unknown Rx Ondansetron [Zofran ODT TAB] 4 mg PO Q8HR tab.rapdis 11/28/18 Unknown Rx Ondansetron [Zofran ODT TAB] 4 mg PO Q8HR PRN #20 tab.rapdis 11/28/18 Unknown Rx Pantoprazole [Protonix TAB] 40 mg PO DAILY #30 tablet 11/28/18 Unknown Rx Sennosides/Docusate [Senokot S] 1 each PO Q12HR 30 Days #60 tab 11/28/18 Unknown Rx Review of Systems Constitutional: no weight loss, no weight gain, no fever, no chills Ears, nose, mouth and throat: no ear pain, no ear discharge, no tinnitis, no decreased hearing Breasts: no change in shape, no swelling, no mass Cardiovascular: no chest pain, no orthopnea, no rapid/irregular heart beat, no edema, no syncope Gastrointestinal: abdominal pain, no hematemesis, no hematochezia, no heartburn Genitourinary Female: no pelvic pain, no flank pain, no menorrhagia, no dysuria Rectal: no pain, no incontinence, no bleeding Musculoskeletal: no neck stiffness, no neck pain, no shooting arm pain, no arm numbness/tingling, no low back pain, no shooting leg pain Integumentary: no rash, no pruritis, no redness, no sores, no jaundice Neurological: no paralysis, no weakness, no parathesias, no numbness, no tingling Psychiatric: no anxiety, no memory loss, no change in sleep habits, no insomnia, no hypersomnia Endocrine: no cold intolerance, no heat intolerance, no polyphagia, no polyuria, no nocturia, no flushing Hematologic/Lymphatic: no easy bruising, no lymphadenopathy Allergic/Immunologic: no allergic rhinitis, no persistent infections Exam - Constitutional Vitals: Temp Pulse Resp BP Pulse Ox 98.4 F 97 H 71 H 141/92 100 12/29/18 06:45 12/29/18 09:00 12/29/18 09:00 12/29/18 11:30 12/29/18 11:30 General appearance: Present: mild distress, cachectic - EENT Eyes: Present: PERRL ENT: hearing intact, clear oral mucosa - Neck Neck: Present: supple, normal ROM - Respiratory Respiratory effort: normal Respiratory: bilateral: CTA - Cardiovascular Heart Sounds: Present: S1 & S2. Absent: rub, click - Extremities Extremities: pulses symmetrical, No edema Peripheral Pulses: within normal limits - Abdominal General gastrointestinal: Present: soft, non-tender, non-distended, normal bowel sounds Female genitourinary: Present: normal - Integumentary Integumentary: Present: clear, warm, dry - Musculoskeletal Musculoskeletal: gait normal, strength equal bilaterally - Psychiatric Psychiatric: appropriate mood/affect, intact judgment & insight - Neurologic Neurologic: CNII-XII intact, moves all extremities Results - Labs CBC & Chem 7: 12/29/18 07:03 12/29/18 07:03 Labs: Abnormal lab results 12/29/18 12/29/18 12/29/18 Range/Units 07:03 07:03 08:48 RBC 2.68 L (3.65-5.03) M/mm3 Hgb 9.8 L (10.1-14.3) gm/dl Hct 28.1 L (30.3-42.9) % MCV 105 H (79-97) fl MCH 36 H (28-32) pg MCHC 35 H (30-34) % [place] % (Auto) 11.1 H (0.0-7.3) % Eos % (Auto) 6.7 H (0.0-4.3) % [place] # 1.1 H (0.0-0.8) K/mm3 Eos # 0.6 H (0.0-0.4) K/mm3 APTT 38.7 H (24.2-36.6) Sec. Sodium 134 L (137-145) mmol/L Potassium 3.5 L (3.6-5.0) mmol/L Chloride 88.5 L (98-107) mmol/L BUN 49 H (7-17) mg/dL Creatinine 9.8 H (0.7-1.2) mg/dL Calcium 10.4 H (8.4-10.2) mg/dL Assessment and Plan - Patient Problems (1) ESRD (end stage renal disease) Current Visit: Yes Status: Acute Plan to address problem: Nephrology consulted in ED for dialysis, strict I/O, daily weight, monitor uop q shift, avoid nephrotoxic agents, dialysis as per renal team. (2) Diastolic CHF Current Visit: Yes Status: Acute Qualifiers: Heart failure chronicity: acute on chronic Qualified Code(s): I50.33 - Acute on chronic diastolic (congestive) heart failure Plan to address problem: Strict I/O, daily weight, urgent dialysis, afterload reduction, blood pressure control, supportive care. (3) Severe malnutrition Current Visit: Yes Status: Acute Plan to address problem: Encourage increased protein intake, dietary supplementation (4) GI bleed Current Visit: Yes Status: Acute Qualifiers: GI bleed type/associated pathology: unspecified gastrointestinal hemorrhage type Qualified Code(s): K92.2 - Gastrointestinal hemorrhage, unspecified Plan to address problem: GI consulted in ED, HGB stable, repeat cbc in AM. IV ppi therapy. No transfusion at this time. Will transfuse if HGB decreases by greater than 1.5g. (5) Anemia due to blood loss Current Visit: No Status: Acute Plan to address problem: supportive care. Epogen as per renal team, repeat cbc in am (6) DVT prophylaxis Current Visit: Yes Status: Acute Plan to address problem: SCD to BLE while in bed, Pt ambulatory.
[2018-12-29] MEDS ORDERED: TYLENOL PO PRN ×2 (12:37→12:42)
[2018-12-29] MEDS ORDERED: PROVENTIL IH PRN (12:37)
[2018-12-29] MEDS ORDERED: ZOFRAN ODT PO PRN (12:42)
[2018-12-29] MEDS ORDERED: CEPHULAC PO PRN (12:42)
[2018-12-29] MEDS ORDERED: ZOFRAN IV PRN (13:00)
[2018-12-29] MEDS ORDERED: SODIUM CHLORIDE FLUSH SYRINGE 10 ML IV PRN (13:00)
[2018-12-29] MEDS ORDERED: BENTYL ONE (13:49)
[2018-12-29] MEDS: NORCO 5/325 PO PRN ×2 (15:59→22:36)
[2018-12-29] MEDS: BENTYL PO PRN (20:08)
[2018-12-29] MEDS: COLACE PO SCH (22:36)
[2018-12-29] MEDS: PROCARDIA XL PO SCH (22:36)
[2018-12-29] MEDS: SENOKOT S PO SCH (22:36)
[2018-12-29] MEDS: SODIUM CHLORIDE FLUSH SYRINGE 10 ML IV SCH (22:37)
[2018-12-29] MEDS: PROTONIX IV SCH (22:37)
[2018-12-30 07:06] LABS: Albumin 3.6 g/dL (3.9-5); Calcium 10.4 mg/dL (8.4-10.2)
[2018-12-30] MEDS: NORCO 5/325 PO PRN (10:43)
[2018-12-30] MEDS: SENOKOT S PO SCH ×2 (10:44→21:11)
[2018-12-30] MEDS: COLACE PO SCH ×2 (10:44→21:11)
[2018-12-30] MEDS: IMDUR PO SCH (10:44)
[2018-12-30] MEDS: PROCARDIA XL PO SCH ×2 (10:44→21:11)
[2018-12-30] MEDS: BENTYL PO PRN (10:44)
[2018-12-30] MEDS: PROTONIX IV SCH ×2 (10:45→21:11)
[2018-12-30] MEDS: SODIUM CHLORIDE FLUSH SYRINGE 10 ML IV SCH ×2 (10:45→21:11)
--- NOTE | 2018-12-30 11:32 | Consultation ---
History of Present Illness - Reason for Consult Consult date: 12/30/18 end stage renal disease Requesting physician: GLEN CONCEPCION - History of Present Illness The patient is a 48-year-old female presenting with chief complaint of abdominal pain. The patient states for 2-3 weeks she's had pain in the right side of her abdomen and right back. Patient states her providers. Her pain and constipation. Patient was nauseated and vomiting states her last bowel movement occurred yesterday and was within normal limits except that it is left ankle. Patient denies history of fever Location: [See above] Duration: [See above] Quality: [See above] Severity: [See above] Modifying factors: [see above] Context: [see above] Mode of transportation: [not driving] - Past Medical History Previous Medical History?: Yes Hx Hypertension: Yes Hx Congestive Heart Failure: Yes Hx Renal Disease: Yes (tts dialysis) Hx Kidney Stones: Yes Hx Asthma: Yes Additional medical history: fibroids; kidney disease, migraine, peptic ulcers - Surgical History Past Surgical History?: Yes Hx Cholecystectomy: Yes Additional Surgical History: portion of right lung removed. shunt left upper arm, permacath right chest - Family History Family history: no significant - Social History Smoking Status: Never Smoker Substance Use Type: None - Medications Home Medications: ROS: Stated complaint: ABDOMINAL PAIN Other details as noted in HPI Constitutional: denies: fever Eyes: denies: eye pain ENT: denies: throat pain Respiratory: no symptoms reported Cardiovascular: denies: chest pain Endocrine: no symptoms reported Gastrointestinal: abdominal pain, nausea, vomiting, melena Genitourinary: denies: abnormal menses Musculoskeletal: back pain Neurological: denies: headache Past History Past Medical History: heart failure, hypertension, migraines, other (PUD, Uterine Fibroids, ) Past Surgical History: cholecystectomy, Other (Partial Pneumonectomy) Social history: single. denies: smoking, alcohol abuse, prescription drug abuse Family history: hypertension Medications and Allergies Allergies Allergy/AdvReac Type Severity Reaction Status Date / Time lisinopril Allergy Angioedema Verified 10/30/18 17:15 Home Medications Medication Instructions Recorded Confirmed Last Taken Type Acetaminophen [Acetaminophen TAB] 650 mg PO Q6H PRN #15 tablet 08/20/18 11/28/18 Unknown Rx Aspirin [Aspirin BABY CHEW TAB] 81 mg PO QDAY #15 tab.chew 11/28/18 Unknown Rx AtorvaSTATin [Lipitor] 40 mg PO QHS #30 tablet 11/28/18 Unknown Rx Dicyclomine [Bentyl] 20 mg PO QID PRN #20 tablet 11/28/18 Unknown Rx Docusate Sodium [Colace CAP] 100 mg PO BID #30 capsule 11/28/18 Unknown Rx HYDROcodone/APAP 5-325 [[place] 1 each PO Q6H PRN #15 tablet 11/28/18 Unknown Rx 5-325 mg TAB] ISOSORBIDE MONOnitrate [Imdur ER] 30 mg PO QDAY #30 tablet 11/28/18 Unknown Rx Ketorolac [Toradol] 10 mg PO Q6H PRN #20 tablet 11/28/18 Unknown Rx Lactulose [Cephulac] 20 gm PO QDAY PRN 10 Days 11/28/18 Unknown Rx oral.liqd Losartan [Cozaar] 100 mg PO QDAY #30 tablet 11/28/18 Unknown Rx Metoprolol [Lopressor TAB] 25 mg PO Q6HR 30 Days tablet 11/28/18 Unknown Rx NIFEdipine XL [Procardia Xl] 60 mg PO Q12HR #30 tablet 11/28/18 Unknown Rx Ondansetron [Zofran ODT TAB] 4 mg PO Q8HR tab.rapdis 11/28/18 Unknown Rx Ondansetron [Zofran ODT TAB] 4 mg PO Q8HR PRN #20 tab.rapdis 11/28/18 Unknown Rx Pantoprazole [Protonix TAB] 40 mg PO DAILY #30 tablet 11/28/18 Unknown Rx Sennosides/Docusate [Senokot S] 1 each PO Q12HR 30 Days #60 tab 11/28/18 Unknown Rx Active Meds: Active Medications Acetaminophen (Tylenol) 650 mg PO Q4H PRN PRN Reason: Pain MILD(1-3)/Fever >100.5/ANTHONY Acetaminophen/Hydrocodone Bitart ([place] 5/325) 1 each PO Q6H PRN PRN Reason: Pain , Severe (7-10) Last Admin: 12/30/18 10:43 Dose: 1 each Documented by: Albuterol (Proventil) 2.5 mg IH Q4HRT PRN PRN Reason: Shortness Of Breath Atorvastatin Calcium (Lipitor) 40 mg PO QHS TIMUR Last Admin: 12/29/18 22:36 Dose: 40 mg Documented by: Dicyclomine HCl (Bentyl) 20 mg PO QID PRN PRN Reason: abdominal pain Last Admin: 12/30/18 10:44 Dose: 20 mg Documented by: Docusate Sodium (Colace) 100 mg PO BID [facility] Last Admin: 12/30/18 10:44 Dose: 100 mg Documented by: Isosorbide Mononitrate (Imdur) 30 mg PO QDAY [facility] Last Admin: 12/30/18 10:44 Dose: 30 mg Documented by: Lactulose (Cephulac) 20 gm PO QDAY PRN PRN Reason: Constipation Last Admin: 12/29/18 16:00 Dose: 20 gm Documented by: Nifedipine (Procardia Xl) 60 mg PO Q12HR [facility] Last Admin: 12/30/18 10:44 Dose: 60 mg Documented by: Ondansetron HCl (Zofran) 4 mg IV Q8H PRN PRN Reason: Nausea And Vomiting Ondansetron HCl (Zofran Odt) 4 mg PO Q8HR PRN PRN Reason: Vomiting Pantoprazole Sodium (Protonix) 40 mg IV BID [facility] Last Admin: 12/30/18 10:45 Dose: 40 mg Documented by: Senna/Docusate Sodium (Senokot S) 1 tab PO Q12HR [facility] Last Admin: 12/30/18 10:44 Dose: 1 tab Documented by: Sodium Chloride (Sodium Chloride Flush Syringe 10 Ml) 10 ml IV BID [facility] Last Admin: 12/30/18 10:45 Dose: 10 ml Documented by: Sodium Chloride (Sodium Chloride Flush Syringe 10 Ml) 10 ml IV PRN PRN PRN Reason: LINE FLUSH Exam - Vital Signs Vital signs: Vital Signs Temp Pulse Resp BP Pulse Ox 98.4 F 98 H 24 136/81 98 12/29/18 06:45 12/29/18 06:45 12/29/18 06:45 12/29/18 06:45 12/29/18 06:45 - Physical Exam Narrative exam: GENERAL: The patient is well-developed well-nourished female rocking back and forth on stretcher appearing to be in moderate discomfort. [] HEENT: Normocephalic. Atraumatic. Extraocular motions are intact. Patient has moist mucous membranes. NECK: Supple. Trachea midline CHEST/LUNGS: Clear to auscultation. There is no respiratory distress noted. HEART/CARDIOVASCULAR: Regular. There is no tachycardia. There is no gallop rub or murmur. ABDOMEN: Abdomen is soft, with diffuse tenderness to palpation greatest in the right upper quadrant and right lower quadrant. Patient has normal bowel sounds. There is no abdominal distention. SKIN: There is no rash. There is no edema. There is no diaphoresis. NEURO: The patient is awake, alert, and oriented. The patient is cooperative. The patient has normal speech MUSCULOSKELETAL: There is no evidence of acute injury. RECTAL: Paucity of stool but faint guaiac positive Results - Lab Results 12/29/18 07:03 12/30/18 05:44 Most recent lab results Calcium 10.4 mg/dL (8.4-10.2) H 12/30/18 05:44 Assessment and Plan Impression: * ESRD * CAD * HTN * Secondary hyperparathyriodism * anemia * abdominal pain * history of retroperitoneal bleeding Plan: * hd q TTHSAT and prn, plan for hd in am * no heparin with dialysis * follow up ct, history of retroperitoneal bleed, none noted * laxative, suppository for constipation * serial hb/hct * uf as tolerated * strict i/os * renal diet
[2018-12-30] MEDS ORDERED: CEPHULAC PO PRN (11:36)
[2018-12-30] MEDS ORDERED: NACL 0.9% 100 ML IV PRN (11:37)
[2018-12-30] MEDS ORDERED: PROCRIT IV PRN (11:39)
--- NOTE | 2018-12-30 13:53 | Progress Note ---
Assessment and Plan / Abdominal pain, due to constipation - ordered golytely, CT abdomen w/o any new changes - GI following / hypertension, stable / Cocaine abuse, l;ast intake 2 weeks ago / End-stage renal disease needing dialysis Status: Chronic / HLD (hyperlipidemia), cont statin /Secondary hyperparathyriodism, stable /Acute on chronic Anemia of CD, Minitor h/h - Heme + rectal mucus - Likely due to menstruation, and not truly GI. Could have worsening of duodenal erosions given NSAIDs. - PPI - change to qd - given recent endoscopies, no plans for further evaluation per GI. /history of retroperitoneal bleeding, monitor h/h, CT abdomen w/o any new changes /Mild to moderate malnutrition, counseled, nutrition consult Subjective Date of service: 12/30/18 Interval history: Patient seen and examined No acute GI bleed issue o/n, on her menstrual cycle denies chest pain or SOB Objective - Constitutional Vitals: Vital Signs - 12hr 12/30/18 12/30/18 12/30/18 05:29 08:35 12:37 Temperature 98.0 F 97.5 F L Pulse Rate 97 H 96 H Respiratory 18 14 Rate Blood Pressure 138/86 138/84 O2 Sat by Pulse 99 99 98 Oximetry General appearance: Present: no acute distress - EENT Eyes: PERRL, EOM intact ENT: hearing intact, clear oral mucosa Ears: bilateral: normal - Neck Neck: supple, normal ROM - Respiratory Respiratory effort: normal Respiratory: bilateral: CTA - Cardiovascular Rhythm: regular Heart Sounds: Present: S1 & S2. Absent: gallop, rub Extremities: pulses intact, No edema, normal color, Full ROM - Gastrointestinal General gastrointestinal: Present: soft, non-tender, non-distended, normal bowel sounds - Integumentary Integumentary: clear, warm, dry - Musculoskeletal Musculoskeletal: 1, strength equal bilaterally - Neurologic Neurologic: moves all extremities - Psychiatric Psychiatric: memory intact, appropriate mood/affect, intact judgment & insight - Labs CBC & Chem 7: 12/31/18 07:00 12/31/18 07:00 Labs: Abnormal lab results 12/30/18 Range/Units 05:44 Sodium 133 L (137-145) mmol/L Chloride 87.9 L (98-107) mmol/L BUN 56 H (7-17) mg/dL Creatinine 12.9 H (0.7-1.2) mg/dL Calcium 10.4 H (8.4-10.2) mg/dL Albumin 3.6 L (3.9-5) g/dL
[2018-12-30 14:06] LABS: Hematocrit 26.5 % (30.3-42.9); Hemoglobin 8.9 gm/dl (10.1-14.3); Mean Corpuscular HGB Conc 34 % (30-34); Mean Corpuscular Volume 106 fl (79-97); Platelet Count 217 K/mm3 (140-440); Red Blood Count 2.51 M/mm3 (3.65-5.03); Red Cell Distribution Width 14.3 % (13.2-15.2)
--- NOTE | 2018-12-30 14:13 | Consultation ---
History of Present Illness - Reason for Consult Consult date: 12/30/18 Heme + stool, anemia Requesting physician: MAURO LEI - History of Present Illness Ms. Castle is a 48-year-old woman with end-stage renal disease who is well known to our group. She was admitted yesterday after complaining of abdominal pain and nausea at hemodialysis. The emergency room, she was found to have dropped her hemoglobin to 9.8 from 13.8 on November 28. Rectal exam showed no stool but the mucus was trace guaiac positive. GI consult is therefore obtained. Patient has been complaining of abdominal pain for several months at least. She was hospitalized 3 times last month for abdominal pain and evaluated by Dr. samaniego at the end of November. She underwent an upper endoscopy as well as a colonoscopy on November 28 showing erosive duodenitis and otherwise benign exam. She does have constipation. She has bowel movements approximately once a week. She was discharged home on lactulose but had not taken it until she resumed this week. She denies seeing any obvious GI blood loss and has not had melena hematochezia or hematemesis. Of note, patient quit taking cocaine 2 weeks ago. She complains of diffuse nonspecific abdominal pain. She has started to take ibuprofen for this at home along with Tylenol. CT done in the emergency room shows significant constipation. Her pain was felt to be multifactorial at last admission. Of note, patient had cardiac cath in August 2018 that was complicated by a retroperitoneal hematoma. Please note that the medications list was updated and reviewed. Pt started menstrual cycle on 12/28/18. Past History Past Medical History: heart failure, hypertension, migraines, other (PUD, Uterine Fibroids, ) Past Surgical History: cholecystectomy, Other (Partial Pneumonectomy) Social history: single. denies: smoking, alcohol abuse, prescription drug abuse Family history: hypertension Medications and Allergies Allergies Allergy/AdvReac Type Severity Reaction Status Date / Time lisinopril Allergy Angioedema Verified 10/30/18 17:15 Home Medications Medication Instructions Recorded Confirmed Last Taken Type Acetaminophen [Acetaminophen TAB] 650 mg PO Q6H PRN #15 tablet 08/20/18 11/28/18 Unknown Rx Aspirin [Aspirin BABY CHEW TAB] 81 mg PO QDAY #15 tab.chew 11/28/18 Unknown Rx AtorvaSTATin [Lipitor] 40 mg PO QHS #30 tablet 11/28/18 Unknown Rx Dicyclomine [Bentyl] 20 mg PO QID PRN #20 tablet 11/28/18 Unknown Rx Docusate Sodium [Colace CAP] 100 mg PO BID #30 capsule 11/28/18 Unknown Rx HYDROcodone/APAP 5-325 [[place] 1 each PO Q6H PRN #15 tablet 11/28/18 Unknown Rx 5-325 mg TAB] ISOSORBIDE MONOnitrate [Imdur ER] 30 mg PO QDAY #30 tablet 11/28/18 Unknown Rx Ketorolac [Toradol] 10 mg PO Q6H PRN #20 tablet 11/28/18 Unknown Rx Lactulose [Cephulac] 20 gm PO QDAY PRN 10 Days 11/28/18 Unknown Rx oral.liqd Losartan [Cozaar] 100 mg PO QDAY #30 tablet 11/28/18 Unknown Rx Metoprolol [Lopressor TAB] 25 mg PO Q6HR 30 Days tablet 11/28/18 Unknown Rx NIFEdipine XL [Procardia Xl] 60 mg PO Q12HR #30 tablet 11/28/18 Unknown Rx Ondansetron [Zofran ODT TAB] 4 mg PO Q8HR tab.rapdis 11/28/18 Unknown Rx Ondansetron [Zofran ODT TAB] 4 mg PO Q8HR PRN #20 tab.rapdis 11/28/18 Unknown Rx Pantoprazole [Protonix TAB] 40 mg PO DAILY #30 tablet 11/28/18 Unknown Rx Sennosides/Docusate [Senokot S] 1 each PO Q12HR 30 Days #60 tab 11/28/18 Unknown Rx Active Meds: Active Medications Acetaminophen (Tylenol) 650 mg PO Q4H PRN PRN Reason: Pain MILD(1-3)/Fever >100.5/ANTHONY Acetaminophen/Hydrocodone Bitart ([place] 5/325) 1 each PO Q6H PRN PRN Reason: Pain , Severe (7-10) Last Admin: 12/30/18 10:43 Dose: 1 each Documented by: Albuterol (Proventil) 2.5 mg IH Q4HRT PRN PRN Reason: Shortness Of Breath Atorvastatin Calcium (Lipitor) 40 mg PO QHS TIMUR Last Admin: 12/29/18 22:36 Dose: 40 mg Documented by: Docusate Sodium (Colace) 100 mg PO BID [facility] Last Admin: 12/30/18 10:44 Dose: 100 mg Documented by: Epoetin Hayden (Procrit) 20,000 unit IV NIKKI PRN PRN Reason: hemodialysis Sodium Chloride (Nacl 0.9%) 100 mls @ 999 mls/hr IV NIKKI PRN PRN Reason: Hypotension Isosorbide Mononitrate (Imdur) 30 mg PO QDAY [facility] Last Admin: 12/30/18 10:44 Dose: 30 mg Documented by: Lactulose (Cephulac) 20 gm PO Q6H PRN PRN Reason: Constipation Losartan Potassium (Cozaar) 100 mg PO QDAY [facility] Nifedipine (Procardia Xl) 60 mg PO Q12HR [facility] Last Admin: 12/30/18 10:44 Dose: 60 mg Documented by: Ondansetron HCl (Zofran) 4 mg IV Q8H PRN PRN Reason: Nausea And Vomiting Pantoprazole Sodium (Protonix) 40 mg IV BID [facility] Last Admin: 12/30/18 10:45 Dose: 40 mg Documented by: Senna/Docusate Sodium (Senokot S) 1 tab PO Q12HR [facility] Last Admin: 12/30/18 10:44 Dose: 1 tab Documented by: Sodium Chloride (Sodium Chloride Flush Syringe 10 Ml) 10 ml IV BID [facility] Last Admin: 12/30/18 10:45 Dose: 10 ml Documented by: Sodium Chloride (Sodium Chloride Flush Syringe 10 Ml) 10 ml IV PRN PRN PRN Reason: LINE FLUSH Review of Systems All systems: negative (as noted in HPI) Exam - Constitutional Vitals: Temp Pulse Resp BP Pulse Ox 97.5 F L 96 H 14 138/84 98 12/30/18 12:37 12/30/18 12:37 12/30/18 12:37 12/30/18 12:37 12/30/18 12:37 General appearance: Present: no acute distress, mild distress - EENT Eyes: Present: PERRL, EOM intact ENT: hearing intact - Neck Neck: Present: supple - Respiratory Respiratory effort: normal Respiratory: bilateral: CTA - Cardiovascular Rhythm: regular Heart Sounds: Present: S1 & S2 - Abdominal General gastrointestinal: Present: soft, tender (Mild, diffuse), normal bowel sounds - Rectal Rectal Exam: stool brown, other (No masses, no nuzhat blood, stool light brown) Results - Labs CBC & Chem 7: 12/30/18 13:39 12/30/18 05:44 Labs: Abnormal lab results 12/30/18 12/30/18 Range/Units 05:44 13:39 RBC 2.51 L (3.65-5.03) M/mm3 Hgb 8.9 L (10.1-14.3) gm/dl Hct 26.5 L (30.3-42.9) % MCV 106 H (79-97) fl MCH 36 H (28-32) pg Sodium 133 L (137-145) mmol/L Chloride 87.9 L (98-107) mmol/L BUN 56 H (7-17) mg/dL Creatinine 12.9 H (0.7-1.2) mg/dL Calcium 10.4 H (8.4-10.2) mg/dL Albumin 3.6 L (3.9-5) g/dL - Imaging and Cardiology CT scan - abdomen: report reviewed Assessment and Plan 1. Heme + rectal mucus - nonspecific. Likely due to menstruation, and not truly GI. No nuzhat GI bleed. Could have worsening of duodenal erosions given NSAIDs. - PPI - monitor H/H - given recent endoscopies, no plans for further evaluation. 2. Constipation - chronic. Will give Golytely. - at D/C, Miralax or Lactulose daily - in inadequate, Linzess 3. Abd pain - chronic. Exam, CT, labs nonspecific and benign except for constipation. - laxatives - monitor, and avoid narcotics - may need neuromodulators
[2018-12-30] MEDS ORDERED: GOLYTELY PO ONE (15:00)
[2018-12-30] MEDS: COZAAR PO SCH (16:02)
[2018-12-31 08:01] LABS: Basophils # (Auto) 0.1 K/mm3 (0.0-0.1); Basophils % (Auto) 1.1 % (0.0-1.8); Eosinophils # (Auto) 0.3 K/mm3 (0.0-0.4); Eosinophils % (Auto) 4.5 % (0.0-4.3); Hematocrit 25.6 % (30.3-42.9); Hemoglobin 8.6 gm/dl (10.1-14.3); Lymphocytes # (Auto) 1.8 K/mm3 (1.2-5.4); Lymphocytes % (Auto) 25.3 % (13.4-35.0); Mean Corpuscular HGB Conc 34 % (30-34); Mean Corpuscular Volume 105 fl (79-97); Monocytes # (Auto) 0.7 K/mm3 (0.0-0.8); Monocytes % (Auto) 10.1 % (0.0-7.3); Platelet Count 231 K/mm3 (140-440); Red Blood Count 2.44 M/mm3 (3.65-5.03); Red Cell Distribution Width 14.1 % (13.2-15.2)
--- NOTE | 2018-12-31 08:08 | Progress Note ---
Assessment and Plan Impression: * ESRD * Abdominal pain * Anemia secondary to ESRD * CAD * HTN * Secondary hyperparathyriodism * History of retroperitoneal bleeding Plan: * HD today * Resume qTTHSAT thereafter * UF as tolerated * No heparin with dialysis * GI recommendations noted * Epogen TIW prn * Strict I/O * Renal diet Subjective Date of service: 12/31/18 Interval history: Patient c/o abdominal discomfort today. She denies N/V Objective - Vital Signs Vital signs: Vital Signs - 12hr 12/30/18 12/31/18 23:37 05:47 Temperature 98.0 F 97.8 F Pulse Rate 95 H 97 H Respiratory 18 18 Rate Blood Pressure 133/63 133/91 O2 Sat by Pulse 98 99 Oximetry - General Appearance General appearance: well-developed, well-nourished EENT: ATNC Respiratory: Present: Clear to Ascultation Cardiology: regular, S1S2 Gastrointestinal: tenderness, no distended, no guarding Integumentary: no rash Neurologic: no focal deficit, alert and oriented x3 Musculoskeletal: other (no edema) Psychiatric: cooperative - Lab 12/31/18 07:00 12/31/18 07:00 Most recent lab results Calcium 10.4 mg/dL (8.4-10.2) H 12/30/18 05:44 Medications & Allergies - Medications Allergies/Adverse Reactions: Allergies lisinopril Allergy (Verified 10/30/18 17:15) Angioedema Home Medications: Home Medications Medication Instructions Recorded Confirmed Last Taken Type Acetaminophen [Acetaminophen TAB] 650 mg PO Q6H PRN #15 tablet 08/20/18 11/28/18 Unknown Rx Aspirin [Aspirin BABY CHEW TAB] 81 mg PO QDAY #15 tab.chew 11/28/18 Unknown Rx AtorvaSTATin [Lipitor] 40 mg PO QHS #30 tablet 11/28/18 Unknown Rx Docusate Sodium [Colace CAP] 100 mg PO BID #30 capsule 11/28/18 Unknown Rx ISOSORBIDE MONOnitrate [Imdur ER] 30 mg PO QDAY #30 tablet 11/28/18 Unknown Rx Losartan [Cozaar] 100 mg PO QDAY #30 tablet 11/28/18 Unknown Rx Metoprolol [Lopressor TAB] 25 mg PO Q6HR 30 Days tablet 11/28/18 Unknown Rx NIFEdipine XL [Procardia Xl] 60 mg PO Q12HR #30 tablet 11/28/18 Unknown Rx Ondansetron [Zofran ODT TAB] 4 mg PO Q8HR PRN #20 tab.rapdis 11/28/18 Unknown Rx Sennosides/Docusate [Senokot S] 1 each PO Q12HR 30 Days #60 tab 11/28/18 Unknown Rx Lactulose [Cephulac] 20 gm PO QDAY PRN 10 Days 12/31/18 Unknown Rx oral.liqd Pantoprazole [Protonix TAB] 40 mg PO BID #60 tablet 12/31/18 Unknown Rx Active Medications: Generic Name Dose Route Start Last Admin Trade Name Freq PRN Reason Stop Dose Admin Acetaminophen 650 mg 12/29/18 12:37 Tylenol PO Q4H PRN Pain MILD(1-3)/Fever >100.5/ANTHONY Acetaminophen/Hydrocodone Bitart 1 each 12/29/18 12:42 12/30/18 10:43 [place] 5/325 PO 1 each Q6H PRN Administration Pain , Severe (7-10) Albuterol 2.5 mg 12/29/18 12:37 Proventil IH Q4HRT PRN Shortness Of Breath Atorvastatin Calcium 40 mg 12/29/18 22:00 12/30/18 21:11 Lipitor PO 40 mg QHS TIMUR Administration Docusate Sodium 100 mg 12/29/18 22:00 12/30/18 21:11 Colace PO 100 mg BID TIMUR Administration Epoetin Hayden 20,000 unit 12/30/18 11:39 Procrit IV NIKKI PRN hemodialysis Sodium Chloride 100 mls @ 999 mls/hr 12/30/18 11:37 Nacl 0.9% IV NIKKI PRN Hypotension Isosorbide Mononitrate 30 mg 12/30/18 10:00 12/30/18 10:44 Imdur PO 30 mg QDAY TIMUR Administration Lactulose 20 gm 12/30/18 11:36 Cephulac PO Q6H PRN Constipation Losartan Potassium 100 mg 12/30/18 14:00 12/30/18 16:02 Cozaar PO 100 mg QDAY TIMUR Administration Nifedipine 60 mg 12/29/18 22:00 12/30/18 21:11 Procardia Xl PO 60 mg Q12HR TIMUR Administration Ondansetron HCl 4 mg 12/29/18 13:00 Zofran IV Q8H PRN Nausea And Vomiting Pantoprazole Sodium 40 mg 12/29/18 22:00 12/30/18 21:11 Protonix IV 40 mg BID TIMUR Administration Senna/Docusate Sodium 1 tab 12/29/18 22:00 12/30/18 21:11 Senokot S PO 1 tab Q12HR TIMUR Administration Sodium Chloride 10 ml 12/29/18 22:00 12/30/18 21:11 Sodium Chloride Flush Syringe 10 Ml IV 10 ml BID TIMUR Administration Sodium Chloride 10 ml 12/29/18 13:00 Sodium Chloride Flush Syringe 10 Ml IV PRN PRN LINE FLUSH
[2018-12-31 08:22] LABS: Calcium 9.8 mg/dL (8.4-10.2)
[2018-12-31] MEDS ORDERED: DULCOLAX PR PRN (09:18)
[2018-12-31] MEDS: PROTONIX IV SCH (09:23)
[2018-12-31] MEDS: COZAAR PO SCH (09:23)
[2018-12-31] MEDS: COLACE PO SCH ×2 (09:24→22:22)
[2018-12-31] MEDS: IMDUR PO SCH (09:24)
[2018-12-31] MEDS: SENOKOT S PO SCH ×2 (09:24→22:22)
[2018-12-31] MEDS: PROCARDIA XL PO SCH ×2 (09:24→22:22)
[2018-12-31] MEDS: SODIUM CHLORIDE FLUSH SYRINGE 10 ML IV SCH ×2 (09:24→22:22)
[2018-12-31] MEDS: PROTONIX PO SCH ×2 (09:35→22:22)
--- NOTE | 2018-12-31 09:49 | Progress Note ---
Assessment and Plan 1. Heme + rectal mucus - nonspecific. H/H down minimally. Likely due to menstruation, and not truly GI. No nuzhat GI bleed. Could have worsening of duodenal erosions given NSAIDs. - PPI - change to qd - monitor H/H - given recent endoscopies, no plans for further evaluation. 2. Constipation - chronic. Will give Dulcolax and enemas to help Golytely. - at D/C, Miralax or Lactulose daily - in inadequate, Linzess 3. Abd pain - chronic. Exam, CT, labs nonspecific and benign except for constipation. - laxatives - monitor, and avoid narcotics - may need neuromodulators 4. Anemia - likely due to ESRD. Subjective Date of service: 12/31/18 Interval history: Pt complains of ongoing abd discomfort. Drank 40% of Golytely, and then quit due to discomfort. No BMs, only flatus. No N/V. Objective - Constitutional Vitals: Vital Signs - 12hr 12/30/18 12/31/18 12/31/18 23:37 05:47 09:23 Temperature 98.0 F 97.8 F Pulse Rate 95 H 97 H 97 H Respiratory 18 18 Rate Blood Pressure 133/63 133/91 O2 Sat by Pulse 98 99 Oximetry General appearance: Present: no acute distress - EENT Eyes: PERRL, EOM intact ENT: hearing intact - Respiratory Respiratory effort: normal - Gastrointestinal General gastrointestinal: Present: soft, tender (mild diffuse), normal bowel sounds - Labs CBC & Chem 7: 12/31/18 07:00 12/31/18 07:00 Labs: Abnormal lab results 12/30/18 12/31/18 12/31/18 Range/Units 13:39 07:00 07:00 RBC 2.51 L 2.44 L (3.65-5.03) M/mm3 Hgb 8.9 L 8.6 L (10.1-14.3) gm/dl Hct 26.5 L 25.6 L (30.3-42.9) % MCV 106 H 105 H (79-97) fl MCH 36 H 35 H (28-32) pg [place] % (Auto) 10.1 H (0.0-7.3) % Eos % (Auto) 4.5 H (0.0-4.3) % Sodium 132 L (137-145) mmol/L Chloride 87.9 L (98-107) mmol/L BUN 68 H (7-17) mg/dL Creatinine 14.8 H (0.7-1.2) mg/dL Medications & Allergies - Medications Allergies/Adverse Reactions: Allergies lisinopril Allergy (Verified 10/30/18 17:15) Angioedema Home Medications: Home Medications Medication Instructions Recorded Confirmed Last Taken Type Acetaminophen [Acetaminophen TAB] 650 mg PO Q6H PRN #15 tablet 08/20/18 11/28/18 Unknown Rx Aspirin [Aspirin BABY CHEW TAB] 81 mg PO QDAY #15 tab.chew 11/28/18 Unknown Rx AtorvaSTATin [Lipitor] 40 mg PO QHS #30 tablet 11/28/18 Unknown Rx Dicyclomine [Bentyl] 20 mg PO QID PRN #20 tablet 11/28/18 Unknown Rx Docusate Sodium [Colace CAP] 100 mg PO BID #30 capsule 11/28/18 Unknown Rx HYDROcodone/APAP 5-325 [[place] 1 each PO Q6H PRN #15 tablet 11/28/18 Unknown Rx 5-325 mg TAB] ISOSORBIDE MONOnitrate [Imdur ER] 30 mg PO QDAY #30 tablet 11/28/18 Unknown Rx Ketorolac [Toradol] 10 mg PO Q6H PRN #20 tablet 11/28/18 Unknown Rx Lactulose [Cephulac] 20 gm PO QDAY PRN 10 Days 11/28/18 Unknown Rx oral.liqd Losartan [Cozaar] 100 mg PO QDAY #30 tablet 11/28/18 Unknown Rx Metoprolol [Lopressor TAB] 25 mg PO Q6HR 30 Days tablet 11/28/18 Unknown Rx NIFEdipine XL [Procardia Xl] 60 mg PO Q12HR #30 tablet 11/28/18 Unknown Rx Ondansetron [Zofran ODT TAB] 4 mg PO Q8HR tab.rapdis 11/28/18 Unknown Rx Ondansetron [Zofran ODT TAB] 4 mg PO Q8HR PRN #20 tab.rapdis 11/28/18 Unknown Rx Pantoprazole [Protonix TAB] 40 mg PO DAILY #30 tablet 11/28/18 Unknown Rx Sennosides/Docusate [Senokot S] 1 each PO Q12HR 30 Days #60 tab 11/28/18 Unknown Rx Active Medications: Generic Name Dose Route Start Last Admin Trade Name Freq PRN Reason Stop Dose Admin Acetaminophen 650 mg 12/29/18 12:37 Tylenol PO Q4H PRN Pain MILD(1-3)/Fever >100.5/ANTHONY Acetaminophen/Hydrocodone Bitart 1 each 12/29/18 12:42 12/30/18 10:43 [place] 5/325 PO 1 each Q6H PRN Administration Pain , Severe (7-10) Albuterol 2.5 mg 12/29/18 12:37 Proventil IH Q4HRT PRN Shortness Of Breath Atorvastatin Calcium 40 mg 12/29/18 22:00 12/30/18 21:11 Lipitor PO 40 mg QHS TIMUR Administration Bisacodyl 10 mg 12/31/18 09:18 Dulcolax CO QDAY PRN Constipation Docusate Sodium 100 mg 12/29/18 22:00 12/31/18 09:24 Colace PO 100 mg BID TIMUR Administration Epoetin Hayden 20,000 unit 12/30/18 11:39 Procrit IV NIKKI PRN hemodialysis Sodium Chloride 100 mls @ 999 mls/hr 12/30/18 11:37 Nacl 0.9% IV NIKKI PRN Hypotension Isosorbide Mononitrate 30 mg 12/30/18 10:00 12/31/18 09:24 Imdur PO 30 mg QDAY TIMUR Administration Lactulose 20 gm 12/30/18 11:36 Cephulac PO Q6H PRN Constipation Losartan Potassium 100 mg 12/30/18 14:00 12/31/18 09:23 Cozaar PO 100 mg QDAY TIMUR Administration Nifedipine 60 mg 12/29/18 22:00 12/31/18 09:24 Procardia Xl PO 60 mg Q12HR TIMUR Administration Ondansetron HCl 4 mg 12/29/18 13:00 Zofran IV Q8H PRN Nausea And Vomiting Pantoprazole Sodium 40 mg 12/31/18 10:00 12/31/18 09:35 Protonix PO 40 mg BID TIMUR Administration Senna/Docusate Sodium 1 tab 12/29/18 22:00 12/31/18 09:24 Senokot S PO 1 tab Q12HR TIMUR Administration Sodium Chloride 10 ml 12/29/18 22:00 12/31/18 09:24 Sodium Chloride Flush Syringe 10 Ml IV 10 ml BID TIMUR Administration Sodium Chloride 10 ml 12/29/18 13:00 Sodium Chloride Flush Syringe 10 Ml IV PRN PRN LINE FLUSH
[2018-12-31 11:35] LABS: Hepatitis B Surface Antigen Non-Reactive (Negative); Hepatitis C Virus Antibody Non-Reactive (NonReactive)
--- NOTE | 2018-12-31 11:50 | Discharge Summary ---
Providers - Providers Date of Admission: 12/29/18 12:37 Date of discharge: 12/31/18 Attending physician: KATHY SUERO 12/29/18 12:17 Consult to Physician [CONS] Urgent Comment: DR QUIQUE JIMENEZ W/DR IRVIN @1214 Consulting Provider: HORTENCIA ZAMORA Physician Instructions: Reason For Exam: GI Bleed 12/29/18 12:31 Consult to Physician [CONS] Routine Comment: Consulting Provider: HUNG MOSES Physician Instructions: Reason For Exam: ESRD [facility] Condition: Stable Pertinent studies: CT abdomen/pelvis Hospital course: Ms. Castle is a 48-year-old woman with end-stage renal disease was admitted after complaining of abdominal pain and nausea at hemodialysis. The emergency room, she was found to have dropped her hemoglobin to 9.8 from 13.8 on November 28. Rectal exam showed no stool but the mucus was trace guaiac positive. She was hospitalized 3 times last month for abdominal pain and evaluated by Dr. samaniego at the end of November. She underwent an upper endoscopy as well as a colonoscopy on November 28 showing erosive duodenitis and otherwise benign exam. She does have h/o constipation and has bowel movements approximately once a week. She was discharged home on lactulose but had not taken it until she resumed this week. Of note, patient quit taking cocaine [address] done in the emergency room shows significant constipation. Pt started menstrual cycle on 12/28/18. She was evaluated by GI, monitored H/H, recommended to continue lactulose and changed PPI to BID. She was then discharged home in stable condition. Discharge diagnosis and management: /Acute on chronic Anemia of CD, Minitor h/h - Heme + rectal mucus - Likely due to menstruation, and not truly GI. Could have worsening of duodenal erosions given NSAIDs. - PPI - change to qd - given recent endoscopies, no plans for further evaluation per GI. / Abdominal pain, due to constipation - ordered golytely, CT abdomen w/o any new changes - GI following /Chronic diastolic dysfunction, not in HF on admission - preserved EF on previous echo and cardiac cath on 08/21 / hypertension, stable / Cocaine abuse, last intake 2 weeks ago / End-stage renal disease needing dialysis Status: Chronic / HLD (hyperlipidemia), cont statin /Secondary hyperparathyriodism, stable /history of retroperitoneal bleeding, monitor h/h, CT abdomen w/o any new changes /Mild malnutrition, counseled for healthy diet. patient has normal BMI with n ormal albumin on admission so doesnot meet criteria for severe malnutrition. Disposition: DC-01 TO HOME OR SELFCARE Time spent for discharge: 34 minutes Core Measure Documentation - Palliative Care Palliative Care/ Comfort Measures: Not Applicable - Core Measures Any of the following diagnoses?: history only Exam - Constitutional Vitals: Temp Pulse Resp BP Pulse Ox 97.8 F 88 18 144/83 99 12/31/18 10:15 12/31/18 11:30 12/31/18 10:15 12/31/18 11:30 12/31/18 09:47 Plan Activity: advance as tolerated Weight Bearing Status: Weight Bear as Tolerated Diet: renal [facility]Primary Care [facility] - 3-5 Days Prescriptions: Lactulose [Cephulac] 20 gm PO QDAY PRN 10 Days oral.liqd PRN Reason: Constipation Pantoprazole [Protonix TAB] 40 mg PO BID #60 tablet
[2018-12-31] MEDS ORDERED: NACL 0.9 (PRIMING MACHINE ONLY DIALYSIS) MC ONE (12:16)
--- NOTE | 2018-12-31 23:49 | Progress Note ---
Assessment and Plan / Abdominal pain, due to constipation - CT abdomen w/o any new changes - GI following, ordered golytely/lactulose/enema - no BM yet - ordered barium enema / hypertension, stable / Cocaine abuse, last intake 2 weeks ago / End-stage renal disease needing dialysis Nephrology consulted / HLD (hyperlipidemia), cont statin /Secondary hyperparathyriodism, stable /Acute on chronic Anemia of CD, Minitor h/h - Heme + rectal mucus - Likely due to menstruation, and not truly GI. Could have worsening of duodenal erosions given NSAIDs. - PPI - change to qd - given recent endoscopies, no plans for further evaluation per GI. /history of retroperitoneal bleeding, monitor h/h, CT abdomen w/o any new changes /Mild malnutrition, counseled for healthy diet. patient has normal BMI with normal albumin on admission so does not meet criteria for severe malnutrition. Brief history: Ms. Castle is a 48-year-old woman with end-stage renal disease was admitted after complaining of abdominal pain and nausea at hemodialysis. The emergency room, she was found to have dropped her hemoglobin to 9.8 from 13.8 on November 28. Rectal exam showed no stool but the mucus was trace guaiac positive. She was hospitalized 3 times last month for abdominal pain and evaluated by Dr. samaniego at the end of November. She underwent an upper endoscopy as well as a colonoscopy on November 28 showing erosive duodenitis and otherwise benign exam. She does have h/o constipation and has bowel movements approximately once a week. ordered go lytely/lactulose/enema - no BM yet, ordered barium enema for tomorrow. Subjective Date of service: 12/31/18 Interval history: Patient seen and examined No acute GI bleed issue o/n, h/h stable denies chest pain or SOB Did not have BM yet after getting golytely/enema/lactulose Objective - Exam Narrative Exam: General appearance: Present: no acute distress - EENT Eyes: PERRL, EOM intact ENT: hearing intact, clear oral mucosa Ears: bilateral: normal - Neck Neck: supple, normal ROM - Respiratory Respiratory effort: normal Respiratory: bilateral: CTA - Cardiovascular Rhythm: regular Heart Sounds: Present: S1 & S2. Absent: gallop, rub Extremities: pulses intact, No edema, normal color, Full ROM - Gastrointestinal General gastrointestinal: Present: soft, non-tender, non-distended, normal bowel sounds - Integumentary Integumentary: clear, warm, dry - Musculoskeletal Musculoskeletal: 1, strength equal bilaterally - Neurologic Neurologic: moves all extremities - Psychiatric Psychiatric: memory intact, appropriate mood/affect, intact judgment & insight - Constitutional Vitals: Vital Signs - 12hr 12/31/18 12/31/18 12/31/18 12:00 12:15 12:30 Temperature Pulse Rate 92 H 90 89 Respiratory Rate Blood Pressure 145/86 156/98 147/91 O2 Sat by Pulse Oximetry 12/31/18 12/31/18 12/31/18 12:45 13:00 13:15 Temperature Pulse Rate 88 93 H 96 H Respiratory Rate Blood Pressure 165/95 151/90 144/91 O2 Sat by Pulse Oximetry 12/31/18 12/31/18 12/31/18 13:30 13:45 14:10 Temperature 98.0 F Pulse Rate 92 H 93 H 93 H Respiratory 18 Rate Blood Pressure 151/91 149/86 149/86 O2 Sat by Pulse Oximetry 12/31/18 12/31/18 17:18 21:42 Temperature 98.4 F 98.9 F Pulse Rate 119 H 89 Respiratory 18 20 Rate Blood Pressure 119/87 152/96 O2 Sat by Pulse 99 99 Oximetry - Labs CBC & Chem 7: 12/31/18 07:00 12/31/18 07:00 Labs: Abnormal lab results 12/31/18 12/31/18 Range/Units 07:00 07:00 RBC 2.44 L (3.65-5.03) M/mm3 Hgb 8.6 L (10.1-14.3) gm/dl Hct 25.6 L (30.3-42.9) % MCV 105 H (79-97) fl MCH 35 H (28-32) pg [place] % (Auto) 10.1 H (0.0-7.3) % Eos % (Auto) 4.5 H (0.0-4.3) % Sodium 132 L (137-145) mmol/L Chloride 87.9 L (98-107) mmol/L BUN 68 H (7-17) mg/dL Creatinine 14.8 H (0.7-1.2) mg/dL
[2019-01-01] MEDS ORDERED: NACL 0.9% 100 ML IV PRN (09:08)
--- NOTE | 2019-01-01 09:08 | Progress Note ---
Assessment and Plan Impression: * ESRD * Abdominal pain * Anemia secondary to ESRD * CAD * HTN * Secondary hyperparathyriodism * History of retroperitoneal bleeding Plan: * Resume qTTHSAT HD schedule * UF as tolerated * No heparin with dialysis * GI recommendations noted * Epogen TIW prn * Strict I/O * Renal diet Subjective Date of service: 01/01/19 Objective - Vital Signs Vital signs: Vital Signs - 12hr 12/31/18 01/01/19 21:42 04:54 Temperature 98.9 F 97.5 F L Pulse Rate 89 95 H Respiratory 20 20 Rate Blood Pressure 152/96 153/95 O2 Sat by Pulse 99 100 Oximetry - Lab 12/31/18 07:00 12/31/18 07:00 Most recent lab results Calcium 9.8 mg/dL (8.4-10.2) 12/31/18 07:00 Medications & Allergies - Medications Allergies/Adverse Reactions: Allergies lisinopril Allergy (Verified 10/30/18 17:15) Angioedema Home Medications: Home Medications Medication Instructions Recorded Confirmed Last Taken Type Acetaminophen [Acetaminophen TAB] 650 mg PO Q6H PRN #15 tablet 08/20/18 11/28/18 Unknown Rx Aspirin [Aspirin BABY CHEW TAB] 81 mg PO QDAY #15 tab.chew 11/28/18 Unknown Rx AtorvaSTATin [Lipitor] 40 mg PO QHS #30 tablet 11/28/18 Unknown Rx Docusate Sodium [Colace CAP] 100 mg PO BID #30 capsule 11/28/18 Unknown Rx ISOSORBIDE MONOnitrate [Imdur ER] 30 mg PO QDAY #30 tablet 11/28/18 Unknown Rx Losartan [Cozaar] 100 mg PO QDAY #30 tablet 11/28/18 Unknown Rx Metoprolol [Lopressor TAB] 25 mg PO Q6HR 30 Days tablet 11/28/18 Unknown Rx NIFEdipine XL [Procardia Xl] 60 mg PO Q12HR #30 tablet 11/28/18 Unknown Rx Ondansetron [Zofran ODT TAB] 4 mg PO Q8HR PRN #20 tab.rapdis 11/28/18 Unknown Rx Sennosides/Docusate [Senokot S] 1 each PO Q12HR 30 Days #60 tab 11/28/18 Unknown Rx Lactulose [Cephulac] 20 gm PO QDAY PRN 10 Days 12/31/18 Unknown Rx oral.liqd Pantoprazole [Protonix TAB] 40 mg PO BID #60 tablet 12/31/18 Unknown Rx Active Medications: Generic Name Dose Route Start Last Admin Trade Name Freq PRN Reason Stop Dose Admin Acetaminophen 650 mg 12/29/18 12:37 Tylenol PO Q4H PRN Pain MILD(1-3)/Fever >100.5/ANTHONY Acetaminophen/Hydrocodone Bitart 1 each 12/29/18 12:42 12/30/18 10:43 Wasta 5/325 PO 1 each Q6H PRN Administration Pain , Severe (7-10) Albuterol 2.5 mg 12/29/18 12:37 Proventil IH Q4HRT PRN Shortness Of Breath Atorvastatin Calcium 40 mg 12/29/18 22:00 12/31/18 22:22 Lipitor PO 40 mg QHS TIMUR Administration Bisacodyl 10 mg 12/31/18 09:18 12/31/18 09:56 Dulcolax UT 10 mg QDAY PRN Administration Constipation Docusate Sodium 100 mg 12/29/18 22:00 12/31/18 22:22 Colace PO 100 mg BID TIMUR Administration Epoetin Hayden 20,000 unit 12/30/18 11:39 12/31/18 13:45 Procrit IV 20,000 unit NIKKI PRN Administration hemodialysis Sodium Chloride 100 mls @ 999 mls/hr 12/30/18 11:37 Nacl 0.9% IV NIKKI PRN Hypotension Isosorbide Mononitrate 30 mg 12/30/18 10:00 12/31/18 09:24 Imdur PO 30 mg QDAY TIMUR Administration Lactulose 20 gm 12/30/18 11:36 Cephulac PO Q6H PRN Constipation Losartan Potassium 100 mg 12/30/18 14:00 12/31/18 09:23 Cozaar PO 100 mg QDAY TIMUR Administration Nifedipine 60 mg 12/29/18 22:00 12/31/18 22:22 Procardia Xl PO 60 mg Q12HR TIMUR Administration Ondansetron HCl 4 mg 12/29/18 13:00 Zofran IV Q8H PRN Nausea And Vomiting Pantoprazole Sodium 40 mg 12/31/18 10:00 12/31/18 22:22 Protonix PO 40 mg BID TIMUR Administration Senna/Docusate Sodium 1 tab 12/29/18 22:00 12/31/18 22:22 Senokot S PO 1 tab Q12HR TIMUR Administration Sodium Chloride 10 ml 12/29/18 22:00 12/31/18 22:22 Sodium Chloride Flush Syringe 10 Ml IV 10 ml BID TIMUR Administration Sodium Chloride 10 ml 12/29/18 13:00 Sodium Chloride Flush Syringe 10 Ml IV PRN PRN LINE FLUSH
--- NOTE | 2019-01-01 09:15 | Fluoroscopy Report ---
FLUOROSCOPY THERAPEUTIC ENEMA HISTORY: Constipation, severe abdominal pain. FINDINGS: Manager Test film of the abdomen demonstrates moderate stool throughout the length of the colon. 5 00 cc of Gastrografin contrast agent was delivered via a rectal tube. Only the left hemicolon could b e opacified which demonstrates multiple filling defects consistent with stool. No obvious colonic les ion in the distal colon although this is not a diagnostic exam. The patient tolerated the procedure w ithout difficulty. 9 fluoroscopic images were saved. 1 minute of fluoroscopy time. IMPRESSION: Successful therapeutic Gastrografin enema. Signer Name: Mason Diallo Jr, MD Signed: 01/01/2019 9:10 AM Workstation Name: [id number]
[2019-01-01] MEDS: PROCARDIA XL PO SCH (09:41)
[2019-01-01] MEDS: PROTONIX PO SCH (09:41)
[2019-01-01] MEDS: COLACE PO SCH (09:41)
[2019-01-01] MEDS: SENOKOT S PO SCH (09:41)
[2019-01-01] MEDS: COZAAR PO SCH (09:41)
[2019-01-01] MEDS: IMDUR PO SCH (09:41)
[2019-01-01] MEDS: SODIUM CHLORIDE FLUSH SYRINGE 10 ML IV SCH (09:42)
[2019-01-01] MEDS: NORCO 5/325 PO PRN (09:45)
[2019-01-01 15:02] VITALS: BP 126/77
--- NOTE | 2019-01-01 15:50 | Discharge Summary ---
Providers - Providers Date of Admission: 12/29/18 12:37 Date of discharge: 01/01/19 Attending physician: JAMARCUS ESPINAL 12/29/18 12:17 Consult to Physician [CONS] Urgent Comment: DR QUIQUE JIMENEZ W/DR IRVIN @1214 Consulting Provider: HORTENCIA ZAMORA Physician Instructions: Reason For Exam: GI Bleed 12/29/18 12:31 Consult to Physician [CONS] Routine Comment: Consulting Provider: HUNG MOSES Physician Instructions: Reason For Exam: ESRD Primary care physician: [facility], Hospitalization Reason for admission: abdominal pain and nausea Condition: Stable Pertinent studies: CT abdomen and pelvis Procedures: Gastrografin enema Hospital course: Ms. Castle is a 48-year-old woman with end-stage renal disease was admitted after complaining of abdominal pain and nausea at hemodialysis. The emergency room, she was found to have dropped her hemoglobin to 9.8 from 13.8 on November 28. Rectal exam showed no stool but the mucus was trace guaiac positive. She was hospitalized 3 times last month for abdominal pain and evaluated by Dr. samaniego at the end of November. She underwent an upper endoscopy as well as a colonoscopy on November 28 showing erosive duodenitis and otherwise benign exam. She does have h/o constipation and has bowel movements approximately once a week. ordered golytely/lactulose/enema - no BM yet, ordered barium enema for tomorrow. Discharge Diagnosis: --Abdominal pain, due to constipation - CT abdomen w/o any new changes - GI following, ordered golytely/lactulose/enema - no BM yet - ordered barium enema --hypertension, stable --Cocaine abuse, last intake 2 weeks ago --End-stage renal disease needing dialysis Nephrology consulted --HLD (hyperlipidemia), cont statin --Secondary hyperparathyriodism, stable --Acute on chronic Anemia of CD, Minitor h/h - Heme + rectal mucus - Likely due to menstruation, and not truly GI. Could have worsening of duodenal erosions given NSAIDs. - PPI - change to qd - given recent endoscopies, no plans for further evaluation per GI. --history of retroperitoneal bleeding, monitor h/h, CT abdomen w/o any new changes --Mild malnutrition, counseled for healthy diet. patient has normal BMI with normal albumin on admission so does not meet criteria for severe malnutrition. Disposition: DC-01 TO HOME OR SELFCARE Time spent for discharge: 32 MIN Core Measure Documentation - Palliative Care Palliative Care/ Comfort Measures: Not Applicable - Core Measures Any of the following diagnoses?: none Exam - Constitutional Vitals: Temp Pulse Resp BP Pulse Ox 97.9 F 109 H 18 126/77 100 01/01/19 10:10 01/01/19 13:45 01/01/19 13:45 01/01/19 13:45 01/01/19 09:48 General appearance: Present: no acute distress, well-nourished - EENT Eyes: Present: PERRL, EOM intact - Neck Neck: Present: supple, normal ROM - Respiratory Respiratory effort: normal Respiratory: bilateral: diminished, negative: rales, rhonchi, wheezing - Cardiovascular Rhythm: regular Heart Sounds: Present: S1 & S2 - Extremities Extremities: no ischemia, No edema - Abdominal General gastrointestinal: Present: soft, non-tender, non-distended, normal bowel sounds - Integumentary Integumentary: Present: clear, warm - Musculoskeletal Musculoskeletal: strength equal bilaterally, generalized weakness - Psychiatric Psychiatric: appropriate mood/affect, cooperative - Neurologic Neurologic: CNII-XII intact, moves all extremities Plan Activity: advance as tolerated, fall precautions Diet: renal Additional Instructions: f/u Renal and HD per schedule [facility]iel [TTS] [facility]Primary Care Provider] - 3-5 Days HORTENCIA ZAMORA MD [Staff Physician] - 7 Days RADHA MONTERO MD [Staff Physician] - 7 Days Prescriptions: Lactulose [Cephulac] 20 gm PO QDAY PRN 10 Days oral.liqd PRN Reason: Constipation Pantoprazole [Protonix TAB] 40 mg PO BID #60 tablet
[2019-01-01] MEDS ORDERED: NACL 0.9 (PRIMING MACHINE ONLY DIALYSIS) MC ONE (22:13)
== END 2019-01-01 17:55 | disposition home or self-care (01) | DRG 391 ==
LOC: ED 06:36 → 3A 12:37
PROVIDERS: ADMIT Internal Medicine; ATTEND Internal Medicine
PROC: 5A1D70Z Performance of Urinary Filtration, Intermittent, Less than 6 Hours Per Day (ICD-10-PCS; principal; 2018-12-31)
PROC: 5A1D70Z Performance of Urinary Filtration, Intermittent, Less than 6 Hours Per Day (ICD-10-PCS; 2019-01-01)
DX: K59.09 Other constipation (principal); I50.33 Acute on chronic diastolic (congestive) heart failure; N18.6 End stage renal disease; G89.29 Other chronic pain; I13.2 Hypertensive heart and chronic kidney disease with heart failure and with stage 5 chronic kidney disease, or end stage renal disease; D50.0 Iron deficiency anemia secondary to blood loss (chronic); E44.0 Moderate protein-calorie malnutrition; G43.909 Migraine, unspecified, not intractable, without status migrainosus; J45.909 Unspecified asthma, uncomplicated; I25.10 Atherosclerotic heart disease of native coronary artery without angina pectoris; N25.81 Secondary hyperparathyroidism of renal origin; F14.10 Cocaine abuse, uncomplicated; E78.5 Hyperlipidemia, unspecified; D63.1 Anemia in chronic kidney disease; Z68.1 Body mass index [BMI] 19.9 or less, adult; Z99.2 Dependence on renal dialysis; Z87.11 Personal history of peptic ulcer disease; Z82.49 Family history of ischemic heart disease and other diseases of the circulatory system; Z90.49 Acquired absence of other specified parts of digestive tract; Z88.6 Allergy status to analgesic agent; Z79.82 Long term (current) use of aspirin; Z87.442 Personal history of urinary calculi
CPT/HCPCS: 36415; 74176; 74283; 80048; 80053; 80074; 82271; 83690; 84703; 85025; 85027; 85610; 85730; 86850; 86900; 86901; 87116; 94640; 96374; 96375; 96376; G0378; A9270-GY; C9113; J0885; J2405; J3010; J7030; Q9963

== ENCOUNTER 2020-01-20 14:34 | Outpatient (CLI) | payer MEDICAID ==
[2020-01-20] MEDS ORDERED: LIDOCAINE (4%) 40 MG/ML TOPICAL SOLN 50 ML BOTTLE TP ONE (15:00)
== END 2020-01-20 14:35 | disposition home or self-care (01) ==
LOC: WOUND 14:34
PROVIDERS: ATTEND Surgery
DX: T81.89XD Other complications of procedures, not elsewhere classified, subsequent encounter (principal); K26.9 Duodenal ulcer, unspecified as acute or chronic, without hemorrhage or perforation; I12.0 Hypertensive chronic kidney disease with stage 5 chronic kidney disease or end stage renal disease; N18.6 End stage renal disease; E43 Unspecified severe protein-calorie malnutrition; E78.5 Hyperlipidemia, unspecified; F17.210 Nicotine dependence, cigarettes, uncomplicated; F14.90 Cocaine use, unspecified, uncomplicated; Z86.73 Personal history of transient ischemic attack (TIA), and cerebral infarction without residual deficits; Z99.2 Dependence on renal dialysis; Z93.3 Colostomy status; Z90.49 Acquired absence of other specified parts of digestive tract; Z98.51 Tubal ligation status; Y83.8 Other surgical procedures as the cause of abnormal reaction of the patient, or of later complication, without mention of misadventure at the time of the procedure
CPT/HCPCS: 17250

== ENCOUNTER 2020-01-27 14:35 | Outpatient (CLI) | payer MEDICAID | END 2020-01-27 14:36 | disposition home or self-care (01) | LOC: WOUND 14:35 | PROVIDERS: ATTEND Surgery | DX: K26.9 Duodenal ulcer, unspecified as acute or chronic, without hemorrhage or perforation (principal); I12.0 Hypertensive chronic kidney disease with stage 5 chronic kidney disease or end stage renal disease; N18.6 End stage renal disease; E43 Unspecified severe protein-calorie malnutrition; E78.5 Hyperlipidemia, unspecified; F17.210 Nicotine dependence, cigarettes, uncomplicated; F14.90 Cocaine use, unspecified, uncomplicated; Z86.73 Personal history of transient ischemic attack (TIA), and cerebral infarction without residual deficits; Z99.2 Dependence on renal dialysis; Z93.3 Colostomy status; Z90.49 Acquired absence of other specified parts of digestive tract; Z98.51 Tubal ligation status | CPT/HCPCS: 99213; G0463 ==